=== PATIENT | female | born 1950 | race Caucasian/White ===

== ENCOUNTER → 2018-08-03 07:58 | Outpatient (CLI) | payer MEDICARE, SELFPAY ==
[2018-08-03 08:42] LABS: Hemoglobin A1C 6.7 % (0.0-7.0)
[2018-08-03 10:02] LABS: Alanine Aminotransferase 14 U/L (12-78); Albumin/Globulin Ratio 0.9 (1.1-1.8); Alkaline Phosphatase 151 U/L (46-116); Aspartate Amino Transferase 16 U/L (15-37); Bilirubin,Total 0.3 mg/dL (0.2-1.0); Blood Urea Nitrogen 16 mg/dL (7-18); Calcium 8.9 mg/dL (8.5-10.1); Carbon Dioxide 30 mmol/L (21.0-32.0); Chloride 102 mmol/L (98-107); Chol/HDL Ratio 3.1 (1-3.5); Cholesterol 173 mg/dL (140-200); Creatinine,Serum 0.89 mg/dL (0.55-1.02); Estimated Glomerular Filt Rate 63 ml/min (>60); GFR (African American) 77 ML/MIN (>60); Globulin 3.4 gm/dl (1.3-3.2); Glucose 114 mg/dL (74-106); HDL Cholesterol 56 mg/dL (29-89); LDL Cholesterol 93 mg/dL (0-130); Sodium 140 mmol/L (136-145); Total Protein,Serum 6.4 gm/dL (6.4-8.2); Triglycerides 121 mg/dL (30-200); VLDL Cholesterol 24 mg/dL (0-40)
== END ==
PROVIDERS: PCP Family Medicine; Visit Provider Family Medicine
DX: E11.9 Type 2 diabetes mellitus without complications (principal); I10 Essential (primary) hypertension; E78.5 Hyperlipidemia, unspecified
CPT/HCPCS: 36415; 80053; 80061; 83036

== ENCOUNTER → 2018-08-14 08:49 | Outpatient (CLI) | payer MEDICARE, SELFPAY ==
--- NOTE | 2018-08-14 08:55 | MM_ITS ---
MM Dig screening mamm BI w/CAD ORDERING PHYSICIAN : Abiodun Moon MD PATIENT AGE: 67 years GENDER: Female COMPARISON: Previous film screening mammogram from January INDICATION: ITS.REASON: SCREENING. No hormones. No new complaints. Noncontributory family history. Patient does note history of skin cancer/basal cell. TECHNIQUE: Standard CC and MLO images were obtained. R2 CAD reviewed. Left CC nipple profile view FINDINGS: Lower density breast. Minimal Fibroglandular elements with moderate diffuse fatty replacement. Scattered small stable intramammary lymph nodes lateral left and right breast are again noted. No new findings of significant concern. No suspicious nor dominant mass. No suspicious calcifications. Right breast. No significant new findings Area is noted at the lateral retroareolar on cc view were present in 2006 and appears stable today. Left breast., No significant new findings Ductal and fibroglandular elements most evident at left retroareolar region. . IMPRESSION: ... Stable bilateral mammogram. Follow-up in one year recommended. BI-RADS Category: 2 Benign Finding(s) RECOMMENDED FOLLOW-UP: 1YR 1 YEAR FOLLOW-UP (A letter has been sent to the patient regarding results of the study.)
== END ==
PROVIDERS: PCP Family Medicine; Visit Provider Family Medicine
DX: Z12.31 Encounter for screening mammogram for malignant neoplasm of breast (principal)
CPT/HCPCS: 77067

== ENCOUNTER → 2019-02-18 07:11 | Outpatient (CLI) | payer MEDICARE, SELFPAY ==
--- NOTE | 2019-02-18 08:49 | XR_ITS ---
XR DEXA axial skeleton HISTORY: ITS.REASON: POST MENOPAUSAL SCREENING ORDERING PHYSICIAN: Abiodun Moon MD PATIENT AGE: 68 years COMPARISON: None FINDINGS: The BMD measured at the left femoral neck is BMD 0.767 g/cm squared with a T score of -1.9. This is considered Osteopenic according to the World Health Organization criteria. Fracture risk is Moderate. Treatment is advised. L1 L4 density has a T score of 2.8 IMPRESSION: Osteopenia with moderate fracture risk. Treatment is advised. Suggest follow-up exam February 2021
[2019-02-18 09:23] LABS: Alanine Aminotransferase 21 U/L (12-78); Albumin/Globulin Ratio 0.9 (1.1-1.8); Alkaline Phosphatase 160 U/L (46-116); Anion Gap 12.9 mEq/L (5-15); Aspartate Amino Transferase 20 U/L (15-37); Bilirubin,Total 0.5 mg/dL (0.2-1.0); Blood Urea Nitrogen 8 mg/dL (7-18); Calcium 8.3 mg/dL (8.5-10.1); Carbon Dioxide 29 mmol/L (21.0-32.0); Chloride 100 mmol/L (98-107); Chol/HDL Ratio 3.4 (1-3.5); Cholesterol 134 mg/dL (140-200); Creatinine,Serum 1.03 mg/dL (0.55-1.02); Estimated Glomerular Filt Rate 53 ml/min (>60); GFR (African American) 64 ML/MIN (>60); Globulin 3.5 gm/dl (1.3-3.2); Glucose 101 mg/dL (74-106); HDL Cholesterol 39 mg/dL (29-89); LDL Cholesterol 69 mg/dL (0-130); Potassium 3.9 mmoL/L (3.5-5.1); Sodium 138 mmol/L (136-145); Total Protein,Serum 6.5 gm/dL (6.4-8.2); Triglycerides 129 mg/dL (30-200); VLDL Cholesterol 26 mg/dL (0-40)
== END ==
PROVIDERS: Visit Provider Family Medicine
DX: E11.9 Type 2 diabetes mellitus without complications (principal); I10 Essential (primary) hypertension; Z78.0 Asymptomatic menopausal state
CPT/HCPCS: 36415; 77080; 80053; 80061; 83036

== ENCOUNTER 2019-07-14 17:22 | Observation (INO) ==
[2019-07-14 19:08] LABS: Basophils % 0.5 % (0.1-2.0); Eosinophils # 0.2 K/mm3 (0.0-0.4); Eosinophils % 2.2 % (0.1-12.0); Hematocrit 38.3 % (37.0-47.0); Hemoglobin 11.4 g/dL (12.2-16.2); Lymphocytes # 2.1 K/mm3 (0.7-4.5); Lymphocytes % 29.7 % (10-50); Mean Corpuscular HGB Conc 29.8 g/dL (31.8-35.4); Mean Corpuscular Volume 83.1 fl (81-99); Monocytes # 0.5 K/mm3 (0.1-1.0); Monocytes % 6.6 % (1.7-9.3); Neutrophils # 4.3 K/mm3 (1.8-7.8); Platelet Count 309 K/mm3 (142-424); Red Cell Distribution Width 16.6 % (11.5-17.5)
[2019-07-14 20:32] LABS: Albumin/Globulin Ratio 0.8 (1.1-1.8); Anion Gap 10.1 mEq/L (5-15); Bilirubin,Total 0.5 mg/dL (0.2-1.0); Calcium 8.4 mg/dL (8.5-10.1); Globulin 3.9 gm/dl (1.3-3.2); Total Protein,Serum 6.9 gm/dL (6.4-8.2)
--- NOTE | 2019-07-14 21:18 | Emergency Department Note ---
ED Disposition Clinical Impression: Hypertensive emergency, Hypokalemia Disposition: Admitted as Observation Condition on Discharge: Good Referrals: Mackenzie Hernández APRN [Primary Care Provider] - - Critical Care Critical Care Time: No Attestation: On 07/14/19, the high probability of a clinically significant, sudden or life threatening deterioration of the following system(s) required my full and direct attention, intervention and personal management. The time I documented below is in addition to time spent performing reported procedures but includes the following listed in this critical care notation. Medical Decision Making - Medical Records Medical records reviewed: Yes: I reviewed the patient's medical records. - [place] Inquiry Pt receiving controlled substance: No Vital Signs: 07/14/19 17:56 07/14/19 19:01 07/14/19 19:04 Temperature 98.1 F Temperature Source Oral Pulse Rate [Right Radial] 64 63 Respiratory Rate 20 Blood Pressure [Right Arm] 196/88 H 193/79 H 170/105 H Blood Pressure Mean [Right Arm] 124 117 126 Blood Pressure Source [Right Arm] Manual Cuff/ Auscultation Blood Pressure Position [Right Arm] Sitting Sitting 02 Sat by Pulse Oximetry 96 97 Oxygen Delivery Method Room Air Room Air 07/14/19 20:40 07/14/19 21:39 Temperature Temperature Source Pulse Rate [Right Radial] 66 67 Respiratory Rate 20 18 Blood Pressure [Right Arm] 250/118 H 140/85 Blood Pressure Mean [Right Arm] 162 103 Blood Pressure Source [Right Arm] Manual Cuff/ Auscultation Manual Cuff/ Auscultation Blood Pressure Position [Right Arm] Supine Sitting 02 Sat by Pulse Oximetry 97 Oxygen Delivery Method Room Air - Lab Data Lab results reviewed: Yes: I reviewed the patient's lab results. Lab Results 07/14/19 18:35: WBC 7.0, RBC 4.60, Hgb 11.4 L, Hct 38.3, MCV 83.1, MCH 24.8 L, MCHC 29.8 L, RDW 16.6, Plt Count 309, MPV 9.0, Neut % (Auto) 61.0, Lymph % (Auto) 29.7, [place] % (Auto) 6.6, Eos % (Auto) 2.2, Baso % (Auto) 0.5, Neut # (Auto) 4.3, Lymph # (Auto) 2.1, [place] # (Auto) 0.5, Eos # (Auto) 0.2, Baso # (Auto) 0.0 07/14/19 18:35: Sodium 139, Potassium 3.1 L, Chloride 102, Carbon Dioxide 30, Anion Gap 10.1, BUN 5 L, Creatinine 0.92, Estimated Creat Clear 62, Estimated G FR 61, Est GFR ( Amer) 73, Glucose 112 H, Calcium 8.4 L, Total Bilirubin 0.5, AST 18, ALT 13, Alkaline Phosphatase 141 H, Total Protein 6.9, Albumin 3.0 L, Globulin 3.9 H, Albumin/Globulin Ratio 0.8 L 07/14/19 18:35: Troponin I < 0.02 Result diagrams: 07/14/19 18:35 07/14/19 18:35 Orders (Tests/Meds): ED MEDICATIONS Discontinued Medications Generic Name Dose Route Start Last Admin Trade Name Freq PRN Reason Stop Dose Admin Clonidine HCl 0.1 mg 07/14/19 21:09 07/14/19 21:13 Clonidine 0.1mg Tablet PO 07/14/19 21:10 0.1 mg ONCE ONE Administration Enalaprilat 1.25 mg 07/14/19 21:12 07/14/19 21:22 Vasotec 2.5mg/2ml Vial IV 07/14/19 21:13 1.25 mg ONCE ONE Administration ORDERS Category Date Time Status CT head/brain wo con Stat Cat Scan 07/14/19 18:10 Taken - Radiology Data #1 Image(s): Chest Image Reviewed: Yes I reviewed the patient's radiology image Preliminary Findings: Normal/NAD - CT Data CT Scan: Head Time Received: 22:[address] Reviewed: Yes: I have viewed the radiologist's interpretation Preliminary Findings: Abnormal - ECG Data Tracing #1 Normal Sinus Rhythm: Yes Ischemic changes: non-specific ST-T wave changes Weakness HPI - General Chief complaint: Weakness Stated complaint: High BP Time Seen by Provider: 07/14/19 20:00 Mode of Arrival: Ambulatory Source of Information: Patient, Relative, Medical Record Limitations: No Limitations Description of Symptoms (Recalled from ER Triage Doc. by RN): PT C/O ELEVATED BP AND LIGHT HEADED - History of Present Illness HPI Narrative: rt sided valdez and feeling weak and dizzyness with hx of elevated bp - hx of cva MD Complaint: generalized weakness Onset (ago): hour(s) Migration: none Severity: moderate Associated symptoms: denies other symptoms - Related Data Allergies Allergy/AdvReac Type Severity Reaction Status Date / Time hydrocortisone Allergy Unknown Unverified 09/25/17 14:28 [HYDROCORTISONE] lidocaine [LIDOCAINE] Allergy Unknown Unverified 09/25/17 14:28 PCN Allergy Unknown Uncoded 09/25/17 14:28 [facility] History - Hepatitis A Screen Drug use history?: No High risk sexual behaviors?: No History of sexually transmitted infection?: No Currently employed?: No Childcare worker?: No Do you have indoor plumbing?: Yes Do you have electricity?: Yes Attestation statement:: This patient has been screened for Hepatitis A risk factors. I have reviewed the patient's past medical history: Yes Medical History: Reports:: Diabetes Mellitus Type 2 - Social History Smoking Status: Never smoker Alcohol Intake: never Occupational Status: retired ROS Obtained: Yes All systems reviewed & no additional complaints - Constitutional Constitutional: Denies fever(s) - Eyes Eyes: Denies change in vision - ENT Ears, Nose, Mouth, and Throat: Denies sore throat - Cardiovascular Cardiovascular: Denies chest pain - Respiratory Respiratory: No cough - Gastrointestinal Gastrointestingal: Denies: abdominal pain - Genitourinary Female Genitourinary: Denies hematuria - Musculoskeletal Musculoskeletal: Denies joint pain - Integumentary/Breasts Skin/Breast: Denies rash - Neurologic Neurologic: Denies seizure-like activity Physical Exam - General General appearance: alert - Head Head exam: normocephalic - Eye Eye exam: Present: PERRL, EOMI - ENT ENT exam: Absent: mucous membranes moist - Neck Neck exam: Present: trachea midline - Respiratory Respiratory exam: Present: normal lung sounds bilaterally. Absent: respiratory distress - Cardiovascular Cardiovascular exam: Present: regular rate - Abdominal Exam Abdominal exam: Present: soft - Extremities Exam Extremities exam: Present: full ROM - Neurological Exam Neurological exam: Present: alert, oriented X3, CN II-XII intact. Absent: motor sensory deficit - Psychiatric Psychiatric exam: Present: normal affect - Skin Skin exam: Absent: rash
[2019-07-15 04:59] LABS: Basophils % 0.6 % (0.1-2.0); Eosinophils # 0.2 K/mm3 (0.0-0.4); Eosinophils % 2.2 % (0.1-12.0); Hematocrit 36.6 % (37.0-47.0); Lymphocytes # 1.9 K/mm3 (0.7-4.5); Lymphocytes % 26.9 % (10-50); Mean Corpuscular Volume 82.4 fl (81-99); Mean Platelet Volume 9.1 fl (7.4-10.4); Monocytes # 0.4 K/mm3 (0.1-1.0); Monocytes % 5.1 % (1.7-9.3); Neutrophils # 4.7 K/mm3 (1.8-7.8); Neutrophils % 65.2 % (37.0-80.0); Platelet Count 291 K/mm3 (142-424); Red Blood Count 4.45 M/mm3 (4.20-5.40); Red Cell Distribution Width 16.6 % (11.5-17.5); White Blood Count 7.1 K/mm3 (4.8-10.8)
[2019-07-15 05:06] LABS: Anion Gap 10.1 mEq/L (5-15); Calcium 8.3 mg/dL (8.5-10.1)
--- NOTE | 2019-07-15 07:58 | Pharmacy Consult Notes ---
[facility] Pharmacy VTE Monitoring - Patient Demographics Admission date: 07/14/19 Report Date: 07/15/19 Time: 07:58 Allergies/Adverse Reactions: Patient Allergies hydrocortisone [HYDROCORTISONE] Allergy (Unknown, Unverified 09/25/17 14:28) lidocaine [LIDOCAINE] Allergy (Unknown, Unverified 09/25/17 14:28) PCN Allergy (Unknown, Uncoded 09/25/17 14:28) Height: 1.63 m Weight: 84.397 kg Patient Problems: Current Active Problems Hypertensive emergency (Acute) Hypokalemia (Acute) - VTE Risk Labs: VTE Related Lab Results Hgb 11.0 g/dL (12.2-16.2) L 07/15/19 04:35 Hct 36.6 % (37.0-47.0) L 07/15/19 04:35 Plt Count 291 K/mm3 (142-424) 07/15/19 04:35 BUN 6 mg/dL (7-18) L 07/15/19 04:35 Creatinine 0.83 mg/dL (0.55-1.02) 07/15/19 04:35 Estimated Creat Clear 71 mL/min (50-200) 07/15/19 04:35 Was VTE Risk Assessment Performed: Yes VTE Score: 4 VTE Risk Level: Low Risk - Prophylaxis VTE Prophylaxis Ordered?: Yes Types of VTE Prophylaxis: TEDS Knee High Location of Applied Device: Bilateral Lower Extremeties - VTE Diagnosis Confirmed Treatment or plan recommended: Continue Current Treatment
--- NOTE | 2019-07-15 09:48 | History & Physical Report ---
*Admission Date: 07/14/19 <Naomy Rubalcava 07/15/19 09:50> *Chief complaint: High blood pressure <Naomy Rubalcava 07/15/19 09:50> *History of present illness: Ms. Quinonez is a 68-year-old female patient with a history of hypertension, gout, type 2 diabetes mellitus, tobacco use disorder, peptic ulcer disease, and stroke who presented to [facility] emergency room after being seen in the [facility] clinic with an elevated blood pressure. Patient describes her blood pressure being elevated throughout the day yesterday running with a systolic greater than 200 and diastolic greater than 100. She states she felt fine and went about her chores throughout the day without problems. She denies having chest pain, shortness of breath, nausea, heart palpitations, and generally felt as usual. She states she was being treated for upper respiratory infection with Ceftin and was feeling somewhat better over the past 4 days. She describes going to the [place] [employer] [place] on [place]2019 and noted elevated blood pressure throughout the day on 07/13/2019. With evaluation in the emergency room blood pressure again was noted to be elevated and she was admitted for further evaluation and treatment. CT of the head revealed no acute changes with an old infarct. This a.m. with exam patient is comfortable. She denies headache, chest pain, and shortness of breath. She was able to eat all of her breakfast. She states her blood sugars have been good. Troponin I has been normal x3 <Naomy Rubalcava 07/15/19 16:00> [facility] History Medical History: Reports:: Cerebrovascular Accident, Diabetes Mellitus Type 2, H yperlipidemia, Hypertension, Seizures, Transient Ischemic Attacks (TIA), Ulcer Denies:: Diabetes Mellitus Type 1, MRSA <RubalcavaNaomy 07/15/19 16:00> *Have you ever received a pneumonia vaccine?: Yes <Naomy Rubalcava 07/15/19 09:50> *Have you received a flu vaccine this season?: No <Naomy Rubalcava 07/15/19 09:50> Comment:: gout <Naomy Rubalcava 07/15/19 16:00> Laterality Cases: Right: Carotid Endarterectomy <Naomy Rubalcava 07/15/19 16:00> Other Surgeries: Yes: Hysterectomy-Total, Tubal Ligation <Rubalcava,Naomy 07/15/19 09:50> Amputation: No <RubalcavaNaomy butts 07/15/19 09:50> Fractures: No <Rubalcava,Naomy 07/15/19 09:50> - *Social History Educational Level: Completed High School <Rubalcava,Naomy 07/15/19 09:50> Smoking Status: Former smoker <GiniNaomy 07/15/19 09:50> Tobacco Type: cigarettes <Naomy Rubalcava 07/15/19 09:50> # Packs/Day (cigarettes): 1 <Naomy Rubalcava 07/15/19 09:50> #Yrs smoked (if former smoker): 40 <Naomy Rubalcava 07/15/19 09:50> Smoking End Date: 3 months ago <Naomy Rubalcava 07/15/19 09:50> Alcohol Intake: never <GiniNaomy 07/15/19 09:50> *Occupational Status:: retired <Naomy Rubalcava 07/15/19 09:50> Housing: house <RubalcavaNaomy butts 07/15/19 09:50> Household Members: spouse <Rubalcava,Naomy 07/15/19 09:50> *Travel in the last 8 weeks: None <Naomy Rubalcava 07/15/19 09:50> Family Hx:: Cancer, Diabetes, Heart Attack, Hypertension <GiniNaomy 07/15/19 09:50> Review of Systems - Constitutional Denies fatigue, Denies fever(s), Denies headache(s) <Naomy Rubalcava 07/15/19 16:00> - Eyes Denies blurry vision <Naomy Rubalcava 07/15/19 16:00> - ENT Denies ear pain, Denies headache(s), Denies sore throat <Naomy Rubalcava 07/15/19 16:00> - *Cardiovascular Denies chest pain, Denies shortness of breath, Denies irregular heart rhythm <Naomy Rubalcava 07/15/19 16:00> - *Respiratory Reports cough (Improved), Denies shortness of breath <Naomy Rubalcava 07/15/19 16:00> - *Gastrointestinal Denies abdominal pain, Denies constipation, Denies loose stools, Denies nausea, Denies vomiting <Naomy Rubalcava - 07/15/19 16:00> - *Genitourinary Denies difficulty urinating <Naomy Rubalcava - 07/15/19 16:00> - *Musculoskeletal Denies abnormal walking, Denies joint pain <Naomy Rubalcava - 07/15/19 16:00> Comments: Left-sided weakness residual from previous CVA <Naomy Rubalcava - 07/15/19 16:00> - *Neurologic Denies seizure-like activity <Naomy Rubalcava - 07/15/19 09:50> Comments: Left-sided weakness residual from previous CVA <Naomy Rubalcava - 07/15/19 16:00> Meds Home Medications Medication Instructions Recorded Confirmed Type Atorvastatin Calcium [Atorvastatin 80 mg PO HS 07/14/19 07/15/19 History 80mg Tab] Losartan Potassium 100 mg PO DAILY 07/14/19 07/15/19 History Metformin HCl 500 mg PO HS 07/14/19 07/15/19 History Metoprolol Tartrate [Lopressor 100 100 mg PO DAILY 07/14/19 07/15/19 History mg Tablets] Omeprazole [Omeprazole 40mg 40 mg PO DAILY 07/14/19 07/15/19 History Capsule] Amlodipine Besylate [Amlodipine 5 mg PO DAILY #30 tab 07/15/19 Rx 5mg tab] Aspirin [Aspir-Low] 81 mg PO DAILY 07/15/19 07/15/19 History Potassium Chloride [Micro-K 10mEq 10 meq PO DAILY #10 cap 07/15/19 Rx cap] cefUROXime axetil [Ceftin 500mg 500 mg PO BID 07/15/19 07/15/19 History Tab (GEQ)] <Lewis Genao - 07/15/19 17:07> Allergies Allergy/AdvReac Type Severity Reaction Status Date / Time hydrocortisone Allergy Unknown Unknown Unverified 07/15/19 10:08 [HYDROCORTISONE] allergy reaction lidocaine [LIDOCAINE] Allergy Unknown Unknown Unverified 07/15/19 10:08 allergy reaction Penicillins Allergy Unknown Verified 07/15/19 10:08 allergy reaction <Lewis Genao - 07/15/19 17:07> Exam Vital signs and Labs for Last 24 Hours: Temp Pulse Resp BP Pulse Ox 97.9 F 54 L 18 157/92 H 96 07/15/19 16:00 07/15/19 16:00 07/15/19 16:00 07/15/19 16:00 07/15/19 16:00 Laboratory Results - last 24 hr 07/14/19 18:35: WBC 7.0, RBC 4.60, Hgb 11.4 L, Hct 38.3, MCV 83.1, MCH 24.8 L, MCHC 29.8 L, RDW 16.6, Plt Count 309, MPV 9.0, Neut % (Auto) 61.0, Lymph % (Auto) 29.7, [place] % (Auto) 6.6, Eos % (Auto) 2.2, Baso % (Auto) 0.5, Neut # (Auto) 4.3, Lymph # (Auto) 2.1, [place] # (Auto) 0.5, Eos # (Auto) 0.2, Baso # (Auto) 0.0 07/14/19 18:35: Sodium 139, Potassium 3.1 L, Chloride 102, Carbon Dioxide 30, Anion Gap 10.1, BUN 5 L, Creatinine 0.92, Estimated Creat Clear 62, Estimated GFR 61, Est GFR ( Amer) 73, Glucose 112 H, Calcium 8.4 L, Total Bilirubin 0.5, AST 18, ALT 13, Alkaline Phosphatase 141 H, Total Protein 6.9, Albumin 3.0 L, Globulin 3.9 H, Albumin/Globulin Ratio 0.8 L 07/14/19 18:35: Troponin I < 0.02 07/15/19 01:35: Troponin I < 0.02 07/15/19 04:35: Troponin I < 0.02 07/15/19 04:35: WBC 7.1, RBC 4.45, Hgb 11.0 L, Hct 36.6 L, MCV 82.4, MCH 24.7 L, MCHC 30.0 L, RDW 16.6, Plt Count 291, MPV 9.1, Neut % (Auto) 65.2, Lymph % (Auto) 26.9, [place] % (Auto) 5.1, Eos % (Auto) 2.2, Baso % (Auto) 0.6, Neut # (Auto) 4.7, Lymph # (Auto) 1.9, [place] # (Auto) 0.4, Eos # (Auto) 0.2, Baso # (Auto) 0.0 07/15/19 04:35: Sodium 141, Potassium 3.1 L, Chloride 105, Carbon Dioxide 29, Anion Gap 10.1, BUN 6 L, Creatinine 0.83, Estimated Creat Clear 71, Estimated GFR 68, Est GFR ( Amer) 83, Glucose 115 H, Calcium 8.3 L, Magnesium 1.5 07/15/19 05:11: POC Glucose 106 07/15/19 10:53: POC Glucose 140 H 07/15/19 16:25: POC Glucose 108 <Lewis Genao - 07/15/19 17:07> Temp Pulse Resp BP Pulse Ox 97.9 F 58 L 18 185/72 H 95 07/15/19 08:00 07/15/19 08:00 07/15/19 08:00 07/15/19 08:00 07/15/19 08:00 Laboratory Results - last 24 hr 07/14/19 18:35: WBC 7.0, RBC 4.60, Hgb 11.4 L, Hct 38.3, MCV 83.1, MCH 24.8 L, MCHC 29.8 L, RDW 16.6, Plt Count 309, MPV 9.0, Neut % (Auto) 61.0, Lymph % (Auto) 29.7, [place] % (Auto) 6.6, Eos % (Auto) 2.2, Baso % (Auto) 0.5, Neut # (Auto) 4.3, Lymph # (Auto) 2.1, [place] # (Auto) 0.5, Eos # (Auto) 0.2, Baso # (Auto) 0.0 07/14/19 18:35: Sodium 139, Potassium 3.1 L, Chloride 102, Carbon Dioxide 30, Anion Gap 10.1, BUN 5 L, Creatinine 0.92, Estimated Creat Clear 62, Estimated GFR 61, Est GFR ( Amer) 73, Glucose 112 H, Calcium 8.4 L, Total Bilirubin 0.5, AST 18, ALT 13, Alkaline Phosphatase 141 H, Total Protein 6.9, Albumin 3.0 L, Globulin 3.9 H, Albumin/Globulin Ratio 0.8 L 07/14/19 18:35: Troponin I < 0.02 07/15/19 01:35: Troponin I < 0.02 07/15/19 04:35: Troponin I < 0.02 07/15/19 04:35: WBC 7.1, RBC 4.45, Hgb 11.0 L, Hct 36.6 L, MCV 82.4, MCH 24.7 L, MCHC 30.0 L, RDW 16.6, Plt Count 291, MPV 9.1, Neut % (Auto) 65.2, Lymph % (Auto) 26.9, [place] % (Auto) 5.1, Eos % (Auto) 2.2, Baso % (Auto) 0.6, Neut # (Auto) 4.7, Lymph # (Auto) 1.9, [place] # (Auto) 0.4, Eos # (Auto) 0.2, Baso # (Auto) 0.0 07/15/19 04:35: Sodium 141, Potassium 3.1 L, Chloride 105, Carbon Dioxide 29, Anion Gap 10.1, BUN 6 L, Creatinine 0.83, Estimated Creat Clear 71, Estimated GFR 68, Est GFR ( Amer) 83, Glucose 115 H, Calcium 8.3 L, Magnesium 1.5 07/15/19 05:11: POC Glucose 106 <Naomy Rubalcava - 07/15/19 09:50> I & O for Last 24 hours: Intake & Output 07/12/19 07/13/19 07/14/19 07/15/19 23:59 23:59 23:59 23:59 Intake Total 1343 / 1343 Output Total Balance 1342 / 1342 Weight 184 lb 3 oz 186 lb 1 [address] <[address],Lewis - 07/15/19 17:07> Intake & Output 07/12/19 07/13/19 07/14/19 07/15/19 11:59 11:59 11:59 11:59 Intake Total 983 / 983 Output Total Balance 982 / 982 Weight 186 lb 1 oz <Naomy Rubalcava - 07/15/19 09:50> Radiology Reports for the Last 24 Hours: CT of the head 07/14/2019 IMPRESSION: 1. No acute intracranial findings. 2. 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 Absent: conjunctival icterus, scleral injection <[facility] 07/15/19 16:00> ENT: Present: mucous membranes moist, oropharynx clear <[facility] 07/15/19 16:00> - *Routine Neck Exam Absent: lymphadenopathy, thyromegaly <[facility] 07/15/19 16:00> Comments: Unable to hear carotids <[facility] 07/15/19 16:00> - *Routine Respiratory Exam Present: crackles (Few bibasilar) <[facility] 07/15/19 16:00> - *Routine Cardiovascular Exam Present: RRR <[facility] 07/15/19 16:00> - *Routine Abdominal Exam Present: soft, normoactive bowel sounds, Carias Fuentes's sign. Absent: tenderness, distended <[facility] 07/15/19 16:00> - *Routine Extremities Exam Absent: edema, calf tenderness <[facility] 07/15/19 16:00> - *Routine Neurological Exam Present: alert, oriented X3 <[facility] 07/15/19 16:00> Assessment and Plan (1) Hypertensive emergency Current visit: Yes Status: Acute Category: Medical Code(s): I16.1 - Hypertensive emergency (2) Hypokalemia Current visit: Yes Status: Acute Category: Medical Code(s): E87.6 - Hypokalemia (3) Type 2 diabetes mellitus Current visit: Yes Status: Chronic Category: Medical Code(s): E11.9 - Type 2 diabetes mellitus without complications (4) URI (upper respiratory infection) Current visit: Yes Status: Acute Category: Medical Code(s): J06.9 - Acute upper respiratory infection, unspecified (5) History of CVA (cerebrovascular accident) Current visit: Yes Status: Chronic Category: Medical Code(s): Z86.73 - Personal history of transient ischemic attack (TIA), and cerebral infarction without residual deficits <Lewis Genao - 07/15/19 17:07> (1) Hypertensive emergency Current visit: Yes Status: Acute Category: Medical Code(s): I16.1 - Hypertensive emergency (2) Hypokalemia Current visit: Yes Status: Acute Category: Medical Code(s): E87.6 - Hypokalemia (3) Type 2 diabetes mellitus Current visit: Yes Status: Chronic Category: Medical Code(s): E11.9 - Type 2 diabetes mellitus without complications (4) URI (upper respiratory infection) Current visit: Yes Status: Acute Category: Medical Code(s): J06.9 - Acute upper respiratory infection, unspecified (5) History of CVA (cerebrovascular accident) Current visit: Yes Status: Chronic Category: Medical Code(s): Z86.73 - Personal history of transient ischemic attack (TIA), and cerebral infarction without residual deficits <Naomy Rubalcava - 07/15/19 14:34> - Assessment and plan all Dx Assessment and Plan for all problems:: Saw patient, agree with above note. <Lewis Genao - 07/15/19 17:07> We will continue to monitor blood pressure. Patient has been given p.o. potassium. She continues with Ceftin p.o. for her upper respiratory tract infection. Blood pressure medicines have been continued <Naomy Rubalcava - 07/15/19 16:00>
--- NOTE | 2019-07-15 17:02 | Progress Note ---
Internal Medicine - PN: Subj *Date: 07/15/19 *Time: 17:00 Interval history: Patient with no new complaints. She feels better this afternoon. She is anxious to go home. Exam Vital signs and Labs for Last 24 Hours: Temp Pulse Resp BP Pulse Ox 97.9 F 54 L 18 157/92 H 96 07/15/19 16:00 07/15/19 16:00 07/15/19 16:00 07/15/19 16:00 07/15/19 16:00 Laboratory Results - last 24 hr 07/14/19 18:35: WBC 7.0, RBC 4.60, Hgb 11.4 L, Hct 38.3, MCV 83.1, MCH 24.8 L, MCHC 29.8 L, RDW 16.6, Plt Count 309, MPV 9.0, Neut % (Auto) 61.0, Lymph % (Auto) 29.7, [place] % (Auto) 6.6, Eos % (Auto) 2.2, Baso % (Auto) 0.5, Neut # (Auto) 4.3, Lymph # (Auto) 2.1, [place] # (Auto) 0.5, Eos # (Auto) 0.2, Baso # (Auto) 0.0 07/14/19 18:35: Sodium 139, Potassium 3.1 L, Chloride 102, Carbon Dioxide 30, Anion Gap 10.1, BUN 5 L, Creatinine 0.92, Estimated Creat Clear 62, Estimated GFR 61, Est GFR ( Amer) 73, Glucose 112 H, Calcium 8.4 L, Total Bilirubin 0.5, AST 18, ALT 13, Alkaline Phosphatase 141 H, Total Protein 6.9, Albumin 3.0 L, Globulin 3.9 H, Albumin/Globulin Ratio 0.8 L 07/14/19 18:35: Troponin I < 0.02 07/15/19 01:35: Troponin I < 0.02 07/15/19 04:35: Troponin I < 0.02 07/15/19 04:35: WBC 7.1, RBC 4.45, Hgb 11.0 L, Hct 36.6 L, MCV 82.4, MCH 24.7 L, MCHC 30.0 L, RDW 16.6, Plt Count 291, MPV 9.1, Neut % (Auto) 65.2, Lymph % (Auto) 26.9, [place] % (Auto) 5.1, Eos % (Auto) 2.2, Baso % (Auto) 0.6, Neut # (Auto) 4.7, Lymph # (Auto) 1.9, [place] # (Auto) 0.4, Eos # (Auto) 0.2, Baso # (Auto) 0.0 07/15/19 04:35: Sodium 141, Potassium 3.1 L, Chloride 105, Carbon Dioxide 29, Anion Gap 10.1, BUN 6 L, Creatinine 0.83, Estimated Creat Clear 71, Estimated GFR 68, Est GFR ( Amer) 83, Glucose 115 H, Calcium 8.3 L, Magnesium 1.5 07/15/19 05:11: POC Glucose 106 07/15/19 10:53: POC Glucose 140 H 07/15/19 16:25: POC Glucose 108 I & O for Last 24 hours: Intake & Output 07/12/19 07/13/19 07/14/19 07/15/19 23:59 23:59 23:59 23:59 Intake Total 1343 / 1343 Output Total Balance 1342 / 1342 Weight 184 lb 3 oz 186 lb 1 oz Assessment and Plan (1) Hypertensive emergency Current visit: Yes Status: Acute Category: Medical Code(s): I16.1 - Hypertensive emergency (2) Hypokalemia Current visit: Yes Status: Acute Category: Medical Code(s): E87.6 - Hypokalemia (3) Type 2 diabetes mellitus Current visit: Yes Status: Chronic Category: Medical Code(s): E11.9 - Type 2 diabetes mellitus without complications (4) URI (upper respiratory infection) Current visit: Yes Status: Acute Category: Medical Code(s): J06.9 - Acute upper respiratory infection, unspecified (5) History of CVA (cerebrovascular accident) Current visit: Yes Status: Chronic Category: Medical Code(s): Z86.73 - Personal history of transient ischemic attack (TIA), and cerebral infarction without residual deficits - Assessment and plan all Dx Assessment and Plan for all problems:: OK to discharge now with office f/u in 1 week, cont. Amlodipine and potassium.
--- NOTE | 2019-07-15 18:35 | Electrocardiograph Report ---
APPROVED REPORT Exam: Resting ECG HR:61 bpm ECG Measurements Heart Rate 61 AXES NC 176 P 37 QRSd 96 QRS 67 QT 412 T54 QTc 414 <Conclusion> Normal sinus rhythm Normal ECG Electronically signed by : Dl Mcdermott, 07/15/2019 18:35:13
--- NOTE | 2019-07-16 16:12 | Discharge Summary ---
General - General Admission date:: 07/14/19 Discharge date: 07/15/19 HPI HPI: Ms. Quinonez is a 68-year-old female patient with a history of hypertension, gout, type 2 diabetes mellitus, tobacco use disorder, peptic ulcer disease, and stroke who presented to [facility] emergency room after being seen in the [facility] clinic with an elevated blood pressure. Patient described her blood pressure as being elevated throughout the day yesterday running with a systolic greater than 200 and diastolic greater than 100. She stated she felt fine and went about her chores throughout the day without problems. She denied having chest pain, shortness of breath, nausea, heart palpitations, and generally felt as usual. She stated she was being treated for upper respiratory infection with Ceftin and was feeling somewhat better over the past 4 days. She described going [place] [employer] [place] and noted elevated blood pressure throughout the day on 07/13/2019. With evaluation in the emergency room blood pressure again was noted to be elevated and she was admitted for further evaluation and treatment. CT of the head revealed no acute changes with an old infarct. The following a.m. with exam patient was comfortable. She denied headache, chest pain, and shortness of breath. She was able to eat all of her breakfast. She stated her blood sugars had been good. Troponin I was normal x3 Hospital Course Hospital Course: After admission patient continued with her metoprolol and losartan for her blood pressure. Her blood pressure did remain satisfactory. Potassium was added for her hypokalemia and she was placed on sliding scale insulin. On 07/15/2019 she did well and felt better. She was asymptomatic and blood pressure remained stable. In the p.m. she was discharged home in stable and satisfactory condition was to continue with losartan, metoprolol, and amlodipine was added. She was also to continue with her potassium. Follow-up in 1 week in the office of [facility]. Objective Vital signs: Temp Pulse Resp BP Pulse Ox 97.9 F 54 L 18 157/92 H 96 07/15/19 16:00 07/15/19 16:00 07/15/19 16:00 07/15/19 16:00 07/15/19 16:00 Narrative: Exam Vital signs and Labs for Last 24 Hours: Temp Pulse Resp BP Pulse Ox 97.9 F 54 L 18 157/92 H 96 07/15/19 16:00 07/15/19 16:00 07/15/19 16:00 07/15/19 16:00 07/15/19 16:00 Laboratory Results - last 24 hr 07/14/19 18:35: WBC 7.0, RBC 4.60, Hgb 11.4 L, Hct 38.3, MCV 83.1, MCH 24.8 L, MCHC 29.8 L, RDW 16.6, Plt Count 309, MPV 9.0, Neut % (Auto) 61.0, Lymph % (Au to) 29.7, Martin % (Auto) 6.6, Eos % (Auto) 2.2, Baso % (Auto) 0.5, Neut # (Auto) 4.3, Lymph # (Auto) 2.1, Martin # (Auto) 0.5, Eos # (Auto) 0.2, Baso # (Auto) 0.0 07/14/19 18:35: Sodium 139, Potassium 3.1 L, Chloride 102, Carbon Dioxide 30, Anion Gap 10.1, BUN 5 L, Creatinine 0.92, Estimated Creat Clear 62, Estimated GFR 61, Est GFR ( Amer) 73, Glucose 112 H, Calcium 8.4 L, Total Bilirubin 0.5, AST 18, ALT 13, Alkaline Phosphatase 141 H, Total Protein 6.9, Albumin 3.0 L, Globulin 3.9 H, Albumin/Globulin Ratio 0.8 L 07/14/19 18:35: Troponin I < 0.02 07/15/19 01:35: Troponin I < 0.02 07/15/19 04:35: Troponin I < 0.02 07/15/19 04:35: WBC 7.1, RBC 4.45, Hgb 11.0 L, Hct 36.6 L, MCV 82.4, MCH 24.7 L, MCHC 30.0 L, RDW 16.6, Plt Count 291, MPV 9.1, Neut % (Auto) 65.2, Lymph % (Auto) 26.9, Martin % (Auto) 5.1, Eos % (Auto) 2.2, Baso % (Auto) 0.6, Neut # (Auto) 4.7, Lymph # (Auto) 1.9, Martin # (Auto) 0.4, Eos # (Auto) 0.2, Baso # (Auto) 0.0 07/15/19 04:35: Sodium 141, Potassium 3.1 L, Chloride 105, Carbon Dioxide 29, Anion Gap 10.1, BUN 6 L, Creatinine 0.83, Estimated Creat Clear 71, Estimated GFR 68, Est GFR ( Amer) 83, Glucose 115 H, Calcium 8.3 L, Magnesium 1.5 07/15/19 05:11: POC Glucose 106 07/15/19 10:53: POC Glucose 140 H 07/15/19 16:25: POC Glucose 108 <Lewis Genao - 07/15/19 17:07> Temp Pulse Resp BP Pulse Ox 97.9 F 58 L 18 185/72 H 95 07/15/19 08:00 07/15/19 08:00 07/15/19 08:00 07/15/19 08:00 07/15/19 08:00 Laboratory Results - last 24 hr 07/14/19 18:35: WBC 7.0, RBC 4.60, Hgb 11.4 L, Hct 38.3, MCV 83.1, MCH 24.8 L, MCHC 29.8 L, RDW 16.6, Plt Count 309, MPV 9.0, Neut % (Auto) 61.0, Lymph % (Auto) 29.7, Martin % (Auto) 6.6, Eos % (Auto) 2.2, Baso % (Auto) 0.5, Neut # (Auto) 4.3, Lymph # (Auto) 2.1, Martin # (Auto) 0.5, Eos # (Auto) 0.2, Baso # (Auto) 0.0 07/14/19 18:35: Sodium 139, Potassium 3.1 L, Chloride 102, Carbon Dioxide 30, Anion Gap 10.1, BUN 5 L, Creatinine 0.92, Estimated Creat Clear 62, Estimated GFR 61, Est GFR ( Amer) 73, Glucose 112 H, Calcium 8.4 L, Total Bilirubin 0.5, AST 18, ALT 13, Alkaline Phosphatase 141 H, Total Protein 6.9, Albumin 3.0 L, Globulin 3.9 H, Albumin/Globulin Ratio 0.8 L 07/14/19 18:35: Troponin I < 0.02 07/15/19 01:35: Troponin I < 0.02 07/15/19 04:35: Troponin I < 0.02 07/15/19 04:35: WBC 7.1, RBC 4.45, Hgb 11.0 L, Hct 36.6 L, MCV 82.4, MCH 24.7 L, MCHC 30.0 L, RDW 16.6, Plt Count 291, MPV 9.1, Neut % (Auto) 65.2, Lymph % (Auto) 26.9, Martin % (Auto) 5.1, Eos % (Auto) 2.2, Baso % (Auto) 0.6, Neut # (Auto) 4.7, Lymph # (Auto) 1.9, Martin # (Auto) 0.4, Eos # (Auto) 0.2, Baso # (Auto) 0.0 07/15/19 04:35: Sodium 141, Potassium 3.1 L, Chloride 105, Carbon Dioxide 29, Anion Gap 10.1, BUN 6 L, Creatinine 0.83, Estimated Creat Clear 71, Estimated GFR 68, Est GFR ( Amer) 83, Glucose 115 H, Calcium 8.3 L, Magnesium 1.5 07/15/19 05:11: POC Glucose 106 <Naomy Rubalcava - 07/15/19 09:50> I & O for Last 24 hours: Intake & Output 07/12/19 07/13/19 07/14/19 07/15/19 23:59 23:59 23:59 23:59 Intake Total 1343 / 1343 Output Total Balance 1342 / 1342 Weight 184 lb 3 oz 186 lb 1 oz <[place],Lewis - 07/15/19 17:07> Intake & Output 07/12/19 07/13/19 07/14/19 07/15/19 11:59 11:59 11:59 11:59 Intake Total 983 / 983 Output Total Balance 982 / 982 Weight 186 lb 1 oz <Naomy Rubalcava - 07/15/19 09:50> Radiology Reports for the Last 24 Hours: CT of the head 07/14/2019 IMPRESSION: 1. No acute intracranial findings. 2. 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 Absent: conjunctival icterus, scleral injection [facility] 16:00> ENT: Present: mucous membranes moist, oropharynx clear <[facility] 07/15/19 16:00> - *Routine Neck Exam Absent: lymphadenopathy, thyromegaly <[facility] 07/15/19 16:00> Comments: Unable to hear carotids <[facility] 07/15/19 16:00> - *Routine Respiratory Exam Present: crackles (Few bibasilar) <Rubalcava,[facility] 07/15/19 16:00> - *Routine Cardiovascular Exam Present: RRR <[facility] 07/15/19 16:00> - *Routine Abdominal Exam Present: soft, normoactive bowel sounds, Carias Fuentes's sign. Absent: tenderness, distended <Rubalcava,[facility] 07/15/19 16:00> - *Routine Extremities Exam Absent: edema, calf tenderness <Rubalcava,[facility] 07/15/19 16:00> - *Routine Neurological Exam Present: alert, oriented X3 <[facility]/15/19 16:00> Results Completed studies during hospitalization [Text1]: 07/14/19 CT of the head IMPRESSION: 1. No acute intracranial findings. 2. 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 Labs on day of discharge: Labs from last 24 hours 07/15/19 16:25 POC Glucose 108 DS: Diagnosis - Discharge Diagnosis (1) Hypertensive emergency Status: Acute (2) Hypokalemia Status: Acute (3) Type 2 diabetes mellitus Status: Chronic (4) URI (upper respiratory infection) Status: Acute (5) History of CVA (cerebrovascular accident) Status: Chronic Discharge Plan - Patient Discharge Instructions ACTIVITY: Continue current activity DIET: continue same diet Patient Instructions: Essential Hypertension, DI for Hypokalemia - Follow up Plan Follow up with: Abiodun Moon MD [Staff Physician] - 1 week Disposition: Home, Self-Intermediate Medications: Home Medications Medication Instructions Recorded Confirmed Type Atorvastatin Calcium [Atorvastatin 80 mg PO HS 07/14/19 07/15/19 History 80mg Tab] Losartan Potassium 100 mg PO DAILY 07/14/19 07/15/19 History Metformin HCl 500 mg PO HS 07/14/19 07/15/19 History Metoprolol Tartrate [Lopressor 100 100 mg PO DAILY 07/14/19 07/15/19 History mg Tablets] Omeprazole [Omeprazole 40mg 40 mg PO DAILY 07/14/19 07/15/19 History Capsule] Amlodipine Besylate [Amlodipine 5 mg PO DAILY #30 tab 07/15/19 Rx 5mg tab] Aspirin [Aspir-Low] 81 mg PO DAILY 07/15/19 07/15/19 History Potassium Chloride [Micro-K 10mEq 10 meq PO DAILY #10 cap 07/15/19 Rx cap] cefUROXime axetil [Ceftin 500mg 500 mg PO BID 07/15/19 07/15/19 History Tab (GEQ)] Prescriptions/Medication Reconciliation: New Amlodipine Besylate [Amlodipine 5mg tab] 5 mg PO DAILY #30 tab Potassium Chloride [Micro-K 10mEq cap] 10 meq PO DAILY #10 cap Continued Metformin HCl 500 mg PO HS Losartan Potassium 100 mg PO DAILY Atorvastatin Calcium [Atorvastatin 80mg Tab] 80 mg PO HS Omeprazole [Omeprazole 40mg Capsule] 40 mg PO DAILY Metoprolol Tartrate [Lopressor 100 mg Tablets] 100 mg PO DAILY Aspirin [Aspir-Low] 81 mg PO DAILY cefUROXime axetil [Ceftin 500mg Tab (GEQ)] 500 mg PO BID - Problem Reconciliation Problems Reviewed?: Yes
== END 2019-07-15 17:50 | disposition home or self-care (01) ==
LOC: ER 17:22 → 2ND 17:22
PROVIDERS: ADMIT Emergency Medicine; ATTEND Family Medicine
DX: E11.9 Type 2 diabetes mellitus without complications; Z86.73 Personal history of transient ischemic attack (TIA), and cerebral infarction without residual deficits; Z72.0 Tobacco use; J06.9 Acute upper respiratory infection, unspecified; Z87.19 Personal history of other diseases of the digestive system; E87.6 Hypokalemia; Z88.8 Allergy status to other drugs, medicaments and biological substances; M10.9 Gout, unspecified; I16.1 Hypertensive emergency
CPT/HCPCS: 36415; 70450; 71020; 71046; 80048; 80053; 82962; 83735; 84484; 85025; 93005; 96374; 99284; G0378; J3490

== ENCOUNTER → 2020-02-17 08:44 | Outpatient (CLI) | payer MEDICARE, SELFPAY ==
--- NOTE | 2020-02-17 08:50 | MM_ITS ---
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 R2 CAD reviewed. Bilateral digital breast tomosynthesis included. Additional nipple profile CC view left breast included FINDINGS: . [id number] scattered residual fibroglandular elements most evident retroareolar region and towards upper-outer quadrant.No significant new findings. , no dominant nor suspicious new mass or densities the, no suspicious calcifications. Left breast: No new findings. Small 5 mm stable benign intramammary nodes superior breast again noted and unchanged since previous studies Right breast no new findings of significant concern. Again small benign intramammary nodes and densities seen at right breast stable since prior studies Bilateral Follow-up in 1 year recommended IMPRESSION: Stable bilateral mammogram. No new areas of concern BI-RAD Category: 2 Benign Finding(s) FOLLOW-UP: 1YR 1 Year Follow-up (A letter has been sent to the patient regarding results of the study.) The the Dictated by: Darrin Ybarra MD 02/23/2020 10:08 Electronically signed by Darrin Ybarra MD in [place] 02/23/2020 10:08
== END ==
PROVIDERS: PCP Family Medicine; Visit Provider Family Medicine
DX: Z12.31 Encounter for screening mammogram for malignant neoplasm of breast (principal)
CPT/HCPCS: 77063; 77067

== ENCOUNTER 2020-10-26 09:05 | Emergency (ER) | payer MEDICARE, SELFPAY ==
[2020-10-26 09:20] VITALS: BP 136/78; PULSE 76; RESP 18; TEMP 36.6; O2SAT 98; BMI 31.0
--- NOTE | 2020-10-26 09:50 | [facility].EDUTC ---
[facility] [place] Clinical Impression: Exposure to COVID-19 virus Disposition: Home, Self-Care Condition on Discharge: Good Instructions: DI for COVID-19 (Suspected or Confirmed ), Coronavirus Disease 2019, Preventing the Spread of Coronavirus Discharge Instructions Additional Instructions: *Monitor Temp, Over the counter Motrin or Tylenol as directed/as needed Tylenol every 4 hours and Motrin every 6 hours (as long as your family doctor has told you that you can take it) for fever or pain. and straight to ER if unable to lower temp less than 101.0 after medication given Follow up IMMEDIATELY for new or worsening symptoms or no Noticeable improvement over the next 48-72 hours. 911 for difficulty breathing or swallowing You were tested for today for COVID19 your test result should be back in the next 24-48 hours, you may call to the [facility] to see if your test results are back in the next 48 hours [phone] [facility] hours are 9am-9pm You was given a handout with instructions for Self Quarantine and Self isolation for while you wait on test results and what to do if they are positive If you are positive the Health Dept will be contacting you also Referrals: Abiodun Moon MD [Primary Care Provider] - As needed Time of Disposition: 09:53 Medical Decision Making - [place] Inquiry Pt receiving controlled substance: No [place] was queried for this patient: No Vital Signs: 10/26/20 09:20 Temperature 97.8 F Temperature Source Oral Pulse Rate [Right Brachial] 76 Respiratory Rate 18 Blood Pressure [Right Arm] 136/78 Blood Pressure Mean [Right Arm] 97 Blood Pressure Source [Right Arm] Automatic Cuff Blood Pressure Position [Right Arm] Sitting 02 Sat by Pulse Oximetry 98 Oxygen Delivery Method Room Air Orders (Tests/Meds): ORDERS Category Date Time Status Covid-19 Nasal PCR Sendout P&C Stat Lab 10/26/20 09:09 [place]dered [facility] [place] - General Stated complaint: Covid Test Time Seen by Provider: 10/26/20 09:51 Mode of Arrival: Ambulatory Source of Information: Patient Limitations: No Limitations Description of Symptoms (Recalled from Triage Doc. by RN): COVID D/T EXPOSURE; DENIES SYMPTOMS HEENT Symptoms (Recalled from RN notes): No Resp Symptoms (Recalled from RN notes): No Skin Symptoms (Recalled from RN notes): No MS Symptoms (Recalled from RN notes): No Functional Status (Recalled from RN notes): WNL - History of Present Illness Provider Complaint: Patient state that she was at [employer] last Sunday and has since found out that someone that she was around there has tested positive for COVID States that she is not having any symptoms but wanted to get tested - Related Data Home Medications Medication Instructions Recorded Confirmed Atorvastatin Calcium [Lipitor 80mg 80 mg PO HS 07/14/19 07/15/19 Tab] Losartan Potassium 100 mg PO DAILY 07/14/19 07/15/19 Metformin HCl 500 mg PO HS 07/14/19 07/15/19 Metoprolol Tartrate [Lopressor 100 100 mg PO DAILY 07/14/19 07/15/19 mg Tablets] Omeprazole [Omeprazole 40mg 40 mg PO DAILY 07/14/19 07/15/19 Capsule] Aspirin [Aspir-Low] 81 mg PO DAILY 07/15/19 07/15/19 cefUROXime axetiL [Ceftin 500mg 500 mg PO BID 07/15/19 07/15/19 Tab (GEQ)] Previous Rx's Medication Instructions Recorded Amlodipine Besylate [Amlodipine 5 mg PO DAILY #30 tab 07/15/19 5mg tab] Potassium Chloride [Micro-K 10mEq 10 meq PO DAILY #10 cap 07/15/19 cap] Allergies Allergy/AdvReac Type Severity Reaction Status Date / Time hydrocortisone Allergy Unknown Unknown Verified 10/26/20 09:50 [HYDROCORTISONE] allergy reaction lidocaine [LIDOCAINE] Allergy Unknown Unknown Verified 10/26/20 09:50 allergy reaction Penicillins Allergy Unknown Verified 07/15/19 10:08 allergy reaction - Worker's Comp Is this a Worker's Comp case?: No [facility] History - Hepatitis A Screen Drug use history?: No High risk sexual behaviors?: No
[2020-10-26 09:51] VITALS: BP 136/78; PULSE 76; RESP 18; TEMP 36.6; O2SAT 98
[2020-10-27 08:44] LABS: Covid-19 Nasal PCR Sendout P&C NEGATIVE
== END 2020-10-26 09:55 | disposition home or self-care (01) ==
PROVIDERS: Emergency Provider Nurse Practitioner; PCP Family Medicine
DX: Z20.822 Contact with and (suspected) exposure to COVID-19 (principal); E11.9 Type 2 diabetes mellitus without complications; E78.5 Hyperlipidemia, unspecified; I10 Essential (primary) hypertension; Z86.73 Personal history of transient ischemic attack (TIA), and cerebral infarction without residual deficits; Z88.0 Allergy status to penicillin; Z87.891 Personal history of nicotine dependence
CPT/HCPCS: G0463; 99202; U0004

== ENCOUNTER 2021-06-23 16:17 | Inpatient (IN) | payer MEDICARE, SELFPAY ==
[2021-06-23] VITALS (23 sets, daily range): BP systolic 86–164; BP diastolic 42–77; PULSE 67–97; RESP 15–40; TEMP 36–36.6; O2SAT 56–100; BMI 26.4; BMI 32.8
--- NOTE | 2021-06-23 16:27 | XR_ITS ---
PROCEDURE INFORMATION: Exam: XR Chest Exam date and time: 06/23/2021 4:27 PM Age: 70 years old Clinical indication: Device placement; Patient HX: Patient just had et and og tube placed and started on ventilator. Critical condition. ; Additional info: Cough TECHNIQUE: Imaging protocol: XR of the chest. Views: 1 view. COMPARISON: CR XR CHEST 2V 07/14/2019 7:00 PM FINDINGS: Tubes, catheters and devices: ET tube is positioned with tip approximately 1.8 cm above the gary. Enteric catheter descends beyond the inferior margin of the radiograph. Lungs: Opacities in the left lower lung may reflect atelectasis or pneumonitis. Pleural spaces: No pleural effusion. No pneumothorax detected. Heart/Mediastinum: Unremarkable. No cardiomegaly. Bones/joints: Unremarkable. IMPRESSION: 1. ET tube is positioned with tip approximately 1.8 cm above the gary. 2. Opacities in the left lower lung may reflect atelectasis or pneumonitis. 3. No pleural effusion.
[2021-06-23 17:09] LABS: Influenza A, PCR Not Detected (NotDetected); Influenza B, PCR Not Detected (NotDetected)
[2021-06-23 17:14] LABS: Basophils # 0.1 K/mm3 (0-0.2); Basophils % 0.4 % (0.1-2.0); Eosinophils % 0.2 % (0.1-12.0); Hematocrit 40.7 % (37.0-47.0); Hemoglobin 13.4 g/dL (12.2-16.2); Lymphocytes # 1.2 K/mm3 (0.7-4.5); Lymphocytes % 10.1 % (10-50); Mean Corpuscular HGB Conc 32.9 g/dL (31.8-35.4); Mean Corpuscular Hemoglobin 28.6 pg (27.0-31.2); Mean Corpuscular Volume 86.8 fl (81-99); Mean Platelet Volume 10.5 fl (7.4-10.4); Monocytes # 0.7 K/mm3 (0.1-1.0); Monocytes % 5.9 % (1.7-9.3); Neutrophils # 9.5 K/mm3 (1.8-7.8); Neutrophils % 83.3 % (37.0-80.0); Platelet Count 337 K/mm3 (142-424); Red Blood Count 4.69 M/mm3 (4.20-5.40); Red Cell Distribution Width 15.8 % (11.5-17.5); White Blood Count 11.4 K/mm3 (4.8-10.8)
[2021-06-23 17:18] LABS: Chloride 81 mmol/L (98-107); Sodium 121 mmol/L (136-145)
[2021-06-23 17:20] LABS: Blood Urea Nitrogen 35 mg/dl (7-17); Estimated Glomerular Filt Rate 30 ml/min (>60); GFR (African American) 36 ML/MIN (>60)
[2021-06-23 17:21] LABS: Alanine Aminotransferase 28 U/L (12-78); Albumin Level 3.2 g/dl (3.5-5.0); Albumin/Globulin Ratio 0.8 (1.1-1.8); Alkaline Phosphatase 177 U/L (38-126); Anion Gap 18.4 mEq/L (5-15); Aspartate Amino Transferase 55 U/L (14-36); Bilirubin,Total 1.1 mg/dl (0.2-1.3); Carbon Dioxide 24 mmol/L (22.0-30.0); Globulin 3.8 g/dL (1.3-3.2)
[2021-06-23 17:22] LABS: Activated Partial Thrombo Time 34.7 seconds (22.8-30.6); Calcium 8.3 mg/dl (8.4-10.2); Glucose 206 mg/dl (74-100); Lactic Acid 4.6 mmol/L (0.7-2.1); Prothrombin Time 11.7 seconds (10.1-12.5)
[2021-06-23 17:23] LABS: Potassium 2.4 mmoL/L (3.5-5.1)
--- NOTE | 2021-06-23 17:25 | PC.NURSE ---
PT arrived to room 8 with complaints of SOA. Pt brought back to room 8 in w/c per registration. Went in to assess pt and noticed she was very SOA and with pursed lip breathing.Checked pt's O2 sats and it read 56% on room air. Pt immediately moved to room 1. Clothing removed and placed on monitor which continued to show sats in the 50's-60's. Pt placed on NRB and resp immediately notified we needed bipap stat. STEPHANIE Leal was establishing IV access at this time. MD was at bedside. Pt placed on bipap, pt continued to struggle for air. Sats increased to 80's. MD made decision to intubate patient at this time. Discussed immediately with daughter and advised pt of what was going on. RSI kit was pulled. MD ordered 100mg of ketamine, 100mg of tiffany, and 100mg of fentanyl were drawn up and confirmed with STEPHANIE Leal. MD at head of bed with 7.5 ET tube, resp at bedside bagging patient. PT given 100mg of ketamine, followed by 100mg of tiffany. MD intubated pt with no issues. 100mcg of fentanyl given after intubation. Lung sounds clear and equal bilaterally and there was color changed noted on the CO2 detector. Tube secured. 16 Taiwanese OG inserted along with malik cath. Dipirvan drip started at 15mcg/kg, 2 liters of fluids also running. HOB elevated to 30 degrees and pt covered with blankets. Vent settings are at TV:440, Resp rate 18, PEEP of 6.
[2021-06-23 17:26] LABS: INR 0.99 (0.9-1.1)
--- NOTE | 2021-06-23 17:28 | PC.NURSE ---
notified ER of critical lactic acid and potassium levels
[2021-06-23 17:31] LABS: Microscopic, Urine URINE MICROSCOPIC (MICROSCOPIC)
[2021-06-23 17:32] LABS: NT Pro Brain Natriuretic Pep. 936 pg/mL (0-125)
[2021-06-23 17:33] LABS: Coronavirus 19, PCR Detected (NotDetected)
[2021-06-23 17:35] LABS: Troponin I 0.04 ng/ml (0.00-0.034)
[2021-06-23 17:38] LABS: Appearance,Urine SL CLOUDY (Clear); Bilirubin,Urine Negative (Negative); Blood, Urine 2+ (Negative); Color,Urine YELLOW (Yellow); Glucose,Urine (UA) Negative (Negative); Ketones,Urine Negative (Negative); Leukocyte Esterase,Urine Negative (Negative); Nitrate,Urine Negative (Negative); Protein,Urine 1+ (Negative)
[2021-06-23 17:52] LABS: Thyroid Stimulating Hormone 0.93 uIU/mL (0.465-4.68)
[2021-06-23 18:06] LABS: Bacteria,Urine Trace /lpf; Squamous Epithelial Cell,Urine Occasional #/hpf (0-5); WBC,Urine Occasional #/hpf (0-3)
[2021-06-23 18:16] LABS: ABG Base Excess -2.5 mmol/L (-2.4-2.3); ABG HCO3 21.9 mmhg (22.0-26.0); ABG Oxygen Saturation 100 % (90-100); ABG PCO2 34.4 mmhg (35.0-45.0); ABG PH 7.42 mmol/L (7.35-7.45); ABG PO2 201.8 mmhg (80-100)
--- NOTE | 2021-06-23 18:17 | PC.NURSE ---
spoke with for admission. Dr. Genao agreeable to admission. [place] notified
[2021-06-23 18:19] LABS: Allen's Test Patient Unable; Oxygen 100 %; PEEP 6; Source Right Brachial; Tidal Volume 440; Vent Rate 18
--- NOTE | 2021-06-23 18:36 | PC.NURSE ---
Spoke with Emre from [facility] and confirmed vanc dosing. He advised to give 1250mg loading dose to start and he would work up the rest for admission.
--- NOTE | 2021-06-23 19:05 | HMH.EDSOB ---
ED Disposition Clinical Impression: Acute respiratory failure with hypoxia, Pneumonia due to COVID-19 virus, Hypokalemia, Acute kidney injury Type 2 diabetes mellitus Qualifiers: Diabetes mellitus extermination supervisor insulin use: with extermination supervisor use Diabetes mellitus complication status: without complication Qualified Code(s): E11.9 - Type 2 diabetes mellitus without complications; Z79.4 - correction (current) use of insulin Disposition: Admitted As Inpatient Condition on Discharge: Critical Referrals: Abiodun Moon MD [Primary Care Provider] - - Critical Care Critical Care Time: Yes Attestation: On 06/23/21, the high probability of a clinically significant, sudden or life threatening deterioration of the following system(s) required my full and direct attention, intervention and personal management. The time I documented below is in addition to time spent performing reported procedures but includes the following listed in this critical care notation. Total Critical Care Time: 45 Vital system(s) involved:: Circulatory Failure, Metabolic Failure, Respiratory Failure My critical care processes included: Assessment & monitoring of V/S, Initial and Re-exams, Data Review/Interpretation, Medication Orders and management Medical Decision Making - Medical Records Medical records reviewed: Yes: I reviewed the patient's medical records. - [place] Inquiry Pt receiving controlled substance: No Vital Signs: 06/23/21 17:30 Respiratory Rate 18 02 Sat by Pulse Oximetry 100 - Lab Data Lab Results 06/23/21 16:27: Specimen Source Right brachial, O2 % 100, ABG pH 7.42, ABG pCO2 34.4 L, ABG pO2 201.8 H, ABG HCO3 21.9 L, ABG Total CO2 23.0, ABG O2 Saturation 100, ABG Base Excess -2.5 L, Josemanuel Test Patient unable, Vent Rate 18, Tidal Volume 440, PEEP 6 06/23/21 16:30: WBC 11.4 H, RBC 4.69, Hgb 13.4, Hct 40.7, MCV 86.8, MCH 28.6, MCHC 32.9, RDW 15.8, Plt Count 337, MPV 10.5 H, Neut % (Auto) 83.3 H, Lymph % (Auto) 10.1, [place] % (Auto) 5.9, Eos % (Auto) 0.2, Baso % (Auto) 0.4, Neut # (Auto) 9.5 H, Lymph # (Auto) 1.2, [place] # (Auto) 0.7, Eos # (Auto) 0.0, Baso # (Auto) 0.1 06/23/21 16:30: PT 11.7, INR 0.99, APTT 34.7 H 06/23/21 16:30: Sodium 121 L, Potassium 2.4 L*, Chloride 81 L, Carbon Dioxide 24, Anion Gap 18.4 H, BUN 35 H, Creatinine 1.70 H, Estimated GFR 30 L, Est GFR ( Amer) 36 L, Glucose 206 H, Calcium 8.3 L, Total Bilirubin 1.1, AST 55 H, ALT 28, Alkaline Phosphatase 177 H, Troponin I 0.04 H, NT-Pro-B Natriuret Pep 936 H, Total Protein 7.0, Albumin 3.2 L, Globulin 3.8 H, Albumin/Globulin Ratio 0.8 L, TSH 0.93 06/23/21 16:30: Lactate 4.6 H 06/23/21 16:30: SARS-CoV-2 (PCR) Detected A, Influenza A Untype (PCR) Not detected, Influenza Type B (PCR) Not detected 06/23/21 17:25: Urine Color Yellow, Urine Appearance Sl cloudy, Urine pH 6.0, Ur Specific [place] 1.020, Urine Protein 1+, Urine Glucose (UA) Negative, Urine Ketones Negative, Urine Blood 2+, Urine Nitrate Negative, Urine Bilirubin Negative, Urine Urobilinogen 2.0, Ur Leukocyte Esterase Negative, Urine RBC 5-10, Urine WBC Occasional, Ur Squamous Epith Cells Occasional, Urine Bacteria Trace Result diagrams: 06/23/21 16:30 06/23/21 16:30 Orders (Tests/Meds): ED MEDICATIONS Generic Name Dose Route Start Last Admin Trade Name Freq PRN Reason Stop Dose Admin Potassium Chloride/Water 100 mls @ 50 mls/hr 06/23/21 17:31 Potassium Chloride 20meq/100ml Ivpb IV 06/23/21 21:30 Q2H TOBIAS Sodium Chloride 50 mls @ 100 mls/hr 06/23/21 18:35 Sod Chloride 0.9% 50ml Adv. IV 07/23/21 17:44 Q8H TOBIAS Vancomycin HCl 1,250 mg/ 250 mls @ 125 mls/hr 06/23/21 18:47 Sodium Chloride IV 07/07/21 18:44 Q36H TOBIAS Miscellaneous 1 each 06/23/21 17:45 Vancomycin Consult Request * 07/23/21 17:44 CONSULT PHARMACY TOBIAS Discontinued Medications Generic Name Dose Route Start Last Admin Trade Name Freq PRN Reason Stop Dose Admin Fentanyl Citrate 100 mcg
--- NOTE | 2021-06-23 19:36 | INFXCTL.NOTE ---
Propofol decreased to 10mcg/min at this time d/t low BP
--- NOTE | 2021-06-23 19:36 | PC.NURSE ---
Report/Care turned over to JACQUES BeasleyRN
--- NOTE | 2021-06-23 19:39 | PC.NURSE ---
Propofol decreased to 10mcg/kg/min at this time d/t low BP.
[2021-06-23 20:20] LABS: Chloride 91 mmol/L (98-107); Sodium 123 mmol/L (136-145)
[2021-06-23 20:22] LABS: Alanine Aminotransferase 12 U/L (12-78); Aspartate Amino Transferase 36 U/L (14-36); Blood Urea Nitrogen 33 mg/dl (7-17); Creatinine Clearance Estimated 41 mL/min (50-200); Estimated Glomerular Filt Rate 37 ml/min (>60); GFR (African American) 45 ML/MIN (>60)
[2021-06-23 20:23] LABS: Albumin Level 2.3 g/dl (3.5-5.0); Albumin/Globulin Ratio 0.7 (1.1-1.8); Alkaline Phosphatase 124 U/L (38-126); Anion Gap 13.8 mEq/L (5-15); Calcium 7.1 mg/dl (8.4-10.2); Carbon Dioxide 21 mmol/L (22.0-30.0); Globulin 3.2 g/dL (1.3-3.2); Glucose 159 mg/dl (74-100); Total Protein,Serum 5.5 g/dl (6.3-8.2)
[2021-06-23 20:42] LABS: Potassium 2.8 mmoL/L (3.5-5.1)
[2021-06-23 20:58] LABS: Troponin I 0.04 ng/ml (0.00-0.034)
[2021-06-23 21:05] LABS: Reflex Lactic Add Lactic Reflex
[2021-06-23 22:04] LABS: Lactic Acid Follow Up (RFLX 1) 1.7 mmol/L (0.7-2.1)
[2021-06-23 23:26] LABS: Troponin I 0.03 ng/ml (0.00-0.034)
[2021-06-24] VITALS (30 sets, daily range): BP systolic 77–130; BP diastolic 38–62; PULSE 58–74; RESP 18; TEMP 35.6–36.3; O2SAT 89–96; BMI 32.8; BMI 32.7
[2021-06-24 00:20] LABS: POC Glucose,Bedside 147 (70-110)
--- NOTE | 2021-06-24 04:00 | PC.NURSE ---
notified of pt status at 2335. Pt was fighting the vent and was hypotensive. New orders received. Fentanyl gtt per [facility] protocol. Levophed gtt. Titrate for a map of 65 or greater. Pharmacy, [facility] was consulted for Remdesivir. Pt is currently on Propofol @ 50 mcg/kg/min, Fentanyl @ 50 mcg/hr. Levophed @ 8 mcg/min. NS @ 100 ml/hr. Vent settings: AC, FiO2 50%, TV 440, R 18, Peep 6. ETT 7.5 25 @ lip. 16 fr OG 58 @ lip.
--- NOTE | 2021-06-24 05:13 | XR_ITS ---
PROCEDURE INFORMATION: Exam: XR Chest Exam date and time: 06/24/2021 5:13 AM Age: 70 years old Clinical indication: Device placement; Ett placement (vent status); Patient HX: Covid; Additional info: PT intubated. TECHNIQUE: Imaging protocol: XR of the chest. Views: 1 view. COMPARISON: CR XR CHEST PORTABLE 06/23/2021 4:58 PM FINDINGS: Tubes, catheters and devices: Endotracheal tube tip is 1.4 cm above the gary. Enteric tube extent in the left upper quadrant with the tip off the inferior edge of the image. Lungs: Airspace disease and consolidation similar to the prior exam in the left lung base and left mid lung. Pleural spaces: No pleural effusion. No pneumothorax. Heart/Mediastinum: No acute findings or cardiomegaly. Bones/joints: Marked degenerative changes in the glenohumeral joints. IMPRESSION: 1. Left-sided consolidation and airspace disease similar to the prior exam. 2. Endotracheal tube tip 1.4 cm from the gary.
[2021-06-24 07:04] LABS: Basophils % 0.2 % (0.1-2.0); Eosinophils % 0.1 % (0.1-12.0); Hematocrit 35.5 % (37.0-47.0); Lymphocytes % 7.6 % (10-50); Mean Corpuscular HGB Conc 31.9 g/dL (31.8-35.4); Mean Corpuscular Hemoglobin 27.5 pg (27.0-31.2); Mean Corpuscular Volume 86.3 fl (81-99); Mean Platelet Volume 10.9 fl (7.4-10.4); Monocytes # 0.8 K/mm3 (0.1-1.0); Monocytes % 6.8 % (1.7-9.3); Neutrophils # 10.7 K/mm3 (1.8-7.8); Neutrophils % 85.4 % (37.0-80.0); Platelet Count 352 K/mm3 (142-424); Red Blood Count 4.11 M/mm3 (4.20-5.40); White Blood Count 12.5 K/mm3 (4.8-10.8)
[2021-06-24 07:14] LABS: MANUAL DIFFERENTIAL MANUAL DIFFERENTIAL (MANUAL DIFF)
[2021-06-24 07:15] LABS: Alanine Aminotransferase 10 U/L (12-78); Albumin Level 2.3 g/dl (3.5-5.0); Albumin/Globulin Ratio 0.8 (1.1-1.8); Alkaline Phosphatase 111 U/L (38-126); Anion Gap 13.6 mEq/L (5-15); Aspartate Amino Transferase 31 U/L (14-36); Bilirubin,Total 0.9 mg/dl (0.2-1.3); Blood Urea Nitrogen 34 mg/dl (7-17); Calcium 7.3 mg/dl (8.4-10.2); Carbon Dioxide 19 mmol/L (22.0-30.0); Chloride 93 mmol/L (98-107); Creatinine Clearance Estimated 48 mL/min (50-200); Estimated Glomerular Filt Rate 34 ml/min (>60); GFR (African American) 42 ML/MIN (>60); Glucose 189 mg/dl (74-100); Sodium 123 mmol/L (136-145); Total Protein,Serum 5.3 g/dl (6.3-8.2)
[2021-06-24 07:25] LABS: Potassium 2.6 mmoL/L (3.5-5.1)
--- NOTE | 2021-06-24 07:30 | PC.NURSE ---
received call from lab ([facility]) reporting K 2.6. Name and verified. Quynh GALLAGHER rounding and notified.
[2021-06-24 07:32] LABS: ABG Base Excess -5.3 mmol/L (-2.4-2.3); ABG Oxygen Saturation 93 % (90-100); ABG PCO2 35.4 mmhg (35.0-45.0); ABG PH 7.37 mmol/L (7.35-7.45); ABG PO2 69.8 mmhg (80-100)
[2021-06-24 07:34] LABS: Allen's Test Acceptable; Oxygen 50 %; PEEP 6; Source Right Radial; Tidal Volume 440; Vent Rate 18
[2021-06-24 07:43] LABS: Burr Cells 2+; Lymphocytes % 5 % (10-50); Monocytes % 9 % (2-9); Neutrophils % 86 % (42-76); Platelet Estimate Normal; Poikilocytosis 2+; Total Cells Counted 100
[2021-06-24 07:45] LABS: Hemoglobin 11.3 g/dL (12.2-16.2)
--- NOTE | 2021-06-24 08:11 | HMH.PHACONS ---
- Pharmacy Consult Date: 06/24/21 Time: 08:12 Referring provider: DR GORDILLO Reason for Consult:: VANCOMYCIN DOSING Allergies and ADEs:: Allergies Allergy/AdvReac Type Severity Reaction Status Date / Time hydrocortisone Allergy Unknown Unknown Verified 10/26/20 09:50 [HYDROCORTISONE] allergy reaction lidocaine [LIDOCAINE] Allergy Unknown Unknown Verified 10/26/20 09:50 allergy reaction Penicillins Allergy Unknown Verified 07/15/19 10:08 allergy reaction Home Medications:: Home Medications Medication Instructions Recorded Confirmed Type Atorvastatin Calcium [Lipitor 80mg 80 mg PO HS 07/14/19 06/23/21 History Tab] Losartan Potassium 100 mg PO DAILY 07/14/19 06/23/21 History Metformin HCl 500 mg PO HS 07/14/19 06/23/21 History Metoprolol Tartrate [Lopressor 100 100 mg PO DAILY 07/14/19 06/23/21 History mg Tablets] Omeprazole [Omeprazole 40mg 40 mg PO DAILY 07/14/19 06/24/21 History Capsule] Aspirin [Aspir-Low] 81 mg PO DAILY 07/15/19 06/24/21 History Amlodipine Besylate [Amlodipine 10 mg PO DAILY 06/23/21 06/23/21 History 5mg tab] Height: 1.63 m Weight: 87.407 kg Laboratory Results:: Laboratory Results - last 24 hr 06/23/21 16:27: Specimen Source Right brachial, O2 % 100, ABG pH 7.42, ABG pCO2 34.4 L, ABG pO2 201.8 H, ABG HCO3 21.9 L, ABG Total CO2 23.0, ABG O2 Saturation 100, ABG Base Excess -2.5 L, Josemanuel Test Patient unable, Vent Rate 18, Tidal Volume 440, PEEP 6 06/23/21 16:30: WBC 11.4 H, RBC 4.69, Hgb 13.4, Hct 40.7, MCV 86.8, MCH 28.6, MCHC 32.9, RDW 15.8, Plt Count 337, MPV 10.5 H, Neut % (Auto) 83.3 H, Lymph % (Auto) 10.1, [place] % (Auto) 5.9, Eos % (Auto) 0.2, Baso % (Auto) 0.4, Neut # (Auto) 9.5 H, Lymph # (Auto) 1.2, [place] # (Auto) 0.7, Eos # (Auto) 0.0, Baso # (Auto) 0.1 06/23/21 16:30: PT 11.7, INR 0.99, APTT 34.7 H 06/23/21 16:30: Sodium 121 L, Potassium 2.4 L*, Chloride 81 L, Carbon Dioxide 24, Anion Gap 18.4 H, BUN 35 H, Creatinine 1.70 H, Estimated GFR 30 L, Est GFR ( Amer) 36 L, Glucose 206 H, Calcium 8.3 L, Total Bilirubin 1.1, AST 55 H, ALT 28, Alkaline Phosphatase 177 H, Troponin I 0.04 H, NT-Pro-B Natriuret Pep 936 H, Total Protein 7.0, Albumin 3.2 L, Globulin 3.8 H, Albumin/Globulin Ratio 0.8 L, TSH 0.93 06/23/21 16:30: Lactate 4.6 H 06/23/21 16:30: SARS-CoV-2 (PCR) Detected A, Influenza A Untype (PCR) Not detected, Influenza Type B (PCR) Not detected 06/23/21 17:25: Urine Color Yellow, Urine Appearance Sl cloudy, Urine pH 6.0, Ur Specific [place] 1.020, Urine Protein 1+, Urine Glucose (UA) Negative, Urine Ketones Negative, Urine Blood 2+, Urine Nitrate Negative, Urine Bilirubin Negative, Urine Urobilinogen 2.0, Ur Leukocyte Esterase Negative, Urine RBC 5-10, Urine WBC Occasional, Ur Squamous Epith Cells Occasional, Urine Bacteria Trace 06/23/21 20:03: Troponin I 0.04 H 06/23/21 20:03: Sodium 123 L, Potassium 2.8 L*, Chloride 91 L, Carbon Dioxide 21 L, Anion Gap 13.8, BUN 33 H, Creatinine 1.40 H, Estimated Creat Clear 41, Estimated GFR 37 L, Est GFR ( Amer) 45 L D, Glucose 159 H D, Calcium 7.1 L, Total Bilirubin 1.0, AST 36 D, ALT 12 D, Alkaline Phosphatase 124, Total Protein 5.5 L, Albumin 2.3 L D, Globulin 3.2, Albumin/Globulin Ratio 0.7 L 06/23/21 21:45: Lactate 1.7 06/23/21 22:30: Troponin I 0.03 06/23/21 22:47: POC Glucose 147 H 06/24/21 06:25: WBC 12.5 H, RBC 4.11 L, Hgb 11.3 L D, Hct 35.5 L, MCV 86.3, MCH 27.5, MCHC 31.9, RDW 16.0, Plt Count 352, MPV 10.9 H, Neut % (Auto) 85.4 H, Lymph % (Auto) 7.6 L, [place] % (Auto) 6.8, Eos % (Auto) 0.1, Baso % (Auto) 0.2, Neut # (Auto) 10.7 H, Lymph # (Auto) 1.0, [place] # (Auto) 0.8, Eos # (Auto) 0.0, Baso # (Auto) 0.0, Total Counted 100, Neutrophils % (Manual) 86 H, Lymphocytes % (Manual) 5 L, Monocytes % (Manual) 9, Platelet Estimate Normal, Poikilocytosis 2+, Tati Cells 2+ 06/24/21 06:25: Sodium 123 L, Potassium 2.6 L*, Chloride 93 L, Carbon Dioxide 19 L, Anion Gap 13.6, BUN 34 H, Creatinine 1.50 H, Estimated
--- NOTE | 2021-06-24 09:05 | P.CONPHA_ITS ---
[facility] Pharmacy VTE Monitoring - Patient Demographics Admission date: 06/24/21 Report Date: 06/24/21 Time: 09:05 Allergies/Adverse Reactions: Patient Allergies hydrocortisone [HYDROCORTISONE] Allergy (Unknown, Verified 10/26/20 09:50) Unknown allergy reaction lidocaine [LIDOCAINE] Allergy (Unknown, Verified 10/26/20 09:50) Unknown allergy reaction Penicillins Allergy (Verified 07/15/19 10:08) Unknown allergy reaction Height: 1.63 m Weight: 87.407 kg Patient Problems: Current Active Problems Hypokalemia (Acute) Type 2 diabetes mellitus (Chronic) Acute respiratory failure with hypoxia (Acute) Pneumonia due to COVID-19 virus (Acute) Acute kidney injury (Acute) - VTE Risk Labs: VTE Related Lab Results Hgb 11.3 g/dL (12.2-16.2) L D 06/24/21 06:25 Hct 35.5 % (37.0-47.0) L 06/24/21 06:25 Plt Count 352 K/mm3 (142-424) 06/24/21 06:25 PT 11.7 seconds (10.1-12.5) 06/23/21 16:30 INR 0.99 (0.9-1.1) 06/23/21 16:30 APTT 34.7 seconds (22.8-30.6) H 06/23/21 16:30 BUN 34 mg/dl (7-17) H 06/24/21 06:25 Creatinine 1.50 mg/dl (0.52-1.04) H 06/24/21 06:25 Estimated Creat Clear 48 mL/min (50-200) 06/24/21 06:25 Clinical Trial Participant: No - Prophylaxis VTE Prophylaxis Ordered?: Yes Types of VTE Prophylaxis: TEDS Knee High, Pharmacological Pharmacologic Type: Enoxaparin
--- NOTE | 2021-06-24 09:14 | HMH.HP ---
*Admission Date: 06/24/21 *Chief complaint: covid, shortness of breath *History of present illness: This is a 70-year-old female presented to the emergency department with some difficulty breathing. Patient states that she has been quarantining with her who was diagnosed with coronavirus for the last week. Patient is unvaccinated. She states that she has been doing okay, however this morning she started feeling bad. She was having difficulty breathing. She states it worsened throughout the day. She started turning a little blue which prompted her to need to come to the emergency department. On our initial evaluation, the patient is having severe difficulties breathing. She is talking in 3-4 word sentences. States that she has had a mild cough, nonproductive. No chest pain or palpitations. No headache or change in vision. Mild fevers and chills. No abdominal pain or vomiting. On initial evaluation, the patient is tachypneic and saturating on room air at 56%. We did immediately placed the patient in resuscitation bay. Patient placed on BiPAP therapy. However her oxygen saturations did not improve. The patient became more altered. Decision was made to intubate the patient due to impending respiratory failure. Patient tolerated intubation well. Hemodynamics have improved. She is saturating well. She was started on broad-spectrum antibiotics for possible pneumonia as well as remdesivir for coronavirus pneumonia. Patient be admitted to the ICU in critical condition. (Above as per ER physician) [facility] History I have reviewed the patient's past medical history: Yes Medical History: Reports:: Cancer (basal cell carcinoma), Cerebrovascular Accident, Diabetes Mellitus Type 2, Hyperlipidemia, Hypertension, Seizures, Transient Ischemic Attacks (TIA), Ulcer Denies:: Diabetes Mellitus Type 1, MRSA *Have you ever received a pneumonia vaccine?: Yes *Have you received a flu vaccine this season?: No Laterality Cases: Right: Carotid Endarterectomy Other Surgeries: Yes: Hysterectomy-Total, Tubal Ligation Amputation: No Fractures: No - *Social History Smoking Status: Former smoker Tobacco Type: cigarettes # Packs/Day (cigarettes): 1 #Yrs smoked (if former smoker): 40 Alcohol Intake: never *Occupational Status:: retired Housing: house Household Members: spouse *Travel in the last 8 weeks: None Family Hx:: Cancer, Heart Attack, Hyperlipidemia, Hypertension, Stroke Review of Systems - Review of Systems Review of systems:: unable to obtain - *Neurologic Denies dizziness, Denies headache(s) Meds Home Medications Medication Instructions Recorded Confirmed Type Atorvastatin Calcium [Lipitor 80mg 80 mg PO HS 07/14/19 06/23/21 History Tab] Losartan Potassium 100 mg PO DAILY 07/14/19 06/23/21 History Metformin HCl 500 mg PO HS 07/14/19 06/23/21 History Metoprolol Tartrate [Lopressor 100 100 mg PO DAILY 07/14/19 06/23/21 History mg Tablets] Omeprazole [Omeprazole 40mg 40 mg PO DAILY 07/14/19 06/24/21 History Capsule] Aspirin [Aspir-Low] 81 mg PO DAILY 07/15/19 06/24/21 History Amlodipine Besylate [Amlodipine 10 mg PO DAILY 06/23/21 06/23/21 History 5mg tab] Allergies Allergy/AdvReac Type Severity Reaction Status Date / Time hydrocortisone Allergy Unknown Unknown Verified 10/26/20 09:50 [HYDROCORTISONE] allergy reaction lidocaine [LIDOCAINE] Allergy Unknown Unknown Verified 10/26/20 09:50 allergy reaction Penicillins Allergy Unknown Verified 07/15/19 10:08 allergy reaction Exam Vital signs and Labs for Last 24 Hours: Temp Pulse Resp BP Pulse Ox 96.8 F L 60 18 95/52 L 93 L 06/24/21 06:29 06/24/21 06:29 06/24/21 06:29 06/24/21 06:29 06/24/21 06:29 Laboratory Results - last 24 hr 06/23/21 16:27: Specimen Source Right brachial, O2 % 100, ABG pH 7.42, ABG pCO2 34.4 L, ABG pO2 201.8 H, ABG HCO3 21.9 L, ABG Total CO2 23.0, ABG O2 Saturation 100,
--- NOTE | 2021-06-24 09:15 | HMH.PULMCON ---
*Admission Date: 06/24/21 *Reason for consult:: Acute hypoxic respiratory failure, COVID-19 pneumonia *History of present illness: Medical history is obtained from chart review, patient intubated and sedated. Ms. Greco is 70-year-old female presented to the hospital with worsening respiratory distress which he has also been in quarantine for the last 7 days given positive exposure presented with relative acute onset shortness of breath that significantly worsened since this morning presentation to ER patient needing high high oxygen requirements, initiated on BiPAP eventually needing intubation and mechanical ventilation to support her respiratory status and pulmonary was called for further management. No inhalers presented patient's home medications [facility] History Medical History: Reports:: Cancer (basal cell carcinoma), Cerebrovascular Accident, Diabetes Mellitus Type 2, Hyperlipidemia, Hypertension, Seizures, Transient Ischemic Attacks (TIA), Ulcer Denies:: Diabetes Mellitus Type 1, MRSA *Have you ever received a pneumonia vaccine?: Yes *Have you received a flu vaccine this season?: No Laterality Cases: Right: Carotid Endarterectomy Other Surgeries: Yes: Hysterectomy-Total, Tubal Ligation Amputation: No Fractures: No - *Social History Smoking Status: Former smoker Tobacco Type: cigarettes # Packs/Day (cigarettes): 1 #Yrs smoked (if former smoker): 40 Alcohol Intake: never *Occupational Status:: retired Housing: house Household Members: spouse *Travel in the last 8 weeks: None Family Hx:: Cancer, Heart Attack, Hyperlipidemia, Hypertension, Stroke ROS - Review of Systems Review of systems:: unable to obtain Unable to obtain as patient was intubated and sedated Meds Home Medications Medication Instructions Recorded Confirmed Type Atorvastatin Calcium [Lipitor 80mg 80 mg PO HS 07/14/19 06/23/21 History Tab] Losartan Potassium 100 mg PO DAILY 07/14/19 06/23/21 History Metformin HCl 500 mg PO HS 07/14/19 06/23/21 History Metoprolol Tartrate [Lopressor 100 100 mg PO DAILY 07/14/19 06/23/21 History mg Tablets] Omeprazole [Omeprazole 40mg 40 mg PO DAILY 07/14/19 06/24/21 History Capsule] Aspirin [Aspir-Low] 81 mg PO DAILY 07/15/19 06/24/21 History Amlodipine Besylate [Amlodipine 10 mg PO DAILY 06/24/21 06/24/21 History 10mg Tab] Allergies Allergy/AdvReac Type Severity Reaction Status Date / Time hydrocortisone Allergy Unknown Unknown Verified 10/26/20 09:50 [HYDROCORTISONE] allergy reaction lidocaine [LIDOCAINE] Allergy Unknown Unknown Verified 10/26/20 09:50 allergy reaction Penicillins Allergy Unknown Verified 07/15/19 10:08 allergy reaction Exam - Constitutional Constitutional:: Present: no acute distress, comfortable - HENMT Exam HENMT: Present: normocephalic - Eye Exam Eyes:: Present: normal appearance both eyes and related structures - Neck Exam Neck:: Present: normal visual inspection - Respiratory Exam Respiratory:: Present: decreased breath sounds - Cardiovascular Exam Cardiac:: Present: S1, S2 - GI Exam GI:: Present: soft - Skin Exam Skin: Present: warm, no rash - Neurological Exam Intubated and sedated - Extremities Exam Extremities: Present: no cyanosis, no clubbing Internal Medicine - CN: Reslt - Labs CBC & Chem 7: 06/24/21 06:25 06/24/21 06:25 Labs: Short CBC 06/23/21 06/24/21 Range/Units 16:30 06:25 WBC 11.4 H 12.5 H (4.8-10.8) K/mm3 Hgb 13.4 11.3 L D (12.2-16.2) g/dL Hct 40.7 35.5 L (37.0-47.0) % Plt Count 337 352 (142-424) K/mm3 BMP 06/23/21 06/23/21 06/24/21 16:30 20:03 06:25 Sodium 121 L 123 L 123 L Potassium 2.4 L* 2.8 L* 2.6 L* Chloride 81 L 91 L 93 L Carbon Dioxide 24 21 L 19 L BUN 35 H 33 H 34 H Creatinine 1.70 H 1.40 H 1.50 H Glucose 206 H 159 H D 189 H Calcium 8.3 L 7.1 L 7.3 L Cardiac Enzymes 06/23/21 06/23/21 06/23/21 R
--- NOTE | 2021-06-24 09:21 | CA_ITS ---
APPROVED REPORT Bilateral Lower Extremity Venous Study for DVT. [employer]: HOSSEIN Indications Cocid-19, Hypoxia Vein Imaging CFV (R): compressive, spontaneous, phasic, augmentation SFJ (R): compressive, spontaneous, phasic, augmentation FEM (R): compressive, spontaneous, phasic, augmentation POP (R): compressive, spontaneous, phasic, augmentation DFV (R): compressive, spontaneous, phasic, augmentation PTV (R): compressive, spontaneous, phasic, augmentation GSV (R): compressive, spontaneous, phasic, augmentation SSV (R): compressive, spontaneous, phasic, augmentation Peroneals (R):compressive, spontaneous, phasic, augmentation GAS (R): compressive, spontaneous, phasic, augmentation CFV (L): compressive, spontaneous, phasic, augmentation SFJ (L): compressive, spontaneous, phasic, augmentation FEM (L): compressive, spontaneous, phasic, augmentation POP (L): compressive, spontaneous, phasic, augmentation DFV (L): compressive, spontaneous, phasic, augmentation PTV (L): compressive, spontaneous, phasic, augmentation GSV (L): compressive, spontaneous, phasic, augmentation SSV (L): compressive, spontaneous, phasic, augmentation Peroneals (L):compressive, spontaneous, phasic, augmentation GAS (L): compressive, spontaneous, phasic, augmentation Findings Non-vascularized cystic structure visualized in the right popliteal fossa measuring approximately 5.3x2.8 cm. Color flow duplex demonstrates no evidence of DVT of the following bilateral lower extremity Veins:Common Femoral Vein, Femoral Vein, Popliteal Vein, Posterior Tibial Veins, Peroneal Veins, Deep Femoral Vein. Negative for DVT. Conclusion Negative for DVT. 5cm right Bakers cyst Electronically signed by : Josemanuel Mccauley MD 06/24/2021 14:46:42
--- NOTE | 2021-06-24 09:26 | HMH.PHAINT ---
home medication list verified using list from [facility]
[2021-06-24 10:46] LABS: Coronavirus 19 IgG Antibody Positive (Negative); Coronavirus 19 IgM Antibody Negative (Negative)
[2021-06-24 10:57] LABS: D-Dimer 1.19 ug/mL (0.0-0.5)
[2021-06-24 11:15] LABS: C-Reactive Protein 175.8 mg/L (0-4)
[2021-06-24 11:47] LABS: Ferritin 362 ng/ml (11.1-264)
[2021-06-24 12:12] LABS: POC Glucose,Bedside 174 (70-110)
--- NOTE | 2021-06-24 12:50 | PC.NURSE ---
Pulled ET tube back from 24cm at the lip to 22cm at the lip. Per Dr. Joseph. Pt tolerated well, will continue to monitor.
[2021-06-24 17:01] LABS: POC Glucose,Bedside 152 (70-110)
[2021-06-24 20:24] LABS: Chloride 95 mmol/L (98-107); Sodium 122 mmol/L (136-145)
[2021-06-24 20:27] LABS: Anion Gap 12.9 mEq/L (5-15); Blood Urea Nitrogen 30 mg/dl (7-17); Calcium 7.1 mg/dl (8.4-10.2); Carbon Dioxide 17 mmol/L (22.0-30.0); Creatinine Clearance Estimated 48 mL/min (50-200); Estimated Glomerular Filt Rate 34 ml/min (>60); GFR (African American) 42 ML/MIN (>60); Glucose 150 mg/dl (74-100)
[2021-06-24 20:31] LABS: Potassium 2.9 mmoL/L (3.5-5.1)
--- NOTE | 2021-06-24 22:16 | PC.NURSE ---
RESPIRATORY CARE NOTE: PT WAS PLACED ON CONTINOUS CO2 MONITORING AT THIS TIME. RT WILL MONITOR/DOCUMENT PT CO2 LEVELS EVERY VENTILATOR CHECK.
[2021-06-25] VITALS (33 sets, daily range): BP systolic 79–145; BP diastolic 38–87; PULSE 52–110; RESP 18–30; TEMP 35.2–36.6; O2SAT 88–97; BMI 34.4
[2021-06-25 00:05] LABS: POC Glucose,Bedside 163 (70-110)
--- NOTE | 2021-06-25 04:19 | PC.NURSE ---
MD Arnold notified of no urine output on pt since 0000. New orders received. Give 200 ml bolus and increase fluids to 150 ml/hr.
[2021-06-25 05:37] LABS: POC Glucose,Bedside 127 (70-110)
--- NOTE | 2021-06-25 07:00 | XR_ITS ---
PROCEDURE INFORMATION: Exam: XR Chest Exam date and time: 06/25/2021 7:00 AM Age: 70 years old Clinical indication: Device placement; Ett placement (vent status); Additional info: PT intubated TECHNIQUE: Imaging protocol: XR of the chest. Views: 1 view. COMPARISON: CR XR CHEST PORTABLE 06/24/2021 5:19 AM FINDINGS: Tubes, catheters and devices: Endotracheal tube with tip 3.1 cm above the gary. NG tube with tip not included but presumably within the stomach. Lungs: Stable patchy left mid lower and possible trace right basal infiltrates. Pleural spaces: Small left pleural effusion cannot be excluded. Heart/Mediastinum: Unremarkable. No cardiomegaly. Bones/joints: Unremarkable. IMPRESSION: 1. Endotracheal, nasogastric tubes. 2. Stable patchy left greater than right lung infiltrates. 3. Small left pleural effusion not excluded.
[2021-06-25 08:38] LABS: Chloride 95 mmol/L (98-107); Potassium 3.9 mmoL/L (3.5-5.1); Sodium 120 mmol/L (136-145)
[2021-06-25 08:40] LABS: Alanine Aminotransferase 14 U/L (12-78); Aspartate Amino Transferase 43 U/L (14-36); Blood Urea Nitrogen 35 mg/dl (7-17); Creatinine Clearance Estimated 42 mL/min (50-200); Estimated Glomerular Filt Rate 28 ml/min (>60); GFR (African American) 34 ML/MIN (>60)
[2021-06-25 08:41] LABS: Albumin Level 2.1 g/dl (3.5-5.0); Albumin/Globulin Ratio 0.7 (1.1-1.8); Alkaline Phosphatase 118 U/L (38-126); Anion Gap 15.9 mEq/L (5-15); Bilirubin,Total 0.4 mg/dl (0.2-1.3); Calcium 7.2 mg/dl (8.4-10.2); Carbon Dioxide 13 mmol/L (22.0-30.0); Globulin 2.9 g/dL (1.3-3.2); Glucose 151 mg/dl (74-100)
--- NOTE | 2021-06-25 09:13 | HMH.ACPN2 ---
Internal Medicine - PN: Subj *Date: 06/25/21 *Time: 09:13 Interval history: Chart reviewed. Vital signs reviewed. Chest x-ray report and chest x-ray reviewed. Lab reviewed. Potassium is 3.9. Magnesium is low. This COVID patient is not examined at this time but will be seen after morning office hours. Exam Vital signs and Labs for Last 24 Hours: Temp Pulse Resp BP Pulse Ox 96.6 F L 80 18 114/55 L 90 L 06/25/21 06:56 06/25/21 06:56 06/25/21 06:56 06/25/21 06:56 06/25/21 06:56 Laboratory Results - last 24 hr 06/24/21 10:30: D-Dimer 1.19 H 06/24/21 10:30: Ferritin 362 H, C-Reactive Protein 175.8 H 06/24/21 10:30: SARS-CoV-2 IgG Ab (Rapid) Positive A, SARS-CoV-2 IgM Ab (Rapid) Negative 06/24/21 12:04: POC Glucose 174 H 06/24/21 16:54: POC Glucose 152 H 06/24/21 20:13: Sodium 122 L, Potassium 2.9 L*, Chloride 95 L, Carbon Dioxide 17 L, Anion Gap 12.9, BUN 30 H, Creatinine 1.50 H, Estimated Creat Clear 48, Estimated GFR 34 L, Est GFR ( Amer) 42 L, Glucose 150 H D, Calcium 7.1 L 06/24/21 23:58: POC Glucose 163 H 06/25/21 05:29: POC Glucose 127 H 06/25/21 07:55: Sodium 120 L, Potassium 3.9 D, Chloride 95 L, Carbon Dioxide 13 L, Anion Gap 15.9 H, BUN 35 H, Creatinine 1.80 H, Estimated Creat Clear 42, Estimated GFR 28 L, Est GFR ( Amer) 34 L, Glucose 151 H, Calcium 7.2 L, Magnesium 1.0 L, Total Bilirubin 0.4, AST 43 H D, ALT 14 D, Alkaline Phosphatase 118, Total Protein 5.0 L, Albumin 2.1 L, Globulin 2.9, Albumin/Globulin Ratio 0.7 L I & O for Last 24 hours: Intake & Output 06/22/21 06/23/21 06/24/21 06/25/21 11:59 11:59 11:59 11:59 Intake Total 3920 / 3920 5571.961 / 5571.961 Output Total 246 / 261 113 / 113 Balance 3674 / 3659 5458.961 / 5458.961 Weight 192 lb 11.191 oz 201 lb 8 oz Microbiology Reports for the Last 24 Hours: Microbiology 06/23/21 18:00 Sputum - Endotracheal Tube Aspirate Gram Stain - Final 06/23/21 18:00 Sputum - Endotracheal Tube Aspirate Sputum Culture - Preliminary Assessment and Plan - Assessment and plan all Dx Assessment and Plan for all problems:: Continue present care.
--- NOTE | 2021-06-25 09:31 | PC.NURSE ---
0830-weaning sedation for SBT. decreased propofol to 25 and fentanyl 30. mittens applied
--- NOTE | 2021-06-25 09:33 | PC.NURSE ---
0850-critical magnesium 1.0 called from lab. name and verified
--- NOTE | 2021-06-25 09:34 | PC.NURSE ---
0910 - continuing to wean sedation. decreased propofol to 20mcg and fentanyl to 25mcg
--- NOTE | 2021-06-25 10:50 | PC.NURSE ---
RESPIRATORY CARE: PT PLACED ON SBT 10,8, 50% AT THIS TIME. PT TOLERATING CHANGES WILL. WILL DRAW BLOOD GAS IN 1 HOUR.
[2021-06-25 12:34] LABS: ABG Base Excess -13.4 mmol/L (-2.4-2.3); ABG HCO3 14.4 mmhg (22.0-26.0); ABG Oxygen Saturation 95 % (90-100); ABG PCO2 35.9 mmhg (35.0-45.0); ABG PH 7.22 mmol/L (7.35-7.45); ABG PO2 80.8 mmhg (80-100); ABG TCO2 15.5 mmhg (23-27); Oxygen 50 %; PEEP 8; Pressure Support 10; Tidal Volume spont
[2021-06-25 12:35] LABS: Allen's Test Acceptable; Source Right Radial
--- NOTE | 2021-06-25 12:45 | HMH.ACPN2 ---
Internal Medicine - PN: Subj *Date: 06/25/21 *Time: 12:45 Interval history: Dr. Joseph has been in contact with the ICU. Sedation has been gradually decreased to allow a breathing trial. The patient is awake at this time. No increase in jugular venous distention noted but there is leg edema. Good air movement bilaterally. Heart rate is regular. Exam Vital signs and Labs for Last 24 Hours: Temp Pulse Resp BP Pulse Ox 97.5 F L 103 H 30 H 145/87 H 91 L 06/25/21 12:00 06/25/21 12:00 06/25/21 12:00 06/25/21 12:00 06/25/21 12:00 Laboratory Results - last 24 hr 06/24/21 16:54: POC Glucose 152 H 06/24/21 20:13: Sodium 122 L, Potassium 2.9 L*, Chloride 95 L, Carbon Dioxide 17 L, Anion Gap 12.9, BUN 30 H, Creatinine 1.50 H, Estimated Creat Clear 48, Estimated GFR 34 L, Est GFR ( Amer) 42 L, Glucose 150 H D, Calcium 7.1 L 06/24/21 23:58: POC Glucose 163 H 06/25/21 05:29: POC Glucose 127 H 06/25/21 07:00: Specimen Source Right radial, O2 % 50, ABG pH 7.22 L*, ABG pCO2 35.9, ABG pO2 80.8, ABG HCO3 14.4 L, ABG Total CO2 15.5 L, ABG O2 Saturation 95, ABG Base Excess -13.4 L, Josemanuel Test Acceptable, Tidal Volume spont, PEEP 8 06/25/21 07:55: Sodium 120 L, Potassium 3.9 D, Chloride 95 L, Carbon Dioxide 13 L, Anion Gap 15.9 H, BUN 35 H, Creatinine 1.80 H, Estimated Creat Clear 42, Estimated GFR 28 L, Est GFR ( Amer) 34 L, Glucose 151 H, Calcium 7.2 L, Magnesium 1.0 L, Total Bilirubin 0.4, AST 43 H D, ALT 14 D, Alkaline Phosphatase 118, Total Protein 5.0 L, Albumin 2.1 L, Globulin 2.9, Albumin/Globulin Ratio 0.7 L I & O for Last 24 hours: Intake & Output 06/23/21 06/24/21 06/25/2119/21 11:59 11:59 11:59 11:59 Intake Total 3920 / 3920 6914.961 / 6914.961 Output Total 246 / 261 118 / 118 Balance 3674 / 3659 6796.961 / 6796.961 Weight 192 lb 11.191 oz 201 lb 8 oz Microbiology Reports for the Last 24 Hours: Microbiology 06/23/21 18:00 Sputum - Endotracheal Tube Aspirate Gram Stain - Final 06/23/21 18:00 Sputum - Endotracheal Tube Aspirate Sputum Culture - Preliminary - Constitutional no acute distress - *Routine HEENT Exam Head: Present: normocephalic Eye: Present: PERRL ENT: Present: mucous membranes moist (ET tube in place) - *Routine Neck Exam Absent: JVD - Routine Chest/Breast/Axilla Exam Chest wall: Absent: tenderness - *Routine Respiratory Exam Present: CTA bilaterally (With decrease at bases.) - *Routine Abdominal Exam Present: distended, obese - *Routine Extremities Exam Present: edema (2+) - *Routine Skin Exam Present: intact, cyanosis - *Routine Neurological Exam Absent: alert (But awake at this time for breathing trial) Assessment and Plan (1) Pneumonia due to COVID-19 virus Status: Acute Category: Medical Code(s): U07.1 - COVID-19; J12.82 - Pneumonia due to coronavirus disease 2019 (2) Acute kidney injury Status: Acute Category: Medical Code(s): N17.9 - Acute kidney failure, unspecified (3) Acute respiratory failure with hypoxia Status: Acute Category: Medical Code(s): J96.01 - Acute respiratory failure with hypoxia (4) Type 2 diabetes mellitus Status: Chronic Qualifiers: Diabetes mellitus chcf insulin use: with termite control service representative use Diabetes mellitus complication status: without complication Qualified Code(s): E11.9 - Type 2 diabetes mellitus without complications; Z79.4 - long-term (current) use of insulin Category: Medical Code(s): E11.9 - Type 2 diabetes mellitus without complications - Assessment and plan all Dx Assessment and Plan for all problems:: Continue present care.
--- NOTE | 2021-06-25 13:30 | PC.NURSE ---
RESPIRATORY CARE: PT PLACED BACK ON AC 440,18,8, AND 50%.
--- NOTE | 2021-06-25 19:18 | PC.NURSE ---
taylor calabrese applied at this time
[2021-06-25 20:23] LABS: POC Glucose,Bedside 148 (70-110)
[2021-06-26] VITALS (30 sets, daily range): BP systolic 83–137; BP diastolic 36–67; PULSE 69–93; RESP 9–23; TEMP 36–36.6; O2SAT 91–97; BMI 38.1
--- NOTE | 2021-06-26 06:00 | XR_ITS ---
PROCEDURE INFORMATION: Exam: XR Chest Exam date and time: 06/26/2021 6:00 AM Age: 70 years old Clinical indication: Device placement; Ett placement (vent status); Additional info: Intubated covid pneumonia TECHNIQUE: Imaging protocol: XR of the chest. Views: 1 view. COMPARISON: CR XR CHEST PORTABLE 06/25/2021 5:55 AM FINDINGS: Tubes, catheters and devices: ET tube is 4 cm from the gary. Nasogastric tube overlies the stomach. . Lungs: The area of dense retrocardiac infiltrate is unchanged from the prior study Pleural spaces: Probable left-sided effusion is also likely present. . Heart/Mediastinum: Unremarkable. No cardiomegaly. Bones/joints: Unremarkable. IMPRESSION: Stable infiltrate left lung base.
[2021-06-26 06:35] LABS: Alanine Aminotransferase 11 U/L (12-78); Albumin Level 1.9 g/dl (3.5-5.0); Albumin/Globulin Ratio 0.7 (1.1-1.8); Alkaline Phosphatase 95 U/L (38-126); Anion Gap 13.5 mEq/L (5-15); Aspartate Amino Transferase 52 U/L (14-36); Bilirubin,Total 0.4 mg/dl (0.2-1.3); Blood Urea Nitrogen 37 mg/dl (7-17); Calcium 7.1 mg/dl (8.4-10.2); Carbon Dioxide 16 mmol/L (22.0-30.0); Chloride 93 mmol/L (98-107); Creatinine Clearance Estimated 42 mL/min (50-200); Estimated Glomerular Filt Rate 25 ml/min (>60); GFR (African American) 30 ML/MIN (>60); Globulin 2.8 g/dL (1.3-3.2); Glucose 85 mg/dl (74-100); Potassium 4.5 mmoL/L (3.5-5.1); Sodium 118 mmol/L (136-145); Total Protein,Serum 4.7 g/dl (6.3-8.2)
[2021-06-26 07:31] LABS: ABG Base Excess -10.7 mmol/L (-2.4-2.3); ABG HCO3 15.8 mmhg (22.0-26.0); ABG Oxygen Saturation 94 % (90-100); ABG PCO2 33.5 mmhg (35.0-45.0); ABG PH 7.29 mmol/L (7.35-7.45); ABG PO2 71.9 mmhg (80-100); ABG TCO2 16.8 mmhg (23-27)
[2021-06-26 07:43] LABS: Allen's Test Patient Unable; Oxygen 50 %; PEEP 8; Pressure Support 10; Source Right Radial; Tidal Volume 440; Vent Rate 18
--- NOTE | 2021-06-26 09:35 | HMH.ACPN2 ---
Internal Medicine - PN: Subj *Date: 06/26/21 *Time: 09:35 Interval history: She remains on the ventilator. She is still fairly sedated this morning on low-dose of fentanyl. She did well with SBT yesterday and Dr. Joseph has ordered another trial this morning and is managing her ventilator settings. She continues on Levophed drip. Exam Vital signs and Labs for Last 24 Hours: Temp Pulse Resp BP Pulse Ox 97.5 F L 74 13 107/50 L 94 L 06/26/21 09:00 06/26/21 09:00 06/26/21 09:00 06/26/21 09:00 06/26/21 09:00 Laboratory Results - last 24 hr 06/25/21 07:00: Specimen Source Right radial, O2 % 50, ABG pH 7.22 L*, ABG pCO2 35.9, ABG pO2 80.8, ABG HCO3 14.4 L, ABG Total CO2 15.5 L, ABG O2 Saturation 95, ABG Base Excess -13.4 L, Josemanuel Test Acceptable, Tidal Volume spont, PEEP 8 06/25/21 12:40: POC Glucose 148 H 06/26/21 05:25: Sodium 118 L, Potassium 4.5, Chloride 93 L, Carbon Dioxide 16 L, Anion Gap 13.5, BUN 37 H, Creatinine 2.00 H, Estimated Creat Clear 42, Estimated GFR 25 L, Est GFR ( Amer) 30 L, Glucose 85 D, Calcium 7.1 L, Total Bilirubin 0.4, AST 52 H, ALT 11 L, Alkaline Phosphatase 95, Total Protein 4.7 L, Albumin 1.9 L, Globulin 2.8, Albumin/Globulin Ratio 0.7 L 06/26/21 06:00: Specimen Source Right radial, O2 % 50, ABG pH 7.29 L, ABG pCO2 33.5 L, ABG pO2 71.9 L, ABG HCO3 15.8 L, ABG Total CO2 16.8 L, ABG O2 Saturation 94, ABG Base Excess -10.7 L, Josemanuel Test Patient unable, Vent Rate 18, Tidal Volume 440, PEEP 8 I & O for Last 24 hours: Intake & Output 06/23/21 06/24/21 06/25/21 06/26/21 11:59 11:59 11:59 11:59 Intake Total 3920 / 3920 7198.961 / 7364.961 3153.879 / 3153.879 Output Total 246 / 261 118 / 123 544 / 544 Balance 3674 / 3659 7080.961 / 7241.961 2609.879 / 2609.879 Weight 192 lb 11.191 oz 201 lb 8 oz 223 lb 8 oz Microbiology Reports for the Last 24 Hours: Microbiology 06/23/21 18:00 Sputum - Endotracheal Tube Aspirate Gram Stain - Final 06/23/21 18:00 Sputum - Endotracheal Tube Aspirate Sputum Culture - Preliminary Gram Positive Cocci 06/25/21 14:00 Urine,[place] Urine Culture - Preliminary 06/24/21 09:30 Nose - Nasal MRSA Culture - Final Negative 06/23/21 16:30 Blood Blood Culture - Preliminary NO GROWTH AFTER 48 HOURS 06/23/21 16:30 Blood Blood Culture - Preliminary NO GROWTH AFTER 48 HOURS Narrative: She is sedated. Color is good. Chest with bibasilar rales. No wheezes. Heart is regular. Extremities no edema. Assessment and Plan (1) Pneumonia due to COVID-19 virus Status: Acute Category: Medical Code(s): U07.1 - COVID-19; J12.82 - Pneumonia due to coronavirus disease 2019 (2) Acute kidney injury Status: Acute Category: Medical Code(s): N17.9 - Acute kidney failure, unspecified (3) Acute respiratory failure with hypoxia Status: Acute Category: Medical Code(s): J96.01 - Acute respiratory failure with hypoxia (4) Type 2 diabetes mellitus Status: Chronic Qualifiers: Diabetes mellitus group home insulin use: with long chain dyeing machine operator use Diabetes mellitus complication status: without complication Qualified Code(s): E11.9 - Type 2 diabetes mellitus without complications; Z79.4 - long term care pharmacist (current) use of insulin Category: Medical Code(s): E11.9 - Type 2 diabetes mellitus without complications (5) History of CVA (cerebrovascular accident) Status: Chronic Category: Medical Code(s): Z86.73 - Personal history of transient ischemic attack (TIA), and cerebral infarction without residual deficits - Assessment and plan all Dx Assessment and Plan for all problems:: Ventilator management per Dr. Joseph. He has initiated another SBT this AM. Will replace her Mg++.
--- NOTE | 2021-06-26 17:37 | PC.NURSE ---
pt remains on mechanical ventilation with settings of: FiO2 50%, PEEP 8, TV 440, Rate 18. Pt tolerated SBT very well today for approximately 3 hours. LS reveal scattered rhonchi throughout. Pt remains lightly sedated with propofol @ 40mcg and fentanyl @ 35mcg. Pts VS remain stable with levophed @ 10mcg. No skin breakdown noted, heels remain floated t/o shift and pt has been turned q2h. Edema noted to BUE. IV's patent and infusing w/o difficulty. F/C patent and draining clear yellow urine, approximately 100ml's urine noted this shift. Pt remains NSR on telemetry. Will continue to monitor.
[2021-06-26 20:57] LABS: POC Glucose,Bedside 168 (70-110)
[2021-06-26 20:57] LABS: POC Glucose,Bedside 93 (70-110)
[2021-06-26 20:57] LABS: POC Glucose,Bedside 89 (70-110)
[2021-06-26 20:57] LABS: POC Glucose,Bedside 100 (70-110)
[2021-06-26 21:24] LABS: Vancomycin,Trough 7.8 ug/mL (5.0-10.0)
[2021-06-26 22:00] LABS: POC Glucose,Bedside 93 (70-110)
[2021-06-27] VITALS (32 sets, daily range): BP systolic 75–119; BP diastolic 40–55; PULSE 70–96; RESP 20–26; TEMP 36–36.6; O2SAT 50–97; BMI 38.7
--- NOTE | 2021-06-27 00:06 | PC.NURSE ---
Spoke with [facility]. Pt not on Vancomycin. No need for peak.
--- NOTE | 2021-06-27 06:00 | XR_ITS ---
PROCEDURE INFORMATION: Exam: XR Chest Exam date and time: 06/27/2021 6:00 AM Age: 70 years old Clinical indication: Device placement; Ett placement (vent status); Additional info: PT intubated TECHNIQUE: Imaging protocol: XR of the chest. Views: 1 view. COMPARISON: CR XR CHEST PORTABLE 06/26/2021 4:33 AM FINDINGS: Tubes, catheters and devices: Nasogastric tube extending at least to the level of diaphragm, the distal portion is not well seen. Endotracheal tube 3.1 cm above the gary. Lungs: Stable left basilar opacity. Pleural spaces: Probable small pleural effusions. Heart/Mediastinum: Stable cardiomediastinal silhouette. Bones/joints: No acute osseous findings. IMPRESSION: Stable left basilar opacity.
[2021-06-27 06:32] LABS: Alanine Aminotransferase 10 U/L (12-78); Albumin Level 1.7 g/dl (3.5-5.0); Albumin/Globulin Ratio 0.6 (1.1-1.8); Alkaline Phosphatase 84 U/L (38-126); Anion Gap 13.3 mEq/L (5-15); Aspartate Amino Transferase 70 U/L (14-36); Bilirubin,Total 0.8 mg/dl (0.2-1.3); Blood Urea Nitrogen 41 mg/dl (7-17); Carbon Dioxide 13 mmol/L (22.0-30.0); Chloride 94 mmol/L (98-107); Creatinine Clearance Estimated 41 mL/min (50-200); Estimated Glomerular Filt Rate 23 ml/min (>60); GFR (African American) 28 ML/MIN (>60); Globulin 2.8 g/dL (1.3-3.2); Glucose 88 mg/dl (74-100); Total Protein,Serum 4.5 g/dl (6.3-8.2)
[2021-06-27 06:32] LABS: POC Glucose,Bedside 90 (70-110)
[2021-06-27 06:35] LABS: Magnesium 1.8 mg/dl (1.6-2.3); Sodium 115 mmol/L (136-145)
[2021-06-27 06:36] LABS: Potassium 5.3 mmoL/L (3.5-5.1)
[2021-06-27 06:47] LABS: Basophils % 0.4 % (0.1-2.0); Eosinophils # 0.1 K/mm3 (0.0-0.4); Eosinophils % 1.1 % (0.1-12.0); Hematocrit 34.4 % (37.0-47.0); Hemoglobin 10.7 g/dL (12.2-16.2); Lymphocytes # 1.7 K/mm3 (0.7-4.5); Lymphocytes % 16.1 % (10-50); Mean Corpuscular Volume 90.1 fl (81-99); Mean Platelet Volume 9.8 fl (7.4-10.4); Monocytes # 0.8 K/mm3 (0.1-1.0); Monocytes % 7.4 % (1.7-9.3); Neutrophils # 7.9 K/mm3 (1.8-7.8); Neutrophils % 75.1 % (37.0-80.0); Platelet Count 254 K/mm3 (142-424); Red Blood Count 3.82 M/mm3 (4.20-5.40); Red Cell Distribution Width 16.9 % (11.5-17.5); White Blood Count 10.6 K/mm3 (4.8-10.8)
[2021-06-27 07:45] LABS: ABG Base Excess -12.6 mmol/L (-2.4-2.3); ABG HCO3 14.5 mmhg (22.0-26.0); ABG PCO2 33.7 mmhg (35.0-45.0); ABG PH 7.25 mmol/L (7.35-7.45); ABG PO2 83.1 mmhg (80-100); ABG TCO2 15.6 mmhg (23-27)
[2021-06-27 07:48] LABS: Allen's Test Patient Unable; Oxygen 50 %; PEEP 8; Source Right Radial; Tidal Volume 440; Vent Rate 20
--- NOTE | 2021-06-27 08:26 | HMH.ACPN2 ---
Internal Medicine - PN: Subj *Date: 06/27/21 *Time: 08:26 Interval history: Did well with SBT yesterday x 3 hours. No respiratory problems over night. Nursing staff note she seems less responsive this AM. Staff also having issues with IV access. Exam Vital signs and Labs for Last 24 Hours: Temp Pulse Resp BP Pulse Ox 97.0 F L 80 20 90/50 L 95 06/27/21 06:58 06/27/21 06:58 06/27/21 06:58 06/27/21 06:58 06/27/21 06:58 Laboratory Results - last 24 hr 06/25/21 21:40: POC Glucose 168 H 06/26/21 05:27: POC Glucose 89 06/26/21 11:25: POC Glucose 93 06/26/21 17:25: POC Glucose 100 06/26/21 20:35: Vancomycin Trough 7.8 06/26/21 21:52: POC Glucose 93 06/27/21 03:55: POC Glucose 90 06/27/21 05:45: Sodium 115 L, Potassium 5.3 H, Chloride 94 L, Carbon Dioxide 13 L, Anion Gap 13.3, BUN 41 H, Creatinine 2.10 H, Estimated Creat Clear 41, Estimated GFR 23 L, Est GFR ( Amer) 28 L, Glucose 88, Calcium 7.0 L, Magnesium 1.8 D, Total Bilirubin 0.8, AST 70 H D, ALT 10 L, Alkaline Phosphatase 84, Total Protein 4.5 L, Albumin 1.7 L D, Globulin 2.8, Albumin/Globulin Ratio 0.6 L 06/27/21 06:39: WBC 10.6, RBC 3.82 L, Hgb 10.7 L, Hct 34.4 L, MCV 90.1, MCH 28.0, MCHC 31.0 L, RDW 16.9, Plt Count 254 D, MPV 9.8, Neut % (Auto) 75.1, Lymph % (Auto) 16.1, Grant % (Auto) 7.4, Eos % (Auto) 1.1, Baso % (Auto) 0.4, Neut # (Auto) 7.9 H, Lymph # (Auto) 1.7, Grant # (Auto) 0.8, Eos # (Auto) 0.1, Baso # (Auto) 0.0 06/27/21 07:01: Specimen Source Right radial, O2 % 50, ABG pH 7.25 L, ABG pCO2 33.7 L, ABG pO2 83.1, ABG HCO3 14.5 L, ABG Total CO2 15.6 L, ABG Base Excess -12.6 L, Josemanuel Test Patient unable, Vent Rate 20, Tidal Volume 440, PEEP 8 I & O for Last 24 hours: Intake & Output 06/24/21 06/25/21 06/26/21 06/27/21 11:59 11:59 11:59 11:59 Intake Total 3920 / 3920 7198.961 / 7364.961 3217.879 / 3348.879 1200.608 / 1200.608 Output Total 246 / 261 118 / 123 544 / 544 248 / 248 Balance 3674 / 3659 7080.961 / 7241.961 2673.879 / 2804.879 952.608 / 952.608 Weight 192 lb 11.191 oz 201 lb 8 oz 223 lb 8 oz 227 lb 3 oz Microbiology Reports for the Last 24 Hours: Microbiology 06/23/21 18:00 Sputum - Endotracheal Tube Aspirate Gram Stain - Final 06/23/21 18:00 Sputum - Endotracheal Tube Aspirate Sputum Culture - Preliminary Staphylococcus aureus 06/26/21 08:25 Sputum - Endotracheal Tube Aspirate Gram Stain - Final 06/25/21 14:00 Urine,[place] Urine Culture - Preliminary 06/24/21 09:30 Nose - Nasal MRSA Culture - Final Negative Narrative: Attempts to open eyes. Squeezes hand on command. Chest with bilateral coarse rales. No wheezes. Abdomen soft and nondistended. Ext with 1+ PTE Tracheal aspirate with MSSA. Assessment and Plan (1) Pneumonia due to COVID-19 virus Status: Acute Category: Medical Code(s): U07.1 - COVID-19; J12.82 - Pneumonia due to coronavirus disease 2019 (2) Acute kidney injury Status: Acute Category: Medical Code(s): N17.9 - Acute kidney failure, unspecified (3) Acute respiratory failure with hypoxia Status: Acute Category: Medical Code(s): J96.01 - Acute respiratory failure with hypoxia (4) Type 2 diabetes mellitus Status: Chronic Qualifiers: Diabetes mellitus terminal operations supervisor insulin use: with prison use Diabetes mellitus complication status: without complication Qualified Code(s): E11.9 - Type 2 diabetes mellitus without complications; Z79.4 - intermodal dispatcher (current) use of insulin Category: Medical Code(s): E11.9 - Type 2 diabetes mellitus without complications (5) History of CVA (cerebrovascular accident) Status: Chronic Category: Medical Code(s): Z86.73 - Personal history of transient ischemic attack (TIA), and cerebral infarction without residual deficits (6) Hyponatremia Status: Acute Category: Medical Code(s): E87.1 - Hypo-osmolality and hyponatremia - Assessment and plan all Dx Ass
--- NOTE | 2021-06-27 10:10 | HMH.ACPN2 ---
Internal Medicine - PN: Subj *Date: 06/27/21 *Time: 10:10 Exam Vital signs and Labs for Last 24 Hours: Temp Pulse Resp BP Pulse Ox 97.5 F L 79 20 75/40 L 94 L 06/27/21 10:00 06/27/21 10:00 06/27/21 10:00 06/27/21 10:00 06/27/21 10:00 Laboratory Results - last 24 hr 06/25/21 21:40: POC Glucose 168 H 06/26/21 05:27: POC Glucose 89 06/26/21 11:25: POC Glucose 93 06/26/21 17:25: POC Glucose 100 06/26/21 20:35: Vancomycin Trough 7.8 06/26/21 21:52: POC Glucose 93 06/27/21 03:55: POC Glucose 90 06/27/21 05:45: Sodium 115 L, Potassium 5.3 H, Chloride 94 L, Carbon Dioxide 13 L, Anion Gap 13.3, BUN 41 H, Creatinine 2.10 H, Estimated Creat Clear 41, Estimated GFR 23 L, Est GFR ( Amer) 28 L, Glucose 88, Calcium 7.0 L, Magnesium 1.8 D, Total Bilirubin 0.8, AST 70 H D, ALT 10 L, Alkaline Phosphatase 84, Total Protein 4.5 L, Albumin 1.7 L D, Globulin 2.8, Albumin/Globulin Ratio 0.6 L 06/27/21 06:39: WBC 10.6, RBC 3.82 L, Hgb 10.7 L, Hct 34.4 L, MCV 90.1, MCH 28.0, MCHC 31.0 L, RDW 16.9, Plt Count 254 D, MPV 9.8, Neut % (Auto) 75.1, Lymph % (Auto) 16.1, Hendricks % (Auto) 7.4, Eos % (Auto) 1.1, Baso % (Auto) 0.4, Neut # (Auto) 7.9 H, Lymph # (Auto) 1.7, Hendricks # (Auto) 0.8, Eos # (Auto) 0.1, Baso # (Auto) 0.0 06/27/21 07:01: Specimen Source Right radial, O2 % 50, ABG pH 7.25 L, ABG pCO2 33.7 L, ABG pO2 83.1, ABG HCO3 14.5 L, ABG Total CO2 15.6 L, ABG Base Excess -12.6 L, Josemanuel Test Patient unable, Vent Rate 20, Tidal Volume 440, PEEP 8 I & O for Last 24 hours: Intake & Output 06/24/21 06/25/21 06/26/21 06/27/21 23:59 23:59 23:59 23:59 Intake Total 4011.679 / 4440.679 6911.161 / 7553.161 2564.608 / 2564.608 167 / 167 Output Total 324 / 354 222 / 262 517 / 542 123 / 123 Balance 3687.679 / 4086.679 6689.161 / 7291.161 2047.608 / 2022.608 44 / 44 Weight 87 kg 91.399 kg 101.378 kg 103.051 kg Microbiology Reports for the Last 24 Hours: Microbiology 06/23/21 18:00 Sputum - Endotracheal Tube Aspirate Gram Stain - Final 06/23/21 18:00 Sputum - Endotracheal Tube Aspirate Sputum Culture - Final Staphylococcus aureus 06/26/21 08:25 Sputum - Endotracheal Tube Aspirate Gram Stain - Final 06/25/21 14:00 Urine,[place] Urine Culture - Preliminary 06/24/21 09:30 Nose - Nasal MRSA Culture - Final Negative Assessment and Plan (1) Pneumonia due to COVID-19 virus Status: Acute Category: Medical Code(s): U07.1 - COVID-19; J12.82 - Pneumonia due to coronavirus disease 2019 (2) Acute kidney injury Status: Acute Category: Medical Code(s): N17.9 - Acute kidney failure, unspecified (3) Acute respiratory failure with hypoxia Status: Acute Category: Medical Code(s): J96.01 - Acute respiratory failure with hypoxia (4) Type 2 diabetes mellitus Status: Chronic Qualifiers: Diabetes mellitus intermodal dispatcher insulin use: with intermodal dispatcher use Diabetes mellitus complication status: without complication Qualified Code(s): E11.9 - Type 2 diabetes mellitus without complications; Z79.4 - senior care (current) use of insulin Category: Medical Code(s): E11.9 - Type 2 diabetes mellitus without complications (5) History of CVA (cerebrovascular accident) Status: Chronic Category: Medical Code(s): Z86.73 - Personal history of transient ischemic attack (TIA), and cerebral infarction without residual deficits The patient's infection will respond to the chosen ABx?: Yes Is the patient receiving the right drug, dose, and route?: Yes Could a more targeted ABx be ordered?: No
--- NOTE | 2021-06-27 11:26 | HMH.PULMPN ---
Internal Medicine - PN: Subj *Date: 06/27/21 *Time: 15:16 Interval history: No acute respiratory events over the night. Patient remains on minimal vent settings. Exam - Constitutional Constitutional:: Absent: no acute distress, comfortable - HENMT Exam HENMT: Present: normocephalic, atraumatic - Eye Exam Eyes:: Present: normal appearance both eyes and related structures - Neck Exam Neck:: Present: normal visual inspection - Respiratory Exam Respiratory:: Present: respiratory distress, crackles. Absent: decreased breath sounds, wheezing - Cardiovascular Exam Cardiac:: Present: S1, S2 - GI Exam GI:: Present: soft - Skin Exam Skin: Present: warm, no rash - Neurological Exam Neurological: Absent: alert, awake, normal cognition - Extremities Exam Extremities: Present: no cyanosis, no clubbing Assessment and Plan (1) Pneumonia due to COVID-19 virus Status: Acute Category: Medical Code(s): U07.1 - COVID-19; J12.82 - Pneumonia due to coronavirus disease 2019 (2) Acute kidney injury Status: Acute Category: Medical Code(s): N17.9 - Acute kidney failure, unspecified (3) Acute respiratory failure with hypoxia Status: Acute Category: Medical Code(s): J96.01 - Acute respiratory failure with hypoxia (4) Type 2 diabetes mellitus Status: Chronic Qualifiers: Diabetes mellitus technician terminal and repeater insulin use: with technician terminal and repeater use Diabetes mellitus complication status: without complication Qualified Code(s): E11.9 - Type 2 diabetes mellitus without complications; Z79.4 - detention (current) use of insulin Category: Medical Code(s): E11.9 - Type 2 diabetes mellitus without complications (5) History of CVA (cerebrovascular accident) Status: Chronic Category: Medical Code(s): Z86.73 - Personal history of transient ischemic attack (TIA), and cerebral infarction without residual deficits - Assessment and plan all Dx Assessment and Plan for all problems:: #Acute hypoxic respiratory failure: #COVID-19 pneumonia: Chest x-ray showed significant left-sided airspace disease. ABG from this morning showed pH of 7.37 with a PCO2 35 and a PO2 of 69.8 Blood cultures and sputum cultures pending. Sputum pulmonary staining gram-positive diplococci. COVID19 PCR positive D-dimer elevated at 1.19. CRP elevated at 176. Ferritin at 362. Plan: - -DuoNebs every 6 scheduled -LE doppler no DVT. - Continue AnalgoSedation with Propofol and Fentanyl with CPOT gal less than or euqal to 2 and RASS goal of 2 -patient does not need to be deeply sedated. Wean as tolerated. - VAP bundle Elevate head of the bed at 30 to 45 degrees Oral care with chlorhexidne GI ulcer prophylaxis - Famotidine 20mg IV BID Chemical DVT prophylaxis -Continue mechanical ventilatory support. Patient continued to remain on minimal ventilatory settings. ABG from this morning showed worsening metabolic acidosis. Renal function also noted to worsen. We will continue to wean as tolerated. Continue ceftriaxone and azithromycin COntinue dexamethasone for COVID-19 pneumonia. D/C remdesevir 2/2 worsening renal function -Hemodynamically stable needing increasing vasopressor support. Blood cultures no growth 48 hours. Sputum MSSA. Nasal MRSA PCR negative. Urine cultures no growth. Will recommend performing echocardiogram. Significant electrolyte derangements including ESAU, hyerkalemia and hyponatremia managed by primary team. Will initiate hypertonic saline at 50 mL/h for the next 6 hours and will repeat BMP patient sodium critically low today at 115. Thank you involving pulmonary in this patient care. We will continue to follow.
--- NOTE | 2021-06-27 12:21 | XR_ITS ---
PROCEDURE: XR CHEST PORTABLE CLINICAL HISTORY: central line placement COMPARISON: CR XR CHEST PORTABLE from 06/25/2021 CR XR CHEST PORTABLE from 06/26/2021 CR XR CHEST PORTABLE from 06/27/2021 FINDINGS: 1:16 p.m.. There has been interval insertion of a left subclavian central venous line. The tip is in good position in the region of the superior vena cava. No evidence of pneumothorax. Mild cardiomegaly without failure. Endotracheal tube is in good position with the tip 3 cm above the gary. Nasogastric tube is present with the tip not visible on the film but below the diaphragm. There is consolidation in the left lower lobe not significantly changed. There are degenerative changes in the shoulders. IMPRESSION: Left subclavian central venous line tip in good position with no evidence of pneumothorax. No change left lower lobe pneumonia with cardiomegaly with good position of the endotracheal tube and nasogastric tube Dictated by: Josemanuel Mccauley MD 06/27/2021 13:59 Josemanuel Mccauley MD in [place] 06/27/2021 13:59
--- NOTE | 2021-06-27 13:13 | HMH.GSCON ---
*Admission Date: 06/24/21 *History of present illness: Patient is a 70-year-old female who had presented to the hospital several days ago with worsening respiratory distress after she had been in quarantine for 7 days prior to admission for positive Covid exposure. After admission she required high oxygen supplementation and initiation of BiPAP. Eventually she needed intubation and mechanical ventilation. She has been maintained on the ventilator for several days with tenuous intravenous access requiring several pressors. Surgery was consulted for central line placement. Review of Systems - Review of Systems Review of systems:: unable to obtain - *Neurologic Denies dizziness, Denies headache(s) [facility] History I have reviewed the patient's past medical history: Yes Medical History: Reports:: Cancer (basal cell carcinoma), Cerebrovascular Accident, Diabetes Mellitus Type 2, Hyperlipidemia, Hypertension, Seizures, Transient Ischemic Attacks (TIA), Ulcer Denies:: Diabetes Mellitus Type 1, MRSA *Have you ever received a pneumonia vaccine?: Yes *Have you received a flu vaccine this season?: No Laterality Cases: Right: Carotid Endarterectomy Other Surgeries: Yes: Hysterectomy-Total, Tubal Ligation Amputation: No Fractures: No - *Social History Smoking Status: Former smoker Tobacco Type: cigarettes # Packs/Day (cigarettes): 1 #Yrs smoked (if former smoker): 40 Alcohol Intake: never *Occupational Status:: retired Housing: house Household Members: spouse *Travel in the last 8 weeks: None Family Hx:: Cancer, Heart Attack, Hyperlipidemia, Hypertension, Stroke Meds Home Medications Medication Instructions Recorded Confirmed Type Atorvastatin Calcium [Lipitor 80mg 80 mg PO HS 07/14/19 06/23/21 History Tab] Losartan Potassium 100 mg PO DAILY 07/14/19 06/23/21 History Metformin HCl 500 mg PO HS 07/14/19 06/23/21 History Metoprolol Tartrate [Lopressor 100 100 mg PO DAILY 07/14/19 06/23/21 History mg Tablets] Omeprazole [Omeprazole 40mg 40 mg PO DAILY 07/14/19 06/24/21 History Capsule] Aspirin [Aspir-Low] 81 mg PO DAILY 07/15/19 06/24/21 History Amlodipine Besylate [Amlodipine 10 mg PO DAILY 06/24/21 06/24/21 History 10mg Tab] Allergies Allergy/AdvReac Type Severity Reaction Status Date / Time hydrocortisone Allergy Unknown Unknown Verified 10/26/20 09:50 [HYDROCORTISONE] allergy reaction lidocaine [LIDOCAINE] Allergy Unknown Unknown Verified 10/26/20 09:50 allergy reaction Penicillins Allergy Unknown Verified 07/15/19 10:08 allergy reaction Exam Vital signs and Labs for Last 24 Hours: Temp Pulse Resp BP Pulse Ox 97.5 F L 80 20 75/40 L 95 06/27/21 10:00 06/27/21 13:00 06/27/21 10:35 06/27/21 10:00 06/27/21 10:35 Laboratory Results - last 24 hr 06/25/21 21:40: POC Glucose 168 H 06/26/21 05:27: POC Glucose 89 06/26/21 11:25: POC Glucose 93 06/26/21 17:25: POC Glucose 100 06/26/21 20:35: Vancomycin Trough 7.8 06/26/21 21:52: POC Glucose 93 06/27/21 03:55: POC Glucose 90 06/27/21 05:45: Sodium 115 L, Potassium 5.3 H, Chloride 94 L, Carbon Dioxide 13 L, Anion Gap 13.3, BUN 41 H, Creatinine 2.10 H, Estimated Creat Clear 41, Estimated GFR 23 L, Est GFR ( Amer) 28 L, Glucose 88, Calcium 7.0 L, Magnesium 1.8 D, Total Bilirubin 0.8, AST 70 H D, ALT 10 L, Alkaline Phosphatase 84, Total Protein 4.5 L, Albumin 1.7 L D, Globulin 2.8, Albumin/Globulin Ratio 0.6 L 06/27/21 06:39: WBC 10.6, RBC 3.82 L, Hgb 10.7 L, Hct 34.4 L, MCV 90.1, MCH 28.0, MCHC 31.0 L, RDW 16.9, Plt Count 254 D, MPV 9.8, Neut % (Auto) 75.1, Lymph % (Auto) 16.1, [place] % (Auto) 7.4, Eos % (Auto) 1.1, Baso % (Auto) 0.4, Neut # (Auto) 7.9 H, Lymph # (Auto) 1.7, [place] # (Auto) 0.8, Eos # (Auto) 0.1, Baso # (Auto) 0.0 06/27/21 07:01: Specimen Source Right radial, O2 % 50, ABG pH 7.25 L, ABG pCO2 33.7 L, ABG pO2 83.1, ABG HCO3 14.5 L, ABG Total CO2 15.6 L, ABG Base Excess -12.6 L, Josemanuel Test Bianka
--- NOTE | 2021-06-27 13:16 | HMH.OPNOTE ---
Date of procedure: 06/27/21 Pre-op Diagnosis:: Need for central venous access Post-op Diagnosis:: Same Procedure performed:: Placement of nontunneled 7 Estonian triple-lumen catheter into the left subclavian vein Surgeon:: Shashi Salas MD Anesthesia: local Estimated blood loss (mL): 20 Clinical Note:: Patient is a 70-year-old female who had presented to the hospital several days ago with worsening respiratory distress after she had been in quarantine for 7 days prior to admission for positive Covid exposure. After admission she required high oxygen supplementation and initiation of BiPAP. Eventually she needed intubation and mechanical ventilation. She has been maintained on the ventilator for several days with tenuous intravenous access requiring several pressors. Surgery was consulted for central line placement. Operative findings:: Seemingly unremarkable venous anatomy Operative note:: Consent was obtained. Patient was positioned in Trendelenburg position. Left neck and chest were prepped and draped in the standard surgical fashion. Local anesthetic was infiltrated inferior to the left clavicle. Couple passes were made of the 18-gauge needle just medial to the deltopectoral groove. Subclavian vein was cannulated with good return of venous blood. Guidewire was threaded. Small incision was made at the insertion site. Subcutaneous tissues were dilated. 7 Estonian triple-lumen catheter was threaded over the guidewire using Seldinger technique. It was secured to the skin at approximately the 15 cm joanna. Clean dry sterile dressing was applied. Chest x-ray pending at the time of this dictation. Condition: critical Disposition: no change Complications:: None immediately apparent
--- NOTE | 2021-06-27 14:19 | DIET.NUTRFU ---
Pt is still intubated and currently on NPO day four. Pt with worsening renal function and POC running at 93, 100, 93. Pt had central line placed today. Recommend initiating TF and will monitor for a nutrition consult.
--- NOTE | 2021-06-27 15:21 | CA_ITS ---
APPROVED REPORT EXAM: Comprehensive 2D, Doppler, and color-flow Echocardiogram Requirements Analyst: BEN Cervantes, RVS Ht: 5 ft 4 in Wt: 227lbs BSA: 2.06 BP: 75/40 mmHg Indications: Covid-19 pneumonia, Hx-CVA, SOA, DM 2D Dimensions IVSd 0.76 cm LVEF (Visual) 60.70 % PWd 0.90 cm LA Volume 40.30 mL LVDd 5.18 cm LA Volume Index 19.60 mL/m2 (M/F) 16-34 LVDs 3.49 cm Left Atrium 2.66 cm LVOT 1.93 cm (M/F) 1.5-2.5 M-Mode Dimensions LA Diam 3.54 cm (1.9-4.0) Ao Diam 3.11 cm (2.0-3.7) EPSs 1.41 cm TAPSE 2.20 (<1.7) LV Diastology E Decel Time 207.00 (160-240 msec) E/A Ratio 0.93 MED E' 6.00 (< 7 cm/sec) MED A' 8.90 cm/s E'/MED E' Ratio 14.97 (>14) LAT E' 8.60 (<10 cm/sec) LAT A' 12.30 cm/s E/LAT E' Ratio 10.44 (>14) Aortic Valve LVOT Max 179.00 (70-110 cm/s) LVOT VTI 32.54 cm AoV Peak Sandor. 226.00 (50-130 cm/s) AO Peak GR. 20.40 mmHg AO Mean GR. 10.00 (<5 mmHg) AO VTI 35.78 (18-25 cm) CHUCHO (VTI) 2.66 (2.5-4.5 cm2) Mitral Valve MV A Velocity 97.00 (40-130 cm/s) E/A Ratio 0.93 MV Decel. Time 207.00 (160-240 ms) Tricuspid Valve TR P. Velocity 202.00 cm/s RAP Estimate 10.00 mmHg RVSP 26.40 mmHg Left Ventricle Technically difficult study because of the patient factors and poor acoustic windows. Left atrium is mildly enlarged, left ventricle is normal size, mild concentric left ventricular hypertrophy, hyperdynamic left ventricular systolic function, visually estimated ejection fraction over 65% with no regional wall motion abnormality, Doppler evidence of high cardiac output state seen. Right Ventricle Right atrium and right ventricle mildly enlarged with normal contractility. Aortic Valve Aortic valve is thickened and calcified, without morphological aortic stenosis, there is increased velocity across the aortic valve which is likely secondary to high output state. Mitral Valve Mitral valve is grossly normal, there is mild mitral regurgitation. Tricuspid Valve Tricuspid valve grossly normal, there is mild tricuspid regurgitation, tricuspid regurgitation jet velocity is inadequate for accurate assessment of the right ventricular systolic pressure. Pulmonic Valve Pulmonic valve is poorly visualized. Great Vessels Aortic root is normal size. Inferior vena cava is poorly visualized. Pericardium No significant pericardial effusion noted. Conclusion 1. Normal left ventricular size, hyperdynamic left ventricular systolic function, visually estimated ejection fraction was 65% with no regional wall motion abnormality, grade 1 diastolic dysfunction seen without tissue Doppler evidence of raise left atrial pressure, Doppler evidence of raise cardiac output. 2. Mildly enlarged right ventricle with normal contractility. 3. Mild mitral and tricuspid regurgitation. Increased velocity across the aortic valve is likely secondary to high cardiac output state. 4. No significant pericardial effusion noted Electronically signed by : Hosea Ling MD 06/27/2021 20:08:35
[2021-06-27 15:52] LABS: Anion Gap 15.2 mEq/L (5-15); Blood Urea Nitrogen 41 mg/dl (7-17); Carbon Dioxide 14 mmol/L (22.0-30.0); Chloride 94 mmol/L (98-107); Creatinine Clearance Estimated 34 mL/min (50-200); Estimated Glomerular Filt Rate 19 ml/min (>60); GFR (African American) 23 ML/MIN (>60); Glucose 96 mg/dl (74-100); Potassium 5.2 mmoL/L (3.5-5.1); Sodium 118 mmol/L (136-145)
[2021-06-27 18:15] LABS: POC Glucose,Bedside 84 (70-110)
[2021-06-27 20:22] LABS: POC Glucose,Bedside 97 (70-110)
[2021-06-27 21:14] LABS: Anion Gap 13.9 mEq/L (5-15); Blood Urea Nitrogen 39 mg/dl (7-17); Carbon Dioxide 14 mmol/L (22.0-30.0); Chloride 97 mmol/L (98-107); Creatinine Clearance Estimated 34 mL/min (50-200); Estimated Glomerular Filt Rate 19 ml/min (>60); GFR (African American) 23 ML/MIN (>60); Glucose 92 mg/dl (74-100); Potassium 4.9 mmoL/L (3.5-5.1); Sodium 120 mmol/L (136-145)
[2021-06-28] VITALS (30 sets, daily range): BP systolic 93–125; BP diastolic 42–70; PULSE 76–109; RESP 16–28; TEMP 36.6–37.1; O2SAT 92–98; BMI 39.6
[2021-06-28 05:33] LABS: POC Glucose,Bedside 82 (70-110)
--- NOTE | 2021-06-28 06:00 | XR_ITS ---
PROCEDURE INFORMATION: Exam: XR Chest Exam date and time: 06/28/2021 6:00 AM Age: 70 years old Clinical indication: Device placement; Ett placement (vent status); Patient HX: Covid; Additional info: Mechanically ventilated TECHNIQUE: Imaging protocol: XR of the chest. Views: 1 view. COMPARISON: CR XR CHEST PORTABLE 06/27/2021 1:14 PM FINDINGS: Tubes, catheters and devices: Tip of ET tube lies 4.0. cm from the gary. Left central line unchanged. Tip of NG tube lies below the GE junction, however tip is not included on the study. Lungs: Increasing mild patchy pulmonary opacities on the right. Similar consolidation left lung base. Pleural spaces: No pneumothorax. Likely left pleural effusion, unchanged. Heart/Mediastinum: Stable cardiomegaly. Bones/joints: Degenerative changes of the spine and shoulders again noted. Other findings: Study limited by patient rotation to the right IMPRESSION: 1. Increasing mild patchy pulmonary opacities on the right. Similar consolidation left lung base. Likely multifocal pneumonia. 2. Support lines and tubes as above.
[2021-06-28 06:18] LABS: Basophils % 0.1 % (0.1-2.0); Eosinophils # 0.1 K/mm3 (0.0-0.4); Eosinophils % 0.4 % (0.1-12.0); Hematocrit 33.5 % (37.0-47.0); Hemoglobin 10.4 g/dL (12.2-16.2); Lymphocytes # 0.8 K/mm3 (0.7-4.5); Lymphocytes % 6.4 % (10-50); Mean Corpuscular Hemoglobin 27.5 pg (27.0-31.2); Mean Corpuscular Volume 88.7 fl (81-99); Mean Platelet Volume 10.6 fl (7.4-10.4); Monocytes # 0.8 K/mm3 (0.1-1.0); Monocytes % 6.4 % (1.7-9.3); Neutrophils # 10.6 K/mm3 (1.8-7.8); Neutrophils % 86.6 % (37.0-80.0); Platelet Count 321 K/mm3 (142-424); Red Blood Count 3.78 M/mm3 (4.20-5.40); Red Cell Distribution Width 17.6 % (11.5-17.5); White Blood Count 12.3 K/mm3 (4.8-10.8)
[2021-06-28 06:20] LABS: Alanine Aminotransferase 12 U/L (12-78); Albumin Level 1.9 g/dl (3.5-5.0); Albumin/Globulin Ratio 0.7 (1.1-1.8); Alkaline Phosphatase 109 U/L (38-126); Anion Gap 14.9 mEq/L (5-15); Aspartate Amino Transferase 61 U/L (14-36); Bilirubin,Total 0.6 mg/dl (0.2-1.3); Blood Urea Nitrogen 42 mg/dl (7-17); Calcium 7.3 mg/dl (8.4-10.2); Carbon Dioxide 15 mmol/L (22.0-30.0); Chloride 98 mmol/L (98-107); Globulin 2.9 g/dL (1.3-3.2); Glucose 78 mg/dl (74-100); Potassium 4.9 mmoL/L (3.5-5.1); Sodium 123 mmol/L (136-145); Total Protein,Serum 4.8 g/dl (6.3-8.2)
[2021-06-28 06:25] LABS: MANUAL DIFFERENTIAL MANUAL DIFFERENTIAL (MANUAL DIFF)
[2021-06-28 06:26] LABS: Creatinine Clearance Estimated 44 mL/min (50-200); Estimated Glomerular Filt Rate 25 ml/min (>60); GFR (African American) 30 ML/MIN (>60)
[2021-06-28 07:23] LABS: ABG Base Excess -12.7 mmol/L (-2.4-2.3); ABG HCO3 14.3 mmhg (22.0-26.0); ABG Oxygen Saturation 95 % (90-100); ABG PCO2 32.3 mmhg (35.0-45.0); ABG PH 7.26 mmol/L (7.35-7.45); ABG PO2 76.5 mmhg (80-100); ABG TCO2 15.3 mmhg (23-27)
[2021-06-28 07:35] LABS: Allen's Test ACCEPTABLE; Oxygen 50 %; PEEP 8; Source Right Radial; Tidal Volume 440; Vent Rate 20
[2021-06-28 08:14] LABS: Hypochromasia 2+; Lymphocytes % 2 % (10-50); Microcytosis 1+; Neutrophils % 98 % (42-76); Platelet Estimate Normal; Total Cells Counted 100
--- NOTE | 2021-06-28 08:34 | PC.NURSE ---
2145- LEVOPHED GTT TITRATED TO 22 MCG/MIN 2300- LEVOPHED TITRATED TO 24 MCG/MIN; AVG MAP 62-64 0000- LEVOPHED TITRATED 26 MCG/MIN; MAP 61
--- NOTE | 2021-06-28 09:18 | P.PN_ITS ---
Internal Medicine - PN: Subj *Date: 06/28/21 *Time: 12:11 Interval history: No acute respiratory events overnight. Patient continued to remain on minimal ventilatory settings. Exam - HENMT Exam HENMT: Present: normocephalic, atraumatic - Eye Exam Eyes:: Present: normal appearance both eyes and related structures - Neck Exam Neck:: Present: normal visual inspection - Respiratory Exam Respiratory:: Present: respiratory distress, crackles - GI Exam GI:: Present: soft. Absent: distended - Skin Exam Skin: Present: warm - Neurological Exam Neurological: Present: awake. Absent: alert, normal cognition Intubated and sedated. Arousable. - Extremities Exam Extremities: Present: no cyanosis, no clubbing, edema Assessment and Plan (1) Pneumonia due to COVID-19 virus Status: Acute Category: Medical Code(s): U07.1 - COVID-19; J12.82 - Pneumonia due to coronavirus disease 2019 (2) Acute kidney injury Status: Acute Category: Medical Code(s): N17.9 - Acute kidney failure, unspecified (3) Acute respiratory failure with hypoxia Status: Acute Category: Medical Code(s): J96.01 - Acute respiratory failure with hypoxia (4) Type 2 diabetes mellitus Status: Chronic Qualifiers: Diabetes mellitus intermediate insulin use: with bed bug exterminator use Diabetes mellitus complication status: without complication Qualified Code(s): E11.9 - Type 2 diabetes mellitus without complications; Z79.4 - penitentiary (current) use of insulin Category: Medical Code(s): E11.9 - Type 2 diabetes mellitus without complications (5) History of CVA (cerebrovascular accident) Status: Chronic Category: Medical Code(s): Z86.73 - Personal history of transient ischemic attack (TIA), and cerebral infarction without residual deficits - Assessment and plan all Dx Assessment and Plan for all problems:: Assessment and Plan for all problems:: #Acute hypoxic respiratory failure: #COVID-19 pneumonia: Chest x-ray showed significant left-sided airspace disease. ABG from this morning showed pH of 7.37 with a PCO2 35 and a PO2 of 69.8 Blood cultures and sputum cultures pending. Sputum pulmonary staining gram- positive diplococci. COVID19 PCR positive D-dimer elevated at 1.19. CRP elevated at 176. Ferritin at 362. LE doppler no DVT Plan: - Continue AnalgoSedation with Propofol and Fentanyl with CPOT gal less than or euqal to 2 and RASS goal of 2 -patient does not need to be deeply sedated. Wean as tolerated and will perform SBT. - VAP bundle Elevate head of the bed at 30 to 45 degrees Oral care with chlorhexidne GI ulcer prophylaxis - Famotidine 20mg IV BID Chemical DVT prophylaxis -Continue mechanical ventilatory support. Patient continued to remain on minimal ventilatory settings. ABG from this morning continued showed worsening metabolic acidosis. We will continue to wean as tolerated perform SBT today. Continue ceftriaxone and azithromycin COntinue dexamethasone for COVID-19 pneumonia. Remdesevir stopped 2/2 worsening renal function -Hemodynamically stable. Blood cultures no growth 48 hours. Sputum MSSA. Nasal MRSA PCR negative. Urine cultures no growth. Echocardiogram normal LV function with a EF of 65%. Significant electrolyte derangements including ESAU, hyerkalemia and hyponatremia managed by primary team. Hyponatremia improved from yesterday now at 123. Thank you involving pulmonary in this patient care. We will continue to follow.
--- NOTE | 2021-06-28 09:20 | HMH.ACPN2 ---
<Naomy Rubalcava - Last Filed: 06/28/21 13:08> Internal Medicine - PN: Subj *Date: 06/28/21 *Time: 13:08 Interval history: Patient remains intubated and on the ventilator With tidal volume of 440, assist-control of 20, 8 of PEEP, and 50% FiO2. ABGs this morning show pH 7.26 PCO2 of 32.3 PO2 of 76.5 and bicarb of 14.3. Nurses state that she is maxed out on her Levophed drip. She remains on sedation with fentanyl and propofol. Chest x-ray this morning showed increasing mild patchy pulmonary opacities on the right. Similar consolidation in the left lung base. Likely multifocal pneumonia. She did have a deep line placed per Dr. Salas yesterday. Other laboratory data this morning reveal a CBC with a white blood cell count of 12,300 hemoglobin is 10.4 hematocrit 33.5. Blood chemistries show sodium of 123 and potassium of 4.9 renal function show a BUN of 42 and creatinine of 2. Latest sputum culture reveales staph aureus. Exam Vital signs and Labs for Last 24 Hours: Temp Pulse Resp BP Pulse Ox 98.2 F 94 H 22 121/58 L 95 06/28/21 06:52 06/28/21 06:52 06/28/21 06:52 06/28/21 06:52 06/28/21 06:52 Laboratory Results - last 24 hr 06/27/21 15:30: Sodium 118 L, Potassium 5.2 H, Chloride 94 L, Carbon Dioxide 14 L, Anion Gap 15.2 H, BUN 41 H, Creatinine 2.50 H, Estimated Creat Clear 34, Estimated GFR 19 L*, Est GFR ( Amer) 23 L, Glucose 96, Calcium 7.0 L 06/27/21 18:08: POC Glucose 84 06/27/21 20:10: POC Glucose 97 06/27/21 20:45: Sodium 120 L, Potassium 4.9, Chloride 97 L, Carbon Dioxide 14 L, Anion Gap 13.9, BUN 39 H, Creatinine 2.50 H, Estimated Creat Clear 34, Estimated GFR 19 L*, Est GFR ( Amer) 23 L, Glucose 92, Calcium 7.0 L 06/28/21 05:27: POC Glucose 82 06/28/21 05:28: Sodium 123 L, Potassium 4.9, Chloride 98, Carbon Dioxide 15 L, Anion Gap 14.9, BUN 42 H, Creatinine 2.00 H, Estimated Creat Clear 44, Estimated GFR 25 L, Est GFR ( Amer) 30 L D, Glucose 78, Calcium 7.3 L, Total Bilirubin 0.6, AST 61 H, ALT 12, Alkaline Phosphatase 109, Total Protein 4.8 L, Albumin 1.9 L D, Globulin 2.9, Albumin/Globulin Ratio 0.7 L 06/28/21 05:28: WBC 12.3 H, RBC 3.78 L, Hgb 10.4 L, Hct 33.5 L, MCV 88.7, MCH 27.5, MCHC 31.0 L, RDW 17.6 H, Plt Count 321 D, MPV 10.6 H, Neut % (Auto) 86.6 H, Lymph % (Auto) 6.4 L, [place] % (Auto) 6.4, Eos % (Auto) 0.4, Baso % (Auto) 0.1, Neut # (Auto) 10.6 H, Lymph # (Auto) 0.8, [place] # (Auto) 0.8, Eos # (Auto) 0.1, Baso # (Auto) 0.0, Total Counted 100, Neutrophils % (Manual) 98 H, Lymphocytes % (Manual) 2 L, Platelet Estimate Normal, Hypochromasia 2+, Microcytosis 1+ 06/28/21 07:00: Specimen Source Right radial, O2 % 50, ABG pH 7.26 L, ABG pCO2 32.3 L, ABG pO2 76.5 L, ABG HCO3 14.3 L, ABG Total CO2 15.3 L, ABG O2 Saturation 95, ABG Base Excess -12.7 L, Josemanuel Test Acceptable, Vent Rate 20, Tidal Volume 440, PEEP 8 I & O for Last 24 hours: Intake & Output 06/25/21 06/26/21 06/27/21 06/28/21 11:59 11:59 11:59 11:59 Intake Total 7198.961 / 7364.961 3217.879 / 3348.879 1710.608 / 1747.608 575.75 / 575.75 Output Total 118 / 123 544 / 544 288 / 303 925 / 925 Balance 7080.961 / 7241.961 2673.879 / 2804.879 1422.608 / 1444.608 -349.25 / -349.25 Weight 201 lb 8 oz 223 lb 8 oz 227 lb 3 oz 232 lb 9.6 oz Microbiology Reports for the Last 24 Hours: Microbiology 06/23/21 18:00 Sputum - Endotracheal Tube Aspirate Gram Stain - Final 06/23/21 18:00 Sputum - Endotracheal Tube Aspirate Sputum Culture - Final Staphylococcus aureus - Constitutional no acute distress Comments: Appears comfortable and sedated - *Routine Respiratory Exam Present: CTA bilaterally (Anteriorly) - *Routine Cardiovascular Exam Present: RRR Comments: Monitor showing sinus rhythm - *Routine Abdominal Exam Present: soft, normoactive bowel sounds, obese - *Routine Extremities Exam Present: edema (Leg edema) - *Routine Neurological Exam Absent: alert (Sedated) Assessment a
[2021-06-28 12:38] LABS: ABG Base Excess -13.6 mmol/L (-2.4-2.3); ABG HCO3 13.9 mmhg (22.0-26.0); ABG Oxygen Saturation 93 % (90-100); ABG PCO2 34.1 mmhg (35.0-45.0); ABG PH 7.23 mmol/L (7.35-7.45); ABG PO2 75.8 mmhg (80-100)
[2021-06-28 12:40] LABS: POC Glucose,Bedside 89 (70-110)
[2021-06-28 12:40] LABS: Allen's Test Acceptable; Oxygen 50 %; PEEP 8; Pressure Support 10; Source Right Radial
[2021-06-29] VITALS (36 sets, daily range): BP systolic 92–136; BP diastolic 41–67; PULSE 66–111; RESP 18–28; TEMP 36.6–37.2; O2SAT 94–99; BMI 39.6
--- NOTE | 2021-06-29 06:00 | XR_ITS ---
PROCEDURE INFORMATION: Exam: XR Chest Exam date and time: 06/29/2021 6:00 AM Age: 70 years old Clinical indication: Device placement; Ett placement (vent status); Patient HX: Covid; Additional info: Intubation TECHNIQUE: Imaging protocol: XR of the chest. Views: 1 view. COMPARISON: CR XR CHEST PORTABLE 06/28/2021 5:37 AM FINDINGS: Tubes, catheters and devices: Endotracheal tube, feeding tube, central venous catheter. The endotracheal tube terminates 4.0 cm above the gary. Lungs: COPD, interstitial disease, and bibasilar airspace disease in the setting of reported COVID-19 pneumonitis. Pleural spaces: Incomplete visualization of the right costophrenic angle. Small left pleural effusion. Heart/Mediastinum: Borderline cardiomegaly. Bones/joints: Degenerative change. IMPRESSION: 1. COPD, interstitial disease, and bibasilar airspace disease in the setting of reported COVID-19 pneumonitis. 2. Additional findings as described above.
[2021-06-29 06:34] LABS: Basophils % 0.1 % (0.1-2.0); Eosinophils % 0.3 % (0.1-12.0); Hemoglobin 10.4 g/dL (12.2-16.2); Lymphocytes # 0.8 K/mm3 (0.7-4.5); Lymphocytes % 6.9 % (10-50); Mean Corpuscular HGB Conc 31.5 g/dL (31.8-35.4); Mean Corpuscular Hemoglobin 27.7 pg (27.0-31.2); Mean Platelet Volume 9.8 fl (7.4-10.4); Monocytes # 0.5 K/mm3 (0.1-1.0); Monocytes % 4.3 % (1.7-9.3); Neutrophils # 10.5 K/mm3 (1.8-7.8); Neutrophils % 88.4 % (37.0-80.0); Platelet Count 334 K/mm3 (142-424); Red Blood Count 3.75 M/mm3 (4.20-5.40); Red Cell Distribution Width 17.7 % (11.5-17.5); White Blood Count 11.9 K/mm3 (4.8-10.8)
[2021-06-29 06:37] LABS: MANUAL DIFFERENTIAL MANUAL DIFFERENTIAL (MANUAL DIFF)
[2021-06-29 06:47] LABS: Alanine Aminotransferase 12 U/L (12-78); Albumin/Globulin Ratio 0.6 (1.1-1.8); Alkaline Phosphatase 123 U/L (38-126); Anion Gap 15.7 mEq/L (5-15); Aspartate Amino Transferase 46 U/L (14-36); Bilirubin,Total 0.7 mg/dl (0.2-1.3); Blood Urea Nitrogen 37 mg/dl (7-17); Calcium 7.8 mg/dl (8.4-10.2); Carbon Dioxide 15 mmol/L (22.0-30.0); Chloride 103 mmol/L (98-107); Creatinine Clearance Estimated 46 mL/min (50-200); Estimated Glomerular Filt Rate 26 ml/min (>60); GFR (African American) 32 ML/MIN (>60); Globulin 3.1 g/dL (1.3-3.2); Glucose 92 mg/dl (74-100); Potassium 4.7 mmoL/L (3.5-5.1); Sodium 129 mmol/L (136-145); Total Protein,Serum 5.1 g/dl (6.3-8.2)
[2021-06-29 07:34] LABS: ABG Base Excess -10.4 mmol/L (-2.4-2.3); ABG HCO3 16.3 mmhg (22.0-26.0); ABG Oxygen Saturation 96 % (90-100); ABG PCO2 35.4 mmhg (35.0-45.0); ABG PH 7.28 mmol/L (7.35-7.45); ABG PO2 88.8 mmhg (80-100); ABG TCO2 17.4 mmhg (23-27)
[2021-06-29 07:35] LABS: Allen's Test Patient Unable; Oxygen 50 %; PEEP 8; Source Right Radial; Tidal Volume 440; Vent Rate 20
[2021-06-29 07:37] LABS: Lactate Arterial 1.5 mmol/L (0.4-2.0)
--- NOTE | 2021-06-29 08:06 | HMH.ACPN2 ---
<Naomy Rubalcava - Last Filed: 06/29/21 08:15> Internal Medicine - PN: Subj *Date: 06/29/21 *Time: 08:15 Interval history: Patient remains on vent With tidal volume of 440, respiratory rate of 20 and PEEP of 8, and FiO2 of 50%.. ABGs this morning showed a pH of 7.28, PCO2 of 35.4., O2 of 88.8 and bicarb of 16.3. She remains on Levophed. She is lightly sedated with fentanyl and propofol. She has generalized body edema. Other laboratory data this morning show white blood cell count of 11,900 hemoglobin of 10.4 and hematocrit of 33. Blood chemistries show an improved sodium at 129 and potassium of 4.7. Renal function is stable with a BUN of 37 creatinine 1.9. Exam Vital signs and Labs for Last 24 Hours: Temp Pulse Resp BP Pulse Ox 98.1 F 93 H 18 112/54 L 96 06/29/21 08:04 06/29/21 08:04 06/29/21 08:04 06/29/21 08:04 06/29/21 08:04 Laboratory Results - last 24 hr 06/28/21 05:28: Total Counted 100, Neutrophils % (Manual) 98 H, Lymphocytes % (Manual) 2 L, Platelet Estimate Normal, Hypochromasia 2+, Microcytosis 1+ 06/28/21 12:33: POC Glucose 89 06/28/21 12:35: Specimen Source Right radial, O2 % 50, ABG pH 7.23 L*, ABG pCO2 34.1 L, ABG pO2 75.8 L, ABG HCO3 13.9 L, ABG Total CO2 15.0 L, ABG O2 Saturation 93, ABG Base Excess -13.6 L, Josemanuel Test Acceptable, PEEP 8 06/29/21 06:00: ABG Lactate 1.5 06/29/21 06:00: Specimen Source Right radial, O2 % 50, ABG pH 7.28 L, ABG pCO2 35.4, ABG pO2 88.8, ABG HCO3 16.3 L, ABG Total CO2 17.4 L, ABG O2 Saturation 96, ABG Base Excess -10.4 L, Josemanuel Test Patient unable, Vent Rate 20, Tidal Volume 440, PEEP 8 06/29/21 06:10: WBC 11.9 H, RBC 3.75 L, Hgb 10.4 L, Hct 33.0 L, MCV 88.0, MCH 27.7, MCHC 31.5 L, RDW 17.7 H, Plt Count 334, MPV 9.8, Neut % (Auto) 88.4 H, Lymph % (Auto) 6.9 L, [place] % (Auto) 4.3, Eos % (Auto) 0.3, Baso % (Auto) 0.1, Neut # (Auto) 10.5 H, Lymph # (Auto) 0.8, [place] # (Auto) 0.5, Eos # (Auto) 0.0, Baso # (Auto) 0.0 06/29/21 06:10: Sodium 129 L, Potassium 4.7, Chloride 103, Carbon Dioxide 15 L, Anion Gap 15.7 H, BUN 37 H, Creatinine 1.90 H, Estimated Creat Clear 46, Estimated GFR 26 L, Est GFR ( Amer) 32 L, Glucose 92, Calcium 7.8 L, Total Bilirubin 0.7, AST 46 H, ALT 12, Alkaline Phosphatase 123, Total Protein 5.1 L, Albumin 2.0 L, Globulin 3.1, Albumin/Globulin Ratio 0.6 L I & O for Last 24 hours: Intake & Output 06/26/21 06/27/21 06/28/21 06/29/21 11:59 11:59 11:59 11:59 Intake Total 3217.879 / 3348.879 1710.608 / 9179.434 6705.755 / 1265.755 640.531 / 640.531 Output Total 544 / 544 288 / 303 1249 / 1249 3195 / 3195 Balance 2673.879 / 2804.879 1422.608 / 1444.608 16.755 / 16.755 -2554.469 / -2554.469 Weight 223 lb 8 oz 227 lb 3 oz 232 lb 9.6 oz 232 lb Microbiology Reports for the Last 24 Hours: Microbiology 06/23/21 16:30 Blood Blood Culture - Final NO GROWTH AFTER 5 DAYS 06/23/21 16:30 Blood Blood Culture - Final NO GROWTH AFTER 5 DAYS 06/26/21 08:25 Sputum - Endotracheal Tube Aspirate Gram Stain - Final 06/26/21 08:25 Sputum - Endotracheal Tube Aspirate Sputum Culture - Preliminary 06/25/21 14:00 Urine,[place] Urine Culture - Final Yeast - Constitutional no acute distress Comments: Sedated - *Routine Respiratory Exam Present: CTA bilaterally (Anteriorly) - *Routine Cardiovascular Exam Present: RRR (Sinus rhythm on monitor) - *Routine Abdominal Exam Present: soft, normoactive bowel sounds - *Routine Extremities Exam Present: edema (Generalized body edema) - *Routine Neurological Exam Absent: alert (Lightly sedated. Has blink reflex.) Assessment and Plan (1) Pneumonia due to COVID-19 virus Status: Acute Category: Medical Code(s): U07.1 - COVID-19; J12.82 - Pneumonia due to coronavirus disease 2019 (2) Acute kidney injury Status: Acute Category: Medical Code(s): N17.9 - Acute kidney failure, unspecified (3) Acu
[2021-06-29 08:10] LABS: Lymphocytes % 7 % (10-50); Monocytes % 5 % (2-9); Neutrophils % 88 % (42-76); Total Cells Counted 100
[2021-06-29 08:11] LABS: Platelet Estimate Normal; RBC Morphology Normal
--- NOTE | 2021-06-29 09:16 | HMH.PULMPN ---
Internal Medicine - PN: Subj *Date: 06/29/21 *Time: 14:53 Interval history: No acute respiratory events overnight. Exam - Constitutional Constitutional:: Present: no acute distress, comfortable - HENMT Exam HENMT: Present: normocephalic, atraumatic - Eye Exam Eyes:: Present: normal appearance both eyes and related structures - Neck Exam Neck:: Present: normal visual inspection - Respiratory Exam Respiratory:: Present: respiratory distress - Cardiovascular Exam Cardiac:: Present: S1, S2 - GI Exam GI:: Present: soft - Neurological Exam Neurological: Absent: alert, awake, normal cognition - Extremities Exam Extremities: Present: no cyanosis, no clubbing, edema Assessment and Plan (1) Pneumonia due to COVID-19 virus Status: Acute Category: Medical Code(s): U07.1 - COVID-19; J12.82 - Pneumonia due to coronavirus disease 2019 (2) Acute kidney injury Status: Acute Category: Medical Code(s): N17.9 - Acute kidney failure, unspecified (3) Acute respiratory failure with hypoxia Status: Acute Category: Medical Code(s): J96.01 - Acute respiratory failure with hypoxia (4) Type 2 diabetes mellitus Status: Chronic Qualifiers: Diabetes mellitus fdc insulin use: with fdc use Diabetes mellitus complication status: without complication Qualified Code(s): E11.9 - Type 2 diabetes mellitus without complications; 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 Category: Medical Code(s): E11.9 - Type 2 diabetes mellitus without complications (5) History of CVA (cerebrovascular accident) Status: Chronic Category: Medical Code(s): Z86.73 - Personal history of transient ischemic attack (TIA), and cerebral infarction without residual deficits (6) Hyponatremia Status: Acute Category: Medical Code(s): E87.1 - Hypo-osmolality and hyponatremia (7) Hypomagnesemia Status: Acute Category: Medical Code(s): E83.42 - Hypomagnesemia - Assessment and plan all Dx Assessment and Plan for all problems:: #Acute hypoxic respiratory failure: #COVID-19 pneumonia: Chest x-ray showed significant left-sided airspace disease. ABG from this morning showed pH of 7.37 with a PCO2 35 and a PO2 of 69.8 Blood cultures and sputum cultures pending. Sputum pulmonary staining gram-positive diplococci. COVID19 PCR positive D-dimer elevated at 1.19. CRP elevated at 176. Ferritin at 362. LE doppler no DVT Plan: - Continue AnalgoSedation with Propofol and Fentanyl with CPOT gal less than or euqal to 2 and RASS goal of 2 . Wean sedation aggressively as tolerated. Patient still appears lethargic. - VAP bundle Elevate head of the bed at 30 to 45 degrees Oral care with chlorhexidne GI ulcer prophylaxis - Famotidine 20mg IV BID Chemical DVT prophylaxis -Continue mechanical ventilatory support. Patient continued to remain on minimal ventilatory settings. ABG from this morning continued to show metabolic acidosis. We will continue to wean as tolerated perform SBT today. Continue ceftriaxone and azithromycin. X-ray showed worsening volume status and left-sided effusion. COntinue dexamethasone for COVID-19 pneumonia. Remdesevir stopped 2/2 worsening renal function -Hemodynamically stable. Blood cultures no growth 48 hours. Sputum MSSA. Nasal MRSA PCR negative. Urine cultures no growth. Echocardiogram normal LV function with a EF of 65%. -Renal function relatively stable/improving. Hyperkalemia and hyponatremia improving. continue sodium bicarb to 650 mg 3 times daily. Fluconazole for UTI Thank you involving pulmonary in this patient care. We will continue to follow.
--- NOTE | 2021-06-29 10:11 | PC.NURSE ---
SBT started @ 0950. Fentanyl turned off as well per Dr. Joseph.
[2021-06-29 11:36] LABS: ABG Base Excess -11.3 mmol/L (-2.4-2.3); ABG HCO3 15.7 mmhg (22.0-26.0); ABG Oxygen Saturation 95 % (90-100); ABG PCO2 35.4 mmhg (35.0-45.0); ABG PH 7.27 mmol/L (7.35-7.45); ABG PO2 83.8 mmhg (80-100); ABG TCO2 16.8 mmhg (23-27)
[2021-06-29 12:03] LABS: Allen's Test ACCEPTABLE; Oxygen 50 %; PEEP 8; Pressure Support 10; Source Right Radial
--- NOTE | 2021-06-29 12:16 | DIET.NUTRFU ---
Pt currently intubated and on day six of NPO. Plan is to further diurese patient today and start weaning process per MD progress note. Will continue to monitor and adjust nutritional plan as fit.
--- NOTE | 2021-06-29 17:18 | PC.NURSE ---
Addendum entered by Zohra Simon RN 06/29/21 18:21: Levophed has been weaned to 5 mcg/min Original Note: Pt to remain on SBT through the night. Propofol and Fentanyl remain off. Lungs noted to have Ronchi scattered on R side. Abdomen soft, non-tender w/ active BS in all quads. No BM this shift. Santo to drain @ bedside w/ clear yellow urine noted. Edema in bilat upper ext, weeping noted on L Hand. Pt turned Q2H. Oral care performed, has had copious amounts of yellow thick sputum noted. Currently resting w/ eyes closed. Bed alarm in place. Daughter called this afternoon and was updated on plan of care.
--- NOTE | 2021-06-29 20:57 | XR_ITS ---
PROCEDURE INFORMATION: Exam: XR Chest Exam date and time: 06/29/2021 8:57 PM Age: 70 years old Clinical indication: Device placement; Other: Og placement; Patient HX: New og tube placement verification TECHNIQUE: Imaging protocol: XR of the chest. Views: 1 view. COMPARISON: CR XR CHEST PORTABLE 06/29/2021 5:26 AM FINDINGS: Tubes, catheters and devices: There is an endotracheal tube with its tip 4.3 cm above the gary. A nasogastric tube is noted with its tip in the stomach. There is a left subclavian catheter with its tip in the superior vena cava. Lungs: There are patchy areas of peripheral consolidation identified within both lung vora. The degree and distribution of consolidation is not appreciably changed since a prior examination at 5:26 a.m. there is no evidence of pulmonary vascular congestion. Pleural spaces: There is blunting of the left lateral costophrenic angle suggesting the presence of a left basilar pleural effusion. This is similar when compared with prior examination. Heart/Mediastinum: Unremarkable. No cardiomegaly. Atheromatous calcification of the thoracic aorta. Bones/joints: Prominent degenerative changes noted within the shoulders and thoracic spine as on prior examination. IMPRESSION: The degree and distribution of interstitial infiltrates within both lung vora is not appreciably changed. The stable appearance of endotracheal tube, nasogastric tube, and left subclavian catheter.
[2021-06-30] VITALS (33 sets, daily range): BP systolic 94–175; BP diastolic 46–99; PULSE 92–118; RESP 12–28; TEMP 36–36.9; O2SAT 90–100
--- NOTE | 2021-06-30 06:00 | XR_ITS ---
PROCEDURE INFORMATION: Exam: XR Chest Exam date and time: 06/30/2021 6:00 AM Age: 70 years old Clinical indication: Device placement; Ett placement (vent status); Patient HX: Covid; Additional info: Intubation TECHNIQUE: Imaging protocol: XR of the chest. Views: 1 view. COMPARISON: CR XR CHEST PORTABLE 06/29/2021 9:15 PM FINDINGS: Tubes, catheters and devices: Endotracheal tube 4.9 cm above the gary and appears well positioned. Nasogastric tube tip extends below the inferior margin of the radiograph. Left subclavian catheter with tip overlying cavo innominate junction. Lungs: Few scattered bilateral ground-glass opacities are predominantly peripheral and persistent. Retrocardiac consolidation is persistent. Pleural spaces: Left basilar pleural thickening. Heart/Mediastinum: Unremarkable. No cardiomegaly. Bones/joints: Advanced bilateral shoulder and also spine degenerative changes. Other findings: Overlying monitoring equipment. IMPRESSION: 1. Retrocardiac opacity and multifocal airspace opacities consistent with history of pneumonia. 2. Increased left basilar pleural thickening concerning for pleural effusion.
[2021-06-30 07:04] LABS: Basophils % 0.3 % (0.1-2.0); Eosinophils % 0.3 % (0.1-12.0); Hematocrit 31.7 % (37.0-47.0); Hemoglobin 9.8 g/dL (12.2-16.2); Lymphocytes # 0.6 K/mm3 (0.7-4.5); Lymphocytes % 6.1 % (10-50); Mean Corpuscular HGB Conc 30.9 g/dL (31.8-35.4); Mean Corpuscular Hemoglobin 27.9 pg (27.0-31.2); Mean Corpuscular Volume 90.6 fl (81-99); Mean Platelet Volume 9.3 fl (7.4-10.4); Monocytes # 0.4 K/mm3 (0.1-1.0); Neutrophils # 9.1 K/mm3 (1.8-7.8); Neutrophils % 89.3 % (37.0-80.0); Platelet Count 302 K/mm3 (142-424); Red Cell Distribution Width 17.8 % (11.5-17.5); White Blood Count 10.2 K/mm3 (4.8-10.8)
[2021-06-30 07:13] LABS: ABG HCO3 16.2 mmhg (22.0-26.0); ABG Oxygen Saturation 99 % (90-100); ABG PCO2 28.5 mmhg (35.0-45.0); ABG PH 7.37 mmol/L (7.35-7.45); ABG PO2 136.7 mmhg (80-100); ABG TCO2 17.1 mmhg (23-27); Oxygen 50 %
[2021-06-30 07:13] LABS: Alanine Aminotransferase 11 U/L (12-78); Albumin/Globulin Ratio 0.6 (1.1-1.8); Alkaline Phosphatase 107 U/L (38-126); Anion Gap 12.7 mEq/L (5-15); Aspartate Amino Transferase 41 U/L (14-36); Bilirubin,Total 0.7 mg/dl (0.2-1.3); Blood Urea Nitrogen 33 mg/dl (7-17); Calcium 8.1 mg/dl (8.4-10.2); Carbon Dioxide 19 mmol/L (22.0-30.0); Chloride 106 mmol/L (98-107); Creatinine Clearance Estimated 67 mL/min (50-200); Estimated Glomerular Filt Rate 40 ml/min (>60); GFR (African American) 49 ML/MIN (>60); Globulin 3.1 g/dL (1.3-3.2); Glucose 81 mg/dl (74-100); Potassium 4.7 mmoL/L (3.5-5.1); Sodium 133 mmol/L (136-145); Total Protein,Serum 5.1 g/dl (6.3-8.2)
[2021-06-30 07:14] LABS: Allen's Test Acceptable; PEEP 8; Source Right Radial; Vent Rate 0
[2021-06-30 07:26] LABS: MANUAL DIFFERENTIAL MANUAL DIFFERENTIAL (MANUAL DIFF)
--- NOTE | 2021-06-30 07:44 | PC.NURSE ---
Pt. tolerated SBT well. 2100- placed new OG tube 18 F @ 65 cm 2120- titrated levophed to 6 mcg/min 0- titrated levophed to 4 mcg/min 0600- titrated levophed to 2 mcg/min
[2021-06-30 08:15] LABS: Lymphocytes % 8 % (10-50); Monocytes % 5 % (2-9); Neutrophils % 87 % (42-76); Total Cells Counted 100
[2021-06-30 08:16] LABS: Hypochromasia 2+; Macrocytosis 1+; Platelet Estimate Normal
--- NOTE | 2021-06-30 09:25 | HMH.PULMPN ---
Internal Medicine - PN: Subj *Date: 06/30/21 *Time: 13:43 Interval history: No acute respiratory events overnight. Continue to remain minimal vent settings. Off sedation. Exam - Constitutional Constitutional:: Present: no acute distress, comfortable - HENMT Exam HENMT: Present: normocephalic, atraumatic - Eye Exam Eyes:: Present: normal appearance both eyes and related structures - Neck Exam Neck:: Present: normal visual inspection - Respiratory Exam Respiratory:: Present: no respiratory distress, crackles - Cardiovascular Exam Cardiac:: Present: S1, S2 - GI Exam GI:: Present: soft - Skin Exam Skin: Present: warm, no rash - Neurological Exam Neurological: Present: awake. Absent: alert, normal cognition - Extremities Exam Extremities: Present: no cyanosis, no clubbing, edema Assessment and Plan (1) Pneumonia due to COVID-19 virus Status: Acute Category: Medical Code(s): U07.1 - COVID-19; J12.82 - Pneumonia due to coronavirus disease 2018 (2) Acute kidney injury Status: Acute Category: Medical Code(s): N17.9 - Acute kidney failure, unspecified (3) Acute respiratory failure with hypoxia Status: Acute Category: Medical Code(s): J96.01 - Acute respiratory failure with hypoxia (4) Type 2 diabetes mellitus Status: Chronic Qualifiers: Diabetes mellitus half-way insulin use: with half-way use Diabetes mellitus complication status: without complication Qualified Code(s): E11.9 - Type 2 diabetes mellitus without complications; 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 Category: Medical Code(s): E11.9 - Type 2 diabetes mellitus without complications (5) History of CVA (cerebrovascular accident) Status: Chronic Category: Medical Code(s): Z86.73 - Personal history of transient ischemic attack (TIA), and cerebral infarction without residual deficits (6) Hyponatremia Status: Acute Category: Medical Code(s): E87.1 - Hypo-osmolality and hyponatremia (7) Hypomagnesemia Status: Acute Category: Medical Code(s): E83.42 - Hypomagnesemia - Assessment and plan all Dx Assessment and Plan for all problems:: #Acute hypoxic respiratory failure: #COVID-19 pneumonia: Chest x-ray showed significant left-sided airspace disease. ABG from this morning showed pH of 7.37 with a PCO2 35 and a PO2 of 69.8 Blood cultures and sputum cultures pending. Sputum pulmonary staining gram-positive diplococci. COVID19 PCR positive D-dimer elevated at 1.19. CRP elevated at 176. Ferritin at 362. LE doppler no DVT Plan: -Continue to hold sedation with as needed as needed - VAP bundle Elevate head of the bed at 30 to 45 degrees Oral care with chlorhexidne GI ulcer prophylaxis - Famotidine 20mg IV BID Chemical DVT prophylaxis -Continue mechanical ventilatory support. Patient continued to remain on minimal ventilatory settings. ABG from this morning continued to show metabolic acidosis. Patient off sedation mentation improved from yesterday however still lethargic. We will continue to hold off sedation awaiting patient mentation to improve for extubation. Patient successfully performing spontaneous breathing trials and continued to remain on minimal vent settings. COntinue dexamethasone for COVID-19 pneumonia. Remdesevir stopped 2/2 worsening renal function -Hemodynamically stable. Blood cultures no growth 48 hours. Sputum MSSA. Nasal MRSA PCR negative. Urine cultures no growth. Echocardiogram normal LV function with a EF of 65%. -Renal function and Creatinine improving. Volume status worsening. We will challenge 40 mg IV Lasix once today Continue sodium bicarb to 650 mg 3 times daily. Fluconazole for UTI. Thank you involving pulmonary in this patient care. We will continue to follow.
--- NOTE | 2021-06-30 10:05 | PC.NURSE ---
Addendum entered by Zohra Simon RN 06/30/21 14:32: Remains on SBT. Pt awake, drowsy, occasionally follows commands. Original Note: Received bed bath and linen change. Santo care provided. Randa area excoriated, powder applied. Coccyx w/ stage I, blanchable. Preventative dressing removed and replaced w/ w/ new dressing. One blister on L AC popped, area cleaned and dressing put in place. Oral care provided. Thick yellow secretions noted. Pt positioned on L side. Heels floating, pillow between legs.
--- NOTE | 2021-06-30 13:48 | HMH.ACPN2 ---
Internal Medicine - PN: Jen *Date: 06/30/21 *Time: 13:48 Interval history: Stable course since yesterday. She has done well with spontaneous breathing trial overnight. She is off all sedation. Levophed has been titrated down to 1 mcg per minute. Exam Vital signs and Labs for Last 24 Hours: Temp Pulse Resp BP Pulse Ox 97.9 F 100 H 19 141/64 H 97 06/30/21 13:37 06/30/21 13:37 06/30/21 13:37 06/30/21 13:37 06/30/21 13:37 Laboratory Results - last 24 hr 06/30/21 06:00: Specimen Source Right radial, O2 % 50, ABG pH 7.37, ABG pCO2 28.5 L, ABG pO2 136.7 H, ABG HCO3 16.2 L, ABG Total CO2 17.1 L, ABG O2 Saturation 99, ABG Base Excess -9.0 L, Josemanuel Test Acceptable, Vent Rate 0, PEEP 8 06/30/21 06:09: WBC 10.2, RBC 3.50 L, Hgb 9.8 L, Hct 31.7 L, MCV 90.6, MCH 27.9, MCHC 30.9 L, RDW 17.8 H, Plt Count 302, MPV 9.3, Neut % (Auto) 89.3 H, Lymph % (Auto) 6.1 L, [place] % (Auto) 4.0, Eos % (Auto) 0.3, Baso % (Auto) 0.3, Neut # (Auto) 9.1 H, Lymph # (Auto) 0.6 L, [place] # (Auto) 0.4, Eos # (Auto) 0.0, Baso # (Auto) 0.0, Total Counted 100, Neutrophils % (Manual) 87 H, Lymphocytes % (Manual) 8 L, Monocytes % (Manual) 5, Platelet Estimate Normal, Hypochromasia 2+, Macrocytosis 1+ 06/30/21 06:09: Sodium 133 L, Potassium 4.7, Chloride 106, Carbon Dioxide 19 L, Anion Gap 12.7, BUN 33 H, Creatinine 1.30 H D, Estimated Creat Clear 67, Estimated GFR 40 L, Est GFR ( Amer) 49 L D, Glucose 81, Calcium 8.1 L, Total Bilirubin 0.7, AST 41 H, ALT 11 L, Alkaline Phosphatase 107, Total Protein 5.1 L, Albumin 2.0 L, Globulin 3.1, Albumin/Globulin Ratio 0.6 L I & O for Last 24 hours: Intake & Output 06/28/21 06/29/21 06/30/21 07/01/21 11:59 11:59 11:59 11:59 Intake Total 1265.755 / 1265.755 789.849 / 789.849 984 / 984 Output Total 1249 / 1249 3570 / 3570 1875 / 1875 575 / 575 Balance 16.755 / 16.755 -2780.151 / -2780.151 -891 / -891 -575 / -575 Weight 232 lb 9.6 oz 232 lb Microbiology Reports for the Last 24 Hours: Microbiology 06/26/21 08:25 Sputum - Endotracheal Tube Aspirate Gram Stain - Final 06/26/21 08:25 Sputum - Endotracheal Tube Aspirate Sputum Culture - Preliminary Narrative: She remains drowsy. She attempts to open her eyes. She will squeeze her fingers. Color is good. Breath sounds are diminished with rales in the bases. Heart is regular. Extremities with 1+ pretibial edema. Good urine output. Assessment and Plan (1) Pneumonia due to COVID-19 virus Status: Acute Category: Medical Code(s): U07.1 - COVID-19; J12.82 - Pneumonia due to coronavirus disease 2019 (2) Acute kidney injury Status: Acute Category: Medical Code(s): N17.9 - Acute kidney failure, unspecified (3) Acute respiratory failure with hypoxia Status: Acute Category: Medical Code(s): J96.01 - Acute respiratory failure with hypoxia (4) Type 2 diabetes mellitus Status: Chronic Qualifiers: Diabetes mellitus assisted insulin use: with assisted use Diabetes mellitus complication status: without complication Qualified Code(s): E11.9 - Type 2 diabetes mellitus without complications; 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 Plan for extubation per pulmonology recommendations.
--- NOTE | 2021-06-30 15:33 | ECG_ITS ---
APPROVED REPORT Exam: Resting ECG HR:143 bpm ECG Measurements Heart Rate 143 AXES QRSd 76 QRS 77 QT 276 T 243 QTc 425 Conclusion Poor data quality, interpretation may be adversely affected Atrial fibrillation with rapid ventricular response Nonspecific ST and T wave abnormality, probably digitalis effect Abnormal ECG Electronically signed by : Pankaj Kemp MD 07/01/2021 17:37:59
--- NOTE | 2021-06-30 16:21 | ECG_ITS ---
APPROVED REPORT Exam: Resting ECG HR:103 bpm ECG Measurements Heart Rate 103 AXES NM 158 P 83 QRSd 78 QRS 81 QT 346 T 0 QTc 453 Conclusion Sinus tachycardia Nonspecific T wave abnormality Abnormal ECG Electronically signed by : Pankaj Kemp MD 07/01/2021 17:37:32
[2021-06-30 16:24] LABS: Troponin I < 0.01 ng/ml (0.00-0.034)
--- NOTE | 2021-06-30 16:46 | PC.NURSE ---
1528 - noted on tely HR 130's increasing to 160's. Rhythm irregular. BP 149/71 Stat EKG order and obtained, EKG interpreted as A-Fib w/ RVR. 1532 - Spoke to Dr. Moon @ this time. Received new orders for 25 mg IV Cardizem bolus x1, start Cardizem gtt @ 10 mg/hr (titrate to HR < 100) and stat troponin. 1544 - Cardizem bolus given. 1621 - Noted on tely that HR is regular and 90's. Stat EKG ordered for rhythm change. Pt noted to be in NSR. Cardizem gtt not started, BP 127/59
--- NOTE | 2021-06-30 18:45 | PC.NURSE ---
Pt placed back on AC mode, rate 20, TV 440, peep 8, FIO2 50% by Symone,RT
[2021-07-01] VITALS (30 sets, daily range): BP systolic 101–207; BP diastolic 56–88; PULSE 80–120; RESP 20–32; TEMP 36.3–37.3; O2SAT 85–100; BMI 36.3
--- NOTE | 2021-07-01 06:00 | XR_ITS ---
PROCEDURE INFORMATION: Exam: XR Chest Exam date and time: 07/01/2021 6:00 AM Age: 70 years old Clinical indication: Device placement; Ett placement (vent status); Patient HX: Covid; Additional info: Intubation TECHNIQUE: Imaging protocol: XR of the chest. Views: 1 view. COMPARISON: CR XR CHEST PORTABLE 06/30/2021 5:25 AM FINDINGS: Tubes, catheters and devices: The NG tube is positioned into the abdomen off the inferior margin of the film. The endotracheal tube tip is roughly 4.5 cm above the gary. There is a left subclavian central line with the tip roughly near the junction of the brachiocephalic vein and superior vena cava. Lungs: There is blunting of the left costophrenic angle consistent with scarring or a small pleural effusion. Pleural spaces: No pneumothorax is seen. Heart/Mediastinum: The cardiomegaly and perihilar/basilar infiltrates have improved. 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 IMPRESSION: As detailed above.
[2021-07-01 06:57] LABS: Basophils % 0.2 % (0.1-2.0); Eosinophils % 0.4 % (0.1-12.0); Hematocrit 28.6 % (37.0-47.0); Hemoglobin 8.9 g/dL (12.2-16.2); Lymphocytes # 0.7 K/mm3 (0.7-4.5); Lymphocytes % 8.1 % (10-50); Mean Corpuscular HGB Conc 31.1 g/dL (31.8-35.4); Mean Corpuscular Hemoglobin 27.9 pg (27.0-31.2); Mean Corpuscular Volume 89.5 fl (81-99); Mean Platelet Volume 9.7 fl (7.4-10.4); Monocytes # 0.4 K/mm3 (0.1-1.0); Monocytes % 3.9 % (1.7-9.3); Neutrophils # 7.8 K/mm3 (1.8-7.8); Neutrophils % 87.5 % (37.0-80.0); Platelet Count 260 K/mm3 (142-424); Red Blood Count 3.19 M/mm3 (4.20-5.40); Red Cell Distribution Width 17.6 % (11.5-17.5); White Blood Count 8.9 K/mm3 (4.8-10.8)
[2021-07-01 06:59] LABS: MANUAL DIFFERENTIAL MANUAL DIFFERENTIAL (MANUAL DIFF)
[2021-07-01 07:10] LABS: Alanine Aminotransferase 13 U/L (12-78); Albumin/Globulin Ratio 0.6 (1.1-1.8); Alkaline Phosphatase 96 U/L (38-126); Anion Gap 12.3 mEq/L (5-15); Aspartate Amino Transferase 38 U/L (14-36); Bilirubin,Total 0.7 mg/dl (0.2-1.3); Blood Urea Nitrogen 28 mg/dl (7-17); Calcium 8.3 mg/dl (8.4-10.2); Carbon Dioxide 19 mmol/L (22.0-30.0); Chloride 107 mmol/L (98-107); Creatinine Clearance Estimated 80 mL/min (50-200); Estimated Glomerular Filt Rate 55 ml/min (>60); GFR (African American) 66 ML/MIN (>60); Globulin 3.1 g/dL (1.3-3.2); Glucose 79 mg/dl (74-100); Potassium 4.3 mmoL/L (3.5-5.1); Sodium 134 mmol/L (136-145); Total Protein,Serum 5.1 g/dl (6.3-8.2)
[2021-07-01 07:24] LABS: Magnesium 1.4 mg/dl (1.6-2.3)
[2021-07-01 07:24] LABS: ABG HCO3 19.1 mmhg (22.0-26.0); ABG Oxygen Saturation 99 % (90-100); ABG PCO2 28.9 mmhg (35.0-45.0); ABG PH 7.44 mmol/L (7.35-7.45); ABG PO2 126.7 mmhg (80-100)
[2021-07-01 07:25] LABS: Allen's Test Patient Unable; Oxygen 50 %; PEEP 8; Source Right Radial; Tidal Volume 440; Vent Rate 20
[2021-07-01 07:28] LABS: Anisocytosis 1+; Hypochromasia 2+; Lymphocytes % 8 % (10-50); Monocytes % 5 % (2-9); Neutrophils % 87 % (42-76); Platelet Estimate Normal; Total Cells Counted 100
--- NOTE | 2021-07-01 08:30 | HMH.ACPN2 ---
Internal Medicine - PN: Subj *Date: 07/01/21 *Time: 08:30 Interval history: He went in A. fib with rapid ventricular response yesterday afternoon. After loading dose of Cardizem, she converted to normal sinus rhythm before the Cardizem drip was started. She has remained in sinus rhythm since then. She is off all drips at this time. She is on minimal ventilator settings. Exam Vital signs and Labs for Last 24 Hours: Temp Pulse Resp BP Pulse Ox 98.8 F 100 H 23 125/72 100 07/01/21 07:00 07/01/21 08:00 07/01/21 06:30 07/01/21 07:00 07/01/21 07:00 Laboratory Results - last 24 hr 06/30/21 15:49: Troponin I < 0.01 07/01/21 05:20: WBC 8.9, RBC 3.19 L, Hgb 8.9 L, Hct 28.6 L, MCV 89.5, MCH 27.9, MCHC 31.1 L, RDW 17.6 H, Plt Count 260, MPV 9.7, Neut % (Auto) 87.5 H, Lymph % (Auto) 8.1 L, [place] % (Auto) 3.9, Eos % (Auto) 0.4, Baso % (Auto) 0.2, Neut # (Auto) 7.8, Lymph # (Auto) 0.7, [place] # (Auto) 0.4, Eos # (Auto) 0.0, Baso # (Auto) 0.0, Total Counted 100, Neutrophils % (Manual) 87 H, Lymphocytes % (Manual) 8 L, Monocytes % (Manual) 5, Platelet Estimate Normal, Hypochromasia 2+, Anisocytosis 1+ 07/01/21 05:20: Sodium 134 L, Potassium 4.3, Chloride 107, Carbon Dioxide 19 L, Anion Gap 12.3, BUN 28 H, Creatinine 1.00 D, Estimated Creat Clear 80, Estimated GFR 55 L, Est GFR ( Amer) 66 D, Glucose 79, Calcium 8.3 L, Total Bilirubin 0.7, AST 38 H, ALT 13, Alkaline Phosphatase 96, Total Protein 5.1 L, Albumin 2.0 L, Globulin 3.1, Albumin/Globulin Ratio 0.6 L 07/01/21 05:20: Magnesium 1.4 L 09/24/21 06:00: ABG Lactate 2.0 07/01/21 06:00: Specimen Source Right radial, O2 % 50, ABG pH 7.44, ABG pCO2 28.9 L, ABG pO2 126.7 H, ABG HCO3 19.1 L, ABG Total CO2 20.0 L, ABG O2 Saturation 99, ABG Base Excess -5.0 L, Josemanuel Test Patient unable, Vent Rate 20, Tidal Volume 440, PEEP 8 I & O for Last 24 hours: Intake & Output 06/28/21 06/29/21 06/30/21 07/01/21 11:59 11:59 11:59 11:59 Intake Total 1265.755 / 1265.755 789.849 / 789.849 984 / 984 375 / 375 Output Total 1249 / 1249 3570 / 3570 1875 / 1875 1560 / 1560 Balance 16.755 / 16.755 -2780.151 / -2780.151 -891 / -891 -1185 / -1185 Weight 232 lb 9.6 oz 232 lb 213 lb 4 oz Microbiology Reports for the Last 24 Hours: Microbiology 06/26/21 08:25 Sputum - Endotracheal Tube Aspirate Gram Stain - Final 06/26/21 08:25 Sputum - Endotracheal Tube Aspirate Sputum Culture - Preliminary Narrative: She opens her eyes and is somewhat fidgety in the bed but does not follow commands. Color is good. Breath sounds are diminished in the bases. Heart is regular. Abdomen is soft and nondistended. Extremities show trace to 1+ pretibial edema. 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
--- NOTE | 2021-07-01 09:25 | HMH.PULMPN ---
Internal Medicine - PN: Subj *Date: 07/01/21 *Time: 13:04 Interval history: No acute respiratory vents overnight. Patient continued to remain on minimal vent settings. Exam - Constitutional Constitutional:: Present: no acute distress - HENMT Exam HENMT: Present: normocephalic, atraumatic - Eye Exam Eyes:: Present: normal appearance both eyes and related structures - Neck Exam Neck:: Present: normal visual inspection - Respiratory Exam Respiratory:: Present: no respiratory distress - Cardiovascular Exam Cardiac:: Present: S1, S2 - GI Exam GI:: Present: soft - Skin Exam Skin: Present: warm, no rash - Neurological Exam Neurological: Present: awake. Absent: alert, normal cognition - Extremities Exam Extremities: Present: no cyanosis, no clubbing, edema Assessment and Plan (1) Pneumonia due to COVID-19 virus Status: Acute Category: Medical Code(s): U07.1 - COVID-19; J12.82 - Pneumonia due to coronavirus disease 2019 (2) Acute kidney injury Status: Acute Category: Medical Code(s): N17.9 - Acute kidney failure, unspecified (3) Acute respiratory failure with hypoxia Status: Acute Category: Medical Code(s): J96.01 - Acute respiratory failure with hypoxia (4) Type 2 diabetes mellitus Status: Chronic Qualifiers: Diabetes mellitus shelter insulin use: with shelter use Diabetes mellitus complication status: without complication Qualified Code(s): E11.9 - Type 2 diabetes mellitus without complications; Z79.4 - alf (current) use of insulin Category: Medical Code(s): E11.9 - Type 2 diabetes mellitus without complications (5) History of CVA (cerebrovascular accident) Status: Chronic Category: Medical Code(s): Z86.73 - Personal history of transient ischemic attack (TIA), and cerebral infarction without residual deficits (6) Hyponatremia Status: Acute Category: Medical Code(s): E87.1 - Hypo-osmolality and hyponatremia (7) Hypomagnesemia Status: Acute Category: Medical Code(s): E83.42 - Hypomagnesemia - Assessment and plan all Dx Assessment and Plan for all problems:: #Acute hypoxic respiratory failure: #COVID-19 pneumonia: Chest x-ray showed significant left-sided airspace disease. ABG from this morning showed pH of 7.37 with a PCO2 35 and a PO2 of 69.8 Blood cultures and sputum cultures pending. Sputum pulmonary staining gram-positive diplococci. COVID19 PCR positive D-dimer elevated at 1.19. CRP elevated at 176. Ferritin at 362. LE doppler no DVT Plan: -Continue to hold sedation . - VAP bundle Elevate head of the bed at 30 to 45 degrees Oral care with chlorhexidne GI ulcer prophylaxis - Famotidine 20mg IV BID Chemical DVT prophylaxis -Continue mechanical ventilatory support. Patient continued to pain on minimal vent settings, mentation improving, however still appears lethargic and not appropriately following commands. We will continue to hold sedation and perform SBT's awaiting her mentation to improve. Blood gas showing improving oxygenation. Renal function improving. COntinue dexamethasone for COVID-19 pneumonia. Remdesevir stopped 2/2 worsening renal function -Hemodynamically stable. Blood cultures no growth 48 hours. Sputum MSSA. Nasal MRSA PCR negative. Urine cultures no growth. Echocardiogram normal LV function with a EF of 65%. -Renal function and Creatinine improving. Volume status worsening. 40 mg IV Lasix once today. Discontinue bicarb Thank you involving pulmonary in this patient care. We will continue to follow.
--- NOTE | 2021-07-01 11:01 | HMH.CNCARD ---
History of Present Illness Consult date: 07/01/21 Requesting physician: Abiodun Moon Consult reason: atrial fibrillation Chief complaint: afib History of present illness: This is a 70-year-old white female who presented to the emergency department initially with worsening respiratory distress after being in quarantine for exposure to COVID-19. The patient was admitted to the hospital for Covid. She is currently intubated and on mechanical ventilation. All of her medical history is coming from a chart review. The patient remains intubated at this time. They do have her on a breathing trial at this time. The patient does open her eyes to verbal stimuli. She is not following any of my commands. She appears to be in no distress. The patient went into atrial fibrillation with RVR yesterday. She was treated with a diltiazem bolus and converted back to normal sinus rhythm. The diltiazem drip was never started. The patient is in sinus rhythm this morning with a heart rate around 90. She appears to be in no distress. Her vital signs are stable. [facility] History I have reviewed the patient's past medical history: Yes Medical History: Reports:: Cancer (basal cell carcinoma), Cerebrovascular Accident, Diabetes Mellitus Type 2, Hyperlipidemia, Hypertension, Seizures, Transient Ischemic Attacks (TIA), Ulcer Denies:: Diabetes Mellitus Type 1, MRSA *Have you ever received a pneumonia vaccine?: Yes *Have you received a flu vaccine this season?: No Laterality Cases: Right: Carotid Endarterectomy Other Surgeries: Yes: Hysterectomy-Total, Tubal Ligation Amputation: No Fractures: No - *Social History Smoking Status: Former smoker Tobacco Type: cigarettes # Packs/Day (cigarettes): 1 #Yrs smoked (if former smoker): 40 Alcohol Intake: never *Occupational Status:: retired Housing: house Household Members: spouse *Travel in the last 8 weeks: None Family Hx:: Cancer, Heart Attack, Hyperlipidemia, Hypertension, Stroke Meds Home Medications Medication Instructions Recorded Confirmed Type Atorvastatin Calcium [Lipitor 80mg 80 mg PO HS 07/14/19 06/23/21 History Tab] Losartan Potassium 100 mg PO DAILY 07/14/19 06/23/21 History Metformin HCl 500 mg PO HS 07/14/19 06/23/21 History Metoprolol Tartrate [Lopressor 100 100 mg PO DAILY 07/14/19 06/23/21 History mg Tablets] Omeprazole [Omeprazole 40mg 40 mg PO DAILY 07/14/19 06/24/21 History Capsule] Aspirin [Aspir-Low] 81 mg PO DAILY 07/15/19 06/24/21 History Amlodipine Besylate [Amlodipine 10 mg PO DAILY 06/24/21 06/24/21 History 10mg Tab] Allergies Allergy/AdvReac Type Severity Reaction Status Date / Time hydrocortisone Allergy Unknown Unknown Verified 10/26/20 09:50 [HYDROCORTISONE] allergy reaction lidocaine [LIDOCAINE] Allergy Unknown Unknown Verified 10/26/20 09:50 allergy reaction Penicillins Allergy Unknown Verified 07/15/19 10:08 allergy reaction Exam Vital signs and Labs for Last 24 Hours: Temp Pulse Resp BP Pulse Ox 98.8 F 100 H 23 125/72 100 07/01/21 07:00 07/01/21 08:00 07/01/21 06:30 07/01/21 07:00 07/01/21 07:00 Laboratory Results - last 24 hr 06/30/21 15:49: Troponin I < 0.01 07/01/21 05:20: WBC 8.9, RBC 3.19 L, Hgb 8.9 L, Hct 28.6 L, MCV 89.5, MCH 27.9, MCHC 31.1 L, RDW 17.6 H, Plt Count 260, MPV 9.7, Neut % (Auto) 87.5 H, Lymph % (Auto) 8.1 L, [place] % (Auto) 3.9, Eos % (Auto) 0.4, Baso % (Auto) 0.2, Neut # (Auto) 7.8, Lymph # (Auto) 0.7, [place] # (Auto) 0.4, Eos # (Auto) 0.0, Baso # (Auto) 0.0, Total Counted 100, Neutrophils % (Manual) 87 H, Lymphocytes % (Manual) 8 L, Monocytes % (Manual) 5, Platelet Estimate Normal, Hypochromasia 2+, Anisocytosis 1+ 07/01/21 05:20: Sodium 134 L, Potassium 4.3, Chloride 107, Carbon Dioxide 19 L, Anion Gap 12.3, BUN 28 H, Creatinine 1.00 D, Estimated Creat Clear 80, Estimated GFR 55 L, Est GFR ( Amer) 66 D, Glucose 79, Calcium 8.3 L, Total Bilirubin 0.7,
--- NOTE | 2021-07-01 15:04 | DIET.NUTRFU ---
Pt remains intubated and is on day 8 of NPO. Recommend beginning TF if pt is unable to be extubated within 24 hours. Will add oral supplements to diet if pt is extubated and diet is advanced. POC glucose- 92, 81, 79. Will continue to monitor.
--- NOTE | 2021-07-01 22:30 | PC.NURSE ---
RESPIRATORY CARE: PT PLACED BACK ON AC AT THIS TIME. VT 440, RR 20, PEEP 8, AND 50%. PT TOLERATING WELL AT THIS TIME.
[2021-07-01 23:03] LABS: POC Glucose,Bedside 84 (70-110)
[2021-07-01 23:03] LABS: POC Glucose,Bedside 75 (70-110)
[2021-07-02] VITALS (30 sets, daily range): BP systolic 118–179; BP diastolic 57–85; PULSE 80–116; RESP 17–28; TEMP 36–37.4; O2SAT 91–100; BMI 35.5
--- NOTE | 2021-07-02 03:23 | PC.NURSE ---
She continues to be intubated. She is awake at times. She does not follow commands. Her eyes open wider when she hears someone speak but she does not look in the appropriate direction. 2+ non-pitting edema to bilateral hands.
[2021-07-02 05:30] LABS: POC Glucose,Bedside 95 (70-110)
[2021-07-02 05:55] LABS: Basophils % 0.1 % (0.1-2.0); Eosinophils # 0.1 K/mm3 (0.0-0.4); Eosinophils % 0.5 % (0.1-12.0); Hemoglobin 8.7 g/dL (12.2-16.2); Lymphocytes # 0.8 K/mm3 (0.7-4.5); Lymphocytes % 8.3 % (10-50); Mean Corpuscular HGB Conc 31.6 g/dL (31.8-35.4); Mean Corpuscular Hemoglobin 27.9 pg (27.0-31.2); Mean Corpuscular Volume 88.3 fl (81-99); Mean Platelet Volume 9.3 fl (7.4-10.4); Monocytes # 0.4 K/mm3 (0.1-1.0); Monocytes % 4.3 % (1.7-9.3); Neutrophils # 8.1 K/mm3 (1.8-7.8); Neutrophils % 86.8 % (37.0-80.0); Platelet Count 231 K/mm3 (142-424); Red Blood Count 3.12 M/mm3 (4.20-5.40); Red Cell Distribution Width 17.3 % (11.5-17.5); White Blood Count 9.3 K/mm3 (4.8-10.8)
[2021-07-02 05:59] LABS: Hematocrit 27.6 % (37.0-47.0)
[2021-07-02 06:00] LABS: MANUAL DIFFERENTIAL MANUAL DIFFERENTIAL (MANUAL DIFF)
--- NOTE | 2021-07-02 06:00 | XR_ITS ---
PROCEDURE INFORMATION: Exam: XR Chest Exam date and time: 07/02/2021 6:00 AM Age: 70 years old Clinical indication: Device placement; Ett placement (vent status); Additional info: Intubation covid TECHNIQUE: Imaging protocol: XR of the chest. Views: 1 view. COMPARISON: CR XR CHEST PORTABLE 07/01/2021 5:49 AM FINDINGS: Tubes, catheters and devices: The endotracheal tube is approximately 2.7 cm above the gary. The NG tube is positioned into the abdomen off the inferior margin of the film. The left subclavian central line tip projects over the aortic arch. An arterial line cannot be excluded. Lungs: The cardiomegaly is stable but the perihilar and basilar infiltrates are slightly worse. Pleural spaces: There is a small layering left pleural effusion but no pneumothorax. Heart/Mediastinum: See Lungs finding. Bones/joints: The bones are demineralized. IMPRESSION: As detailed above.
[2021-07-02 06:06] LABS: Alanine Aminotransferase 17 U/L (12-78); Albumin Level 2.1 g/dl (3.5-5.0); Albumin/Globulin Ratio 0.7 (1.1-1.8); Alkaline Phosphatase 94 U/L (38-126); Anion Gap 10.7 mEq/L (5-15); Aspartate Amino Transferase 39 U/L (14-36); Bilirubin,Total 0.6 mg/dl (0.2-1.3); Blood Urea Nitrogen 27 mg/dl (7-17); Calcium 8.4 mg/dl (8.4-10.2); Carbon Dioxide 21 mmol/L (22.0-30.0); Chloride 109 mmol/L (98-107); Creatinine Clearance Estimated 78 mL/min (50-200); Estimated Glomerular Filt Rate 83 ml/min (>60); GFR (African American) 100 ML/MIN (>60); Globulin 3.1 g/dL (1.3-3.2); Potassium 3.7 mmoL/L (3.5-5.1); Sodium 137 mmol/L (136-145); Total Protein,Serum 5.2 g/dl (6.3-8.2)
[2021-07-02 06:11] LABS: Glucose 96 mg/dl (74-100); Magnesium 1.9 mg/dl (1.6-2.3)
[2021-07-02 06:29] LABS: Lymphocytes % 7 % (10-50); Neutrophils % 89 % (42-76); Platelet Estimate Normal; Total Cells Counted 100
[2021-07-02 06:30] LABS: Anisocytosis 1+; Hypochromasia 1+; Rouleaux 1+
--- NOTE | 2021-07-02 07:18 | HMH.ACPN2 ---
Internal Medicine - PN: Subj *Date: 07/02/21 *Time: 06:50 Interval history: No new concerns overnight Exam Vital signs and Labs for Last 24 Hours: Temp Pulse Resp BP Pulse Ox 97.5 F L 95 H 28 H 142/65 H 100 07/02/21 06:21 07/02/21 06:21 07/02/21 06:21 07/02/21 06:21 07/02/21 06:21 Laboratory Results - last 24 hr 07/01/21 05:20: Total Counted 100, Neutrophils % (Manual) 87 H, Lymphocytes % (Manual) 8 L, Monocytes % (Manual) 5, Platelet Estimate Normal, Hypochromasia 2+, Anisocytosis 1+ 07/01/21 05:20: Magnesium 1.4 L 07/01/21 06:00: ABG Lactate 2.0 07/01/21 06:00: Specimen Source Right radial, O2 % 50, ABG pH 7.44, ABG pCO2 28.9 L, ABG pO2 126.7 H, ABG HCO3 19.1 L, ABG Total CO2 20.0 L, ABG O2 Saturation 99, ABG Base Excess -5.0 L, Josemanuel Test Patient unable, Vent Rate 20, Tidal Volume 440, PEEP 8 07/01/21 12:52: POC Glucose 75 07/01/21 22:13: POC Glucose 84 07/02/21 05:10: WBC 9.3, RBC 3.12 L, Hgb 8.7 L, Hct 27.6 L, MCV 88.3, MCH 27.9, MCHC 31.6 L, RDW 17.3, Plt Count 231, MPV 9.3, Neut % (Auto) 86.8 H, Lymph % (Auto) 8.3 L, [place] % (Auto) 4.3, Eos % (Auto) 0.5, Baso % (Auto) 0.1, Neut # (Auto) 8.1 H, Lymph # (Auto) 0.8, [place] # (Auto) 0.4, Eos # (Auto) 0.1, Baso # (Auto) 0.0, Total Counted 100, Neutrophils % (Manual) 89 H, Band Neutrophils % 4.0, Lymphocytes % (Manual) 7 L, Platelet Estimate Normal, Hypochromasia 1+, Anisocytosis 1+, [place] 1+ 07/02/21 05:10: Sodium 137, Potassium 3.7, Chloride 109 H, Carbon Dioxide 21 L, Anion Gap 10.7, BUN 27 H, Creatinine 0.70 D, Estimated Creat Clear 78, Estimated GFR 83, Est GFR ( Amer) 100 D, Glucose 96 D, Calcium 8.4, Magnesium 1.9 D, Total Bilirubin 0.6, AST 39 H, ALT 17 D, Alkaline Phosphatase 94, Total Protein 5.2 L, Albumin 2.1 L, Globulin 3.1, Albumin/Globulin Ratio 0.7 L 07/02/21 05:19: POC Glucose 95 I & O for Last 24 hours: Intake & Output 06/29/21 06/30/21 07/01/21 07/02/21 11:59 11:59 11:59 11:59 Intake Total 789.849 / 789.849 984 / 984 675 / 675 300 / 300 Output Total 3570 / 3570 1875 / 1875 2360 / 2360 2400 / 2400 Balance -2780.151 / -2780.151 -891 / -891 -1685 / -1685 -2100 / -2100 Weight 232 lb 213 lb 4 oz 208 lb 1.6 oz Microbiology Reports for the Last 24 Hours: Microbiology 06/26/21 08:25 Sputum - Endotracheal Tube Aspirate Gram Stain - Final 06/26/21 08:25 Sputum - Endotracheal Tube Aspirate Sputum Culture - Preliminary Narrative: She appears to be more alert. She opens eyes to her name being called. She is able to squeeze her fingers with the left hand. Lungs are clear anteriorly. Heart is regular. Extremities with trace edema. Assessment and Plan (1) Pneumonia due to COVID-19 virus Status: Acute Category: Medical Code(s): U07.1 - COVID-19; J12.82 - Pneumonia due to coronavirus disease 2019 (2) Acute kidney injury Status: Acute Category: Medical Code(s): N17.9 - Acute kidney failure, unspecified (3) Acute respiratory failure with hypoxia Status: Acute Category: Medical Code(s): J96.01 - Acute respiratory failure with hypoxia (4) Type 2 diabetes mellitus Status: Chronic Qualifiers: Diabetes mellitus termite inspector insulin use: with termite inspector use Diabetes mellitus complication status: without complication Qualified Code(s): E11.9 - Type 2 diabetes mellitus without complications; 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 Category: Medical Code(s): E11.9 - Type 2 diabetes mellitus without complications (5) History of CVA (cerebrovascular accident) Status: Chronic Category: Medical Code(s): Z86.73 - Personal history of transient ischemic attack (TIA), and cerebral infarction without residual deficits (6) Hyponatremia Status: Acute Category: Medical Code(s): E87.1 - Hypo-osmolality and hyponatremia (7) Hypomagnesemia Status: Acute Category: Medical Code(s): E83.42 - Hypomagnesemia - Assessment and plan all Dx Assessment and Plan for all problems:: Respirator
[2021-07-02 08:21] LABS: ABG Base Excess -3.7 mmol/L (-2.4-2.3); ABG HCO3 20.3 mmhg (22.0-26.0); ABG Oxygen Saturation 98 % (90-100); ABG PH 7.45 mmol/L (7.35-7.45); ABG PO2 108.8 mmhg (80-100); ABG TCO2 21.3 mmhg (23-27)
[2021-07-02 08:25] LABS: Allen's Test ACCEPTABLE; Oxygen 50 %; PEEP 8; Source Left Radial; Tidal Volume 440; Vent Rate 20
--- NOTE | 2021-07-02 11:45 | PC.NURSE ---
pt extubated @ aprox 1145 by RT (Po Elias). Pt is following commands and lifting her head off the bed.
--- NOTE | 2021-07-02 12:25 | PC.NURSE ---
RESP CARE NOTE: Pt extubated to 100% non rebreather mask. 1145 07/02/2021
--- NOTE | 2021-07-02 12:54 | PC.NURSE ---
RESP CARE NOTE: Pt weaned to a 50% Venturi mask at 50% FIO2.
[2021-07-03] VITALS (23 sets, daily range): BP systolic 139–182; BP diastolic 68–86; PULSE 88–111; RESP 17–23; TEMP 36.2–37.1; O2SAT 90–98; BMI 35.5
[2021-07-03 05:23] LABS: POC Glucose,Bedside 88 (70-110)
[2021-07-03 05:23] LABS: POC Glucose,Bedside 87 (70-110)
[2021-07-03 05:38] LABS: POC Glucose,Bedside 77 (70-110)
--- NOTE | 2021-07-03 06:00 | XR_ITS ---
PROCEDURE INFORMATION: Exam: XR Chest Exam date and time: 07/03/2021 6:00 AM Age: 70 years old Clinical indication: Shortness of breath and other: Covid; Additional info: SOA covid TECHNIQUE: Imaging protocol: XR of the chest. Views: 1 view. COMPARISON: CR XR CHEST PORTABLE 07/02/2021 5:38 AM FINDINGS: Tubes, catheters and devices: A left peripherally inserted central venous catheter lies with its tip in the superior vena cava. Lungs: Patchy opacities in the left mid lung and left base may represent multifocal pneumonia including COVID-19. Pleural spaces: Unremarkable. No pleural effusion. No pneumothorax. Heart/Mediastinum: Unremarkable. No cardiomegaly. Bones/joints: Degenerative changes in both glenohumeral joints IMPRESSION: Patchy opacities in the left mid lung and left base may represent multifocal pneumonia including COVID-19.
[2021-07-03 06:07] LABS: Basophils % 0.3 % (0.1-2.0); Eosinophils # 0.1 K/mm3 (0.0-0.4); Eosinophils % 0.6 % (0.1-12.0); Hemoglobin 8.8 g/dL (12.2-16.2); Lymphocytes % 11.9 % (10-50); Mean Corpuscular HGB Conc 31.3 g/dL (31.8-35.4); Mean Corpuscular Volume 89.4 fl (81-99); Mean Platelet Volume 9.1 fl (7.4-10.4); Monocytes # 0.3 K/mm3 (0.1-1.0); Monocytes % 3.3 % (1.7-9.3); Neutrophils # 6.7 K/mm3 (1.8-7.8); Platelet Count 247 K/mm3 (142-424); Red Blood Count 3.13 M/mm3 (4.20-5.40); Red Cell Distribution Width 17.5 % (11.5-17.5); White Blood Count 7.9 K/mm3 (4.8-10.8)
--- NOTE | 2021-07-03 08:25 | HMH.ACPN2 ---
Internal Medicine - PN: Subj *Date: 07/03/21 *Time: 08:25 Interval history: She was extubated yesterday and has done well. O2 sats are stable on Ventimask. She has been nonverbal since extubation. Seems to follow some commands. Blood pressure has been elevated. Exam Vital signs and Labs for Last 24 Hours: Temp Pulse Resp BP Pulse Ox 98.1 F 96 H 20 170/75 H 94 L 07/03/21 07:00 07/03/21 07:00 07/03/21 07:00 07/03/21 07:00 07/03/21 07:00 Laboratory Results - last 24 hr 07/02/21 06:00: ABG Lactate 2.0 07/02/21 06:00: Specimen Source Left radial, O2 % 50, ABG pH 7.45, ABG pCO2 30.0 L, ABG pO2 108.8 H, ABG HCO3 20.3 L, ABG Total CO2 21.3 L, ABG O2 Saturation 98, ABG Base Excess -3.7 L, Josemanuel Test Acceptable, Vent Rate 20, Tidal Volume 440, PEEP 8 07/02/21 11:52: POC Glucose 87 07/02/21 20:15: POC Glucose 88 07/03/21 05:32: POC Glucose 77 07/03/21 05:35: WBC 7.9, RBC 3.13 L, Hgb 8.8 L, Hct 28.0 L, MCV 89.4, MCH 28.0, MCHC 31.3 L, RDW 17.5, Plt Count 247, MPV 9.1, Neut % (Auto) 84.0 H, Lymph % (Auto) 11.9, [place] % (Auto) 3.3, Eos % (Auto) 0.6, Baso % (Auto) 0.3, Neut # (Auto) 6.7, Lymph # (Auto) 1.0, [place] # (Auto) 0.3, Eos # (Auto) 0.1, Baso # (Auto) 0.0 I & O for Last 24 hours: Intake & Output 06/30/21 07/01/21 07/02/21 07/03/21 11:59 11:59 11:59 11:59 Intake Total 984 / 984 675 / 675 300 / 300 Output Total 1875 / 1875 2360 / 2360 2670 / 2745 1530 / 1530 Balance -891 / -891 -1685 / -1685 -2370 / -2445 -1530 / -1530 Weight 213 lb 4 oz 208 lb 1.6 oz 208 lb Narrative: No respiratory distress. Color is good. She follows with her eyes and will squeeze her hands but does not answer questions. Breath sounds are relatively clear. Heart is regular. Abdomen is soft and nondistended. Extremities with 1+ pretibial edema. Assessment and Plan (1) Pneumonia due to COVID-19 virus Status: Acute Category: Medical Code(s): U07.1 - COVID-19; J12.82 - Pneumonia due to coronavirus disease 2019 (2) Acute kidney injury Status: Acute Category: Medical Code(s): N17.9 - Acute kidney failure, unspecified (3) Acute respiratory failure with hypoxia Status: Acute Category: Medical Code(s): J96.01 - Acute respiratory failure with hypoxia (4) Type 2 diabetes mellitus Status: Chronic Qualifiers: Diabetes mellitus intermediate frame tender insulin use: with group home use Diabetes mellitus complication status: without complication Qualified Code(s): E11.9 - Type 2 diabetes mellitus without complications; Z79.4 - intermediate accountant (current) use of insulin Category: Medical Code(s): E11.9 - Type 2 diabetes mellitus without complications (5) History of CVA (cerebrovascular accident) Status: Chronic Category: Medical Code(s): Z86.73 - Personal history of transient ischemic attack (TIA), and cerebral infarction without residual deficits (6) Hyponatremia Status: Acute Category: Medical Code(s): E87.1 - Hypo-osmolality and hyponatremia (7) Hypomagnesemia Status: Acute Category: Medical Code(s): E83.42 - Hypomagnesemia - Assessment and plan all Dx Assessment and Plan for all problems:: She is stable off the ventilator. Mental status is questionable. Blood pressure elevated and mildly tachycardic. We will add IV Lopressor as swallowing status has not been established. We will try offering some sips and chips today.
[2021-07-03 11:55] LABS: POC Glucose,Bedside 69 (70-110)
--- NOTE | 2021-07-03 12:24 | PC.NURSE ---
pt coughed on thin liquids. Will give thickened liquids.
--- NOTE | 2021-07-03 12:47 | P.PN_ITS ---
Internal Medicine - PN: Subj *Date: 07/03/21 *Time: 12:47 Exam Vital signs and Labs for Last 24 Hours: Temp Pulse Resp BP Pulse Ox 97.3 F L 92 H 17 170/76 H 95 07/03/21 12:00 07/03/21 12:00 07/03/21 12:00 07/03/21 12:00 07/03/21 12:00 Laboratory Results - last 24 hr 07/02/21 11:52: POC Glucose 87 07/02/21 20:15: POC Glucose 88 07/03/21 05:32: POC Glucose 77 07/03/21 05:35: WBC 7.9, RBC 3.13 L, Hgb 8.8 L, Hct 28.0 L, MCV 89.4, MCH 28.0, MCHC 31.3 L, RDW 17.5, Plt Count 247, MPV 9.1, Neut % (Auto) 84.0 H, Lymph % (Auto) 11.9, [place] % (Auto) 3.3, Eos % (Auto) 0.6, Baso % (Auto) 0.3, Neut # (Auto) 6.7, Lymph # (Auto) 1.0, [place] # (Auto) 0.3, Eos # (Auto) 0.1, Baso # (Auto) 0.0 07/03/21 11:14: POC Glucose 69 L I & O for Last 24 hours: Intake & Output 06/30/21 07/01/21 07/02/21 07/03/21 23:59 23:59 23:59 23:59 Intake Total 730 / 730 500 / 500 100 / 100 Output Total 2425 / 2500 3050 / 3050 1500 / 1500 1065 / 1065 Balance -1695 / -1770 -2550 / -2550 -1400 / -1400 -1065 / -1065 Weight 96.729 kg 94.393 kg 94.347 kg Microbiology Reports for the Last 24 Hours: Microbiology 06/26/21 08:25 Sputum - Endotracheal Tube Aspirate Gram Stain - Final 06/26/21 08:25 Sputum - Endotracheal Tube Aspirate Sputum Culture - Preliminary Gram Negative Rods Gram Negative Rods#2 Assessment and Plan (1) Pneumonia due to COVID-19 virus Status: Acute Category: Medical Code(s): U07.1 - COVID-19; J12.82 - Pneumonia due to coronavirus disease 2019 (2) Acute kidney injury Status: Acute Category: Medical Code(s): N17.9 - Acute kidney failure, unspecified (3) Acute respiratory failure with hypoxia Status: Acute Category: Medical Code(s): J96.01 - Acute respiratory failure with hypoxia (4) Type 2 diabetes mellitus Status: Chronic Qualifiers: Diabetes mellitus retirement insulin use: with dedicated intermodal truck driver use Diabetes mellitus complication status: without complication Qualified Code(s): E11.9 - Type 2 diabetes mellitus without complications; Z79.4 - ferry terminal agent (current) use of insulin Category: Medical Code(s): E11.9 - Type 2 diabetes mellitus without complications (5) History of CVA (cerebrovascular accident) Status: Chronic Category: Medical Code(s): Z86.73 - Personal history of transient ischemic attack (TIA), and cerebral infarction without residual deficits (6) Hyponatremia Status: Acute Category: Medical Code(s): E87.1 - Hypo-osmolality and hyp onatremia (7) Hypomagnesemia Status: Acute Category: Medical Code(s): E83.42 - Hypomagnesemia The patient's infection will respond to the chosen ABx?: Yes Is the patient receiving the right drug, dose, and route?: Yes Could a more targeted ABx be ordered?: No (YEAST CX FROM URINE.)
--- NOTE | 2021-07-03 17:40 | PC.NURSE ---
pt aspirated on thickened water. Ate a container of applesauce without aspiration episodes. Will change diet to pureed with honey thick liquids.
--- NOTE | 2021-07-03 21:00 | PC.NURSE ---
1957 - report received from STEPHANIE Pillai
[2021-07-04] VITALS (9 sets, daily range): BP systolic 112–191; BP diastolic 61–104; PULSE 90–115; RESP 18–24; TEMP 36.4–36.9; O2SAT 87–100; BMI 35.5
--- NOTE | 2021-07-04 03:15 | PC.NURSE ---
Pt received bath and bed change this shift, tolerated well. LS still remain cta t/o with diminished bases. Pt has had an intermittent hacky cough this shift, no sputum production noted. Remains with flat affect, will nod her head yes or no to simple questions. Pt does attempt to make needs known. No bm this shift. Voiding per urinal. No acute changes since initial assessment, will continue to monitor.
--- NOTE | 2021-07-04 06:00 | XR_ITS ---
PROCEDURE INFORMATION: Infiltrates. Exam: XR Chest Exam date and time: 07/04/2021 6:00 AM Age: 70 years old Clinical indication: Shortness of breath and other: Covid; Additional info: SOB, covid TECHNIQUE: Imaging protocol: XR of the chest. Views: 1 view. COMPARISON: CR XR CHEST PORTABLE 07/03/2021 5:42 AM FINDINGS: Lungs: Some patchy airspace disease is seen in the left lung base. Probable left-sided and small right-sided effusions are noted. Pleural spaces: Unremarkable. No pleural effusion. No pneumothorax. Heart/Mediastinum: Unremarkable. No cardiomegaly. Bones/joints: Unremarkable. IMPRESSION: Stable patchy lung infiltrates.
[2021-07-04 06:04] LABS: POC Glucose,Bedside 109 (70-110)
[2021-07-04 06:04] LABS: POC Glucose,Bedside 105 (70-110)
[2021-07-04 06:06] LABS: Basophils % 0.2 % (0.1-2.0); Eosinophils % 0.3 % (0.1-12.0); Hematocrit 30.4 % (37.0-47.0); Hemoglobin 9.2 g/dL (12.2-16.2); Lymphocytes # 0.8 K/mm3 (0.7-4.5); Lymphocytes % 10.9 % (10-50); Mean Corpuscular HGB Conc 30.2 g/dL (31.8-35.4); Mean Corpuscular Hemoglobin 27.3 pg (27.0-31.2); Mean Corpuscular Volume 90.4 fl (81-99); Mean Platelet Volume 8.7 fl (7.4-10.4); Monocytes # 0.3 K/mm3 (0.1-1.0); Monocytes % 3.6 % (1.7-9.3); Neutrophils # 6.6 K/mm3 (1.8-7.8); Platelet Count 250 K/mm3 (142-424); Red Blood Count 3.36 M/mm3 (4.20-5.40); Red Cell Distribution Width 17.6 % (11.5-17.5); White Blood Count 7.7 K/mm3 (4.8-10.8)
[2021-07-04 06:18] LABS: MANUAL DIFFERENTIAL MANUAL DIFFERENTIAL (MANUAL DIFF)
[2021-07-04 06:41] LABS: Lymphocytes % 13 % (10-50); Neutrophils % 86 % (42-76); Nucleated Red Blood Cells 1; Total Cells Counted 100
[2021-07-04 06:42] LABS: Hypochromasia 1+; Platelet Estimate Normal
--- NOTE | 2021-07-04 09:02 | HMH.ACPN2 ---
<Naomy Rubalcava - Last Filed: 07/04/21 09:08> Internal Medicine - PN: Subj *Date: 07/04/21 *Time: 09:08 Interval history: Patient unable to tell me how she feels. Tries to speak but is in a whisper and cannot understand her. She does indicate that she is hungry. She also indicates that she is breathing better. Remains on Ventimask at 50% Laboratory data this a.m. reveal white blood cell count 7700 with a hemoglobin of 9.2 hematocrit of 30.4.Chest x-ray today shows stable patchy lung infiltrates Exam Vital signs and Labs for Last 24 Hours: Temp Pulse Resp BP Pulse Ox 98.1 F 96 H 20 187/76 H 100 07/04/21 08:00 07/04/21 08:00 07/04/21 08:00 07/04/21 08:00 07/04/21 08:00 Laboratory Results - last 24 hr 07/03/21 11:14: POC Glucose 69 L 07/03/21 16:18: POC Glucose 109 07/04/21 05:10: WBC 7.7, RBC 3.36 L, Hgb 9.2 L, Hct 30.4 L, MCV 90.4, MCH 27.3, MCHC 30.2 L, RDW 17.6 H, Plt Count 250, MPV 8.7, Neut % (Auto) 85.0 H, Lymph % (Auto) 10.9, [place] % (Auto) 3.6, Eos % (Auto) 0.3, Baso % (Auto) 0.2, Neut # (Auto) 6.6, Lymph # (Auto) 0.8, [place] # (Auto) 0.3, Eos # (Auto) 0.0, Baso # (Auto) 0.0, Total Counted 100, Neutrophils % (Manual) 86 H, Band Neutrophils % 1.0, Lymphocytes % (Manual) 13, Nucleated RBCs 1, Platelet Estimate Normal, Hypochromasia 1+ 07/04/21 05:53: POC Glucose 105 I & O for Last 24 hours: Intake & Output 07/01/21 07/02/21 07/03/21 07/04/21 11:59 11:59 11:59 11:59 Intake Total 675 / 675 300 / 300 590 / 590 Output Total 2360 / 2360 2670 / 2745 1805 / 1895 960 / 960 Balance -1685 / -1685 -2370 / -2445 -1805 / -1895 -370 / -370 Weight 213 lb 4 oz 208 lb 1.6 oz 208 lb 208 lb Microbiology Reports for the Last 24 Hours: Microbiology 06/26/21 08:25 Sputum - Endotracheal Tube Aspirate Gram Stain - Final 06/26/21 08:25 Sputum - Endotracheal Tube Aspirate Sputum Culture - Preliminary Gram Negative Rods Gram Negative Rods#2 - Constitutional no acute distress Comments: Awakened for assessment. She appears comfortable. - *Routine Respiratory Exam Present: CTA bilaterally - *Routine Cardiovascular Exam Present: RRR (Monitor showing sinus rhythm at 109) - *Routine Abdominal Exam Present: soft, normoactive bowel sounds. Absent: tenderness - *Routine Extremities Exam Absent: edema, calf tenderness - *Routine Neurological Exam Present: alert Assessment and Plan (1) Pneumonia due to COVID-19 virus Status: Acute Category: Medical Code(s): U07.1 - COVID-19; J12.82 - Pneumonia due to coronavirus disease 2019 (2) Acute kidney injury Status: Acute Category: Medical Code(s): N17.9 - Acute kidney failure, unspecified (3) Acute respiratory failure with hypoxia Status: Acute Category: Medical Code(s): J96.01 - Acute respiratory failure with hypoxia (4) Type 2 diabetes mellitus Status: Chronic Qualifiers: Diabetes mellitus long term care social worker insulin use: with alf use Diabetes mellitus complication status: without complication Qualified Code(s): E11.9 - Type 2 diabetes mellitus without complications; Z79.4 - snf (current) use of insulin Category: Medical Code(s): E11.9 - Type 2 diabetes mellitus without complications (5) History of CVA (cerebrovascular accident) Status: Chronic Category: Medical Code(s): Z86.73 - Personal history of transient ischemic attack (TIA), and cerebral infarction without residual deficits (6) Hyponatremia Status: Acute Category: Medical Code(s): E87.1 - Hypo-osmolality and hyponatremia (7) Hypomagnesemia Status: Acute Category: Medical Code(s): E83.42 - Hypomagnesemia - Assessment and plan all Dx Assessment and Plan for all problems:: We will order p.o. home meds. She will have a swallowing evaluation today. Continue with respiratory support and evaluation. <Abiodun Moon - Last Filed: 07/04/21 10:50> Internal Medicine
[2021-07-04 09:55] LABS: Chloride 114 mmol/L (98-107); Sodium 145 mmol/L (136-145)
[2021-07-04 09:56] LABS: Potassium 3.9 mmoL/L (3.5-5.1)
[2021-07-04 09:58] LABS: Alanine Aminotransferase 19 U/L (12-78); Alkaline Phosphatase 104 U/L (38-126); Aspartate Amino Transferase 35 U/L (14-36); Bilirubin,Total 0.3 mg/dl (0.2-1.3); Blood Urea Nitrogen 23 mg/dl (7-17); Creatinine Clearance Estimated 78 mL/min (50-200); Estimated Glomerular Filt Rate 99 ml/min (>60); GFR (African American) 120 ML/MIN (>60)
[2021-07-04 09:59] LABS: Albumin Level 2.3 g/dl (3.5-5.0); Albumin/Globulin Ratio 0.7 (1.1-1.8); Anion Gap 8.9 mEq/L (5-15); Carbon Dioxide 26 mmol/L (22.0-30.0); Globulin 3.3 g/dL (1.3-3.2); Glucose 116 mg/dl (74-100); Total Protein,Serum 5.6 g/dl (6.3-8.2)
--- NOTE | 2021-07-04 11:59 | PC.NURSE ---
Pt arrived to [facility] unit at this time.
--- NOTE | 2021-07-04 13:05 | DIET.NUTRFU ---
Addendum entered by Mackenzie Zavala 07/06/21 11:07: Seen by AMMONIUM NITRATE CRYSTALLIZER and continues pureed diet with honey thickened liquids. PO intakes poor 0-25%, refusing at times. Continues with daily glucerna, protein fortified foods BID also added to order. Continues to require total assistance, please encourage/cue at meal times and offer supplements t/o the day. BG moderate, avg. 140. Weight stable. No BM since extubation. Original Note: Pt has been extubated and awaiting AMMONIUM NITRATE CRYSTALLIZER consult, given pureed diet with honey thickened liquids at this time and tolerating well with 25% PO intakes. She continues to require total assistance feeding. Daily glucerna on diet order. BG wnl. Continuing to monitor to alter nutritional care plan as indicated.
--- NOTE | 2021-07-04 13:35 | HMH.SLDYSPHA ---
Speech & Language Evaluation Speech/Language Dysphagia Evaluation Start: 07/04/21 13:27 Freq: ONCE Status: Active Protocol: Document 07/04/21 13:27 CARROLLELLY (Rec: 07/04/21 13:34 [email or web address] [id number]) Dysphagia Assess/Goals/Plan Assessment Date of Evaluation: 07/04/21 Evaluation Type Initial Certification Assessment/Problems Post intubation Does Patient Qualify for Service No Qualify/Failure Comment Based on results of CSE Recommendations PHYSICIAN CERTIFICATION: The specified therapy services are required, authorized, and reviewed every 30 days. Diet Recommendations Pureed Liquid Type Recommendations Normal/Thin SL Swallow Guidelines Assist w/all meals,High aspiration risk,Crush meds as allowed*,Eat at slow rate Crush Meds Crush all meds Dysphagia Swallow Precautions/Strategies Sitting Upright (90 deg),Small Bites and Sips Place Food on Either side of Mouth Plan Pt/Guardian verbally ack understanding Yes of dx/prognosis/goals Pt/Guardian verbally ack understanding Yes of/consent to tx prog G -code Required No Education Instructions provided Assessment results discussed with patient. Pt/Caregiver able to recall information Reinforcement needed Reinforcement needed Yes Speech & Language HPI Language Primary Language Telugu General Information General Current Food Consistancy Pureed,Honey Liquids Oxygen Status Nasal Cannula Facial Symmetry Symmetrical Ability to Follow Directions Fair Communication Ability Moderate Impairment Dysphagia:Food Presentation Evaluation Food Type Pureed,Mechanical Soft,Liquid, Pudding Dysphagia Evaluation Mechanical Soft Difficulty chewing,Residual on Food Behavior Response tongue Dysphagia Evaluation Summary CSE completed to analyze and assess oropharyngeal swallow. No overt s/sxs of aspiration noted. Trailed puree and applesauce x 3 with no overt s /xs of aspiration and no residue noted. Trialed mechanical soft x1, pt demonstrated significantly prolonged mastication and moderate lingual residue which required a liquid wash to clear. Recommending thin liquids and puree. SUPPLY CHAIN GENERALIST to be re-consulted i
--- NOTE | 2021-07-04 14:11 | HMH.PULMPN ---
Internal Medicine - PN: Subj *Date: 07/04/21 *Time: 14:11 Interval history: No acute respiratory events overnight. Patient remained stable post extubation nasal cannula. Exam - Constitutional Constitutional:: Present: no acute distress, comfortable - HENMT Exam HENMT: Present: normocephalic, atraumatic - Eye Exam Eyes:: Present: normal appearance both eyes and related structures - Neck Exam Neck:: Present: normal visual inspection - Respiratory Exam Respiratory:: Present: able to speak in complete sentences, respiratory distress - Cardiovascular Exam Cardiac:: Present: S1, S2 - GI Exam GI:: Present: soft - Skin Exam Skin: Present: warm, no rash - Neurological Exam Neurological: Present: awake. Absent: alert, normal cognition - Extremities Exam Extremities: Present: no cyanosis, no clubbing - Psychiatric Exam Psychiatric: Present: normal affect Assessment and Plan (1) Pneumonia due to COVID-19 virus Status: Acute Category: Medical Code(s): U07.1 - COVID-19; J12.82 - Pneumonia due to coronavirus disease 2019 (2) Acute kidney injury Status: Acute Category: Medical Code(s): N17.9 - Acute kidney failure, unspecified (3) Acute respiratory failure with hypoxia Status: Acute Category: Medical Code(s): J96.01 - Acute respiratory failure with hypoxia (4) Type 2 diabetes mellitus Status: Chronic Qualifiers: Diabetes mellitus care home insulin use: with care home use Diabetes mellitus complication status: without complication Qualified Code(s): E11.9 - Type 2 diabetes mellitus without complications; Z79.4 - joint terminal attack controller (current) use of insulin Category: Medical Code(s): E11.9 - Type 2 diabetes mellitus without complications (5) History of CVA (cerebrovascular accident) Status: Chronic Category: Medical Code(s): Z86.73 - Personal history of transient ischemic attack (TIA), and cerebral infarction without residual deficits (6) Hyponatremia Status: Acute Category: Medical Code(s): E87.1 - Hypo-osmolality and hyponatremia (7) Hypomagnesemia Status: Acute Category: Medical Code(s): E83.42 - Hypomagnesemia - Assessment and plan all Dx Assessment and Plan for all problems:: #Acute hypoxic respiratory failure: #COVID-19 pneumonia: Presented with acute hypoxic respiratory failure and been intubated, chest x-ray on admission showed left airspace disease. COVID19 PCR positive D-dimer elevated at 1.19. CRP elevated at 176. Ferritin at 362. LE doppler no DVT Patient respiratory status significantly improved since admission was eventually extubated to Ventimask and then weaned to nasal cannula this morning. She does not appear to be any respiratory distress. Renal function improving. Still appears to be volume overloaded. Sputum from admission grew MSSA and sputum after intubation from 06/26 resulted on 07/04 grew moderate growth with E. coli resistant to levofloxacin. Patient has been receiving ceftriaxone azithromycin this admission, Chest x-ray from this morning showed stable pulmonary infiltrates, bilateral pleural effusions. Afebrile. No evidence of leukocytosis. Plan: -Given significant improvement in her symptoms, will hold off on escalating antibiotics at this point of time. Will discontinue ceftriaxone and Azithromycin. We will closely monitor. -Continue nasal cannula and supplementation to maintain O2 saturation goal of 90% and above. -DuoNebs every 6 hours as needed. -Renal function significantly improved, volume optimization as per primary team. #Involving pulmonary in this patient care. We will continue to follow.
[2021-07-05] VITALS (8 sets, daily range): BP systolic 149–206; BP diastolic 78–119; PULSE 74–122; RESP 20–40; TEMP 36.3–37; O2SAT 88–98; BMI 35.5
[2021-07-05 00:51] LABS: POC Glucose,Bedside 138 (70-110)
--- NOTE | 2021-07-05 03:34 | PC.NURSE ---
Pt is A/O to self, and place. Pt has been talking more t/o the shift voicing things that she wants. Speech remains soft spoken and hard to understand. Pt can reply to yes or no questions. Pt remains on 3L NC with O2 stats >90%. Santo remains in place draining clear, yellow urine. Heels have been elevated, and oral care given q2h. Crushed PO meds and mixed with applesauce and pt tolerated well. Call light within reach, will continue to monitor.
[2021-07-05 05:48] LABS: POC Glucose,Bedside 140 (70-110)
[2021-07-05 07:56] LABS: Basophils % 0.2 % (0.1-2.0); Eosinophils % 0.1 % (0.1-12.0); Hematocrit 32.6 % (37.0-47.0); Hemoglobin 10.1 g/dL (12.2-16.2); Lymphocytes % 12.7 % (10-50); Mean Corpuscular HGB Conc 30.9 g/dL (31.8-35.4); Mean Corpuscular Hemoglobin 27.4 pg (27.0-31.2); Mean Corpuscular Volume 88.7 fl (81-99); Monocytes # 0.3 K/mm3 (0.1-1.0); Monocytes % 3.4 % (1.7-9.3); Neutrophils # 6.5 K/mm3 (1.8-7.8); Neutrophils % 83.7 % (37.0-80.0); Platelet Count 246 K/mm3 (142-424); Red Blood Count 3.68 M/mm3 (4.20-5.40); Red Cell Distribution Width 17.8 % (11.5-17.5); White Blood Count 7.8 K/mm3 (4.8-10.8)
--- NOTE | 2021-07-05 08:46 | HMH.ACPN2 ---
<Naomy Rubalcava - Last Filed: 07/05/21 08:46> Internal Medicine - PN: Subj *Date: 07/05/21 *Time: 08:46 Interval history: Patient awake. Able to understand some of her words. She indicates she is not short of breath and has no pain.According to nursing notes she is alert to self and place. She was talking more With soft speech.She remains on oxygen at 3 L per nasal cannula. O2 sats are greater than 90%. Santo catheter is in place to bedside drainage.She has been able to swallow her pills crushed in applesauce and tolerated well. Speech therapy did see the patient yesterday and recommended a pur?ed diet with honey liquids.No overt signs or symptoms of aspiration noted. Exam Vital signs and Labs for Last 24 Hours: Temp Pulse Resp BP Pulse Ox 97.8 F 110 H 40 H 179/93 H 91 L 07/05/21 08:00 07/05/21 08:00 07/05/21 08:00 07/05/21 08:00 07/05/21 08:00 Laboratory Results - last 24 hr 07/04/21 05:10: Sodium 145, Potassium 3.9, Chloride 114 H, Carbon Dioxide 26, Anion Gap 8.9, BUN 23 H, Creatinine 0.60, Estimated Creat Clear 78, Estimated GFR 99, Est GFR ( Amer) 120, Glucose 116 H, Calcium 9.0, Total Bilirubin 0.3, AST 35, ALT 19, Alkaline Phosphatase 104, Total Protein 5.6 L, Albumin 2.3 L, Globulin 3.3 H, Albumin/Globulin Ratio 0.7 L 07/04/21 21:32: POC Glucose 138 H 07/05/21 05:09: POC Glucose 140 H 07/05/21 05:48: WBC 7.8, RBC 3.68 L, Hgb 10.1 L, Hct 32.6 L, MCV 88.7, MCH 27.4, MCHC 30.9 L, RDW 17.8 H, Plt Count 246, MPV 9.0, Neut % (Auto) 83.7 H, Lymph % (Auto) 12.7, [place] % (Auto) 3.4, Eos % (Auto) 0.1, Baso % (Auto) 0.2, Neut # (Auto) 6.5, Lymph # (Auto) 1.0, [place] # (Auto) 0.3, Eos # (Auto) 0.0, Baso # (Auto) 0.0 I & O for Last 24 hours: Intake & Output 07/02/21 07/03/21 07/04/21 07/05/21 11:59 11:59 11:59 11:59 Intake Total 300 / 300 940 / 940 220 / 220 Output Total 2670 / 2745 1805 / 1895 1210 / 1210 750 / 750 Balance -2370 / -2445 -1805 / -1895 -270 / -270 -530 / -530 Weight 208 lb 1.6 oz 208 lb 208 lb 207 lb 15.992 oz Microbiology Reports for the Last 24 Hours: Microbiology 06/26/21 08:25 Sputum - Endotracheal Tube Aspirate Gram Stain - Final 06/26/21 08:25 Sputum - Endotracheal Tube Aspirate Sputum Culture - Final Escherichia coli - Constitutional no acute distress Comments: Appears comfortable lying in the bed. - *Routine Respiratory Exam Present: wheezes (Upper airway inspiratory wheeze), diminished air movement (Posteriorly) - *Routine Cardiovascular Exam Present: RRR - *Routine Abdominal Exam Present: soft, normoactive bowel sounds, obese. Absent: tenderness - *Routine Extremities Exam Present: edema (Bilateral leg) - *Routine Neurological Exam Present: alert. Absent: moving all extremities (Patient does not move arms or legs on command) Eyes focused to the right. Unable to get her to look to the left. Assessment and Plan (1) Pneumonia due to COVID-19 virus Status: Acute Category: Medical Code(s): U07.1 - COVID-19; J12.82 - Pneumonia due to coronavirus disease 2019 (2) Acute kidney injury Status: Acute Category: Medical Code(s): N17.9 - Acute kidney failure, unspecified (3) Acute respiratory failure with hypoxia Status: Acute Category: Medical Code(s): J96.01 - Acute respiratory failure with hypoxia (4) Type 2 diabetes mellitus Status: Chronic Qualifiers: Diabetes mellitus shelter insulin use: with joint terminal attack controller use Diabetes mellitus complication status: without complication Qualified Code(s): E11.9 - Type 2 diabetes mellitus without complications; Z79.4 - FDC (current) use of insulin Category: Medical Code(s): E11.9 - Type 2 diabetes mellitus without complications (5) History of CVA (cerebrovascular accident) Status: Chronic Category: Medical Code(s): Z86.73 - Personal history of transient ischemic attack (TIA), and cerebral infarction without residual deficits (6) Hypo
--- NOTE | 2021-07-05 09:43 | CT_ITS ---
PROCEDURE: CT HEAD/BRAIN WO CON CLINICAL INDICATION: stroke alert Left-sided weakness COMPARISON: CT CT HEAD/BRAIN WO CON from 07/14/2019 TECHNIQUE: Axial images obtained. All CT scans at the facility use one or more dose reduction, viz: automated exposure control, ma/kV adjustment per patient size (including targeted exams where dose is matched to indication, i.e. head), or iterative reconstruction technique. FINDINGS: Helical imaging performed secondary to patient motion. Exam was repeated. There is a large area of encephalomalacia in the right temporal parietal region with extension into the occipital lobe. There is diffuse generalized atrophy. There is vague decreased attenuation in the left frontal and temporal parietal region suspicious for acute infarction. The sulci are somewhat attenuated and less distinct in these regions as well. This also extends into the left occipital area. There is some hyperdensity of the left middle cerebral artery which could represent thrombosis. No acute intracranial hemorrhage. No midline shift mass effect or hydrocephalus. IMPRESSION: Vague decreased attenuation in the left frontal, parietal, posterior temporal, and anterior occipital region consistent with an acute left MCA infarction. Possible left MCA thrombosis. No acute intracranial bleed Critical value called to Dr. Selby in the ER 07/05/2021 at 10 a.m. Dictated by: Josemanuel Mccauley MD 07/05/2021 10:11 Josemanuel Mccauley MD in [facility] 07/05/2021 10:11
--- NOTE | 2021-07-05 09:45 | PC.NURSE ---
Stroke alert called at [id number]
--- NOTE | 2021-07-05 09:45 | PC.NURSE ---
Pt to CT at 0947
--- NOTE | 2021-07-05 10:07 | CT_ITS ---
Procedure: CT ANGIO NECK CT ANGIO HEAD CLINICAL HISTORY: stroke like Stroke-like symptoms, abnormal CT head without contrast COMPARISON: CT CT ANGIO HEAD from 07/05/[address] HEAD/BRAIN WO CON from 07/05/2021 TECHNIQUE: IV Contrast: 100ml Isovue 370 Axial images obtained with sagittal and coronal reformats. All CT scans at the facility use one or more dose reduction, viz: automated exposure control, ma/kV adjustment per patient size (including targeted exams where dose is matched to indication, i.e. head), or iterative reconstruction technique. FINDINGS: CT angio neck: Mild atheromatous changes are present involving the aortic arch. Motion artifact somewhat obscures fine detail. Calcific plaque is present at the ostium of the left subclavian artery but difficult to determine any degree of stenosis secondary to motion. Left carotid: The left common carotid has an unremarkable appearance aside from tortuosity with a retropharyngeal course. There is 50 percent stenosis of the proximal aspect of the left internal carotid artery secondary to calcific plaque. Right carotid: No significant stenosis of the common carotid. The internal carotid artery on the right is tortuous. No significant stenosis evident. Vertebrals: Unremarkable. Right vertebral: Unremarkable. CT angio head: There is a diminutive appearing basilar artery. No occlusion or aneurysm. There is persistent origin of the posterior cerebral arteries on both sides as a normal variant. There is mild ectasia of the cavernous portion of the carotid arteries bilaterally. No saccular aneurysm evident. The middle cerebral arteries are patent. No significant stenosis apparent. No major intracranial occlusive process evident. No aneurysm or AVM. No abnormal enhancement apparent. Diffuse encephalomalacia changes are present in the right parietal temporal and occipital region. Vague decreased attenuation once again noted in the left frontal parietal and temporal area suspicious for acute infarction. MRI may consult confirm. This is more evident on the unenhanced exam. There are bilateral pleural effusions and atelectatic change. Air-fluid levels present in the left maxillary sinus and there is mucosal thickening of the right maxillary sinus with a small air-fluid level. Opacified left frontal ethmoid air cell with opacification in the left frontal sinus. IMPRESSION: 1. No evidence of middle cerebral artery occlusion/thrombosis. 2. 50 percent stenosis of the proximal aspect of the left internal carotid artery. 3. No aneurysm or AVM apparent. 4. Suspect left frontal parietal and temporal infarction. MRI may confirm if clinically warranted. 5. Paranasal sinus disease 6. Bilateral pleural effusions Dictated by: Josemanuel Mccauley MD 07/05/2021 11:23 Josemanuel Mccauley MD in [facility] 07/05/2021 11:23
--- NOTE | 2021-07-05 10:16 | HMH.RR ---
Acute Rapid Response Note - Subjective Date Responded: 07/05/21 Time Responded: 10:00 Provider Note: I responded to a floor stroke alert. On my initial evaluation patient had shaking of her head and face. Was not speaking. Appeared to understand. Making eye contact. Followed commands on the right side. No pronator drift. Extraocular motion intact. No obvious facial droop. Flaccid on the left. Fingerstick blood glucose 200 mg/dL Nursing staff advised no medications have been given recently. Earlier in the day patient had been saying occasional words and short sentences. She had been intubated for 10 days secondary to Covid pneumonia. Extubated over the weekend. Initially had difficulty speaking. Patient's daughter states that she has a history of ischemic stroke and right carotid disease, requiring stents. Patient taken urgently for Noncon head CT. Dr. Moon updated about patient condition. Contrasted head CT shows possible left MCA infarct. Care team updated. She is within the TPA window, medication administration deferred to the primary team. Patient taken for CT angiography. - Objective Findings: Vital Signs - Last 4 Hours Temperature 97.8 F 07/05/21 08:00 Temperature Source Axillary 07/05/21 08:00 Pulse Rate 122 H 07/05/21 09:46 Respiratory Rate 40 H 07/05/21 08:00 Blood Pressure 157/119 H 07/05/21 09:46 Blood Pressure Mean 131 07/05/21 09:46 Blood Pressure Source Automatic Cuff 07/05/21 09:46 Blood Pressure Position Supine 07/05/21 09:46 02 Sat by Pulse Oximetry 88 L 07/05/21 09:46 Oxygen Delivery Method 07/05/21 09:46 Oxygen Flow Rate (LPM) 4 07/05/21 09:46 Lab Results for Past 12 Hours 07/05/21 05:48: WBC 7.8, RBC 3.68 L, Hgb 10.1 L, Hct 32.6 L, MCV 88.7, MCH 27.4, MCHC 30.9 L, RDW 17.8 H, Plt Count 246, MPV 9.0, Neut % (Auto) 83.7 H, Lymph % (Auto) 12.7, [place] % (Auto) 3.4, Eos % (Auto) 0.1, Baso % (Auto) 0.2, Neut # (Auto) 6.5, Lymph # (Auto) 1.0, [place] # (Auto) 0.3, Eos # (Auto) 0.0, Baso # (Auto) 0.0 07/05/21 05:09: POC Glucose 140 H 07/04/21 21:32: POC Glucose 138 H My Orders Category Date Time Status CT angio head Stat Cat Scan 07/05/21 10:[address] angio neck Stat Cat Scan 07/05/21 10:07 Ordered Rapid Response Exam - General General appearance: alert, in distress - Head Head exam: atraumatic, other (No facial droop) - Respiratory Respiratory exam: Absent: wheezes, stridor - Cardiovascular Cardiovascular exam: Present: regular rate, normal rhythm - Abdominal Exam Abdominal exam: Present: soft. Absent: tenderness - Extremities Exam Extremities exam: Present: normal inspection, pedal edema, other (Edema of the arms and hands) - Neurological Exam Neurological exam: Present: alert, other (No obvious facial asymmetry. Significant weakness on the left, flaccid. No pronator drift on the right.) - Psychiatric Psychiatric exam: Present: other (Unable to assess) - Skin Skin exam: Present: warm, dry RR Procedures/Assess/Plan - Assessment and plan all Dx Assessment and Plan for all problems:: Acute change in mental status, concerning for ischemic or hemorrhagic stroke. non contrast head CT shows possible left MCA infarct, as communicated by Dr. Mccauley. Dr. Moon aware. He has concern for seizure-like activity. Gave Ativan. Taken for CT angiography of the head and neck.
--- NOTE | 2021-07-05 10:16 | HMH.ITSTN ---
SPOKE WITH CRISTOBAL BROWN PATIENT HAS RECIEVED [facility] WILL TRANSPORT TO RADIOLOGY SOON
--- NOTE | 2021-07-05 12:46 | HMH.ACPN2 ---
Internal Medicine - PN: Subj *Date: 07/05/21 *Time: 12:46 Interval history: Stroke alert was called around 1000 when nursing staff noticed a change in her condition. She was no longer able to talk and seemed to be flaccid on the left side and appeared to be having some seizure activity. Dr. Selby responded from the ER and obtained a stat CT scan which showed no hemorrhagic stroke suggested a left middle cerebral artery stroke. This did not correlate with her symptoms of left-sided weakness. This was followed with CTA of the head and neck which again raises suspicion for a left CVA but no thrombus is seen. The radiologist is now recommending an MRI Exam Vital signs and Labs for Last 24 Hours: Temp Pulse Resp BP Pulse Ox 97.8 F 97 H 26 H 149/87 H 98 07/05/21 11:30 07/05/21 11:30 07/05/21 11:30 07/05/21 11:30 07/05/21 11:30 Laboratory Results - last 24 hr 07/04/21 21:32: POC Glucose 138 H 07/05/21 05:09: POC Glucose 140 H 07/05/21 05:48: WBC 7.8, RBC 3.68 L, Hgb 10.1 L, Hct 32.6 L, MCV 88.7, MCH 27.4, MCHC 30.9 L, RDW 17.8 H, Plt Count 246, MPV 9.0, Neut % (Auto) 83.7 H, Lymph % (Auto) 12.7, Cass % (Auto) 3.4, Eos % (Auto) 0.1, Baso % (Auto) 0.2, Neut # (Auto) 6.5, Lymph # (Auto) 1.0, Cass # (Auto) 0.3, Eos # (Auto) 0.0, Baso # (Auto) 0.0 I & O for Last 24 hours: Intake & Output 07/03/21 07/04/21 07/05/21 07/06/21 11:59 11:59 11:59 11:59 Intake Total 940 / 940 220 / 220 Output Total 1805 / 1895 1210 / 1210 750 / 750 Balance -1805 / -1895 -270 / -270 -530 / -530 Weight 208 lb 208 lb 207 lb 15.992 oz Narrative: She received 2 doses of IV Ativan for a total of 2 mg for the seizure activity and is now resting quietly. No respiratory distress. Lungs are relatively clear. Blood pressure has improved. Assessment and Plan (1) Pneumonia due to COVID-19 virus Status: Acute Category: Medical Code(s): U07.1 - COVID-19; J12.82 - Pneumonia due to coronavirus disease 2019 (2) Acute kidney injury Status: Acute Category: Medical Code(s): N17.9 - Acute kidney failure, unspecified (3) Acute respiratory failure with hypoxia Status: Acute Category: Medical Code(s): J96.01 - Acute respiratory failure with hypoxia (4) Type 2 diabetes mellitus Status: Chronic Qualifiers: Diabetes mellitus jail insulin use: with asphalt worker use Diabetes mellitus complication status: without complication Qualified Code(s): E11.9 - Type 2 diabetes mellitus without complications; Z79.4 - special education inclusion teacher (current) use of insulin Category: Medical Code(s): E11.9 - Type 2 diabetes mellitus without complications (5) History of CVA (cerebrovascular accident) Status: Chronic Category: Medical Code(s): Z86.73 - Personal history of transient ischemic attack (TIA), and cerebral infarction without residual deficits (6) Hyponatremia Status: Acute Category: Medical Code(s): E87.1 - Hypo-osmolality and hyponatremia (7) Hypomagnesemia Status: Acute Category: Medical Code(s): E83.42 - Hypomagnesemia (8) Hypertension Status: Acute Category: Medical Code(s): I10 - Essential (primary) hypertension (9) Altered mental status Status: Acute Category: Medical Code(s): R41.82 - Altered mental status, unspecified (10) Seizure Status: Acute Category: Medical Code(s): R56.9 - Unspecified convulsions - Assessment and plan all Dx Assessment and Plan for all problems:: Concern is for an acute left CVA by CT findings however this does not correlate with her left-sided physical findings. tPA is contraindicated due to being on a therapeutic dose of Lovenox within the past 24 hours. At any rate her CTA does not show a thrombus. Currently awaiting MRI. She has been loaded with DigitalScirocco.
--- NOTE | 2021-07-05 13:03 | MR_ITS ---
PROCEDURE: MR HEAD/BRAIN WO CON CLINICAL INDICATION: RULE OUT STROKE Left-sided weakness, abnormal head CT COMPARISON: No exams were available for comparison TECHNIQUE: Routine multiplanar multi echo sequences are performed without gadolinium enhancement. FINDINGS: No midline shift or mass effect. No evidence of restricted diffusion that would indicate an area of acute infarction. Encephalomalacia changes are present in the right temporal, occipital, and parietal lobe. There are scattered periventricular and subcortical T2 white matter hyperintensities. T2 hyperintensity also surrounds the area of encephalomalacia. The cerebellopontine angles are grossly unremarkable. Motion artifact does somewhat obscure fine detail. There is partial empty sella. There is some increased T2 signal in the cervical cord at the C3-C4 level but may be due to motion artifact. Small air-fluid level is present in the left maxillary sinus and there is mucosal thickening with a small air-fluid level in the right maxillary sinus. The left frontal ethmoid air cells are opacified with partial opacification of the left frontal sinus. Fluid signal intensity noted in the mastoid sinuses. IMPRESSION: No acute intracranial findings. No evidence of acute infarction. 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 Atrophy with chronic periventricular ischemic gliotic changes. Paranasal sinus and bilateral mastoid sinus disease Dictated by: Josemanuel Mccauley MD 07/05/2021 14:44 Josemanuel Mccauley MD in [facility] 07/05/2021 14:44
--- NOTE | 2021-07-05 13:59 | PC.NURSE ---
pt arrived back to the floor at this time from MRI
--- NOTE | 2021-07-05 14:15 | HMH.PULMPN ---
Internal Medicine - PN: Subj *Date: 07/05/21 *Time: 14:15 Interval history: No acute respiratory vents overnight. Exam - HENMT Exam HENMT: Present: normocephalic - Eye Exam Eyes:: Present: normal appearance both eyes and related structures - Neck Exam Neck:: Present: normal visual inspection - Respiratory Exam Respiratory:: Present: decreased breath sounds, crackles - Cardiovascular Exam Cardiac:: Present: S1, S2 - GI Exam GI:: Present: soft - Neurological Exam Neurological: Absent: alert, awake, normal cognition Stroke alert was called on this patient at the time examination patient received Ativan and appeared lethargic. Able to protect her airway. We will closely monitor. 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: with care home use Diabetes mellitus complication status: without complication Qualified Code(s): E11.9 - Type 2 diabetes mellitus without complications; Z79.4 - skilled nursing (current) use of insulin Category: Medical Code(s): E11.9 - Type 2 diabetes mellitus without complications (5) History of CVA (cerebrovascular accident) Status: Chronic Category: Medical Code(s): Z86.73 - Personal history of transient ischemic attack (TIA), and cerebral infarction without residual deficits (6) Hyponatremia Status: Acute Category: Medical Code(s): E87.1 - Hypo-osmolality and hyponatremia (7) Hypomagnesemia Status: Acute Category: Medical Code(s): E83.42 - Hypomagnesemia (8) Hypertension Status: Acute Category: Medical Code(s): I10 - Essential (primary) hypertension - Assessment and plan all Dx Assessment and Plan for all problems:: #Acute hypoxic respiratory failure: #COVID-19 pneumonia: Presented with acute hypoxic respiratory failure and been intubated, chest x-ray on admission showed left airspace disease. COVID19 PCR positive D-dimer elevated at 1.19. CRP elevated at 176. Ferritin at 362. LE doppler no DVT . Sputum from admission grew MSSA and sputum after intubation from 06/26 resulted on 07/04 grew moderate growth with E. coli resistant to levofloxacin. Patient has been receiving ceftriaxone azithromycin this admission, Chest x-ray from this morning showed stable pulmonary infiltrates, bilateral pleural effusions. Afebrile. No evidence of leukocytosis. Patient respiratory status significantly improved since admission was eventually extubated to Ventimask and then weaned to nasal cannula. Respiratory status remained stable since yesterday. Patient had a stroke alert called. She is protecting her airway. We will closely monitor. Plan: -Given significant improvement in her symptoms, will hold off on escalating antibiotics at this point of time. She completed a course of ceftriaxone and azithromycin. -Continue nasal cannula and supplementation to maintain O2 saturation goal of 90% and above. -DuoNebs every 6 hours as needed. -Renal function significantly improved, volume optimization as per primary team. #Involving pulmonary in this patient care. We will continue to follow.
[2021-07-05 15:52] LABS: POC Glucose,Bedside 200 (70-110)
[2021-07-05 18:38] LABS: POC Glucose,Bedside 127 (70-110)
[2021-07-05 21:05] LABS: POC Glucose,Bedside 133 (70-110)
--- NOTE | 2021-07-05 23:02 | PC.NURSE ---
LATE ENTRY 0935- this RN entered pt's room. pt was having\twitching of the head and neck, left-sided facial droop. Pt noted to have sever weakness of the left side. Pt would follow commands but no curb setter noted to left hand. 0938-stoke alert called at this time. FSBS 200 0940-MD Selby at bedside to assess pt. Doyle Becerra RN notified MD Moon at this time. 0941- pt taken to CT by Lisa Montanez RN and Elyssa Olivas RN 0952- pt back from CT. 1001-Twitching of head and neck continued. MD Moon notified, 1mg of ativan IV ONCE ordered and carried out. Seizure pads placed on pt's bed at this time. 1036- CTA ordered, notified of continuous involuntary movements of head and neck. additional order of 1mg IV Ativan ordered and carried out 1215-Pt given loading dose of Keppra IV per MD Moon 1345- Pt taken to MRI Shift summary: PO meds held this shift. AM dose of lovenox held d/t potential risk of stroke this AM. Family has been updated of pt status t.o this shift ([id number]). Pt has been a q2h turn and oral care this shift. Santo cath remains intact. No other acute changes or complaints, will continue to monitor.
[2021-07-06] VITALS (8 sets, daily range): BP systolic 79–196; BP diastolic 51–99; PULSE 75–124; RESP 22–32; TEMP 36.3–37.4; O2SAT 89–97; BMI 35.4
[2021-07-06 01:59] LABS: POC Glucose,Bedside 145 (70-110)
[2021-07-06 07:25] LABS: Basophils % 0.3 % (0.1-2.0); Eosinophils % 0.5 % (0.1-12.0); Hematocrit 32.9 % (37.0-47.0); Hemoglobin 10.6 g/dL (12.2-16.2); Lymphocytes # 1.2 K/mm3 (0.7-4.5); Lymphocytes % 14.3 % (10-50); Mean Corpuscular HGB Conc 32.2 g/dL (31.8-35.4); Mean Corpuscular Hemoglobin 28.1 pg (27.0-31.2); Mean Corpuscular Volume 87.3 fl (81-99); Mean Platelet Volume 9.4 fl (7.4-10.4); Monocytes # 0.5 K/mm3 (0.1-1.0); Monocytes % 5.7 % (1.7-9.3); Neutrophils # 6.5 K/mm3 (1.8-7.8); Neutrophils % 79.2 % (37.0-80.0); Platelet Count 237 K/mm3 (142-424); Red Blood Count 3.76 M/mm3 (4.20-5.40); Red Cell Distribution Width 17.6 % (11.5-17.5); White Blood Count 8.2 K/mm3 (4.8-10.8)
[2021-07-06 07:50] LABS: Alanine Aminotransferase 22 U/L (12-78); Albumin Level 2.5 g/dl (3.5-5.0); Albumin/Globulin Ratio 0.7 (1.1-1.8); Alkaline Phosphatase 78 U/L (38-126); Anion Gap 9.1 mEq/L (5-15); Aspartate Amino Transferase 43 U/L (14-36); Bilirubin,Total 0.5 mg/dl (0.2-1.3); Blood Urea Nitrogen 21 mg/dl (7-17); Carbon Dioxide 26 mmol/L (22.0-30.0); Chloride 117 mmol/L (98-107); Creatinine Clearance Estimated 78 mL/min (50-200); Estimated Glomerular Filt Rate 122 ml/min (>60); GFR (African American) 148 ML/MIN (>60); Globulin 3.4 g/dL (1.3-3.2); Glucose 139 mg/dl (74-100); Magnesium 1.5 mg/dl (1.6-2.3); Potassium 4.1 mmoL/L (3.5-5.1); Sodium 148 mmol/L (136-145); Total Protein,Serum 5.9 g/dl (6.3-8.2)
--- NOTE | 2021-07-06 08:43 | HMH.ACPN2 ---
<Naomy Rubalcava - Last Filed: 07/06/21 08:54> Internal Medicine - PN: Subj *Date: 07/06/21 *Time: 08:54 Interval history: Patient had seizure yesterday was given Ativan and started on Keppra. She has had no further seizures documented during the night. This a.m. she is more alert. She speaks but is difficult to understand. She seems to be anxious. She had a low-grade fever this morning of 99.4. She is on a nasal cannula with oxygen at 4 L/min with O2 sats at 97-98. MRI of the brain showed no acute intracranial findings and no evidence of an acute infarction. It revealed an old right middle cerebral artery infarction, Atrophy with chronic periventricular ischemia glottal changes. This a.m. laboratory data revealed a white blood cell count of 8200 with a hemoglobin of 10.6 and hematocrit of 32.9. Blood chemistries show sodium of 148 potassium of 4.1, BUN is 21 and creatinine 0.5. Magnesium is low at 1.5 Exam Vital signs and Labs for Last 24 Hours: Temp Pulse Resp BP Pulse Ox 99.4 F 124 H 24 178/88 H 97 07/06/21 04:00 07/06/21 04:00 07/06/21 04:00 07/06/21 04:00 07/06/21 04:00 Laboratory Results - last 24 hr 07/04/21 17:06: POC Glucose 133 H 07/05/21 09:39: POC Glucose 200 H 07/05/21 12:12: POC Glucose 127 H 07/05/21 20:49: POC Glucose 145 H 07/06/21 06:05: WBC 8.2, RBC 3.76 L, Hgb 10.6 L, Hct 32.9 L, MCV 87.3, MCH 28.1, MCHC 32.2, RDW 17.6 H, Plt Count 237, MPV 9.4, Neut % (Auto) 79.2, Lymph % (Auto) 14.3, Brooks % (Auto) 5.7, Eos % (Auto) 0.5, Baso % (Auto) 0.3, Neut # (Auto) 6.5, Lymph # (Auto) 1.2, Brooks # (Auto) 0.5, Eos # (Auto) 0.0, Baso # (Auto) 0.0 07/06/21 06:05: Sodium 148 H, Potassium 4.1, Chloride 117 H, Carbon Dioxide 26, Anion Gap 9.1, BUN 21 H, Creatinine 0.50 L, Estimated Creat Clear 78, Estimated GFR 122, Est GFR ( Amer) 148 D, Glucose 139 H, Calcium 9.0, Magnesium 1.5 L, Total Bilirubin 0.5, AST 43 H, ALT 22, Alkaline Phosphatase 78, Total Protein 5.9 L, Albumin 2.5 L, Globulin 3.4 H, Albumin/Globulin Ratio 0.7 L I & O for Last 24 hours: Intake & Output 07/03/21 07/04/21 07/05/21 07/06/21 11:59 11:59 11:59 11:59 Intake Total 940 / 940 220 / 220 220 / 220 Output Total 1805 / 1895 1210 / 1210 750 / 750 1650 / 1650 Balance -1805 / -1895 -270 / -270 -530 / -530 -1430 / -1430 Weight 208 lb 208 lb 207 lb 15.992 oz 207 lb 8 oz - Constitutional no acute distress Comments: Trying to talk. - *Routine Respiratory Exam Present: CTA bilaterally (Anteriorly) - *Routine Cardiovascular Exam Present: RRR Comments: When talking with patient heart rate is sinus tach at 124. When left alone it slows to 110 - *Routine Abdominal Exam Present: soft, normoactive bowel sounds. Absent: tenderness - *Routine Extremities Exam Present: edema - *Routine Neurological Exam Present: alert Unable to determine orientation. Speech is soft and unclear. She is able to focus to the left with her eyes this a.m. Assessment and Plan (1) Pneumonia due to COVID-19 virus Status: Acute Category: Medical Code(s): U07.1 - COVID-19; J12.82 - Pneumonia due to coronavirus disease 2019 (2) Acute kidney injury Status: Acute Category: Medical Code(s): N17.9 - Acute kidney failure, unspecified (3) Acute respiratory failure with hypoxia Status: Acute Category: Medical Code(s): J96.01 - Acute respiratory failure with hypoxia (4) Type 2 diabetes mellitus Status: Chronic Qualifiers: Diabetes mellitus fpc insulin use: with fpc use Diabetes mellitus complication status: without complication Qualified Code(s): E11.9 - Type 2 diabetes mellitus without complications; Z79.4 - keno terminal operator (current) use of insulin Category: Medical Code(s): E11.9 - Type 2 diabetes mellitus without complications (5) History of CVA (cerebrovascular accident) Status: Chronic Category: Medical Code(s): Z86.73 - Personal history of transient ischemic attack (TIA), and cerebral inf
--- NOTE | 2021-07-06 09:28 | HMH.PULMPN ---
Internal Medicine - PN: Subj *Date: 07/06/21 *Time: 13:29 Interval history: No acute respiratory events overnight. Mentation improved. Exam - Constitutional Constitutional:: Present: comfortable - HENMT Exam HENMT: Present: normocephalic - Eye Exam Eyes:: Present: normal appearance both eyes and related structures - Neck Exam Neck:: Present: normal visual inspection - Respiratory Exam Respiratory:: Present: respiratory distress, crackles - Cardiovascular Exam Cardiac:: Present: S1, S2 - GI Exam GI:: Present: soft - Skin Exam Skin: Present: warm, no rash - Neurological Exam Neurological: Present: awake. Absent: alert, normal cognition - Extremities Exam Extremities: Present: no cyanosis, no clubbing, edema Assessment and Plan (1) Pneumonia due to COVID-19 virus Status: Acute Category: Medical Code(s): U07.1 - COVID-19; J12.82 - Pneumonia due to coronavirus disease 2019 (2) Acute kidney injury Status: Acute Category: Medical Code(s): N17.9 - Acute kidney failure, unspecified (3) Acute respiratory failure with hypoxia Status: Acute Category: Medical Code(s): J96.01 - Acute respiratory failure with hypoxia (4) Type 2 diabetes mellitus Status: Chronic Qualifiers: Diabetes mellitus assisted insulin use: with assisted use Diabetes mellitus complication status: without complication Qualified Code(s): E11.9 - Type 2 diabetes mellitus without complications; Z79.4 - shelter (current) use of insulin Category: Medical Code(s): E11.9 - Type 2 diabetes mellitus without complications (5) History of CVA (cerebrovascular accident) Status: Chronic Category: Medical Code(s): Z86.73 - Personal history of transient ischemic attack (TIA), and cerebral infarction without residual deficits (6) Hyponatremia Status: Acute Category: Medical Code(s): E87.1 - Hypo-osmolality and hyponatremia (7) Hypomagnesemia Status: Acute Category: Medical Code(s): E83.42 - Hypomagnesemia (8) Hypertension Status: Acute Category: Medical Code(s): I10 - Essential (primary) hypertension (9) Altered mental status Status: Acute Category: Medical Code(s): R41.82 - Altered mental status, unspecified (10) Seizure Status: Acute Category: Medical Code(s): R56.9 - Unspecified convulsions - Assessment and plan all Dx Assessment and Plan for all problems:: #Acute hypoxic respiratory failure: #COVID-19 pneumonia: Presented with acute hypoxic respiratory failure. COVID19 PCR positive D-dimer elevated at 1.19. CRP elevated at 176. Ferritin at 362. LE doppler no DVT Sputum from admission grew MSSA and sputum after intubation from 06/26 resulted on 07/04 grew moderate growth with E. coli resistant to levofloxacin. Patient has been receiving ceftriaxone azithromycin this admission, Chest x-ray from this morning showed stable pulmonary infiltrates, bilateral pleural effusions. Afebrile. No evidence of leukocytosis. Patient respiratory status significantly improved since admission was eventually extubated to Ventimask and then weaned to nasal cannula. Interval update: Patient mentation improved from yesterday.Respiratory status remains stable, patient is morning on 5 L nasal cannula saturating 92%. She does not appear to be in respiratory distress. We will closely monitor. Plan: -Given significant improvement in her symptoms, will hold off on escalating antibiotics at this point of time. She completed a course of ceftriaxone and azithromycin. -Continue nasal cannula and supplementation to maintain O2 saturation goal of 90% and above. -DuoNebs every 6 hours as needed. -Renal function significantly improved, volume optimization as per primary team. #Thank you for involving pulmonary in this patient care. We will continue to follow.
[2021-07-06 21:44] LABS: POC Glucose,Bedside 162 (70-110)
[2021-07-06 21:44] LABS: POC Glucose,Bedside 137 (70-110)
[2021-07-06 21:44] LABS: POC Glucose,Bedside 150 (70-110)
[2021-07-07] VITALS (11 sets, daily range): BP systolic 155–176; BP diastolic 63–79; PULSE 60–101; RESP 22–28; TEMP 36.6–37.1; O2SAT 90–97; BMI 35.4
[2021-07-07 01:10] LABS: POC Glucose,Bedside 140 (70-110)
[2021-07-07 07:12] LABS: POC Glucose,Bedside 135 (70-110)
--- NOTE | 2021-07-07 08:08 | P.PN_ITS ---
Internal Medicine - PN: Subj *Date: 07/07/21 *Time: 08:08 Interval history: She is much more alert and talking this morning. Voice is stronger. She is making her needs known. She calls me by name. Denies shortness of breath. Exam Vital signs and Labs for Last 24 Hours: Temp Pulse Resp BP Pulse Ox 97.8 F 86 28 H 155/74 H 90 L 07/07/21 03:49 07/07/21 07:26 07/07/21 03:49 07/07/21 03:49 07/07/21 03:49 Laboratory Results - last 24 hr 07/06/21 08:59: POC Glucose 137 H 07/06/21 11:26: POC Glucose 150 H 07/06/21 16:43: POC Glucose 162 H 07/07/21 00:07: POC Glucose 140 H 07/07/21 06:48: POC Glucose 135 H I & O for Last 24 hours: Intake & Output 07/04/21 07/05/21 07/06/21 07/07/21 11:59 11:59 11:59 11:59 Intake Total 940 / 940 220 / 220 280 / 280 240 / 240 Output Total 1210 / 1210 750 / 750 1650 / 1650 1525 / 1525 Balance -270 / -270 -530 / -530 -1370 / -1370 -1285 / -1285 Weight 208 lb 207 lb 15.992 oz 207 lb 8 oz 207 lb 3.752 oz Narrative: Alert. Voice is hoarse. Color is good. Chest with a few upper airway rhonchi. No wheezes. Heart is regular. Abdomen is soft and nondistended with no tenderness. Extremities with 1+ edema. 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 use Diabetes mellitus complication status: without complication Qualified Code(s): E11.9 - Type 2 diabetes mellitus without complications; Z79.4 - senior living (current) use of insulin Category: Medical Code(s): E11.9 - Type 2 diabetes mellitus without complications (5) History of CVA (cerebrovascular accident) Status: Chronic Category: Medical Code(s): Z86.73 - Personal history of transient ischemic attack (TIA), and cerebral infarction without residual defici ts (6) Hyponatremia Status: Acute Category: Medical Code(s): E87.1 - Hypo-osmolality and hyponatremia (7) Hypomagnesemia Status: Acute Category: Medical Code(s): E83.42 - Hypomagnesemia (8) Hypertension Status: Acute Category: Medical Code(s): I10 - Essential (primary) hypertension (9) Altered mental status Status: Acute Category: Medical Code(s): R41.82 - Altered mental status, unspecified (10) Seizure Status: Acute Category: Medical Code(s): R56.9 - Unspecified convulsions (11) Pneumonia due to E. coli Status: Acute Category: Medical Code(s): J15.5 - Pneumonia due to Escherichia coli - Assessment and plan all Dx Assessment and Plan for all problems:: Continues with slow steady improvement. She is still quite weak and debilitated. Will obtain PT and OT evaluation today now that she is more alert and able to cooperate and participate. Continue diuresis with Lasix.
--- NOTE | 2021-07-07 09:38 | XR_ITS ---
PROCEDURE: XR CHEST PORTABLE CLINICAL HISTORY: pnm COMPARISON: CR XR CHEST PORTABLE from 07/02/2021 CR XR CHEST PORTABLE from 07/03/2021 CR XR CHEST PORTABLE from 07/04/2021 FINDINGS: There is cardiomegaly without failure. Left subclavian central venous line once again noted with the tip at the brachiocephalic vein region. There are small bilateral pleural effusions. Bilateral pneumonia once again noted in the right lower lobe and left mid and lower lung zone which may be slightly improved on the left. Severe arthritic changes are once again noted in the shoulders. IMPRESSION: Bilateral pleural effusions with bilateral pneumonia slightly improved on the left Dictated by: Josemanuel Mccauley MD 07/07/2021 11:50 Josemanuel Mccauley MD in [place] 07/07/2021 11:50
--- NOTE | 2021-07-07 09:44 | HMH.OTEV ---
OT Inpatient Evaluation Rehab OT IP Evaluation Start: 07/07/21 08:22 Freq: ONCE Status: Complete Protocol: Document 07/07/21 09:33 [facility] (Rec: 07/07/21 09:43 [facility] [id number]) Rehab OT IP Assessment Subjective History Pt oriented x 3 on arrival. Pt agreeable to engage in therapy evaluation. Pt was admitted via ED on 06/23/21 due to SOB and acute repsiratory failure. Pt arrived COVID+ and o2 was at 56% on room air. Pt was intubated at this time. She was extubated on . Pt has a past medical history of Cancer (basal cell carcinoma), Cerebrovascular Accident, Diabetes Mellitus Type 2, Hyperlipidemia, Hypertension, Seizures, Transient Ischemic Attacks ( TIA), Ulcer. Prior to hospitalization she lived at home with her . Pt reports she required assistance with ADLs and her usually assisted with both dressing and bathing. Pt was dependent upon her for completion of all IADLs. Pt did use a walker during ambulation. Pt demonstrated decreased AROM and strength of BUE's. Pt reports some of the weakness and decreased motion was caused from a previous stroke. Subjective I want a drink of water. Pt resting in bed on arrival. Pt required Max x 2 to complete bed mobility and go from supine to sitting at eob. Pt did have a posterior lean while completing static sitting at eob; pt required min assist at times to maintain upright posture. Pt was able to sit at eob for ~7 minutes. While sitting her o2 was in the high 90's. However, when she would talk
--- NOTE | 2021-07-07 09:53 | HMH.PTEV ---
Physical Therapy Evaluation Rehab PT IP Evaluation Start: 07/07/21 08:22 Freq: ONCE Status: Active Protocol: Document 07/07/21 08:45 PWMIKY (Rec: 07/07/21 09:53 [email or web address] [id number]) Subjective/History History History This is the initial IP evalution for Alondra Zuniga. Pt is a 70 y/o female admitted to the hospital with COVID-19. Pt is recieving O2 supplementation. Pt demonstarted max assist x2 at EOB - O2 stats dropped when talking or drinking fluids. Pt was admitted to hospital when she noticed she was turning blue. PT's had COVID- 19 first with Pt following with infection. - note done by Phyllis Durant, SPT Subjective Subjective Pt states she is tired today. She states that she has a hard time breathing when moving. Pt reports she lives at with alone and uses a wheeled walker to get around. Pt reports her had COVID-19 first and then she got it. 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 Rehab PT IP Eval Objective Appearance Patient Behavior Appropriate,Cooperative, Dependent,Fatigued,Confused Patient Orientation Place,Name,Birthday Difficulty following instructions moderate Speech Pattern Coherent,Garbled,Soft-Spoken, Monotone,Mumbled,Poor Articulation Ambulation Patient Able to Ambulate No Balance Ability to Arise Unable Sitting Balance Leans or slides in chair Dynamic Sitting Balance Ability Zero Transfers Bed Transfer Ability Maximum x 2 (75% assist) Rehab PT IP prob,goals,plan Problems Date of Evaluation: 07/07/21 PT IP Problems Bed Mobility,Transfers,Gait, Balance,Self care,Safety Rehab Potential Rehab Potential Poor Equipment Needs Assistive Devices Rolling / Wheeled Walker Plan PT Intervention Plan Bed Mobility,Transfers,Gait, Balance,S
--- NOTE | 2021-07-07 11:20 | SW/DCPLANNER ---
Addendum entered by Khushi Walker 07/07/21 15:00: Daisha with [facility] has stated that she can accept this patient. I have informed patients daughter and she is agreeable with this plan. I have informed Dr Moon. Addendum entered by Khushi Walker 07/07/21 13:36: Yamila with [facility] has stated that patient must be 20 days past their original COVID swab prior to accepting to their facility. I spoke with Amanda and she has requested that information be faxed to [facility] and [facility]. I will continue to follow up with facilities, patients family and Dr Moon. Original Note: I spoke with patients daughter (Amanda) regarding discharge plans for this patient. Amanda stated that her parents live together and her father has also been in the hospital battling COVID. I explained to Amanda that patient will require short term placement for SNF level of care once she is medically stable for discharge from [facility]. Amanda expressed that she understood and would explain to her father. Amanda also stated that their first interest in placement is [facility]. I spoke with Yamila from [facility]: female beds are available. Amanda is going to speak with her father then give me other options in case [facility] can not accept this patient. Patient information has been faxed to Yamila with [facility]. I will follow up with Yamila once patient information is reviewed.
--- NOTE | 2021-07-07 16:41 | HMH.PULMPN ---
Internal Medicine - PN: Subj *Date: 07/07/21 *Time: 16:41 Interval history: No acute respiratory events overnight. Patient appears more alert than prior Exam - Constitutional Constitutional:: Present: no acute distress, comfortable - HENMT Exam HENMT: Present: normocephalic - Eye Exam Eyes:: Present: normal appearance both eyes and related structures - Respiratory Exam Respiratory:: Present: able to speak in complete sentences, no respiratory distress, decreased breath sounds, crackles - Cardiovascular Exam Cardiac:: Present: S1, S2 - GI Exam GI:: Present: soft - Skin Exam Skin: Present: warm - Neurological Exam Neurological: Present: awake - Extremities Exam Extremities: Present: no cyanosis, no clubbing, edema Assessment and Plan (1) Pneumonia due to COVID-19 virus Status: Acute Category: Medical Code(s): U07.1 - COVID-19; J12.82 - Pneumonia due to coronavirus disease 2019 (2) Acute kidney injury Status: Acute Category: Medical Code(s): N17.9 - Acute kidney failure, unspecified (3) Acute respiratory failure with hypoxia Status: Acute Category: Medical Code(s): J96.01 - Acute respiratory failure with hypoxia (4) Type 2 diabetes mellitus Status: Chronic Qualifiers: Diabetes mellitus termite treater helper insulin use: with care home use Diabetes mellitus complication status: without complication Qualified Code(s): E11.9 - Type 2 diabetes mellitus without complications; Z79.4 - manager intermediate (current) use of insulin Category: Medical Code(s): E11.9 - Type 2 diabetes mellitus without complications (5) History of CVA (cerebrovascular accident) Status: Chronic Category: Medical Code(s): Z86.73 - Personal history of transient ischemic attack (TIA), and cerebral infarction without residual deficits (6) Hyponatremia Status: Acute Category: Medical Code(s): E87.1 - Hypo-osmolality and hyponatremia (7) Hypomagnesemia Status: Acute Category: Medical Code(s): E83.42 - Hypomagnesemia (8) Hypertension Status: Acute Category: Medical Code(s): I10 - Essential (primary) hypertension (9) Altered mental status Status: Acute Category: Medical Code(s): R41.82 - Altered mental status, unspecified (10) Seizure Status: Acute Category: Medical Code(s): R56.9 - Unspecified convulsions (11) Pneumonia due to E. coli Status: Acute Category: Medical Code(s): J15.5 - Pneumonia due to Escherichia coli - Assessment and plan all Dx Assessment and Plan for all problems:: #Acute hypoxic respiratory failure: #COVID-19 pneumonia: Presented with acute hypoxic respiratory failure and been intubated, chest x-ray on admission showed left airspace disease. COVID19 PCR positive D-dimer elevated at 1.19. CRP elevated at 176. Ferritin at 362. LE doppler no DVT Sputum from admission grew MSSA and sputum after intubation from 06/26 resulted on 07/04 grew moderate growth with E. coli resistant to levofloxacin. Patient has been receiving ceftriaxone azithromycin this admission, Chest x-ray from this morning showed stable pulmonary infiltrates, bilateral pleural effusions. Afebrile. No evidence of leukocytosis. Will update: Patient appears more awake than yesterday. Respiratory status remained stable oxygen recommends wean to 4 L nasal cannula, will continue to wean as tolerated. Will initiate incentive spirometry. X-ray from today stable/slightly improved. Continue to show bilateral pleural effusions. Plan: -Incentive spirometry -Given significant improvement in her symptoms, will hold off on escalating antibiotics at this point of time. She completed a course of ceftriaxone and azithromycin. -Continue nasal cannula and supplementation to maintain O2 saturation goal of 90% and above. -DuoNebs every 6 hours as needed. -Renal function significantly improved, volume optimization as per primary team. #Involving pulmonary in this patient care. We will continue to follow.
[2021-07-07 17:16] LABS: POC Glucose,Bedside 154 (70-110)
--- NOTE | 2021-07-07 20:07 | PC.NURSE ---
No acute changes this shift. Remains on 02 @ 4 L. Alert to self. CB in reach. VSS. Daughter updated this evening.
[2021-07-08] VITALS (7 sets, daily range): BP systolic 128–165; BP diastolic 63–85; PULSE 66–110; RESP 20–24; TEMP 36.4–36.8; O2SAT 91–99; BMI 35.4
[2021-07-08 01:07] LABS: POC Glucose,Bedside 186 (70-110)
--- NOTE | 2021-07-08 03:18 | PC.NURSE ---
No acute changes this shift. Pt is oriented to name, and place. Pt remains on 4L NC with O2 stats in >90%. Pt denies any pain. Santo in place draining clear, yellow urine. Pt can verbalize needs to staff. Gave PO meds crushed with applesauce and pt tolerated well. Call light within reach, will continue to monitor.
[2021-07-08 06:27] LABS: POC Glucose,Bedside 140 (70-110)
--- NOTE | 2021-07-08 08:37 | HMH.ACPN2 ---
<Quynh Bui - Last Filed: 07/08/21 08:37> Internal Medicine - PN: Subj *Date: 07/08/21 *Time: 08:37 Interval history: Patient is alert and talking this morning. She denies any chest pain or shortness of breath. She states she does have some pain in her legs. She is still very weak and debilitated. Her respiratory status has been stable and she has completed a course of Rocephin and Zithromax. Exam Vital signs and Labs for Last 24 Hours: Temp Pulse Resp BP Pulse Ox 97.8 F 92 H 24 159/85 H 91 L 07/08/21 03:44 07/08/21 06:55 07/08/21 03:44 07/08/21 03:44 07/08/21 06:55 Laboratory Results - last 24 hr 06/27/21 07:01: ABG O2 Saturation Not Reportable 07/07/21 16:44: POC Glucose 154 H 07/07/21 20:54: POC Glucose 186 H 07/08/21 06:15: POC Glucose 140 H I & O for Last 24 hours: Intake & Output 07/05/21 07/06/21 07/07/21 07/08/21 11:59 11:59 11:59 11:59 Intake Total 220 / 220 280 / 280 480 / 480 360 / 360 Output Total 750 / 750 1650 / 1650 1525 / 1525 1625 / 1625 Balance -530 / -530 -1370 / -1370 -1045 / -1045 -1265 / -1265 Weight 207 lb 15.992 oz 207 lb 8 oz 207 lb 3.752 oz 207 lb 3.752 oz - Constitutional no acute distress - *Routine Respiratory Exam Present: decreased breath sounds, rhonchi (Upper airway) - *Routine Cardiovascular Exam Present: RRR - *Routine Abdominal Exam Present: soft, normoactive bowel sounds. Absent: tenderness - *Routine Extremities Exam Present: edema (1+ bilaterally). Absent: cyanosis, clubbing - *Routine Skin Exam Present: warm. Absent: rash - *Routine Neurological Exam Present: alert, oriented X3 Assessment and Plan (1) Pneumonia due to COVID-19 virus Status: Acute Category: Medical Code(s): U07.1 - COVID-19; J12.82 - Pneumonia due to coronavirus disease 2019 (2) Acute kidney injury Status: Acute Category: Medical Code(s): N17.9 - Acute kidney failure, unspecified (3) Acute respiratory failure with hypoxia Status: Acute Category: Medical Code(s): J96.01 - Acute respiratory failure with hypoxia (4) Type 2 diabetes mellitus Status: Chronic Qualifiers: Diabetes mellitus group home insulin use: with group home use Diabetes mellitus complication status: without complication Qualified Code(s): E11.9 - Type 2 diabetes mellitus without complications; Z79.4 - radiology assistant (current) use of insulin Category: Medical Code(s): E11.9 - Type 2 diabetes mellitus without complications (5) History of CVA (cerebrovascular accident) Status: Chronic Category: Medical Code(s): Z86.73 - Personal history of transient ischemic attack (TIA), and cerebral infarction without residual deficits (6) Hyponatremia Status: Acute Category: Medical Code(s): E87.1 - Hypo-osmolality and hyponatremia (7) Hypomagnesemia Status: Acute Category: Medical Code(s): E83.42 - Hypomagnesemia (8) Hypertension Status: Acute Category: Medical Code(s): I10 - Essential (primary) hypertension (9) Altered mental status Status: Acute Category: Medical Code(s): R41.82 - Altered mental status, unspecified (10) Seizure Status: Acute Category: Medical Code(s): R56.9 - Unspecified convulsions (11) Pneumonia due to E. coli Status: Acute Category: Medical Code(s): J15.5 - Pneumonia due to Escherichia coli - Assessment and plan all Dx Assessment and Plan for all problems:: Patient is stable to be discharged to [facility] today for continued rehab. <Abiodun Moon - Last Filed: 07/08/21 12:46> Internal Medicine - PN: Subj *Date: 07/08/21 *Time: 12:45 Exam Vital signs and Labs for Last 24 Hours: Temp Pulse Resp BP Pulse Ox 98.1 F 80 20 128/65 94 L 07/08/21 12:00 07/08/21 12:00 07/08/21 12:00 07/08/21 12:00 07/08/21 12:00 Laboratory Results - last 24 hr 07/07/21 16:44: POC Glucose 154 H 07/07/21 20:54: POC Glucose 186 H 07/08/21 06:15: POC Glucose 140 H I & O for [place]
--- NOTE | 2021-07-08 09:16 | HMH.DCSUM ---
General - General Admission date:: 06/23/21 <Abiodun Moon - 08/14/21 13:41> 06/23/21 <RamyaQuynh - 07/08/21 09:39> Discharge date: 07/08/21 <AlistairRickey ruiza - 07/08/21 09:39> HPI HPI: This is a 70-year-old female presented to the emergency department with some difficulty breathing. Patient states that she has been quarantining with her who was diagnosed with coronavirus for the last week. Patient is unvaccinated. She states that she has been doing okay, however this morning she started feeling bad. She was having difficulty breathing. She states it worsened throughout the day. She started turning a little blue which prompted her to need to come to the emergency department. On our initial evaluation, the patient is having severe difficulties breathing. She is talking in 3-4 word sentences. States that she has had a mild cough, nonproductive. No chest pain or palpitations. No headache or change in vision. Mild fevers and chills. No abdominal pain or vomiting. On initial evaluation, the patient is tachypneic and saturating on room air at 56%. We did immediately placed the patient in resuscitation bay. Patient placed on BiPAP therapy. However her oxygen saturations did not improve. The patient became more altered. Decision was made to intubate the patient due to impending respiratory failure. Patient tolerated intubation well. Hemodynamics have improved. She is saturating well. She was started on broad-spectrum antibiotics for possible pneumonia as well as remdesivir for coronavirus pneumonia. Patient be admitted to the ICU in critical condition. (Above as per ER physician) <RamyaQuynh - 07/08/21 09:39> Hospital Course Hospital Course: The patient was intubated and started on Covid protocol. Pulmonology was consulted. Her antibiotics were changed to Rocephin and Zithromax for possible community-acquired pneumonia. She did had a venous Doppler which was negative for DVT. Her potassium was replaced as it was low. Her magnesium was low and was replaced. Her respiratory status improved and she did well with a spontaneous breathing trial. She had another spontaneous breathing trial and did well for 3 hours. By 06/27/2021 she did seem less responsive. Her tracheal aspirate showed MSSA. A central line was placed and an echo was ordered. The echo showed an EF of 65% with grade 1 diastolic dysfunction. Her chest x-ray continued to show multifocal pneumonia. A repeat ABG showed worsening metabolic acidosis. Her remdesivir had to be discontinued due to worsening renal function. Her blood culture showed no growth. Her urine culture showed growth of yeast and she was started on fluconazole. Her nasal MRSA PCR was negative. Her renal function did begin improving and her electrolytes slightly improved as well. She was only lightly sedated but remained nonresponsive. She did have generalized body edema and was therefore diuresed. All sedation was discontinued and her Levophed was titrated down. She did attempt to open her eyes and squeeze fingers. On 07/01/2021, the patient went into A. fib with rapid ventricular response. After a loading dose of Cardizem, she converted to normal sinus rhythm before the Cardizem drip was started and remained in normal sinus rhythm. She was taken off all drips and was on minimal ventilator settings. Cardiology felt when she was extubated, she would benefit from an oral beta-[place] for suppression of her atrial fib. They also felt she would need to be on oral anticoagulation. The patient was extubated on 07/02/2021 and did well. Her oxygen was stable on a Ventimask. She was, however nonverbal since extubation. Her blood pressure elevated and she was mildly tachycardic, therefore IV Lopressor was added her chest x-ray showed stable patchy lung infiltrates. She indicated that she was hungry, therefore a swallowing evaluation was ordered. She did begin talkin
[2021-07-08 16:57] LABS: POC Glucose,Bedside 143 (70-110)
== END 2021-07-08 16:23 | DRG 207 ==
LOC: ER 19:11 → ICU 22:28 → 2ND 07-04 11:53
PROVIDERS: Family Medicine; Internal Medicine Pulmonary Disease; Nurse Practitioner Family; Admitting Provider Family Medicine; Emergency Provider Emergency Medicine; PCP Family Medicine; Visit Provider Family Medicine
DX: U07.1 COVID-19 (principal); J12.82 Pneumonia due to coronavirus disease 2019; J96.01 Acute respiratory failure with hypoxia; J15.5 Pneumonia due to Escherichia coli; N17.9 Acute kidney failure, unspecified; E87.1 Hypo-osmolality and hyponatremia; N39.0 Urinary tract infection, site not specified; E11.9 Type 2 diabetes mellitus without complications; E87.6 Hypokalemia; I10 Essential (primary) hypertension; E78.5 Hyperlipidemia, unspecified; Z86.73 Personal history of transient ischemic attack (TIA), and cerebral infarction without residual deficits; Z87.891 Personal history of nicotine dependence; Z85.828 Personal history of other malignant neoplasm of skin; Z79.84 Long term (current) use of oral hypoglycemic drugs; E83.42 Hypomagnesemia; I48.91 Unspecified atrial fibrillation; R56.9 Unspecified convulsions
CPT/HCPCS: 31500; 94002; 36556; 36415; 70450; 70496; 70498; 70551; 71045; 80048; 80053; 80202; 81001; 82728; 82803; 82962; 83605; 83735; 83880; 84443; 84484; 85007; 85025; 85378; 85610; 85730; 86140; 86328; 87040; 87070; 87077; 87081; 87086; 87186; 87205; 92610; 93005; 93306; 93970; 94003; 94640; 94761; 96365; 96366; 96367; 96375; 97163; 97166; 97530; 99231; 99285; C1751; C9803; J0456; J1450; J1953; J2543; J2704; J3370; Q9967; U0003; U0005

== ENCOUNTER 2021-09-06 11:04 | Emergency (ER) | payer MEDICARE, MEDICAID, SELFPAY ==
[2021-09-06] VITALS (9 sets, daily range): BP systolic 91–146; BP diastolic 38–68; PULSE 56–68; RESP 14–20; TEMP 36.6–36.8; O2SAT 96–98; BMI 28.8
--- NOTE | 2021-09-06 11:08 | ECG_ITS ---
APPROVED REPORT Exam: Resting ECG HR:59 bpm ECG Measurements Heart Rate 59 AXES PA 178 P -19 QRSd 88 QRS 58 QT 398 T 58 QTc 394 Conclusion Sinus bradycardia Otherwise normal ECG Electronically signed by : Pankaj Kemp MD 09/06/2021 21:01:00
--- NOTE | 2021-09-06 11:17 | XR_ITS ---
PROCEDURE INFORMATION: Exam: XR Chest Exam date and time: 09/06/2021 11:17 AM Age: 70 years old Clinical indication: Other: Weakness TECHNIQUE: Imaging protocol: XR of the chest. Views: 1 view. COMPARISON: CR XR CHEST PORTABLE 07/07/2021 11:05 AM FINDINGS: Lungs: No focal airspace disease. Pleural spaces: Unremarkable. No pleural effusion. No pneumothorax. Heart/Mediastinum: Cardiomediastinal silhouette is within normal limits. Bones/joints: Advanced degenerative changes of the shoulders bilaterally. IMPRESSION: No acute cardiopulmonary abnormality.
[2021-09-06 11:45] LABS: Basophils % 0.5 % (0.1-2.0); Eosinophils # 0.1 K/mm3 (0.0-0.4); Eosinophils % 1.1 % (0.1-12.0); Hematocrit 34.6 % (37.0-47.0); Hemoglobin 11.6 g/dL (12.2-16.2); Lymphocytes # 2.9 K/mm3 (0.7-4.5); Mean Corpuscular HGB Conc 33.6 g/dL (31.8-35.4); Mean Corpuscular Hemoglobin 31.6 pg (27.0-31.2); Mean Platelet Volume 9.6 fl (7.4-10.4); Monocytes # 0.4 K/mm3 (0.1-1.0); Monocytes % 5.2 % (1.7-9.3); Neutrophils # 4.7 K/mm3 (1.8-7.8); Neutrophils % 57.2 % (37.0-80.0); Platelet Count 342 K/mm3 (142-424); Red Blood Count 3.68 M/mm3 (4.20-5.40); Red Cell Distribution Width 16.7 % (11.5-17.5); White Blood Count 8.2 K/mm3 (4.8-10.8)
[2021-09-06 11:59] LABS: Chloride 103 mmol/L (98-107); Potassium 3.6 mmoL/L (3.5-5.1); Sodium 135 mmol/L (136-145)
[2021-09-06 12:02] LABS: Alanine Aminotransferase 15 U/L (12-78); Albumin Level 3.1 g/dl (3.5-5.0); Alkaline Phosphatase 110 U/L (38-126); Anion Gap 12.6 mEq/L (5-15); Aspartate Amino Transferase 42 U/L (14-36); Bilirubin,Total 0.2 mg/dl (0.2-1.3); Blood Urea Nitrogen 14 mg/dl (7-17); Carbon Dioxide 23 mmol/L (22.0-30.0); Creatinine Clearance Estimated 45 mL/min (50-200); Estimated Glomerular Filt Rate 37 ml/min (>60); GFR (African American) 45 ML/MIN (>60); Globulin 3.1 g/dL (1.3-3.2); Total Protein,Serum 6.2 g/dl (6.3-8.2)
[2021-09-06 12:03] LABS: Calcium 8.5 mg/dl (8.4-10.2); Glucose 160 mg/dl (74-100)
[2021-09-06 12:25] LABS: Troponin I < 0.01 ng/ml (0.00-0.034)
[2021-09-06 12:28] LABS: Microscopic, Urine URINE MICROSCOPIC (MICROSCOPIC)
[2021-09-06 12:52] LABS: Appearance,Urine CLEAR (Clear); Bilirubin,Urine Negative (Negative); Blood, Urine 2+ (Negative); Color,Urine YELLOW (Yellow); Glucose,Urine (UA) Negative (Negative); Ketones,Urine Negative (Negative); Leukocyte Esterase,Urine 1+ (Negative); Nitrate,Urine Negative (Negative); Protein,Urine Negative (Negative); Specific Gravity, Urine 1.015 (1.005-1.030); Urobilinogen,Urine 0.2 EU/dl (0.2)
[2021-09-06 13:08] LABS: NT Pro Brain Natriuretic Pep. 591 pg/mL (0-125)
[2021-09-06 13:14] LABS: Bacteria,Urine 1+ /lpf; RBC,Urine 20-50 #/hpf (0-3)
--- NOTE | 2021-09-06 14:00 | PC.NURSE ---
DR ARCINIEGA SPEAKING WITH DAUGHTER
--- NOTE | 2021-09-06 16:06 | PC.NURSE ---
pt ambulated in room with no complicationss
--- NOTE | 2021-09-06 16:13 | HMH.EDGENADL ---
ED Disposition Clinical Impression: Bradycardia Hypotension Qualifiers: Hypotension type: hypotension due to drug Qualified Code(s): I95.2 - Hypotension due to drugs Disposition: Home, Self-Care Condition on Discharge: Good Instructions: DI for Orthostatic Hypotension Additional Instructions: Begin taking half of your daily metoprolol. Take 1/2 tablet in the morning and 1/2 tablet in the evening. Follow-up with Dr. Moon on Sunday to consider additional blood pressure med adjustments. Referrals: Abiodun Moon MD [Primary Care Provider] - Time of Disposition: 16:20 - Critical Care Critical Care Time: No Attestation: On 09/06/21, the high probability of a clinically significant, sudden or life threatening deterioration of the following system(s) required my full and direct attention, intervention and personal management. The time I documented below is in addition to time spent performing reported procedures but includes the following listed in this critical care notation. Medical Decision Making - Medical Records Medical records reviewed: Yes: I reviewed the patient's medical records. - [place] Inquiry Pt receiving controlled substance: No Vital Signs: 09/06/21 11:04 09/06/21 12:00 09/06/21 12:51 Temperature 97.8 F Temperature Source Oral Pulse Rate 68 56 L Pulse Rate [Radial] 61 Respiratory Rate 16 14 14 Blood Pressure 100/54 L 93/52 L Blood Pressure [Orthostatic Lying] Blood Pressure [Orthostatic Sitting] Blood Pressure [Orthostatic Standing] Blood Pressure [Right Arm] 93/60 L Blood Pressure Mean 73 Blood Pressure Mean [Right Arm] 71 Blood Pressure Source [Right Arm] Manual Cuff/ Palpation Blood Pressure Position [Right Arm] Sitting 02 Sat by Pulse Oximetry 98 98 98 Oxygen Delivery Method Room Air Room Air 09/06/21 14:00 09/06/21 15:00 09/06/21 15:40 Temperature Temperature Source Pulse Rate 66 Pulse Rate [Radial] Respiratory Rate 14 15 15 Blood Pressure 91/38 L 102/47 L 122/55 L Blood Pressure [Orthostatic Lying] Blood Pressure [Orthostatic Sitting] Blood Pressure [Orthostatic Standing] Blood Pressure [Right Arm] Blood Pressure Mean Blood Pressure Mean [Right Arm] Blood Pressure Source [Right Arm] Blood Pressure Position [Right Arm] 02 Sat by Pulse Oximetry Oxygen Delivery Method 09/06/21 16:00 09/06/21 16:05 Temperature Temperature Source Pulse Rate 68 Pulse Rate [Radial] Respiratory Rate 14 Blood Pressure 131/68 Blood Pressure [Orthostatic Lying] 134/59 L Blood Pressure [Orthostatic Sitting] 131/68 Blood Pressure [Orthostatic Standing] 146/61 H Blood Pressure [Right Arm] Blood Pressure Mean Blood Pressure Mean [Right Arm] Blood Pressure Source [Right Arm] Blood Pressure Position [Right Arm] 02 Sat by Pulse Oximetry Oxygen Delivery Method - Lab Data Lab Results 09/06/21 11:31: WBC 8.2, RBC 3.68 L, Hgb 11.6 L, Hct 34.6 L, MCV 94.0, MCH 31.6 H, MCHC 33.6, RDW 16.7, Plt Count 342, MPV 9.6, Neut % (Auto) 57.2, Lymph % (Auto) 36.0, [place] % (Auto) 5.2, Eos % (Auto) 1.1, Baso % (Auto) 0.5, Neut # (Auto) 4.7, Lymph # (Auto) 2.9, [place] # (Auto) 0.4, Eos # (Auto) 0.1, Baso # (Auto) 0.0 09/06/21 11:31: Sodium 135 L, Potassium 3.6, Chloride 103, Carbon Dioxide 23, Anion Gap 12.6, BUN 14, Creatinine 1.40 H, Estimated Creat Clear 45, Estimated GFR 37 L, Est GFR ( Amer) 45 L, Glucose 160 H, Calcium 8.5, Total Bilirubin 0.2, AST 42 H, ALT 15, Alkaline Phosphatase 110, Troponin I < 0.01, Total Protein 6.2 L, Albumin 3.1 L, Globulin 3.1, Albumin/Globulin Ratio 1.0 L 09/06/21 11:31: NT-Pro-B Natriuret Pep 591 H 09/06/21 12:19: Urine Color Yellow, Urine Appearance Clear, Urine pH 6.0, Ur Specific [place] 1.015, Urine Protein Negative, Urine Glucose (UA) Negative, Urine Ketones Negative, Urine Blood 2+, Urine Nitrate Negative, Urine Bilirubin Negative, Urine Urobilinogen 0.2, Ur Leuko
== END 2021-09-06 16:45 | disposition home or self-care (01) ==
PROVIDERS: Emergency Provider Emergency Medicine; PCP Family Medicine
DX: R00.1 Bradycardia, unspecified (principal); I95.2 Hypotension due to drugs; R06.09 Other forms of dyspnea; Z86.73 Personal history of transient ischemic attack (TIA), and cerebral infarction without residual deficits; I48.0 Paroxysmal atrial fibrillation; R56.9 Unspecified convulsions; E11.9 Type 2 diabetes mellitus without complications; Z86.16 Personal history of COVID-19
CPT/HCPCS: 71045; 80053; 81001; 83880; 84484; 85025; 87086; 87088; 87186; 93005; 96365; 99283

== ENCOUNTER 2021-09-14 11:41 | Emergency (ER) | payer MEDICARE, MEDICAID, SELFPAY ==
[2021-09-14] VITALS (9 sets, daily range): BP systolic 109–178; BP diastolic 61–92; PULSE 62–70; RESP 13–20; TEMP 36.5; O2SAT 73–100; BMI 27.4
--- NOTE | 2021-09-14 11:53 | XR_ITS ---
PROCEDURE: XR CHEST PORTABLE CLINICAL HISTORY: Hypotension, cough COMPARISON: CR XR CHEST PORTABLE from 07/04/2021 CR XR CHEST PORTABLE from 07/07/2021 CR XR CHEST PORTABLE from 09/06/2021 FINDINGS: The cardiomediastinal silhouette and pulmonary vascularity are within normal limits. The lungs are clear without infiltrates, suspicious nodules, or pleural effusions. Severe osteoarthritic changes are present involving the shoulders IMPRESSION: No acute findings. Dictated by: Josemanuel Mccauley MD 09/14/2021 12:40 Josemanuel Mccauley MD in [facility] 09/14/2021 12:40
--- NOTE | 2021-09-14 12:11 | PC.NURSE ---
rad notified of cxr
[2021-09-14 12:20] LABS: Basophils % 0.3 % (0.1-2.0); Eosinophils # 0.1 K/mm3 (0.0-0.4); Eosinophils % 0.6 % (0.1-12.0); Hematocrit 32.8 % (37.0-47.0); Hemoglobin 11.3 g/dL (12.2-16.2); Lymphocytes # 2.7 K/mm3 (0.7-4.5); Lymphocytes % 30.2 % (10-50); Mean Corpuscular HGB Conc 34.5 g/dL (31.8-35.4); Mean Corpuscular Hemoglobin 31.7 pg (27.0-31.2); Mean Platelet Volume 8.8 fl (7.4-10.4); Monocytes # 0.3 K/mm3 (0.1-1.0); Monocytes % 3.5 % (1.7-9.3); Neutrophils # 5.8 K/mm3 (1.8-7.8); Neutrophils % 65.4 % (37.0-80.0); Platelet Count 349 K/mm3 (142-424); Red Blood Count 3.57 M/mm3 (4.20-5.40); Red Cell Distribution Width 16.3 % (11.5-17.5); White Blood Count 8.9 K/mm3 (4.8-10.8)
--- NOTE | 2021-09-14 12:24 | PC.NURSE ---
rad at bedside
[2021-09-14 12:28] LABS: Alanine Aminotransferase 20 U/L (12-78); Alkaline Phosphatase 106 U/L (38-126); Anion Gap 6.9 mEq/L (5-15); Aspartate Amino Transferase 48 U/L (14-36); Bilirubin,Total 0.3 mg/dl (0.2-1.3); Blood Urea Nitrogen 8 mg/dl (7-17); Calcium 7.4 mg/dl (8.4-10.2); Carbon Dioxide 28 mmol/L (22.0-30.0); Chloride 101 mmol/L (98-107); Creatinine Clearance Estimated 60 mL/min (50-200); Estimated Glomerular Filt Rate 62 ml/min (>60); GFR (African American) 75 ML/MIN (>60); Globulin 3.1 g/dL (1.3-3.2); Glucose 134 mg/dl (74-100); Sodium 133 mmol/L (136-145); Total Protein,Serum 6.1 g/dl (6.3-8.2)
[2021-09-14 12:35] LABS: Prothrombin Time 14.4 seconds (10.1-12.5)
[2021-09-14 12:43] LABS: Troponin I < 0.01 ng/ml (0.00-0.034)
[2021-09-14 12:45] LABS: Lactic Acid 2.1 mmol/L (0.7-2.1); Potassium 2.9 mmoL/L (3.5-5.1)
--- NOTE | 2021-09-14 12:45 | PC.NURSE ---
lab called with critical potassium at this time, notified SUE MORGAN
--- NOTE | 2021-09-14 13:06 | HMH.EDGENADL ---
ED Disposition Clinical Impression: Hypokalemia Disposition: Home, Self-Care Condition on Discharge: Fair Prescriptions: Potassium Chloride [Klor-con 20 mEq tablet] 20 meq PO BID #30 tab Transmission Status: Pending to [id number] Referrals: Abiodun Moon MD [Primary Care Provider] - - Critical Care Critical Care Time: No Attestation: On 09/14/21, the high probability of a clinically significant, sudden or life threatening deterioration of the following system(s) required my full and direct attention, intervention and personal management. The time I documented below is in addition to time spent performing reported procedures but includes the following listed in this critical care notation. Medical Decision Making - [place] Inquiry Pt receiving controlled substance: No [place] was queried for this patient: No Vital Signs: 09/14/21 11:44 09/14/21 12:01 09/14/21 12:30 Temperature 97.7 F Temperature Source Oral Pulse Rate 64 66 Pulse Rate [Right Radial] 70 Respiratory Rate 16 18 Blood Pressure 109/65 L 111/61 Blood Pressure [Right Arm] 123/68 Blood Pressure Mean 74 Blood Pressure Mean [Right Arm] 86 Blood Pressure Source [Right Arm] Automatic Cuff Blood Pressure Position [Right Arm] Sitting 02 Sat by Pulse Oximetry 94 L 99 99 Oxygen Delivery Method Room Air Room Air 09/14/21 13:09 09/14/21 13:29 09/14/21 14:00 Temperature Temperature Source Pulse Rate 64 65 62 Pulse Rate [Right Radial] Respiratory Rate 14 Blood Pressure 176/90 H 159/87 H 123/79 Blood Pressure [Right Arm] Blood Pressure Mean 143 Blood Pressure Mean [Right Arm] Blood Pressure Source [Right Arm] Blood Pressure Position [Right Arm] 02 Sat by Pulse Oximetry 95 100 73 L Oxygen Delivery Method 09/14/21 14:30 09/14/21 15:00 Temperature Temperature Source Pulse Rate 62 64 Pulse Rate [Right Radial] Respiratory Rate 13 20 Blood Pressure 178/88 H 165/92 H Blood Pressure [Right Arm] Blood Pressure Mean Blood Pressure Mean [Right Arm] Blood Pressure Source [Right Arm] Blood Pressure Position [Right Arm] 02 Sat by Pulse Oximetry 95 95 Oxygen Delivery Method - Lab Data Lab Results 09/14/21 11:58: WBC 8.9, RBC 3.57 L, Hgb 11.3 L, Hct 32.8 L, MCV 92.0, MCH 31.7 H, MCHC 34.5, RDW 16.3, Plt Count 349, MPV 8.8, Neut % (Auto) 65.4, Lymph % (Auto) 30.2, Sunflower % (Auto) 3.5, Eos % (Auto) 0.6, Baso % (Auto) 0.3, Neut # (Auto) 5.8, Lymph # (Auto) 2.7, Sunflower # (Auto) 0.3, Eos # (Auto) 0.1, Baso # (Auto) 0.0 09/14/21 11:58: Sodium 133 L, Potassium 2.9 L*, Chloride 101, Carbon Dioxide 28, Anion Gap 6.9, BUN 8, Creatinine 0.90, Estimated Creat Clear 60, Estimated GFR 62, Est GFR ( Amer) 75, Glucose 134 H, Calcium 7.4 L, Total Bilirubin 0.3, AST 48 H, ALT 20, Alkaline Phosphatase 106, Troponin I < 0.01, Total Protein 6.1 L, Albumin 3.0 L, Globulin 3.1, Albumin/Globulin Ratio 1.0 L 09/14/21 11:58: Lactate 2.1 09/14/21 11:58: PT 14.4 H, INR 1.30 H, APTT 37.0 H 09/14/21 13:10: Urine Color Yellow, Urine Appearance Clear, Urine pH 6.0, Ur Specific [place] 1.010, Urine Protein Negative, Urine Glucose (UA) Negative, Urine Ketones Negative, Urine Blood Negative, Urine Nitrate Negative, Urine Bilirubin Negative, Urine Urobilinogen 0.2, Ur Leukocyte Esterase Negative, Urine RBC None, Urine WBC None, Ur Squamous Epith Cells 3-5, Urine Bacteria 1+, Urine Mucus Trace Result diagrams: 09/14/21 11:58 09/14/21 11:58 Orders (Tests/Meds): ED MEDICATIONS Discontinued Medications Generic Name Dose Route Start Last Admin Trade Name Freq PRN Reason Stop Dose Admin Potassium Chloride/Water 100 mls @ 100 mls/hr 09/14/21 13:20 09/14/21 14:05 Potassium Chloride 10meq/100ml Ivpb IV 09/14/21 14:19 100 mls/hr ONCE ONE Administration ORDERS Category Date Time Status Troponin I Q3H Lab 09/14/21 15:00 Ordered Troponin I Q3H Lab 09/14/21 18:00 Ordered
--- NOTE | 2021-09-14 13:10 | PC.NURSE ---
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
[2021-09-14 13:14] LABS: Microscopic, Urine URINE MICROSCOPIC (MICROSCOPIC)
[2021-09-14 13:17] LABS: Appearance,Urine CLEAR (Clear); Bilirubin,Urine Negative (Negative); Blood, Urine Negative (Negative); Color,Urine YELLOW (Yellow); Glucose,Urine (UA) Negative (Negative); Ketones,Urine Negative (Negative); Leukocyte Esterase,Urine Negative (Negative); Nitrate,Urine Negative (Negative); Protein,Urine Negative (Negative); Urobilinogen,Urine 0.2 EU/dl (0.2)
--- NOTE | 2021-09-14 13:17 | PC.NURSE ---
SUE MORGAN speaking with dr. wagner who is online merchandising manager for dr. babcock
[2021-09-14 13:31] LABS: Bacteria,Urine 1+ /lpf; Mucus,Urine Trace /lpf
--- NOTE | 2021-09-14 14:12 | PC.NURSE ---
pt c/o burning with IV Potassium slowed rate down to 75ml/hr will continue to monitor
[2021-09-14 16:16] LABS: Reflex Lactic Add Lactic Reflex
== END 2021-09-14 15:41 | disposition home or self-care (01) ==
PROVIDERS: Emergency Provider Emergency Medicine; PCP Family Medicine
DX: E87.6 Hypokalemia (principal); I10 Essential (primary) hypertension; E78.5 Hyperlipidemia, unspecified; E11.9 Type 2 diabetes mellitus without complications; Z87.891 Personal history of nicotine dependence; Z79.899 Other long term (current) drug therapy; Z86.73 Personal history of transient ischemic attack (TIA), and cerebral infarction without residual deficits; G45.9 Transient cerebral ischemic attack, unspecified
CPT/HCPCS: 71045; 80053; 81001; 83605; 84484; 85025; 85610; 85730; 96365; 99283

== ENCOUNTER → 2021-09-20 15:21 | Outpatient (POV) | payer MEDICARE, SELFPAY | PROVIDERS: Visit Provider Dermatology | DX: Z00.00 Encounter for general adult medical examination without abnormal findings (principal) ==

== ENCOUNTER → 2021-11-24 15:49 | Outpatient (CLI) | payer MEDICARE, MEDICAID, SELFPAY ==
--- NOTE | 2021-11-24 15:57 | MM_ITS ---
PROCEDURE INFORMATION: Exam: MG Bilateral Screening 3D Mammography Exam date and time: 11/24/2021 3:57 PM Age: 71 years old Clinical indication: Screening mammogram TECHNIQUE: Imaging protocol: Bilateral Screening tomosynthesis and 2D mammography including computer-aided detection (CAD) when performed. COMPARISON: 1. MG MM DIG SCREENING MAMM BI W/CAD 02/17/2020 9:06 AM 2. MG SCBI MM Dig screening mamm BI w/CAD 08/14/2018 9:22 AM FINDINGS: MAMMOGRAPHY: Breast composition: There are scattered areas of fibroglandular density. Mass: Stable benign-appearing subcentimeter nodules are present in the bilateral breasts. No new or morphologically suspicious nodule has developed to suggest malignancy. Architectural distortion: No new or suspicious architectural distortion. Calcifications: Stable benign-appearing calcifications are present. No new or suspicious cluster of microcalcifications have developed. Asymmetric density: No new or suspicious asymmetric density is present Skin thickening: None. Axillary adenopathy: None. IMPRESSION: No mammographic evidence of malignancy. Recommend annual screening mammography unless otherwise clinically indicated. ASSESSMENT: BI-RADS category 2: Benign
--- NOTE | 2021-11-24 15:59 | XR_ITS ---
FINAL REPORT TECHNIQUE: Bone mineral density was calculated of the lumbar spine and hip. CLINICAL HISTORY: . osteopenia FINDINGS: Using L1-4, the bone mineral density of the spine is 1.283 g/cm2, corresponding to T-score of 2.1. Using the left hip, the bone mineral density of the femoral neck is 0.709 g/cm2, corresponding to a T-score of -1.3. IMPRESSION: Normal bone mineral density of the lumbar spine with osteopenia of the proximal left femur. Based on FRAX data there is a 9.1% of major osteoporotic fracture and 1.1% chance of hip fracture. Reviewed, Interpreted and Dictated by Shashi Watkins III, MD Transcribed by Jack Lieberman Authenticated by Shashi Watkins III, MD on 11/25/2021 07:40:38 AM [facility]
[2021-11-24 18:38] LABS: Hemoglobin A1C 6.6 % (4.0-6.0)
[2021-11-24 19:49] LABS: Alanine Aminotransferase 27 U/L (12-78); Albumin Level 3.4 g/dl (3.5-5.0); Albumin/Globulin Ratio 1.1 (1.1-1.8); Alkaline Phosphatase 164 U/L (38-126); Anion Gap 10.2 mEq/L (5-15); Aspartate Amino Transferase 88 U/L (14-36); Bilirubin,Total 0.3 mg/dl (0.2-1.3); Blood Urea Nitrogen 10 mg/dl (7-17); Calcium 8.8 mg/dl (8.4-10.2); Carbon Dioxide 28 mmol/L (22.0-30.0); Chloride 100 mmol/L (98-107); Chol/HDL Ratio 3.2 (1-3.5); Cholesterol 136 mg/dl (140-200); Estimated Glomerular Filt Rate 55 ml/min (>60); GFR (African American) 66 ML/MIN (>60); Globulin 3.1 g/dL (1.3-3.2); Glucose 123 mg/dl (74-100); HDL Cholesterol 42 mg/dl (40-60); Magnesium 1.5 mg/dl (1.6-2.3); Potassium 3.2 mmoL/L (3.5-5.1); Sodium 135 mmol/L (136-145); Total Protein,Serum 6.5 g/dl (6.3-8.2); Triglycerides 158 mg/dl (30-150); VLDL Cholesterol 32 mg/dL (0-40)
[2021-11-24 20:00] LABS: Direct LDL Cholesterol 69.75 mg/dL (100-129)
== END ==
PROVIDERS: PCP Family Medicine; Visit Provider Family Medicine
DX: G40.909 Epilepsy, unspecified, not intractable, without status epilepticus (principal); I10 Essential (primary) hypertension; E11.9 Type 2 diabetes mellitus without complications; E78.5 Hyperlipidemia, unspecified; M85.80 Other specified disorders of bone density and structure, unspecified site; Z78.0 Asymptomatic menopausal state; Z12.31 Encounter for screening mammogram for malignant neoplasm of breast; Z79.84 Long term (current) use of oral hypoglycemic drugs
CPT/HCPCS: 36415; 77063; 77067; 77080; 80053; 80061; 83036; 83735

== ENCOUNTER → 2021-11-25 08:28 | Outpatient (CLI) | payer MEDICARE, MEDICAID, SELFPAY ==
[2021-11-25 10:03] LABS: Microalbumin < 6.000 mg/L (0-16.7)
== END ==
PROVIDERS: Visit Provider Family Medicine
DX: G40.909 Epilepsy, unspecified, not intractable, without status epilepticus (principal); I10 Essential (primary) hypertension; E11.9 Type 2 diabetes mellitus without complications; E78.5 Hyperlipidemia, unspecified; Z79.84 Long term (current) use of oral hypoglycemic drugs
CPT/HCPCS: 82043

== ENCOUNTER → 2022-02-14 07:39 | Outpatient (CLI) | payer MEDICARE, MEDICAID, SELFPAY ==
[2022-02-14 08:13] LABS: Hemoglobin A1C 7.3 % (4.0-6.0)
[2022-02-14 08:50] LABS: Alanine Aminotransferase 34 U/L (12-78); Albumin Level 3.4 g/dl (3.5-5.0); Albumin/Globulin Ratio 1.1 (1.1-1.8); Alkaline Phosphatase 172 U/L (38-126); Anion Gap 12.7 mEq/L (5-15); Aspartate Amino Transferase 76 U/L (14-36); Bilirubin,Total 0.4 mg/dl (0.2-1.3); Blood Urea Nitrogen 24 mg/dl (7-17); Calcium 9.2 mg/dl (8.4-10.2); Carbon Dioxide 27 mmol/L (22.0-30.0); Chloride 100 mmol/L (98-107); Chol/HDL Ratio 3.5 (1-3.5); Cholesterol 145 mg/dl (140-200); Estimated Glomerular Filt Rate 44 ml/min (>60); GFR (African American) 54 ML/MIN (>60); Globulin 3.1 g/dL (1.3-3.2); Glucose 140 mg/dl (74-100); HDL Cholesterol 41 mg/dl (40-60); Magnesium 1.7 mg/dl (1.6-2.3); Potassium 4.7 mmoL/L (3.5-5.1); Sodium 135 mmol/L (136-145); Total Protein,Serum 6.5 g/dl (6.3-8.2); Triglycerides 168 mg/dl (30-150); VLDL Cholesterol 34 mg/dL (0-40)
[2022-02-14 09:01] LABS: Direct LDL Cholesterol 66.85 mg/dL (100-129)
== END ==
PROVIDERS: PCP Family Medicine; Visit Provider Family Medicine
DX: E11.9 Type 2 diabetes mellitus without complications (principal); I10 Essential (primary) hypertension; E78.5 Hyperlipidemia, unspecified; E83.42 Hypomagnesemia; Z79.84 Long term (current) use of oral hypoglycemic drugs
CPT/HCPCS: 36415; 80053; 80061; 83036; 83735

== ENCOUNTER → 2022-03-21 15:15 | Outpatient (POV) | payer MEDICARE, MEDICAID, SELFPAY | PROVIDERS: Visit Provider Dermatology | DX: Z00.00 Encounter for general adult medical examination without abnormal findings (principal) ==

== ENCOUNTER → 2022-09-20 08:19 | Outpatient (CLI) | payer MEDICARE, MEDICAID, SELFPAY ==
[2022-09-20 09:22] LABS: Hemoglobin A1C 11.2 % (4.0-6.0)
[2022-09-20 10:21] LABS: Alanine Aminotransferase 47 U/L (12-78); Albumin Level 3.1 g/dl (3.5-5.0); Albumin/Globulin Ratio 0.8 (1.1-1.8); Alkaline Phosphatase 326 U/L (38-126); Anion Gap 11.5 mEq/L (5-15); Aspartate Amino Transferase 129 U/L (14-36); Bilirubin,Total 0.3 mg/dl (0.2-1.3); Blood Urea Nitrogen 19 mg/dl (7-17); Calcium 9.2 mg/dl (8.4-10.2); Carbon Dioxide 26 mmol/L (22.0-30.0); Chloride 99 mmol/L (98-107); Cholesterol 104 mg/dl (140-200); Estimated Glomerular Filt Rate 34 ml/min (>60); GFR (African American) 41 ML/MIN (>60); Globulin 3.9 g/dL (1.3-3.2); Glucose 221 mg/dl (74-100); Potassium 4.5 mmoL/L (3.5-5.1); Sodium 132 mmol/L (136-145); Triglycerides 147 mg/dl (30-150); VLDL Cholesterol 29 mg/dL (0-40)
[2022-09-20 10:24] LABS: Chol/HDL Ratio 4.3 (1-3.5); HDL Cholesterol 24 mg/dl (40-60); Magnesium 1.7 mg/dl (1.6-2.3)
[2022-09-20 10:39] LABS: Direct LDL Cholesterol 56.45 mg/dL (100-129)
== END ==
PROVIDERS: PCP Family Medicine; Visit Provider Family Medicine
DX: I10 Essential (primary) hypertension (principal); E11.9 Type 2 diabetes mellitus without complications; E78.5 Hyperlipidemia, unspecified; E83.42 Hypomagnesemia; Z79.84 Long term (current) use of oral hypoglycemic drugs
CPT/HCPCS: 36415; 80053; 80061; 83036; 83735

== ENCOUNTER → 2022-10-03 07:54 | Outpatient (CLI) | payer MEDICARE, MEDICAID, SELFPAY ==
--- NOTE | 2022-10-03 08:00 | US_ITS ---
FINAL REPORT CLINICAL HISTORY: ELEATED LIVER ENZYMES FINDINGS: Sonographic images of the right upper quadrant were obtained. The pancreas is partially obscured. The liver has increased echogenicity consistent with mild fatty infiltration. There is echogenic nonshadowing material in the gallbladder, favor sludge. The gallbladder is partially collapsed with wall thickening measuring up to 5 mm as a nonspecific finding. There is no evidence of biliary ductal dilatation.The common duct measures 3 mm. Limited images of the right kidney are unremarkable. IMPRESSION: Mild fatty liver. Echogenic nonshadowing material in the gallbladder, favor sludge. Partially collapsed gallbladder with wall thickening up to 5 mm as a nonspecific finding. Nuclear medicine hepatobiliary scan may be helpful. Reviewed, Interpreted and Dictated by Shashi Watkins III, MD Transcribed by Annabella Vogel Authenticated and . [facility]
== END ==
PROVIDERS: PCP Family Medicine; Visit Provider Family Medicine
DX: R74.8 Abnormal levels of other serum enzymes (principal)
CPT/HCPCS: 76705

== ENCOUNTER → 2022-10-27 10:13 | Outpatient (CLI) | payer MEDICARE, MEDICAID, SELFPAY ==
--- NOTE | 2022-10-27 10:23 | NM_ITS ---
FINAL REPORT CLINICAL HISTORY: ABN ULTRASOUND , RIGHT UPPER QUADRANT PAIN FINDINGS: HEPATOBILIARY SCAN PROCEDURE: The patient was injected with all call over the 7.7 mCi of technetium Choletec and 1.6 mcg of CCK. Images of the abdomen were obtained for 60 minutes. FINDINGS: Hepatic uptake is normal. The common bile duct is visualized at 10 minutes. There is small bowel visualization 10 minutes. The gallbladder is visualized at 25 minutes. There is no evidence of cholecystitis. Calculated ejection fraction is 67 % which is within normal limits . IMPRESSION: Unremarkable hepatic biliary scan. 67% ejection fraction which is normal. Reviewed, Interpreted and Dictated by Jahaira Schwartz MD Transcribed by Violet Hayes Authenticated and [facility]
== END ==
PROVIDERS: PCP Family Medicine; Visit Provider Family Medicine
DX: R93.2 Abnormal findings on diagnostic imaging of liver and biliary tract (principal)
CPT/HCPCS: 78227; A9537; J2805

== ENCOUNTER → 2022-11-14 14:43 | Outpatient (CLI) | payer MEDICARE, MEDICAID, SELFPAY ==
[2022-11-14 15:25] LABS: Influenza A, PCR Not Detected (NotDetected); Influenza B, PCR Not Detected (NotDetected)
[2022-11-14 15:52] LABS: Coronavirus 19, PCR Detected (NotDetected)
== END ==
PROVIDERS: PCP Family Medicine; Visit Provider Family Medicine
DX: U07.1 COVID-19 (principal)
CPT/HCPCS: C9803; U0003; U0005

== ENCOUNTER → 2022-12-07 10:17 | Outpatient (CLI) | payer MEDICARE, MEDICAID, SELFPAY ==
--- NOTE | 2022-12-07 10:19 | MM_ITS ---
PROCEDURE INFORMATION: Exam: MG Bilateral Screening 3D Mammography Exam date and time: 12/07/2022 10:12 AM Age: 72 years old Clinical indication: Screening mammogram TECHNIQUE: Imaging protocol: Bilateral Screening tomosynthesis and 2D mammography including computer-aided detection (CAD) when performed. COMPARISON: 1. MG MM DIG SCREENING MAMM BI W/CAD 11/24/2021 4:11 PM 2. MG MM DIG SCREENING MAMM BI W/CAD 02/17/2020 9:06 AM 3. MG SCBI MM Dig screening mamm BI w/CAD 08/14/2018 9:22 AM 4. MG MM Digitiz Mammo Ruling Machine Feeder 01/11/2009 10:07 AM FINDINGS: MAMMOGRAPHY: Breast composition: There are scattered areas of fibroglandular density. Mass: Stable benign-appearing subcentimeter nodules are present in the bilateral breasts. No new or morphologically suspicious nodule has developed to suggest malignancy. Architectural distortion: No new or suspicious architectural distortion. Calcifications: No new or suspicious calcifications are present Asymmetric density: No new or suspicious asymmetric density is present Skin thickening: None. Axillary adenopathy: None. IMPRESSION: No mammographic evidence of malignancy. Recommend annual screening mammography unless otherwise clinically indicated. ASSESSMENT: BI-RADS category 2: Benign
== END ==
PROVIDERS: PCP Family Medicine; Visit Provider Family Medicine
DX: Z12.31 Encounter for screening mammogram for malignant neoplasm of breast (principal)
CPT/HCPCS: 77063; 77067

== ENCOUNTER → 2023-05-23 07:27 | Outpatient (CLI) | payer MEDICARE, MEDICAID, SELFPAY ==
[2023-05-23 08:06] LABS: Basophils % 0.4 % (0.1-2.0); Eosinophils # 0.2 K/mm3 (0.0-0.4); Eosinophils % 3.8 % (0.1-12.0); Hematocrit 36.9 % (37.0-47.0); Hemoglobin 12.2 g/dL (12.2-16.2); Lymphocytes # 2.4 K/mm3 (0.7-4.5); Lymphocytes % 39.2 % (10-50); Mean Corpuscular HGB Conc 33.1 g/dL (31.8-35.4); Mean Corpuscular Hemoglobin 32.4 pg (27.0-31.2); Mean Platelet Volume 9.9 fl (7.4-10.4); Monocytes # 0.4 K/mm3 (0.1-1.0); Monocytes % 6.4 % (1.7-9.3); Neutrophils # 3.1 K/mm3 (1.8-7.8); Neutrophils % 50.3 % (37.0-80.0); Platelet Count 195 K/mm3 (142-424); Red Blood Count 3.76 M/mm3 (4.20-5.40); Red Cell Distribution Width 14.4 % (11.5-17.5); White Blood Count 6.2 K/mm3 (4.8-10.8)
[2023-05-23 08:24] LABS: Creatinine,Urine Random 38 mg/dL (Not Estab.)
[2023-05-23 08:25] LABS: Microalbumin/Creatinine Ratio 51.3
[2023-05-23 08:43] LABS: Chloride 93 mmol/L (98-107); Potassium 3.6 mmoL/L (3.5-5.1); Sodium 130 mmol/L (136-145)
[2023-05-23 08:45] LABS: Blood Urea Nitrogen 15 mg/dl (7-17); Estimated Glomerular Filt Rate 34 ml/min (>60); GFR (African American) 41 ML/MIN (>60)
[2023-05-23 08:46] LABS: Alanine Aminotransferase 26 U/L (12-78); Albumin Level 2.6 g/dl (3.5-5.0); Albumin/Globulin Ratio 0.8 (1.1-1.8); Alkaline Phosphatase 220 U/L (38-126); Anion Gap 13.6 mEq/L (5-15); Aspartate Amino Transferase 70 U/L (14-36); Bilirubin,Total 0.6 mg/dl (0.2-1.3); Calcium 8.8 mg/dl (8.4-10.2); Carbon Dioxide 27 mmol/L (22.0-30.0); Cholesterol 74 mg/dl (140-200); Globulin 3.4 g/dL (1.3-3.2); Glucose 96 mg/dl (74-100); HDL Cholesterol 27 mg/dl (40-60); Triglycerides 111 mg/dl (30-150); VLDL Cholesterol 22 mg/dL (0-40)
[2023-05-23 08:47] LABS: Chol/HDL Ratio 2.7 (1-3.5)
== END ==
PROVIDERS: PCP Family Medicine; Visit Provider Family Medicine
DX: I10 Essential (primary) hypertension (principal); E11.9 Type 2 diabetes mellitus without complications; E78.5 Hyperlipidemia, unspecified; G40.909 Epilepsy, unspecified, not intractable, without status epilepticus; Z79.84 Long term (current) use of oral hypoglycemic drugs
CPT/HCPCS: 36415; 80053; 80061; 82043; 82570; 83036; 85025

== ENCOUNTER 2023-06-03 17:56 | Emergency (ER) | payer MEDICARE, MEDICAID, SELFPAY ==
[2023-06-03 17:58] VITALS: BP 148/70; PULSE 70; RESP 18; TEMP 36.9; O2SAT 98; BMI 34.4
--- NOTE | 2023-06-03 18:12 | CT_ITS ---
PROCEDURE INFORMATION: Exam: CT Head Without Contrast Exam date and time: 06/03/23 06:37 PM Age: 72 years old Clinical indication: Injury or trauma; Fall; Additional info: Fall, head injury TECHNIQUE: Imaging protocol: Computed tomography of the head without contrast. Radiation optimization: All CT scans at this facility use at least one of these dose optimization techniques: automated exposure control; mA and/or kV adjustment per patient size (includes targeted exams where dose is matched to clinical indication); or iterative reconstruction. REPORTING DATA: Count of CT and Cardiac NM exams in prior 12 months: This patient has received 0 known CTs and 0 known cardiac nuclear medicine studies in the 12 months prior to the current study. COMPARISON: MR HEAD/BRAIN WO CON 07/05/21 01:42 PM FINDINGS: Brain: Large area of encephalomalacia in the right M1 distribution. No acute findings. No hemorrhage. Unremarkable white matter. No mass effect. Cerebral ventricles: No ventriculomegaly. Paranasal sinuses: Visualized sinuses are unremarkable. No fluid levels. Mastoid air cells: Visualized mastoid air cells are well aerated. Bones/joints: Unremarkable. No acute fracture. Soft tissues: Unremarkable. IMPRESSION: 1. No acute traumatic injury identified. 2. Large area of encephalomalacia in the right M1 distribution.
--- NOTE | 2023-06-03 18:12 | CT_ITS ---
PROCEDURE INFORMATION: Exam: CT Cervical Spine Without Contrast Exam date and time: 06/03/23 06:39 PM Age: 72 years old Clinical indication: Injury or trauma; Fall; Additional info: Fall, head injury TECHNIQUE: Imaging protocol: Computed tomography of the cervical spine without contrast. Radiation optimization: All CT scans at this facility use at least one of these dose optimization techniques: automated exposure control; mA and/or kV adjustment per patient size (includes targeted exams where dose is matched to clinical indication); or iterative reconstruction. REPORTING DATA: Count of CT and Cardiac NM exams in prior 12 months: This patient has received 0 known CTs and 0 known cardiac nuclear medicine studies in the 12 months prior to the current study. COMPARISON: CT HEAD/BRAIN WO CON 06/03/23 06:37 PM FINDINGS: Bones/joints: No acute fracture. Normal alignment. C2-C3: No significant disc bulge or herniation. No severe spinal canal stenosis. No significant neural foraminal narrowing. C3-C4: No significant disc bulge or herniation. No severe spinal canal stenosis. No significant neural foraminal narrowing. C4-C5: No significant disc bulge or herniation. No severe spinal canal stenosis. No significant neural foraminal narrowing. C5-C6: No significant disc bulge or herniation. No severe spinal canal stenosis. No significant neural foraminal narrowing. C6-C7: No significant disc bulge or herniation. No severe spinal canal stenosis. No significant neural foraminal narrowing. C7-T1: No significant disc bulge or herniation. No severe spinal canal stenosis. No significant neural foraminal narrowing. Lungs: Lung apices are normal. Soft tissues: Unremarkable. IMPRESSION: No acute findings.
--- NOTE | 2023-06-03 18:13 | XR_ITS ---
PROCEDURE INFORMATION: Exam: XR Pelvis Exam date and time: 06/03/23 06:24 PM Age: 72 years old Clinical indication: Injury or trauma; Fall; Blunt trauma (contusions or hematomas); Bilateral; Pelvic region; Additional info: Fall, pain TECHNIQUE: Imaging protocol: Radiologic exam of the pelvis. Views: 1 or 2 view. COMPARISON: NM HEPATOBILIARY W PHARM 10/27/22 12:07 PM FINDINGS: Bones/joints: Unremarkable. No acute fracture. Soft tissues: Unremarkable. IMPRESSION: No acute findings.
--- NOTE | 2023-06-03 18:13 | XR_ITS ---
PROCEDURE INFORMATION: Exam: XR Chest Exam date and time: 06/03/23 06:24 PM Age: 72 years old Clinical indication: Injury or trauma; Fall; Blunt trauma (contusions or hematomas); Additional info: Fall, pain TECHNIQUE: Imaging protocol: Radiologic exam of the chest. Views: 1 view. COMPARISON: CR XR CHEST PORTABLE 09/14/21 12:26 PM FINDINGS: Lungs: Unremarkable. No consolidation. Pleural spaces: Unremarkable. No pleural effusion. No pneumothorax. Heart/Mediastinum: Unremarkable. No cardiomegaly. Bones/joints: Severe osteoarthritic change both shoulders. IMPRESSION: Severe osteoarthritic change both shoulders.
--- NOTE | 2023-06-03 18:20 | HMH.EDGENADL ---
Discharge Plan Disposition Patient Disposition: Home, Self-Care Condition: Good Prescriptions Prescriptions: No Action losartan 50 MG tablet 100 mg PO DAILY metformin 500 MG tablet 500 mg PO HS atorvastatin 80 MG tablet 80 mg PO HS metoprolol tartrate 100 MG tablet 100 mg PO DAILY omeprazole 40 MG capsule,delayed release(DR/EC) 40 mg PO DAILY aspirin 81 MG tablet,delayed release (DR/EC) 81 mg PO DAILY amlodipine 10 MG tablet 10 mg PO DAILY magnesium oxide 400 MG tablet 400 mg PO DAILY 0RF ascorbic acid (vitamin C) 500 MG tablet 500 mg PO QID 0RF levetiracetam 500 MG tablet 500 mg PO BID Qty: 60 0RF ipratropium-albuterol 120 PUFF mist 1 puff IH QID Qty: 1 0RF apixaban 5 MG tablets,dose pack 5 mg PO BID Qty: 60 0RF potassium chloride 20 MEQ tablet 20 meq PO BID Qty: 30 0RF Referrals Follow up/Referrals: Abiodun Moon MD [Primary Care Provider] - See instructions Activity Restrictions/Add. Instructions Additional Instructions/Restrictions: You were evaluated in the emergency department today. Please keep your wound clean and dry. Do not submerge under any water. Apply topical antibiotic ointment. Orally hydrate at home. Follow-up with your primary care provider over the next 48 hours for reassessment of your kidney function. Return to the emergency department for any new or worsening symptoms. Clinical Impressions Clinical Impression: Fall, ESAU (acute kidney injury), Abrasion of scalp, Hematoma of scalp Instructions Patient Instructions: Acute Kidney Injury, How to Prevent Falls Discharge ED Provider: Zoya Downs General Adult HPI General Chief complaint: Fall Stated complaint: AO, fall, gash on back of head Time Seen by Provider: 06/03/23 18:12 Mode of Arrival: Wheelchair Source of Information: Patient Limitations: No Limitations Description of Symptoms (Recalled from ER Triage Doc. by RN): pt presents to ED after a fall. per report pt went to step up on a chair to go into zoroastrianism when she lost her balance falling. per report pt is on Xarelto. family denies any LOC. pt has laceration to right posterior head. History of Present Illness HPI narrative: This patient is a 72-year-old female with a history of atrial fibrillation on Xarelto, prior CVA, hypertension, hyperlipidemia, and diabetes presented to the emergency department for evaluation with concern for head injury. Patient reports that she was stepping up onto a step to go into the zoroastrianism when she lost her balance and fell backwards. She was feeling fine prior to this. She hit the back of her head but did not lose consciousness. No other injuries noted at this time. She has been ambulatory since then without issue. She thinks that she is up-to-date on tetanus but she is not positive. Related Data Home Medications Medication Instructions Recorded Confirmed atorvastatin 80 mg tablet 80 mg PO HS High cholesterol 07/14/19 09/08/21 losartan 50 mg tablet 100 mg PO DAILY Hypertension 07/14/19 09/08/21 metformin 500 mg tablet 500 mg PO HS Diabetes 07/14/19 09/08/21 metoprolol tartrate 100 mg tablet 100 mg PO DAILY High blood pressure 07/14/19 09/08/21 omeprazole 40 mg capsule,delayed 40 mg PO DAILY ACID REFLUX 07/14/19 09/08/21 release aspirin 81 mg tablet,delayed 81 mg PO DAILY HEART/CIRCULATION 07/15/19 09/08/21 release amlodipine 10 mg tablet 10 mg PO DAILY Hypertension 06/24/21 09/08/21 Previous Rx's Medication Instructions Recorded apixaban 5 mg (74 tabs) tablets in 5 mg PO BID ##60 07/08/21 a dose pack ascorbic acid (vitamin C) 500 mg 500 mg PO QID 07/08/21 tablet ipratropium 20 mcg-albuterol 100 1 puff IH QID #1 ea 07/08/21 mcg/actuation mist for inhalation levetiracetam 500 mg tablet 500 mg PO BID #60 tabs 07/08/21 magnesium oxide 400 mg (241.3 mg 400 mg PO DAILY 07/08/21 magnesium) tablet potassium chloride 20 mEq 20 meq PO BID #
[2023-06-03 18:23] LABS: Basophils % 0.4 % (0.1-2.0); Chloride 91 mmol/L (98-107); Eosinophils # 0.2 K/mm3 (0.0-0.4); Eosinophils % 2.3 % (0.1-12.0); Hemoglobin 11.6 g/dL (12.2-16.2); Lymphocytes # 2.5 K/mm3 (0.7-4.5); Lymphocytes % 37.7 % (10-50); Mean Corpuscular HGB Conc 31.3 g/dL (31.8-35.4); Mean Corpuscular Hemoglobin 31.1 pg (27.0-31.2); Mean Corpuscular Volume 99.4 fl (81-99); Mean Platelet Volume 9.6 fl (7.4-10.4); Monocytes # 0.5 K/mm3 (0.1-1.0); Monocytes % 7.6 % (1.7-9.3); Neutrophils # 3.5 K/mm3 (1.8-7.8); Neutrophils % 51.9 % (37.0-80.0); Platelet Count 214 K/mm3 (142-424); Potassium 3.6 mmoL/L (3.5-5.1); Red Blood Count 3.72 M/mm3 (4.20-5.40); Red Cell Distribution Width 14.3 % (11.5-17.5); Sodium 126 mmol/L (136-145); White Blood Count 6.7 K/mm3 (4.8-10.8)
[2023-06-03 18:25] LABS: Blood Urea Nitrogen 13 mg/dl (7-17); Creatinine Clearance Estimated 36 mL/min (50-200); Estimated Glomerular Filt Rate 26 ml/min (>60); GFR (African American) 31 ML/MIN (>60)
[2023-06-03 18:26] LABS: Alanine Aminotransferase 25 U/L (12-78); Albumin Level 2.5 g/dl (3.5-5.0); Albumin/Globulin Ratio 0.7 (1.1-1.8); Alkaline Phosphatase 192 U/L (38-126); Anion Gap 13.6 mEq/L (5-15); Aspartate Amino Transferase 63 U/L (14-36); Bilirubin,Total 0.4 mg/dl (0.2-1.3); Calcium 8.6 mg/dl (8.4-10.2); Carbon Dioxide 25 mmol/L (22.0-30.0); Globulin 3.6 g/dL (1.3-3.2); Glucose 154 mg/dl (74-100); Total Protein,Serum 6.1 g/dl (6.3-8.2)
[2023-06-03 18:30] VITALS: BP 150/55; PULSE 66; RESP 18; O2SAT 100
[2023-06-03 18:30] LABS: Activated Partial Thrombo Time 33.6 seconds (22.8-30.6); INR 1.25 (0.9-1.1); Prothrombin Time 13.3 seconds (10.1-12.5)
--- NOTE | 2023-06-03 18:43 | PC.NURSE ---
Pt returned from RAD
[2023-06-03 19:00] VITALS: BP 113/57; PULSE 70; RESP 17; O2SAT 97
[2023-06-03 19:30] VITALS: BP 111/55; PULSE 56; RESP 14; O2SAT 95
--- NOTE | 2023-06-03 19:41 | PC.NURSE ---
Pt ambulatory to bathroom and back to bed.
[2023-06-03 20:00] VITALS: BP 113/63; PULSE 62; RESP 18; O2SAT 97
[2023-06-03 20:23] VITALS: BP 113/63; PULSE 67; RESP 20; TEMP 36.9; O2SAT 97
== END 2023-06-03 20:27 | disposition home or self-care (01) ==
PROVIDERS: Emergency Provider Emergency Medicine; PCP Family Medicine
DX: S00.03XA Contusion of scalp, initial encounter (principal); N17.9 Acute kidney failure, unspecified; I48.91 Unspecified atrial fibrillation; I10 Essential (primary) hypertension; E78.5 Hyperlipidemia, unspecified; E11.9 Type 2 diabetes mellitus without complications; Z86.73 Personal history of transient ischemic attack (TIA), and cerebral infarction without residual deficits; Z79.01 Long term (current) use of anticoagulants; Z87.891 Personal history of nicotine dependence; W10.8XXA Fall (on) (from) other stairs and steps, initial encounter; Z23 Encounter for immunization
CPT/HCPCS: 70450; 71045; 72125; 72170; 80053; 85025; 85610; 85730; 90715; 96360; 96372; 99285

== ENCOUNTER → 2023-06-07 08:25 | Outpatient (CLI) | payer MEDICARE, MEDICAID, SELFPAY ==
[2023-06-07 10:55] LABS: Alanine Aminotransferase 23 U/L (12-78); Albumin Level 2.5 g/dl (3.5-5.0); Albumin/Globulin Ratio 0.8 (1.1-1.8); Alkaline Phosphatase 202 U/L (38-126); Aspartate Amino Transferase 58 U/L (14-36); Bilirubin,Total 0.7 mg/dl (0.2-1.3); Blood Urea Nitrogen 13 mg/dl (7-17); Calcium 8.4 mg/dl (8.4-10.2); Carbon Dioxide 27 mmol/L (22.0-30.0); Chloride 98 mmol/L (98-107); Estimated Glomerular Filt Rate 37 ml/min (>60); GFR (African American) 45 ML/MIN (>60); Globulin 3.3 g/dL (1.3-3.2); Glucose 87 mg/dl (74-100); Sodium 133 mmol/L (136-145); Total Protein,Serum 5.8 g/dl (6.3-8.2)
== END ==
PROVIDERS: PCP Family Medicine; Visit Provider Physician Assistant
DX: W19.XXXA Unspecified fall, initial encounter (principal)
CPT/HCPCS: 36415; 80053

== ENCOUNTER 2023-06-07 11:10 | Emergency (ER) | payer MEDICARE, MEDICAID, SELFPAY ==
[2023-06-07 11:11] VITALS: BP 136/58; PULSE 63; RESP 18; TEMP 36.8; O2SAT 96; BMI 33.6
--- NOTE | 2023-06-07 11:20 | CT_ITS ---
FINAL REPORT TECHNIQUE: Axial images were obtained of the cervical spine by computed tomography. Coronal and sagittal reconstruction process performed. This study was performed with techniques to keep radiation doses as low as reasonably achievable (ALARA). Individualized dose reduction techniques using automated exposure control or adjustment of mA and/or kV according to the patient''s size were employed. CLINICAL HISTORY: Neck pain after fall, on xarelto COMPARISON: 06/03/2023 FINDINGS: There is mild disc space narrowing at C6-7. Vertebra are normal in height. There is moderate bilateral facet hypertrophy. There is no acute bony abnormality. There is extensive vascular calcification of the left carotid bifurcation. IMPRESSION: No acute findings. Reviewed, Interpreted and Dictated by Suman Muse MD Transcribed by Preethi Brewster Authenticated and [facility]
--- NOTE | 2023-06-07 11:20 | CT_ITS ---
FINAL REPORT TECHNIQUE: Axial CT images were performed through the head. Coronal reformatted images were submitted. This study was performed with techniques to keep radiation doses as low as reasonably achievable (ALARA). Individualized dose reduction techniques using automated exposure control or adjustment of mA and/or kV according to the patient's size were employed. CLINICAL HISTORY: fall on xarelto COMPARISON: 06/03/2023 FINDINGS: There is extensive encephalomalacia throughout the right MCA distribution consistent with sequela from old infarct. There is no evidence of hemorrhage. There is no mass defect or edema identified. There is no abnormal extra-axial fluid seen. There is mild mucoperiosteal thickening in the maxillary sinuses. IMPRESSION: No acute intracranial process. Reviewed, Interpreted and Dictated by Suman Muse MD Transcribed by Preethi Brewster Authenticated and [facility]
--- NOTE | 2023-06-07 11:21 | PC.NURSE ---
DR GRAHAM AT BEDSIDE
--- NOTE | 2023-06-07 11:29 | HMH.EDGENADL ---
Discharge Plan Disposition Patient Disposition: Home, Self-Care Prescriptions Prescriptions: No Action losartan 50 MG tablet 100 mg PO DAILY metformin 500 MG tablet 500 mg PO HS atorvastatin 80 MG tablet 80 mg PO HS metoprolol tartrate 100 MG tablet 100 mg PO DAILY omeprazole 40 MG capsule,delayed release(DR/EC) 40 mg PO DAILY aspirin 81 MG tablet,delayed release (DR/EC) 81 mg PO DAILY amlodipine 10 MG tablet 10 mg PO DAILY magnesium oxide 400 MG tablet 400 mg PO DAILY 0RF ascorbic acid (vitamin C) 500 MG tablet 500 mg PO QID 0RF levetiracetam 500 MG tablet 500 mg PO BID Qty: 60 0RF ipratropium-albuterol 120 PUFF mist 1 puff IH QID Qty: 1 0RF apixaban 5 MG tablets,dose pack 5 mg PO BID Qty: 60 0RF potassium chloride 20 MEQ tablet 20 meq PO BID Qty: 30 0RF Referrals Follow up/Referrals: Abiodun Moon MD [Primary Care Provider] - See instructions Activity Restrictions/Add. Instructions Additional Instructions/Restrictions: Call your family doctor to establish care for this visit to the emergency department and schedule follow-up within 48 hours to ensure improvement. If you have any worsening of your condition or any other concerning signs or symptoms, return to the emergency department or your primary care doctor for further evaluation. Do not submerge wound for at least 48 hours. Dab with warm soapy water rag and dry by dabbing as well. Clinical Impressions Clinical Impression: Facial laceration Qualifiers: Encounter type: initial encounter Qualified Code(s): S01.81XA - Laceration without foreign body of other part of head, initial encounter Instructions Patient Instructions: DI for Laceration Repair Discharge ED Provider: Nasir Biggs General Adult HPI General Chief complaint: Wound/Laceration Stated complaint: AO [phone] fell @ [facility], lac to forehead Time Seen by Provider: 06/07/23 11:12 Mode of Arrival: Wheelchair Source of Information: Patient Limitations: No Limitations Description of Symptoms (Recalled from ER Triage Doc. by RN): PT WITH LACERATION TO RIGHT SIDE OF FOREHEAD. PT TRIPPED AND FELL THIS AM STRIKING HER HEAD ON A TABLE CORNER. PT DENIES LOC, CURRENTLY TAKING XARELTO History of Present Illness HPI narrative: Is a 72-year-old female with history of hypertension, hyperlipidemia, diabetes, previous CVA currently on Xarelto, atrial fibrillation presenting with head trauma. Patient states that she tripped over her cat just prior to arrival. Struck her head on the side of a table. Did not lose consciousness. Because she is on Xarelto, came to the ER for further evaluation. No other concerns at this time. Related Data Home Medications Medication Instructions Recorded Confirmed atorvastatin 80 mg tablet 80 mg PO HS High cholesterol 07/14/19 09/08/21 losartan 50 mg tablet 100 mg PO DAILY Hypertension 07/14/19 09/08/21 metformin 500 mg tablet 500 mg PO HS Diabetes 07/14/19 09/08/21 metoprolol tartrate 100 mg tablet 100 mg PO DAILY High blood pressure 07/14/19 09/08/21 omeprazole 40 mg capsule,delayed 40 mg PO DAILY ACID REFLUX 07/14/19 09/08/21 release aspirin 81 mg tablet,delayed 81 mg PO DAILY HEART/CIRCULATION 07/15/19 09/08/21 release amlodipine 10 mg tablet 10 mg PO DAILY Hypertension 06/24/21 09/08/21 Previous Rx's Medication Instructions Recorded apixaban 5 mg (74 tabs) tablets in 5 mg PO BID ##60 07/08/21 a dose pack ascorbic acid (vitamin C) 500 mg 500 mg PO QID 07/08/21 tablet ipratropium 20 mcg-albuterol 100 1 puff IH QID #1 ea 07/08/21 mcg/actuation mist for inhalation levetiracetam 500 mg tablet 500 mg PO BID #60 tabs 07/08/21 magnesium oxide 400 mg (241.3 mg 400 mg PO DAILY 07/08/21 magnesium) tablet potassium chloride 20 mEq 20 meq PO BID #30 tabs 09/14/21 tablet,extended release(part/cryst) Allergies Allergy/AdvReac Type Severity Reaction Status Date / Allan
--- NOTE | 2023-06-07 11:31 | PC.NURSE ---
PT TO CT
[2023-06-07 12:01] VITALS: BP 94/51; PULSE 63; O2SAT 99
[2023-06-07 12:30] VITALS: BP 97/55; PULSE 59; O2SAT 100
[2023-06-07 13:00] VITALS: BP 102/57; PULSE 58; O2SAT 100
[2023-06-07 15:01] VITALS: BP 100/68; PULSE 62; RESP 18; TEMP 36.7; O2SAT 95
== END 2023-06-07 15:06 | disposition home or self-care (01) ==
PROVIDERS: Emergency Provider Emergency Medicine; PCP Family Medicine
DX: S01.81XA Laceration without foreign body of other part of head, initial encounter (principal); I48.91 Unspecified atrial fibrillation; I10 Essential (primary) hypertension; E78.5 Hyperlipidemia, unspecified; E11.9 Type 2 diabetes mellitus without complications; Z86.73 Personal history of transient ischemic attack (TIA), and cerebral infarction without residual deficits; Z79.01 Long term (current) use of anticoagulants; Z87.891 Personal history of nicotine dependence; W01.190A Fall on same level from slipping, tripping and stumbling with subsequent striking against furniture, initial encounter
CPT/HCPCS: 36415; 70450; 72125; 80053; 99285

== ENCOUNTER → 2023-06-12 08:43 | Outpatient (CLI) | payer MEDICARE, MEDICAID, SELFPAY ==
[2023-06-12 10:29] LABS: Basophils % 0.5 % (0.1-2.0); Eosinophils # 0.2 K/mm3 (0.0-0.4); Eosinophils % 2.9 % (0.1-12.0); Hematocrit 36.7 % (37.0-47.0); Hemoglobin 11.9 g/dL (12.2-16.2); Lymphocytes # 2.4 K/mm3 (0.7-4.5); Lymphocytes % 39.5 % (10-50); Mean Corpuscular HGB Conc 32.4 g/dL (31.8-35.4); Mean Corpuscular Hemoglobin 32.2 pg (27.0-31.2); Mean Corpuscular Volume 99.5 fl (81-99); Monocytes # 0.4 K/mm3 (0.1-1.0); Monocytes % 6.3 % (1.7-9.3); Neutrophils # 3.1 K/mm3 (1.8-7.8); Neutrophils % 50.8 % (37.0-80.0); Platelet Count 242 K/mm3 (142-424); Red Blood Count 3.69 M/mm3 (4.20-5.40); Red Cell Distribution Width 14.5 % (11.5-17.5); White Blood Count 6.1 K/mm3 (4.8-10.8)
[2023-06-12 11:15] LABS: Alanine Aminotransferase 26 U/L (12-78); Albumin Level 2.6 g/dl (3.5-5.0); Albumin/Globulin Ratio 0.7 (1.1-1.8); Alkaline Phosphatase 215 U/L (38-126); Anion Gap 11.2 mEq/L (5-15); Aspartate Amino Transferase 58 U/L (14-36); Bilirubin,Total 0.7 mg/dl (0.2-1.3); Blood Urea Nitrogen 14 mg/dl (7-17); Calcium 8.7 mg/dl (8.4-10.2); Carbon Dioxide 28 mmol/L (22.0-30.0); Chloride 95 mmol/L (98-107); Estimated Glomerular Filt Rate 37 ml/min (>60); GFR (African American) 45 ML/MIN (>60); Globulin 3.5 g/dL (1.3-3.2); Glucose 93 mg/dl (74-100); Potassium 4.2 mmoL/L (3.5-5.1); Sodium 130 mmol/L (136-145); Total Protein,Serum 6.1 g/dl (6.3-8.2)
== END ==
PROVIDERS: Physician Assistant; PCP Family Medicine; Visit Provider Family Medicine
DX: N28.9 Disorder of kidney and ureter, unspecified (principal)
CPT/HCPCS: 36415; 80053; 85025

== ENCOUNTER 2023-09-02 16:45 | Inpatient (IN) | payer MEDICARE, MEDICAID, SELFPAY ==
[2023-09-02] VITALS (9 sets, daily range): BP systolic 88–132; BP diastolic 53–75; PULSE 67–85; RESP 18; TEMP 36.4–36.8; O2SAT 97–100; BMI 34.5; BMI 34.2
--- NOTE | 2023-09-02 16:59 | XR_ITS ---
PROCEDURE INFORMATION: Exam: XR Right Foot Exam date and time: 09/02/2023 5:00 PM Age: 72 years old Clinical indication: Injury or trauma; Fall; Blunt trauma; Foot; Right; Additional info: Fall, pain TECHNIQUE: Imaging protocol: Radiologic exam of the right foot. Views: 3 or more views. COMPARISON: CR XR ANKLE RT MIN 3V 09/02/2023 5:00 PM FINDINGS: Bones/joints: See Soft tissues finding. Soft tissues: Soft tissue swelling over the dorsal metatarsal region. No acute underlying fracture identified. Distal fibula fracture redemonstrated. Large heel spurs. IMPRESSION: Distal fibula fracture. No other acute fracture.
--- NOTE | 2023-09-02 16:59 | CT_ITS ---
PROCEDURE INFORMATION: Exam: CTA Abdomen and Pelvis With Contrast Exam date and time: 09/02/2023 6:05 PM Age: 72 years old Clinical indication: Abdominal pain; Localized; Other: Left sided; Additional info: Left sided abd pain, bloody diarrhea, on xarelto TECHNIQUE: Imaging protocol: Computed tomographic angiography of the abdomen and pelvis with contrast. Exam focused on the arteries. 3D rendering (Not supervised by radiologist): MIP and/or 3D reconstructed images were created by the technologist. Radiation optimization: All CT scans at this facility use at least one of these dose optimization techniques: automated exposure control; mA and/or kV adjustment per patient size (includes targeted exams where dose is matched to clinical indication); or iterative reconstruction. Contrast material: ISOVUE; Contrast volume: 100 ml; Contrast route: INTRAVENOUS (IV); REPORTING DATA: Count of CT and Cardiac NM exams in prior 12 months: This patient has received 4 known CTs and 0 known cardiac nuclear medicine studies in the 12 months prior to the current study. COMPARISON: CR XR PELVIS 1-2V 06/03/2023 6:24 PM FINDINGS: Aorta: Extensive atherosclerotic changes of the abdominal aorta. A 2.6 cm aneurysm of the mid aorta noted. Celiac trunk and mesenteric arteries: Severe atherosclerotic narrowing of the origin of the celiac artery. Moderate narrowing of the proximal SMA originating 2.2 cm beyond the origin. Hepatic artery arises from the SMA. Renal arteries: No occlusion or significant stenosis. Right iliac arteries: Moderate to severe narrowing of the proximal right common iliac artery. Multifocal areas of moderate narrowing of the more distal common iliac artery and the external iliac artery and origin of the internal iliac artery. Moderate narrowing of the right common femoral artery. Left iliac arteries: Nicrzrxd-ot-[id number] narrowing of the origin of the left common iliac artery. Multifocal moderate narrowing of the more distal common iliac artery and ntzv-nu-hqhwbnrs narrowing of the external iliac artery. Lfxknodj-hl-djpfau narrowing of the common femoral artery Liver: Fatty liver changes. Liver otherwise unremarkable. Gallbladder and bile ducts: Unremarkable. No calcified stones. No ductal dilation. Pancreas: Unremarkable. No mass. No ductal dilation. Spleen: Unremarkable. No splenomegaly. Adrenal glands: A incidental 20 mm left adrenal nodule noted. Kidneys and ureters: A 10 mm fluid density lesion in the inferior lateral right kidney compatible with cyst. No follow-up of this lesion advised. Kidneys and ureters otherwise unremarkable with no obstructing stones or uropathy. Stomach and bowel: Mild wall thickening with increased submucosal fat deposition involving the cecum and ascending colon. Colon otherwise unremarkable. Abnormal thickening of the wall of the antrum. GI tract structures otherwise unremarkable with no evident wall thickening allowing for incomplete distention. Appendix: Appendix is normal. No evidence of appendicitis. Intraperitoneal space: Small to moderate amounts of free fluid scattered throughout the abdomen and pelvis. Lymph nodes: Unremarkable. No enlarged lymph nodes. Urinary bladder: Unremarkable. No mass. Reproductive: Hysterectomy. Bones/joints: No acute fracture. Soft tissues: Unremarkable. IMPRESSION: 1. Thickened appearance of the proximal colon with fatty deposition suggesting residual of prior episodes of colitis. The possibility of superimposed acute colitis not entirely excluded in the proper clinical setting. 2. Thickened appearance of the distal stomach. This may be due to gastritis but other pathology not excluded. Endoscopic correlation of this finding should be considered. 3. Small to
--- NOTE | 2023-09-02 16:59 | XR_ITS ---
PROCEDURE INFORMATION: Exam: XR Right Ankle Exam date and time: 09/02/2023 5:00 PM Age: 72 years old Clinical indication: Injury or trauma; Fall; Blunt trauma; Ankle; Right; Additional info: Fall injury TECHNIQUE: Imaging protocol: Radiologic exam of the right ankle. Views: 3 or more views. COMPARISON: CR XR FOOT RT MIN 3V 09/02/2023 5:00 PM FINDINGS: Bones/joints: Nondisplaced fracture of the distal fibula. No other fracture evident. Soft tissues: Normal. IMPRESSION: Distal fibula fracture.
--- NOTE | 2023-09-02 16:59 | XR_ITS ---
PROCEDURE INFORMATION: Exam: XR Right Tibia and Fibula Exam date and time: 09/02/2023 5:00 PM Age: 72 years old Clinical indication: Injury or trauma; Fall; Blunt trauma; Lower leg; Right; Additional info: Fall, injury TECHNIQUE: Imaging protocol: Radiologic exam of the right tibia and fibula. Views: 2 views. COMPARISON: CR XR ANKLE RT MIN 3V 09/02/2023 5:00 PM FINDINGS: Bones/joints: Nondisplaced comminuted segmental fracture of the distal fibula diaphysis. No other fracture seen. Soft tissues: Normal. IMPRESSION: Distal fibula fracture.
--- NOTE | 2023-09-02 17:02 | HMH.EDGENADL ---
Discharge Plan Disposition Patient Disposition: Admitted Chief Complaint: Abdominal Pain Prescriptions Prescriptions: No Action losartan 50 MG tablet 100 mg PO DAILY metformin 500 MG tablet 500 mg PO HS atorvastatin 80 MG tablet 80 mg PO HS metoprolol tartrate 100 MG tablet 100 mg PO DAILY omeprazole 40 MG capsule,delayed release(DR/EC) 40 mg PO DAILY aspirin 81 MG tablet,delayed release (DR/EC) 81 mg PO DAILY amlodipine 10 MG tablet 10 mg PO DAILY magnesium oxide 400 MG tablet 400 mg PO DAILY 0RF ascorbic acid (vitamin C) 500 MG tablet 500 mg PO QID 0RF levetiracetam 500 MG tablet 500 mg PO BID Qty: 60 0RF ipratropium-albuterol 120 PUFF mist 1 puff IH QID Qty: 1 0RF apixaban 5 MG tablets,dose pack 5 mg PO BID Qty: 60 0RF potassium chloride 20 MEQ tablet 20 meq PO BID Qty: 30 0RF Referrals Follow up/Referrals: Abiodun Moon MD [Primary Care Provider] - See instructions Clinical Impressions Clinical Impression: Generalized weakness, Left sided abdominal pain, Nausea vomiting and diarrhea, Bloody diarrhea, Fracture of right fibula, Candidal intertrigo, Gastric wall thickening, Colitis, Adrenal nodule, Celiac artery stenosis, Superior mesenteric artery stenosis, Iliac artery stenosis, bilateral, AAA (abdominal aortic aneurysm), Acute hyponatremia, CKD (chronic kidney disease) Instructions Patient Instructions: DI for Acute Abdominal Pain Discharge ED Provider: Katelynn Gusman General Adult HPI General Chief complaint: Abdominal Pain Stated complaint: vomiting, diarrhea,stomach pain Time Seen by Provider: 09/02/23 16:48 History of Present Illness HPI narrative: Patient is a 72-year-old female brought in with multiple complaints today. She states I just feel sick. She has had significant fatigue over the last several days she states she has also had some chills some significant abdominal pain over the last 3 to 4 days in the left upper and left lower quadrant with bloody diarrhea. Also has had nausea and vomiting. She is fallen 4 times in the last month and last Sunday she had a significant injury to her right lower extremity with ecchymosis pain and swelling to the right ankle and right foot. She has had difficulty with bearing weight on that right lower extremity. She denies any chest pain or shortness of breath. Denies any objective fever. Denies any urinary symptoms. Related Data Home Medications Medication Instructions Recorded Confirmed atorvastatin 80 mg tablet 80 mg PO HS High cholesterol 07/14/19 09/08/21 losartan 50 mg tablet 100 mg PO DAILY Hypertension 07/14/19 09/08/21 metformin 500 mg tablet 500 mg PO HS Diabetes 07/14/19 09/08/21 metoprolol tartrate 100 mg tablet 100 mg PO DAILY High blood pressure 07/14/19 09/08/21 omeprazole 40 mg capsule,delayed 40 mg PO DAILY ACID REFLUX 07/14/19 09/08/21 release aspirin 81 mg tablet,delayed 81 mg PO DAILY HEART/CIRCULATION 07/15/19 09/08/21 release amlodipine 10 mg tablet 10 mg PO DAILY Hypertension 06/24/21 09/08/21 Previous Rx's Medication Instructions Recorded apixaban 5 mg (74 tabs) tablets in 5 mg PO BID ##60 07/08/21 a dose pack ascorbic acid (vitamin C) 500 mg 500 mg PO QID 07/08/21 tablet ipratropium 20 mcg-albuterol 100 1 puff IH QID #1 ea 07/08/21 mcg/actuation mist for inhalation levetiracetam 500 mg tablet 500 mg PO BID #60 tabs 07/08/21 magnesium oxide 400 mg (241.3 mg 400 mg PO DAILY 07/08/21 magnesium) tablet potassium chloride 20 mEq 20 meq PO BID #30 tabs 09/14/21 tablet,extended release(part/cryst) Allergies Allergy/AdvReac Type Severity Reaction Status Date / Time hydrocortisone Allergy Unknown Unknown Verified 10/26/20 09:50 [HYDROCORTISONE] allergy reaction lidocaine [LIDOCAINE] Allergy Unknown Unknown Verified 10/26/20 09:50 allergy reaction Penicillins Allergy Unknown Verified 07/15/19 10:0
--- NOTE | 2023-09-02 17:04 | PC.NURSE ---
Lisa steele on pt assisted with rectal temp and gave warm blankets
[2023-09-02 17:43] LABS: Basophils % 0.1 % (0.1-2.0); Eosinophils % 0.5 % (0.1-12.0); Hematocrit 33.1 % (37.0-47.0); Hemoglobin 11.1 g/dL (12.2-16.2); Lymphocytes # 2.4 K/mm3 (0.7-4.5); Mean Corpuscular HGB Conc 33.6 g/dL (31.8-35.4); Mean Corpuscular Hemoglobin 34.4 pg (27.0-31.2); Mean Corpuscular Volume 102.3 fl (81-99); Mean Platelet Volume 9.5 fl (7.4-10.4); Monocytes # 0.6 K/mm3 (0.1-1.0); Monocytes % 7.1 % (1.7-9.3); Neutrophils % 62.3 % (37.0-80.0); Platelet Count 245 K/mm3 (142-424); Red Blood Count 3.24 M/mm3 (4.20-5.40); Red Cell Distribution Width 16.7 % (11.5-17.5)
[2023-09-02 17:44] LABS: Chloride 94 mmol/L (98-107); Potassium 4.2 mmoL/L (3.5-5.1); Sodium 126 mmol/L (136-145)
[2023-09-02 17:44] LABS: Coronavirus 19, PCR Not Detected (NotDetected); Influenza A, PCR Not Detected (NotDetected); Influenza B, PCR Not Detected (NotDetected)
[2023-09-02 17:46] LABS: Alanine Aminotransferase 48 U/L (12-78); Blood Urea Nitrogen 16 mg/dl (7-17); Creatinine Clearance Estimated 40 mL/min (50-200); Estimated Glomerular Filt Rate 30 ml/min (>60); GFR (African American) 36 ML/MIN (>60)
[2023-09-02 17:47] LABS: Albumin Level 2.7 g/dl (3.5-5.0); Albumin/Globulin Ratio 0.8 (1.1-1.8); Alkaline Phosphatase 175 U/L (38-126); Anion Gap 16.2 mEq/L (5-15); Aspartate Amino Transferase 77 U/L (14-36); Bilirubin,Total 0.7 mg/dl (0.2-1.3); Calcium 8.3 mg/dl (8.4-10.2); Carbon Dioxide 20 mmol/L (22.0-30.0); Globulin 3.3 g/dL (1.3-3.2); Glucose 116 mg/dl (74-100); Lipase 184 U/L (23-300)
[2023-09-02 17:50] LABS: Lactic Acid 7.5 mmol/L (0.7-2.1)
[2023-09-02 17:59] LABS: Magnesium 1.9 mg/dl (1.6-2.3); Phosphorous 3.6 mg/dl (2.5-4.5)
[2023-09-02 18:00] LABS: Troponin I < 0.01 ng/ml (0.00-0.034)
--- NOTE | 2023-09-02 18:27 | ECG_ITS ---
APPROVED REPORT Exam: Resting ECG HR:86 bpm ECG Measurements Heart Rate 86 AXES CA 131 P -73 QRSd 80 QRS 71 QT 376 T 24 QTc 419 Conclusion JUNCTIONAL RHYTHM WITH FREQUENT SUPRAVENTRICULAR PREMATURE COMPLEXES NONSPECIFIC ST & T-WAVE ABNORMALITY ABNORMAL RHYTHM ECG UNCONFIRMED REPORT Electronically signed by : Pankaj Kemp MD 09/03/2023 08:24:01
--- NOTE | 2023-09-02 18:35 | PC.NURSE ---
WHEN DOING EKG NOTICE VERY BAD RASH AROUND PT FRONT VAGINA AREA AND AROUND HER LEFT BREST AREA, NOTIFIED DEX AND
[2023-09-02 18:43] LABS: Microscopic, Urine URINE MICROSCOPIC (MICROSCOPIC)
[2023-09-02 18:45] LABS: Appearance,Urine SL CLOUDY (Clear); Bilirubin,Urine Negative (Negative); Blood, Urine Negative (Negative); Color,Urine YELLOW (Yellow); Glucose,Urine (UA) Negative (Negative); Ketones,Urine Negative (Negative); Leukocyte Esterase,Urine TRACE (Negative); Nitrate,Urine Negative (Negative); Protein,Urine Negative (Negative); Specific Gravity, Urine <= 1.005 (1.005-1.030); Urobilinogen,Urine 0.2 EU/dl (0.2)
[2023-09-02 18:53] LABS: Bacteria,Urine Trace /lpf; Squamous Epithelial Cell,Urine Occasional #/hpf (0-5); WBC,Urine Occasional #/hpf (0-3)
--- NOTE | 2023-09-02 19:35 | PC.NURSE ---
OBSERVATION ADMISSION TO [address] MCKEON TO DR. RAE WITH DX OF COLITIS.
--- NOTE | 2023-09-02 19:55 | PC.NURSE ---
Report given to STEPHANIE Araya
--- NOTE | 2023-09-02 20:35 | PC.NURSE ---
pt arrived to floor via stretcher @2033
[2023-09-02 20:37] LABS: Troponin I < 0.01 ng/ml (0.00-0.034)
[2023-09-02 21:33] LABS: Reflex Lactic Add Lactic Reflex
--- NOTE | 2023-09-02 21:47 | PC.NURSE ---
Nursing Instruction noted on new order for Rivaroxaban. Clarified Rivaroxaban home dose of 20mg HS with Emre from [facility]. States he will enter in a one time dose for tonight for order to be clarified in am by .
--- NOTE | 2023-09-02 22:44 | PC.NURSE ---
Pt arrives to floor with daughter at bedside. Daughter states pt has had multiple falls this month at home. Her most recent fall being yesterday and pt c/o pain in RLE and stated she felt a pop during fall. Pt states she has a cane and walker she uses at home but continues to fall due to feeling lightheaded/dizzy. Excoriation present in skin folds on admission.
[2023-09-02 23:26] LABS: Lactic Acid Follow Up (RFLX 1) 3.9 mmol/L (0.7-2.1)
[2023-09-02 23:39] LABS: Troponin I < 0.01 ng/ml (0.00-0.034)
[2023-09-03 01:12] LABS: Reflex Lactic (2 hrs) Add Lactic Reflex
[2023-09-03 02:02] LABS: Lactic Acid Follow up (RFLX 2) 2.4 mmol/L (0.7-2.1)
[2023-09-03 04:00] VITALS: BP 97/57; PULSE 70; RESP 20; TEMP 36.4; O2SAT 95; BMI 34.2
--- NOTE | 2023-09-03 05:06 | PC.NURSE ---
Patient has had a good night since arriving to the floor. the patient has a Vadito in place due to being non weightbaring on the R leg. The patient complained of pain once since arriving to the floor, but stated that the medication has helped as well as elevating the leg. The patient has had no nausea. No other issues noted.
[2023-09-03 07:21] VITALS: BP 111/58; PULSE 72; RESP 19; TEMP 36.4; O2SAT 96
--- NOTE | 2023-09-03 08:42 | HMH.PHAINT1 ---
Pharmacy Intervention Comments: Med reconciliation completed using external fill history and list from MD office
--- NOTE | 2023-09-03 09:10 | EXP.HP ---
History of Present Illness *Admission Date: 09/02/23 *Reason for visit:: Fall with fractured fibula; diarrhea *History of present illness: Ms. Quinonez is a 72-year-old female with a history of hypertension, gout, type 2 diabetes mellitus, tobacco use disorder, peptic ulcer disease, stroke, and COVID requiring mechanical ventilation in 2020 who presented to [facility] emergency room after recent fall 2 days ago. She injured her right lower leg and had been using a walker after the fall 09/01/2023. The pain became worse and thus she came to the ER. She was also experiencing vomiting and diarrhea and felt very weak. She thought she was dehydrated. She describes diarrhea for the past 4 weeks with worsening the last 4 to 5 days. She also noted some hematochezia. Following his note from the emergency room: CT angio of the abdomen pelvis showed multiple abnormalities including thickened proximal colon which may be an acute on chronic colitis. As stated above this could be a low flow state or infectious. I do not suspect acute mesenteric ischemia. There is a thickened appearance of the distal stomach which will need to be evaluated by endoscopy. There is also small to moderate amount of free fluid which is nonspecific. Again her abdominal exam on reassessment is completely benign she has no tenderness on my exam on follow-up. She has extensive atherosclerotic changes severe narrowing of the celiac axis and moderate narrowing of the proximal SMA. She has a 2.6 cm AAA which will need to be follow-up in 5 years also has bilateral atherosclerotic narrowing of the iliac arteries and an adrenal nodule. Patient has been profoundly weak with nausea vomiting diarrhea but is feeling much better her weakness has led to her falling and her x-rays of her right lower extremity demonstrated a distal but midshaft fibular fracture. I reviewed the case with Dr. Birch and we placed the patient in a posterior slab and she will be nonweightbearing which will complicate her functional status. All in all this patient will need to be admitted for nausea vomiting diarrhea IV fluid rehydration serial abdominal exams and likely functional placement given her new nonweightbearing status. Patient was started on Rocephin and Flagyl and received fluid resuscitation in the ER. She also received 2 mg of morphine and nystatin was placed on rash beneath breasts and iabdominal skin folds. She also received Zofran 4 mg IV. After IV fluids lactate decreased from 7.5 to 2.4.. COVID and flu test were negative. [facility] Disclaimer: The information contained in this section may have been updated after the patient was seen, as this information can be updated by other users. Medical History (Updated 09/03/23 @ 12:13 by Naomy Rubalcava APRN) Diabetes History of CVA (cerebrovascular accident) Hypertension Peptic ulcer disease Type 2 diabetes mellitus Family History (Updated 09/02/23 @ 21:09 by Tanya Shah RN) Alzheimer's dementia Mother Pancreatic cancer Father Diabetes Social History (Updated 09/02/23 @ 21:11 by Tanya Shah RN) Smoking Status: Former smoker tobacco type: cigarettes packs per day: 1 second hand exposure: No alcohol intake: never current occupational status: retired Travel in the last 8 weeks: None household members: spouse housing: house current occupational exposures/hazards: No caffeine: Yes Review of Systems Constitutional Constitutional: Denies fever(s), Reports frequent falls, Reports headache(s), Reports poor appetite and Reports weakness Eyes Eyes: Denies change in vision ENT Ears, Nose, Mouth, and Throat: Reports headache(s) and Denies sore throat *Cardiovascular Cardiovascular: Denies chest pain, Reports claudication, Reports dyspnea and Reports leg edema *Respiratory Respiratory: Reports cough and Reports dyspnea *Gastrointestinal Gastrointestinal: Reports abdominal pain, Denies constipation, Repo
--- NOTE | 2023-09-03 14:00 | EXP.ORTH.CON ---
History of Present Illness *Admission Date: 09/02/23 *History of present illness: Ms. Quinonez is a 72-year-old female with a history of hypertension, gout, type 2 diabetes mellitus, tobacco use disorder, peptic ulcer disease, stroke, and COVID requiring mechanical ventilation in 2020 who presented to [facility] emergency room after recent fall 2 days ago. She injured her right lower leg and had been using a walker after the fall 09/01/2023. The pain became worse and thus she came to the ER. She was also experiencing vomiting and diarrhea and felt very weak. She thought she was dehydrated. She describes diarrhea for the past 4 weeks with worsening the last 4 to 5 days. She also noted some hematochezia. Following his note from the emergency room: CT angio of the abdomen pelvis showed multiple abnormalities including thickened proximal colon which may be an acute on chronic colitis. As stated above this could be a low flow state or infectious. I do not suspect acute mesenteric ischemia. There is a thickened appearance of the distal stomach which will need to be evaluated by endoscopy. There is also small to moderate amount of free fluid which is nonspecific. Again her abdominal exam on reassessment is completely benign she has no tenderness on my exam on follow-up. She has extensive atherosclerotic changes severe narrowing of the celiac axis and moderate narrowing of the proximal SMA. She has a 2.6 cm AAA which will need to be follow-up in 5 years also has bilateral atherosclerotic narrowing of the iliac arteries and an adrenal nodule. Patient has been profoundly weak with nausea vomiting diarrhea but is feeling much better her weakness has led to her falling and her x-rays of her right lower extremity demonstrated a distal but midshaft fibular fracture. I reviewed the case with Dr. Birch and we placed the patient in a posterior slab and she will be nonweightbearing which will complicate her functional status. All in all this patient will need to be admitted for nausea vomiting diarrhea IV fluid rehydration serial abdominal exams and likely functional placement given her new nonweightbearing status. Patient was started on Rocephin and Flagyl and received fluid resuscitation in the ER. She also received 2 mg of morphine and nystatin was placed on rash beneath breasts and iabdominal skin folds. She also received Zofran 4 mg IV. After IV fluids lactate decreased from 7.5 to 2.4.. COVID and flu test were negative. Ortho consulted for recommendations for right ankle fracture. [facility] Disclaimer: The information contained in this section may have been updated after the patient was seen, as this information can be updated by other users. Medical History Diabetes History of CVA (cerebrovascular accident) Hypertension Peptic ulcer disease Type 2 diabetes mellitus Family History Mother Alzheimer's dementia Father Pancreatic cancer Other Diabetes Social History Smoking Status: Former smoker tobacco type: cigarettes packs per day: 1 second hand exposure: No alcohol intake: never current occupational status: retired Travel in the last 8 weeks: None household members: spouse housing: house current occupational exposures/hazards: No caffeine: Yes Review of Systems Constitutional Constitutional: Reports frequent falls, Reports headache(s) and Reports weakness ENT Ears, Nose, Mouth, and Throat: Reports headache(s) *Musculoskeletal Musculoskeletal: Reports abnormal gait *Neurologic Neurologic: Reports abnormal gait, Reports frequent falls, Reports headache(s) and Reports weakness Meds Home Medications and Allergies Home Medications Medication Instructions Recorded Confirmed Type atorvastatin 80 mg tablet 80 mg PO HS High cholesterol
[2023-09-03 15:24] VITALS: BP 99/44; PULSE 66; RESP 18; TEMP 36.6; O2SAT 97
[2023-09-03 20:00] VITALS: BP 95/53; PULSE 68; RESP 18; TEMP 36.6; O2SAT 97
[2023-09-04 04:00] VITALS: BP 123/61; PULSE 75; RESP 18; TEMP 36.4; O2SAT 97; BMI 35.9
[2023-09-04 07:14] LABS: Basophils % 0.4 % (0.1-2.0); Eosinophils # 0.2 K/mm3 (0.0-0.4); Eosinophils % 3.4 % (0.1-12.0); Hematocrit 29.7 % (37.0-47.0); Hemoglobin 9.8 g/dL (12.2-16.2); Lymphocytes # 1.7 K/mm3 (0.7-4.5); Lymphocytes % 36.7 % (10-50); Mean Corpuscular HGB Conc 33.1 g/dL (31.8-35.4); Mean Corpuscular Hemoglobin 34.4 pg (27.0-31.2); Mean Platelet Volume 9.1 fl (7.4-10.4); Monocytes # 0.3 K/mm3 (0.1-1.0); Monocytes % 6.8 % (1.7-9.3); Neutrophils # 2.5 K/mm3 (1.8-7.8); Neutrophils % 52.8 % (37.0-80.0); Platelet Count 183 K/mm3 (142-424); Red Blood Count 2.86 M/mm3 (4.20-5.40); Red Cell Distribution Width 17.3 % (11.5-17.5); White Blood Count 4.7 K/mm3 (4.8-10.8)
[2023-09-04 07:16] VITALS: BP 124/66; PULSE 74; RESP 18; TEMP 36.5; O2SAT 96
[2023-09-04 07:26] LABS: Alanine Aminotransferase 25 U/L (12-78); Albumin Level 2.1 g/dl (3.5-5.0); Albumin/Globulin Ratio 0.7 (1.1-1.8); Alkaline Phosphatase 117 U/L (38-126); Anion Gap 8.7 mEq/L (5-15); Aspartate Amino Transferase 50 U/L (14-36); Bilirubin,Total 0.4 mg/dl (0.2-1.3); Blood Urea Nitrogen 14 mg/dl (7-17); Calcium 7.6 mg/dl (8.4-10.2); Carbon Dioxide 23 mmol/L (22.0-30.0); Chloride 99 mmol/L (98-107); Creatinine Clearance Estimated 47 mL/min (50-200); Estimated Glomerular Filt Rate 34 ml/min (>60); GFR (African American) 41 ML/MIN (>60); Glucose 91 mg/dl (74-100); Potassium 4.7 mmoL/L (3.5-5.1); Sodium 126 mmol/L (136-145); Total Protein,Serum 5.1 g/dl (6.3-8.2)
--- NOTE | 2023-09-04 08:18 | EXP.ACUTE.PN ---
Subjective *Date: 09/04/23 *Time: 08:36 Interval history: Patient states she is better this morning. She was able to eat and sleep. She has not been out of bed. She states she has had no further diarrhea or vomiting and is not nauseated. She denies chest pain and shortness of breath. Lab data this morning with with a hemoglobin of 9.8 and hematocrit of 29.7. Sodium remains low at 126. BUN is 14 creatinine improved to 1.5. Medical Exam Vital signs and Labs for Last 24 Hours: Vital Signs Temp Pulse Resp BP Pulse Ox O2 Del Method 09/04/23 07:57 Room Air 09/04/23 07:16 97.7 F 74 18 124/66 96 Room Air 09/04/23 06:42 Room Air 09/04/23 05:00 Room Air 09/04/23 04:00 97.6 F 75 18 123/61 97 Room Air 09/04/23 03:00 Room Air 09/04/23 01:00 Room Air 09/03/23 23:00 Room Air 09/03/23 21:00 Room Air 09/03/23 20:00 97.8 F 68 18 95/53 L 97 Room Air 09/03/23 18:55 Room Air 09/03/23 17:00 Room Air 09/03/23 15:24 97.8 F 66 18 99/44 L 97 Room Air 09/03/23 15:00 Room Air 09/03/23 13:00 Room Air 09/03/23 11:00 Room Air 09/03/23 09:00 Room Air Intake and Output 09/03/23 09/04/23 09/04/23 19:59 03:59 11:59 Intake Total 470 / 470 240 / 710 Output Total 0 / 0 0 / 0 0 / 0 Balance 470 / 470 0 / 470 240 / 710 Intake: Intake, Oral Amount 470 / 470 240 / 710 Output: Output, Urine Amount 0 / 0 0 / 0 0 / 0 Other: Number of Voids 1 Number of Unmeasured Voids 1 1 1 Weight 195 lb 6 oz Patient Weight 09/04/23 11:59 Weight 195 lb 6 oz Laboratory Results - last 24 hr 09/04/23 06:54: WBC 4.7 L D, RBC 2.86 L, Hgb 9.8 L, Hct 29.7 L, MCV 104.0 H, MCH 34.4 H, MCHC 33.1, RDW 17.3, Plt Count 183 D, MPV 9.1, Neut % (Auto) 52.8, Lymph % (Auto) 36.7, [place] % (Auto) 6.8, Eos % (Auto) 3.4, Baso % (Auto) 0.4, Neut # (Auto) 2.5, Lymph # (Auto) 1.7, [place] # (Auto) 0.3, Eos # (Auto) 0.2, Baso # (Auto) 0.0, Sodium 126 L, Potassium 4.7, Chloride 99, Carbon Dioxide 23, Anion Gap 8.7, BUN 14, Creatinine 1.50 H, Estimated Creat Clear 47, Estimated GFR 34 L, Est GFR ( Amer) 41 L, Glucose 91, Calcium 7.6 L, Total Bilirubin 0.4, AST 50 H D, ALT 25 D, Alkaline Phosphatase 117, Total Protein 5.1 L, Albumin 2.1 L, Globulin 3.0, Albumin/Globulin Ratio 0.7 L I & O for Labs for Last 24 Hours: Intake & Output 09/01/23 09/02/23 09/03/23 09/04/23 11:59 11:59 11:59 11:59 Intake Total 100 / 100 710 / 710 Output Total 300 / 300 0 / 0 Balance -200 / -200 710 / 710 Weight 186 lb 3.2 oz 195 lb 6 oz Constitutional: Present no acute distress Comment:: Sitting up in the bed and has just completed breakfast which consisted of full liquids. Respiratory: Present CTA bilaterally (Anteriorly and posteriorly) Cardiac: Present Reg Rate and Rhythm GI: Present soft and hyperactive bowel sounds; Absent distention, tenderness or guarding Extremities: Present normal capillary refill and edema (Trace of left lower extremity edema.) Comment:: Right lower leg and posterior splint. Elevated. Assessment and Plan *Assessment and plan (1) Fracture of right ankle, lateral malleolus: Status: Acute Qualifiers: Encounter type: initial encounter Fracture alignment: nondisplaced Fracture type: closed Qualified Code(s): S82.64XA - Nondisplaced fracture of lateral malleolus of right fibula, initial encounter for closed fracture Category: Medical Code(s): S82.61XA - Displaced fracture of lateral malleolus of right fibula, initial encounter for closed fracture (2) Nausea vomiting and diarrhea: Status: Acute Category: Medical Code(s): R11.2 - Nausea with vomiting, unspecified; R19.7 - Diarrhea, unspecified (3) History of CVA (cerebrovascular accident): Status: Chronic Category: Medical Code(s): Z86.73 - Personal history of transient ischemic attack (TIA), and cerebral infarction without resi
--- NOTE | 2023-09-04 09:56 | SW/DCPLANNER ---
Addendum entered by Khushi Sheldon 09/07/23 12:34: The plan for this patient is to discharge to [facility] level of care today. Addendum entered by [facility] 09/05/23 09:34: I have updated patient's daughter regarding discharge plans. Addendum entered by [facility] 09/05/23 08:32: [facility] w/ [facility] stated that she can accept this patient on 09/07/23 if medically stable for discharge Addendum entered by [facility] 09/04/23 15:19: Patient has since changed from OBS to inpatient. I discussed w/ patient and her daughter the options of SNF level of care. Patient and daughter are agreeable to [facility] or [place]. Patient information has been faxed to [facility] and [facility] is currently present on med/surg to evaluate patient at bedside. Original Note: I spoke w/ this patient regarding plans once medically stable for discharge. PT/OT recommended SNF level of care or home health and 24-7 assistance. I discussed placement and home health w/ this patient. Patient is not interested in placement due to requiring private pay at this time. Patient is open to home health services and stated that her would be at home w/ her. Patient is agreeable to use [facility] and this will be set up at time of discharge. Discharge date is unknown at this time. I will continue to follow up w/ patient and MD.
--- NOTE | 2023-09-04 10:06 | HMH.OTEV ---
OT Inpatient Evaluation Rehab OT IP Evaluation Start: 09/04/23 08:24 Freq: ONCE Status: Active Protocol: Document 09/04/23 09:58 [facility] (Rec: 09/04/23 10:06 [facility] [id number]) Rehab OT IP Assessment Subjective History Pt oriented x 3 on arrival. Pt agreeable to engage in therapy evaluation. Pt was admitted on 09/02/23 for a right fibula fx after a fall. Ms. Quinonez is a 72-year-old female with a history of hypertension, gout, type 2 diabetes mellitus, tobacco use disorder, peptic ulcer disease, stroke, and COVID requiring mechanical ventilation in 2020 who presented to [facility] emergency room after recent fall 2 days ago. She injured her right lower leg and had been using a walker after the fall 09/01/2023. Prior to being in the hospital , pt lived at home with her . Pt claims she is normally independent with all ADLs and most IADLs. Her does assist with cleaning and cooking. She uses a rolling walker during ambulation. She no longer drives. Subjective I am still hurting some. Objective Patient Orientation Person,Place,Birthday Right Upper Extremity Gross ROM WFL Left Upper Extremity Gross ROM WFL Bed Mobility bed mobility-scooting,bed mobility - supine/sit Assist Level Minimal x 1 (25% assist) Transfer Training Sit/Stand Transfer Assist Level Contact Guard/Hand Hold Lower Body Dressing Ability Maximum Assistance Rehab OT IP prob,goals,plan Problems Date of Evaluation: 09/04/23 OT IP Problems Bed Mobility,Transfers,Balance ,Self care,Safety Rehab Potential Rehab Potential Good Equipment Needs Assistive Devices Rolling / Wheeled Walker Plan OT intervention Plan Bed Mobility,Transfers,Balance ,Self care,Safety,Therapeutic Exercise
--- NOTE | 2023-09-04 10:58 | HMH.PTEV ---
Physical Therapy Evaluation Rehab PT IP Evaluation Start: 09/04/23 08:24 Freq: ONCE Status: Active Protocol: Document 09/04/23 10:34 [facility] (Rec: 09/04/23 10:58 [facility] [id number]) Subjective/History History History Patient is a 72 year old female admitted to [facility] with the diagnosis of colitis. Patient has been experiencing generalized fatigue/weakness, and began to have bloody stools. Patient previously lived at home with her . Previously independent with ADL's, and ambulation with RW . Subjective Subjective I'm feeling a little bit better today. New diagnosis of cancer in past 12 No months? Rehab PT IP Eval Objective Appearance Patient Behavior Appropriate,Cooperative Patient Orientation Person,Place,Birthday Difficulty following instructions none Speech Pattern Clear,Appropriate Balance Ability to Arise Able, uses arms to help Sitting Balance Steady, safe Standing Balance Steady, wide stance Dynamic Sitting Balance Ability Normal Dynamic Standing Balance Ability Normal Transfers Bed Transfer Ability Minimal x 2 (25% assist) Sit to Stand Bed Transfer Ability Contact Guard/Hand Hold Pain Right Foot Pain Intensity 6 ROM RLE PT ROM Status ABN MMT All Extremities PT MMT WFL Abnormal MMT Grade RLE not tested secondary to orthopedic precautions. Rehab PT IP prob,goals,plan Problems Date of Evaluation: 09/04/23 PT IP Problems Bed Mobility,Transfers,Gait, Balance,Self care,Safety Rehab Potential Rehab Potential Good Equipment Needs Assistive Devices None / NA Plan PT Intervention Plan Bed Mobility,Transfers,Gait, Balance,Self care,Safety, Therapeutic Exercise PT Plan Frequency BID Duration LOS Discharge Goals Bed Transfer Ability Contact Guard/Hand Hold Sit to Stand Chair Transfer Ability Contact Guard/Hand Hold Ambulation Assistive Device Rolling Walker Ambulation Distance (feet) 20 Discharge Plan PT Discharge Plan PT suggests that patient is a good candidate for short-term rehab [facility]
[2023-09-04 15:34] VITALS: BP 108/41; PULSE 62; RESP 18; TEMP 36.6; O2SAT 97
--- NOTE | 2023-09-04 18:36 | PC.NURSE ---
A&OX4, TOLERATING RA WELL. SOFT CAST TO RLE. ELEVATED T/O SHIFT. EXCORIATION PRESENT UNDER BREASTS AND ABD FOLDS, KEPT DRY AND POWDER APPLIED. PT DID GET UP X2 WITH PT TODAY, DOING WELL WITH WALKER AND X1 ASSIST. RECEIVED BATH. FAMILY HAS BEEN IN AND OUT. PT C/O RLE PAIN X1, TX PER MAR. ON REASSESSMENT, PT RESTING COMFORTABLY IN BED. DID TOLERATE CARDIAC DIET WELL, NO NA/VO NOTED. NO OTHER NEEDS OR C/O NOTED, VSS.
--- NOTE | 2023-09-04 18:38 | PC.NURSE ---
Per yo Hunter to DC diarrhea panel
[2023-09-04 20:00] VITALS: BP 87/41; PULSE 64; RESP 16; TEMP 36.4; O2SAT 98
[2023-09-04 22:36] VITALS: BP 110/58
[2023-09-05 04:00] VITALS: BP 119/67; PULSE 70; RESP 16; TEMP 36.8; O2SAT 98; BMI 36.6
--- NOTE | 2023-09-05 04:09 | PC.NURSE ---
Pt is A&Ox4. Pt is pleasant and denies pain or distress this shift. pt soft cast remain in place. Pt kaur brief but uses the bedpan often. Pt denies needs at this time.
[2023-09-05 06:52] LABS: Basophils % 0.6 % (0.1-2.0); Eosinophils # 0.2 K/mm3 (0.0-0.4); Eosinophils % 4.2 % (0.1-12.0); Hematocrit 31.4 % (37.0-47.0); Hemoglobin 10.2 g/dL (12.2-16.2); Lymphocytes # 1.5 K/mm3 (0.7-4.5); Lymphocytes % 36.2 % (10-50); Mean Corpuscular HGB Conc 32.5 g/dL (31.8-35.4); Mean Corpuscular Hemoglobin 34.6 pg (27.0-31.2); Mean Corpuscular Volume 106.4 fl (81-99); Mean Platelet Volume 9.2 fl (7.4-10.4); Monocytes # 0.3 K/mm3 (0.1-1.0); Monocytes % 6.1 % (1.7-9.3); Neutrophils # 2.2 K/mm3 (1.8-7.8); Neutrophils % 52.8 % (37.0-80.0); Platelet Count 206 K/mm3 (142-424); Red Blood Count 2.95 M/mm3 (4.20-5.40); Red Cell Distribution Width 17.3 % (11.5-17.5); White Blood Count 4.2 K/mm3 (4.8-10.8)
[2023-09-05 06:59] LABS: Chloride 102 mmol/L (98-107); Sodium 130 mmol/L (136-145)
[2023-09-05 07:02] LABS: Alanine Aminotransferase 24 U/L (12-78); Albumin Level 2.2 g/dl (3.5-5.0); Albumin/Globulin Ratio 0.7 (1.1-1.8); Alkaline Phosphatase 105 U/L (38-126); Aspartate Amino Transferase 52 U/L (14-36); Bilirubin,Total 0.5 mg/dl (0.2-1.3); Blood Urea Nitrogen 12 mg/dl (7-17); Carbon Dioxide 26 mmol/L (22.0-30.0); Creatinine Clearance Estimated 60 mL/min (50-200); Estimated Glomerular Filt Rate 44 ml/min (>60); GFR (African American) 53 ML/MIN (>60); Total Protein,Serum 5.2 g/dl (6.3-8.2)
[2023-09-05 07:03] LABS: Calcium 7.6 mg/dl (8.4-10.2); Glucose 88 mg/dl (74-100)
[2023-09-05 07:43] VITALS: BP 108/55; PULSE 69; RESP 18; TEMP 36.7; O2SAT 93
--- NOTE | 2023-09-05 08:18 | EXP.ACUTE.PN ---
Subjective *Date: 09/05/23 *Time: 08:55 Interval history: The patient denies any pain other than in her right foot. She states she slept a little better last night and ate most of her breakfast this morning. She denies any abdominal pain or diarrhea. She states she has been urinating quite a bit. Medical Exam Vital signs and Labs for Last 24 Hours: Vital Signs Temp Pulse Resp BP Pulse Ox O2 Del Method 09/05/23 07:43 98.1 F 69 18 108/55 L 93 L Room Air 09/05/23 06:31 Room Air 09/05/23 04:00 98.2 F 70 16 119/67 98 09/05/23 05:00 Room Air 09/05/23 02:59 Room Air 09/05/23 01:00 Room Air 09/04/23 22:41 Room Air 09/04/23 22:36 110/58 L 09/04/23 20:00 97.6 F 64 16 87/41 L 98 Room Air 09/04/23 20:55 Room Air 09/04/23 20:00 Room Air 09/04/23 18:35 Room Air 09/04/23 16:39 Room Air 09/04/23 15:34 97.9 F 62 18 108/41 L 97 Room Air 09/04/23 15:00 Room Air 09/04/23 12:40 Room Air 09/04/23 10:33 Room Air 09/04/23 09:00 Room Air Intake and Output 09/04/23 09/05/23 09/05/23 19:59 03:59 11:59 Intake Total 796 / 1156 120 / 1156 240 / 1156 Output Total 0 / 500 500 / 500 Balance 796 / 656 -380 / 656 240 / 656 Intake: Intake, Oral Amount 480 / 840 120 / 840 240 / 840 Intake, Total IV Amount 316 / 316 Ceftriaxone 1 gm 1 gm In 0.9 % 50 / 50 Sodium Chloride 50 ml @ 100 mls /hr IV Q24H [facility] Rx#:[id number] Lactated Ringers 1000ML 1,000 166 / 166 ml @ 25 mls/hr IV .Q25H [facility] Rx# :[id number] Metronidaz/Sod Chl 500 mg In 100 / 100 100 ml @ 100 mls/hr IV ONCE ONE Rx#:[id number] Output: Output, Urine Amount 0 / 500 500 / 500 Other: Number of Unmeasured Voids 1 1 Weight 199 lb Patient Weight 09/05/23 11:59 Weight 199 lb Laboratory Results - last 24 hr 09/05/23 06:43: WBC 4.2 L, RBC 2.95 L, Hgb 10.2 L, Hct 31.4 L, MCV 106.4 H, MCH 34.6 H, MCHC 32.5, RDW 17.3, Plt Count 206, MPV 9.2, Neut % (Auto) 52.8, Lymph % (Auto) 36.2, Harris % (Auto) 6.1, Eos % (Auto) 4.2, Baso % (Auto) 0.6, Neut # (Auto) 2.2, Lymph # (Auto) 1.5, Harris # (Auto) 0.3, Eos # (Auto) 0.2, Baso # (Auto) 0.0, Sodium 130 L, Potassium 5.0, Chloride 102, Carbon Dioxide 26, Anion Gap 7.0, BUN 12, Creatinine 1.20 H, Estimated Creat Clear 60, Estimated GFR 44 L, Est GFR ( Amer) 53 L D, Glucose 88, Calcium 7.6 L, Total Bilirubin 0.5, AST 52 H, ALT 24, Alkaline Phosphatase 105, Total Protein 5.2 L, Albumin 2.2 L, Globulin 3.0, Albumin/Globulin Ratio 0.7 L I & O for Labs for Last 24 Hours: Intake & Output 09/02/23 09/03/23 09/04/23 09/05/23 11:59 11:59 11:59 11:59 Intake Total 100 / 100 710 / 710 1156 / 1156 Output Total 300 / 300 0 / 0 500 / 500 Balance -200 / -200 710 / 710 656 / 656 Weight 186 lb 3.2 oz 195 lb 6 oz 199 lb Microbiology Reports for the Last 24 Hours: Microbiology 09/02/23 18:56 Blood Blood Culture - Preliminary Constitutional: Present no acute distress Comment:: Sitting up in the bed and has just completed breakfast. Respiratory: Present CTA bilaterally (Anteriorly and posteriorly) Cardiac: Present Reg Rate and Rhythm GI: Present soft and normal bowel sounds; Absent distention, tenderness or guarding Extremities: Present normal capillary refill and edema (Trace of left lower extremity edema. RLE with a splint in place.) Neuro: Present alert and awake Assessment and Plan *Assessment and plan (1) Nausea vomiting and diarrhea: Status: Acute Category: Medical Code(s): R11.2 - Nausea with vomiting, unspecified; R19.7 - Diarrhea, unspecified (2) Acute kidney injury: Status: Acute Category: Medical Code(s): N17.9 - Acute kidney failure, unspecified (3) Fall: Status: Acute Category: Medical Code(s): W19.XXXA - Unspecified fall, initial encounter (4) Closed fracture of right distal fibula:
[2023-09-05 12:28] VITALS: BMI 36.6
[2023-09-05 15:05] VITALS: BP 120/43; PULSE 78; RESP 16; TEMP 36.8; O2SAT 100
--- NOTE | 2023-09-05 18:55 | PC.NURSE ---
Patient is A&Ox4 with VSS. Patient has c/o itchiness with soft cast on and off today and patient reeducated on the importance of soft cast and healing of her fracture. Patient understood.
[2023-09-05 20:00] VITALS: BP 125/65; PULSE 80; RESP 19; TEMP 36.9; O2SAT 100; O2SAT 95
[2023-09-06 04:00] VITALS: BP 128/65; PULSE 87; RESP 19; TEMP 36.9; O2SAT 97; BMI 37.0
--- NOTE | 2023-09-06 05:05 | PC.NURSE ---
SIDE RAILS PADDED DUE TO H/O SEIZURES. TURNS SELF WITH ASSIST. RLE ELEVATED ON PILLOW. SPLINT AND FUNMILAYO WRAP INTACT TO RLE. NO DIARRHEA THIS SHIFT.
[2023-09-06 07:33] VITALS: BP 140/87; PULSE 100; RESP 17; TEMP 36.8; O2SAT 97
[2023-09-06 08:00] VITALS: O2SAT 97
--- NOTE | 2023-09-06 08:09 | EXP.ACUTE.PN ---
Subjective *Date: 09/06/23 *Time: 08:40 Interval history: Patient is sleeping this morning. She is having some pain in her right foot and ankle. She states she slept well and hasn't been up to eat breakfast yet. Denies any diarrhea. Still with some abdominal pain. Medical Exam Vital signs and Labs for Last 24 Hours: Vital Signs Temp Pulse Resp BP Pulse Ox O2 Del Method 09/06/23 07:33 98.2 F 100 H 17 140/87 97 Room Air 09/06/23 06:34 Room Air 09/06/23 04:56 Room Air 09/06/23 04:00 98.5 F 87 19 128/65 97 Room Air 09/06/23 03:00 Room Air 09/06/23 01:00 Room Air 09/05/23 23:00 Room Air 09/05/23 20:00 98.4 F 80 19 125/65 95 Room Air 09/05/23 21:00 Room Air 09/05/23 20:00 100 Room Air 09/05/23 15:05 98.2 F 78 16 120/43 L 100 Room Air Intake and Output 09/05/23 09/06/23 09/06/23 19:59 03:59 11:59 Intake Total 480 / 1360 540 / 1360 340 / 1360 Output Total 0 / 300 0 / 300 300 / 300 Balance 480 / 1060 540 / 1060 40 / 1060 Intake: Intake, Oral Amount 480 / 1160 440 / 1160 240 / 1160 Intake, Total IV Amount 100 / 200 100 / 200 Metronidaz/Sod Chl 500 mg In 100 / 200 100 / 200 100 ml @ 100 mls/hr IV Q8 [facility] Rx#:[id number] Output: Output, Urine Amount 0 / 300 0 / 300 300 / 300 Other: Number of Unmeasured Voids 1 1 0 Weight 198 lb 15.828 oz 201 lb 8 oz Patient Weight 09/06/23 11:59 Weight 201 lb 8 oz I & O for Labs for Last 24 Hours: Intake & Output 09/03/23 09/04/23 09/05/23 09/06/23 11:59 11:59 11:59 11:59 Intake Total 100 / 100 710 / 710 1156 / 1156 1360 / 1360 Output Total 300 / 300 0 / 0 500 / 500 300 / 300 Balance -200 / -200 710 / 710 656 / 656 1060 / 1060 Weight 186 lb 3.2 oz 195 lb 6 oz 199 lb 201 lb 8 oz Constitutional: Present no acute distress Respiratory: Present CTA bilaterally (Anteriorly and posteriorly) Cardiac: Present Reg Rate and Rhythm GI: Present soft, tenderness (mild diffuse tenderness) and normal bowel sounds; Absent distention or guarding Extremities: Present normal capillary refill and edema (Trace of left lower extremity edema. RLE with a splint in place.) Neuro: Present alert and awake Assessment and Plan *Assessment and plan (1) Nausea vomiting and diarrhea: Status: Acute Category: Medical Code(s): R11.2 - Nausea with vomiting, unspecified; R19.7 - Diarrhea, unspecified (2) Acute kidney injury: Status: Acute Category: Medical Code(s): N17.9 - Acute kidney failure, unspecified (3) Fall: Status: Acute Category: Medical Code(s): W19.XXXA - Unspecified fall, initial encounter (4) Closed fracture of right distal fibula: Status: Acute Category: Medical Code(s): S82.831A - Other fracture of upper and lower end of right fibula, initial encounter for closed fracture (5) Type 2 diabetes mellitus: Status: Chronic Qualifiers: Diabetes mellitus complication status: without complication Diabetes mellitus jail insulin use: with jail use Qualified Code(s): E11.9 - Type 2 diabetes mellitus without complications; Z79.4 - custodial (current) use of insulin Category: Medical Code(s): E11.9 - Type 2 diabetes mellitus without complications (6) Hypotension: Status: Acute Qualifiers: Hypotension type: hypotension due to drug Qualified Code(s): I95.2 - Hypotension due to drugs Category: Medical Code(s): I95.9 - Hypotension, unspecified (7) Generalized weakness: Status: Acute Category: Medical Code(s): R53.1 - Weakness (8) Candidal intertrigo: Status: Acute Category: Medical Code(s): B37.2 - Candidiasis of skin and nail (9) CKD (chronic kidney disease): Status: Acute Category: Medical Code(s): N18.9 - Chronic kidney disease, unspecified (10) Hyponatremia: Status: Acute C
--- NOTE | 2023-09-06 09:00 | P.PN_ITS ---
Subjective *Date: 09/06/23 *Time: 09:00 Medical Exam Vital signs and Labs for Last 24 Hours: Vital Signs Temp Pulse Resp BP Pulse Ox O2 Del Method 09/06/23 07:33 98.2 F 100 H 17 140/87 97 Room Air 09/06/23 06:34 Room Air 09/06/23 04:56 Room Air 09/06/23 04:00 98.5 F 87 19 128/65 97 Room Air 09/06/23 03:00 Room Air 09/06/23 01:00 Room Air 09/05/23 23:00 Room Air 09/05/23 20:00 98.4 F 80 19 125/65 95 Room Air 09/05/23 21:00 Room Air 09/05/23 20:00 100 Room Air 09/05/23 15:05 98.2 F 78 16 120/43 L 100 Room Air Intake and Output 09/05/23 09/06/23 09/06/23 23:59 07:59 15:59 Intake Total 240 / 1380 880 / 880 Output Total 0 / 0 300 / 300 0 / 300 Balance 240 / 1380 580 / 580 0 / 580 Intake: Intake, Oral Amount 240 / 1280 680 / 680 Intake, Total IV Amount 200 / 200 Metronidaz/Sod Chl 500 mg In 200 / 200 100 ml @ 100 mls/hr IV Q8 [facility] Rx#:[id number] Output: Output, Urine Amount 0 / 0 300 / 300 0 / 300 Other: Number of Unmeasured Voids 1 0 0 Number of Bowel Movements 1 Weight 91.399 kg Patient Weight 09/06/23 23:59 Weight 91.399 kg I & O for Labs for Last 24 Hours: Intake & Output 09/03/23 09/04/23 09/05/23 09/06/23 23:59 23:59 23:59 23:59 Intake Total 470 / 470 1036 / 1156 840 / 1380 880 / 880 Output Total 300 / 300 500 / 500 0 / 0 300 / 300 Balance 170 / 170 536 / 656 840 / 1380 580 / 580 Weight 84.459 kg 88.621 kg 90.26 kg 91.399 kg Microbiology Reports for the Last 24 Hours: Microbiology 09/02/23 17:22 Blood Blood Culture - Preliminary The patient's infection will respond to the chosen ABx?: Yes (BLOOD CULTURE = NO GROWTH/GPC, PATIENT AFEBRILE.) Is the patient receiving the right drug, dose, and route?: Yes Could a more targeted ABx be ordered?: No
[2023-09-06 15:35] VITALS: BP 125/94; PULSE 90; RESP 18; TEMP 36.8; O2SAT 97
[2023-09-06 20:00] VITALS: BP 135/92; PULSE 95; RESP 18; TEMP 36.8; O2SAT 97; O2SAT 99
[2023-09-07 04:00] VITALS: BP 131/98; PULSE 105; RESP 18; TEMP 36.9; O2SAT 94; BMI 38.0
--- NOTE | 2023-09-07 05:55 | PC.NURSE ---
NO C/O PAIN SINCE [place] AT 2028. TURNS WITH ASSIST. MEDS GIVEN IN PUDDING. VSS/AFEBRILE. SPLINT/FUNMILAYO WRAP C/D/I TO LOWER RIGHT LEG AND ELEVATED ON PILLOW. NO NEURO-CIRCULATION DEFICIT DETECTED
[2023-09-07 07:27] LABS: Chloride 102 mmol/L (98-107); Potassium 4.9 mmoL/L (3.5-5.1); Sodium 128 mmol/L (136-145)
[2023-09-07 07:30] LABS: Anion Gap 5.9 mEq/L (5-15); Blood Urea Nitrogen 6 mg/dl (7-17); Calcium 7.8 mg/dl (8.4-10.2); Carbon Dioxide 25 mmol/L (22.0-30.0); Creatinine Clearance Estimated 68 mL/min (50-200); Estimated Glomerular Filt Rate 49 ml/min (>60); GFR (African American) 59 ML/MIN (>60); Glucose 92 mg/dl (74-100)
[2023-09-07 07:31] LABS: Basophils % 0.1 % (0.1-2.0); Eosinophils # 0.2 K/mm3 (0.0-0.4); Eosinophils % 3.3 % (0.1-12.0); Hematocrit 32.2 % (37.0-47.0); Hemoglobin 10.5 g/dL (12.2-16.2); Lymphocytes # 1.2 K/mm3 (0.7-4.5); Lymphocytes % 23.6 % (10-50); Mean Corpuscular HGB Conc 32.7 g/dL (31.8-35.4); Mean Corpuscular Hemoglobin 34.4 pg (27.0-31.2); Mean Corpuscular Volume 105.1 fl (81-99); Mean Platelet Volume 8.6 fl (7.4-10.4); Monocytes # 0.4 K/mm3 (0.1-1.0); Neutrophils # 3.4 K/mm3 (1.8-7.8); Neutrophils % 66.1 % (37.0-80.0); Platelet Count 173 K/mm3 (142-424); Red Blood Count 3.06 M/mm3 (4.20-5.40); Red Cell Distribution Width 17.6 % (11.5-17.5); White Blood Count 5.2 K/mm3 (4.8-10.8)
[2023-09-07 07:33] VITALS: O2SAT 97
[2023-09-07 08:00] VITALS: BP 146/82; PULSE 123; RESP 17; TEMP 36.5; O2SAT 98
--- NOTE | 2023-09-07 08:24 | EXP.ACUTE.PN ---
Subjective *Date: 09/07/23 *Time: 08:58 Interval history: Patient states she is feeling well this morning. She did have some pain in her leg last night but it is improved this morning. She does complain of some pain in her left ear. She denies any abdominal pain or diarrhea. She is eating and resting well. Medical Exam Vital signs and Labs for Last 24 Hours: Vital Signs Temp Pulse Resp BP Pulse Ox O2 Del Method 09/07/23 07:33 97 Room Air 09/07/23 06:32 Room Air 09/07/23 04:00 98.5 F 105 H 18 131/98 H 94 L Room Air 09/07/23 05:00 Room Air 09/07/23 03:00 Room Air 09/07/23 01:00 Room Air 09/06/23 23:00 Room Air 09/06/23 20:00 98.2 F 95 H 18 135/92 H 99 Room Air 09/06/23 21:00 Room Air 09/06/23 20:00 97 Room Air 09/06/23 17:53 Room Air 09/06/23 16:26 Room Air 09/06/23 15:35 98.2 F 90 18 125/94 H 97 Room Air 09/06/23 14:35 Room Air 09/06/23 12:04 Room Air 09/06/23 09:54 Room Air 09/06/23 09:00 Room Air Intake and Output 09/06/23 09/07/23 09/07/23 19:59 03:59 11:59 Intake Total 640 / 1060 320 / 1060 100 / 1060 Output Total 500 / 1000 500 / 1000 Balance 140 / 60 320 / 60 -400 / 60 Intake: Intake, Oral Amount 540 / 760 220 / 760 Intake, Total IV Amount 100 / 300 100 / 300 100 / 300 Ceftriaxone 1 gm 1 gm In 0.9 % 100 / 100 Sodium Chloride 50 ml @ 100 mls /hr IV Q24H [facility] Rx#:[id number] Metronidaz/Sod Chl 500 mg In 100 / 200 100 / 200 100 ml @ 100 mls/hr IV Q8 [facility] Rx#:[id number] Output: Output, Urine Amount 500 / 1000 500 / 1000 Other: Number of Unmeasured Voids 0 Weight 206 lb 12.8 oz Patient Weight 09/07/23 11:59 Weight 206 lb 12.8 oz Laboratory Results - last 24 hr 09/07/23 06:58: WBC 5.2, RBC 3.06 L, Hgb 10.5 L, Hct 32.2 L, MCV 105.1 H, MCH 34.4 H, MCHC 32.7, RDW 17.6 H, Plt Count 173, MPV 8.6, Neut % (Auto) 66.1, Lymph % (Auto) 23.6, Wilkinson % (Auto) 7.0, Eos % (Auto) 3.3, Baso % (Auto) 0.1, Neut # (Auto) 3.4, Lymph # (Auto) 1.2, Wilkinson # (Auto) 0.4, Eos # (Auto) 0.2, Baso # (Auto) 0.0, Sodium 128 L, Potassium 4.9, Chloride 102, Carbon Dioxide 25, Anion Gap 5.9, BUN 6 L D, Creatinine 1.10 H, Estimated Creat Clear 68, Estimated GFR 49 L, Est GFR ( Amer) 59, Glucose 92, Calcium 7.8 L I & O for Labs for Last 24 Hours: Intake & Output 09/04/23 09/05/23 09/06/23 09/07/23 11:59 11:59 11:59 11:59 Intake Total 710 / 710 1156 / 1156 1360 / 1360 1060 / 1060 Output Total 0 / 0 500 / 500 300 / 300 1000 / 1000 Balance 710 / 710 656 / 656 1060 / 1060 60 / 60 Weight 195 lb 6 oz 199 lb 201 lb 8 oz 206 lb 12.8 oz Microbiology Reports for the Last 24 Hours: Microbiology 09/02/23 17:22 Blood Blood Culture - Preliminary Constitutional: Present no acute distress ENT: Present other (Left TM with effusion, no erythema) Respiratory: Present CTA bilaterally Cardiac: Present Reg Rate and Rhythm GI: Present soft; Absent distention or tenderness Extremities: Present edema (RLE with splint in place) Skin: Present intact Neuro: Present alert, awake and oriented x 3 Assessment and Plan *Assessment and plan (1) Nausea vomiting and diarrhea: Status: Acute Category: Medical Code(s): R11.2 - Nausea with vomiting, unspecified; R19.7 - Diarrhea, unspecified (2) Acute kidney injury: Status: Acute Category: Medical Code(s): N17.9 - Acute kidney failure, unspecified (3) Fall: Status: Acute Category: Medical Code(s): W19.XXXA - Unspecified fall, initial encounter (4) Acute serous otitis media of left ear: Status: Acute Category: Medical Code(s): H65.02 - Acute serous otitis media, left ear (5) Positive blood culture: Status: Acute Category: Medical Code(s): R78.81 - Bacteremia (6) Closed fracture of right distal fibula: Status: Acute Category: Med
--- NOTE | 2023-09-07 12:39 | EXP.DC.SUM ---
General Admission date:: 09/04/23 Discharge date: 09/07/23 HPI HPI HPI: Ms. Quinonez is a 72-year-old female with a history of hypertension, gout, type 2 diabetes mellitus, tobacco use disorder, peptic ulcer disease, stroke, and COVID requiring mechanical ventilation in 2020 who presented to [facility] emergency room after recent fall 2 days ago. She injured her right lower leg and had been using a walker after the fall 09/01/2023. The pain became worse and thus she came to the ER. She was also experiencing vomiting and diarrhea and felt very weak. She thought she was dehydrated. She describes diarrhea for the past 4 weeks with worsening the last 4 to 5 days. She also noted some hematochezia. Following his note from the emergency room: CT angio of the abdomen pelvis showed multiple abnormalities including thickened proximal colon which may be an acute on chronic colitis. As stated above this could be a low flow state or infectious. I do not suspect acute mesenteric ischemia. There is a thickened appearance of the distal stomach which will need to be evaluated by endoscopy. There is also small to moderate amount of free fluid which is nonspecific. Again her abdominal exam on reassessment is completely benign she has no tenderness on my exam on follow-up. She has extensive atherosclerotic changes severe narrowing of the celiac axis and moderate narrowing of the proximal SMA. She has a 2.6 cm AAA which will need to be follow-up in 5 years also has bilateral atherosclerotic narrowing of the iliac arteries and an adrenal nodule. Patient has been profoundly weak with nausea vomiting diarrhea but is feeling much better her weakness has led to her falling and her x-rays of her right lower extremity demonstrated a distal but midshaft fibular fracture. I reviewed the case with Dr. Birch and we placed the patient in a posterior slab and she will be nonweightbearing which will complicate her functional status. All in all this patient will need to be admitted for nausea vomiting diarrhea IV fluid rehydration serial abdominal exams and likely functional placement given her new nonweightbearing status. Patient was started on Rocephin and Flagyl and received fluid resuscitation in the ER. She also received 2 mg of morphine and nystatin was placed on rash beneath breasts and iabdominal skin folds. She also received Zofran 4 mg IV. After IV fluids lactate decreased from 7.5 to 2.4.. COVID and flu test were negative. Ortho consulted for recommendations for right ankle fracture. Hospital Course Hospital Course Hospital Course: The patient was started on Rocephin and Flagyl IV as well as IV fluids. She was started on some of her home medications with metoprolol at a low dosage to her low blood pressure reading. Orthopedics was consulted for the ankle fracture and she was started on nystatin for the candidal rash. Dr. Birch saw the patient and, given the nondisplaced nature of the fracture with her other conflicting medical issues, he wanted to attempt nonoperative intervention. He placed a posterior splint and felt the patient would need to remain nonweightbearing for 10 to 12 days with a repeat x-ray. She did begin feeling better. Her abdominal pain improved and her diarrhea resolved. Her candidal rash improved as well with the nystatin. Her diet was advanced. Her sodium was low and she was given potassium to increase sodium retention. Physical therapy saw the patient and felt she would need short-term placement for rehabilitation for ankle fracture. Her sodium and renal functions improved. Her blood culture showed no growth. By 09/07/2023 it was felt she was stable to be discharged to [place] for rehab. Exam Data for Last 24 hours Vital signs and Labs for Last 24 Hours: Temp Pulse Resp BP Pulse Ox O2 Del Method 97.7 F 123 H 17 146/82 H 98 Room Air 09/07/23 08:00 09/07/23 08:00 09/07/23 08:00 09/07/23 08:00 09/07/23 08
[2023-09-07 15:58] VITALS: BP 155/73; PULSE 80; RESP 17; TEMP 36.6; O2SAT 96
== END 2023-09-07 16:37 | DRG 683 ==
LOC: ER 19:04 → 2ND 19:44
PROVIDERS: Family Medicine; Nurse Practitioner Family; Admitting Provider Internal Medicine Adolescent Medicine; Emergency Provider Student in an Organized Health Care Education/Training Program; PCP Family Medicine; Visit Provider Family Medicine
DX: E87.1 Hypo-osmolality and hyponatremia (principal); S82.401A Unspecified fracture of shaft of right fibula, initial encounter for closed fracture; K52.9 Noninfective gastroenteritis and colitis, unspecified; N17.9 Acute kidney failure, unspecified; Z79.4 Long term (current) use of insulin; N18.9 Chronic kidney disease, unspecified; I77.1 Stricture of artery; K31.89 Other diseases of stomach and duodenum; B37.2 Candidiasis of skin and nail; R10.9 Unspecified abdominal pain; I95.2 Hypotension due to drugs; Z86.73 Personal history of transient ischemic attack (TIA), and cerebral infarction without residual deficits; W19.XXXA Unspecified fall, initial encounter; Z87.891 Personal history of nicotine dependence; I12.9 Hypertensive chronic kidney disease with stage 1 through stage 4 chronic kidney disease, or unspecified chronic kidney disease; E11.22 Type 2 diabetes mellitus with diabetic chronic kidney disease; Z79.84 Long term (current) use of oral hypoglycemic drugs; M10.9 Gout, unspecified; Z86.16 Personal history of COVID-19
CPT/HCPCS: 29515; 36415; 73590; 73610; 73630; 74174; 80048; 80053; 81001; 83605; 83690; 83735; 84100; 84484; 85025; 87040; 87636; 93005; 97110; 97163; 97166; 97530; 99291; G0378; J0696; J2405; Q9967

== ENCOUNTER → 2023-09-18 12:01 | Outpatient (CLI) | payer MEDICARE, MEDICAID, SELFPAY ==
--- NOTE | 2023-09-18 12:07 | XR_ITS ---
FINAL REPORT CLINICAL HISTORY: right ankle fx FINDINGS: RIGHT ANKLE: Three views of the right ankle were obtained. There is an overlying splint. There is a mildly displaced and mildly comminuted oblique fracture of the distal fibula. There is a moderate plantar spur. IMPRESSION: Mildly displaced and mildly comminuted distal fibula fracture. Reviewed, Interpreted and Dictated by Suman Muse MD Transcribed by Jack Lieberman Authenticated and [facility]
--- NOTE | 2023-09-18 12:07 | XR_ITS ---
FINAL REPORT CLINICAL HISTORY: fracture FINDINGS: Two views of the right tibia-fibula demonstrate overlying splint material. There is a mildly displaced and mildly comminuted fracture of the distal fibula. IMPRESSION: Distal fibula fracture. Reviewed, Interpreted and Dictated by Suman Muse MD Transcribed by Jack Lieberman Authenticated and [facility]
== END ==
LOC: RAD 12:03
PROVIDERS: PCP Family Medicine; Visit Provider Orthopaedic Surgery
DX: S82.831A Other fracture of upper and lower end of right fibula, initial encounter for closed fracture (principal); S82.61XA Displaced fracture of lateral malleolus of right fibula, initial encounter for closed fracture
CPT/HCPCS: 73590; 73610

== ENCOUNTER 2023-09-18 14:07 | Outpatient (RCR) | payer MEDICARE, MEDICAID, SELFPAY | END 2023-09-18 15:30 | disposition home or self-care (01) | LOC: PT 14:07 | PROVIDERS: Visit Provider Orthopaedic Surgery | DX: S82.831A Other fracture of upper and lower end of right fibula, initial encounter for closed fracture (principal); S82.61XA Displaced fracture of lateral malleolus of right fibula, initial encounter for closed fracture | CPT/HCPCS: 97760 ==

== ENCOUNTER 2023-09-27 11:50 | Emergency (ER) | payer MEDICARE, MEDICAID, SELFPAY ==
[2023-09-27 11:51] VITALS: BP 104/59; PULSE 87; RESP 18; TEMP 36.6; O2SAT 97; BMI 30.7
[2023-09-27 12:00] VITALS: PULSE 85; RESP 19; O2SAT 96
--- NOTE | 2023-09-27 12:02 | PC.NURSE ---
DR CHOU AT BEDSIDE
--- NOTE | 2023-09-27 12:10 | CT_ITS ---
FINAL REPORT TECHNIQUE: After the administration of intravenous contrast, axial images were obtained through the abdomen and pelvis by computed tomography. The study was performed with techniques to keep radiation dose as low as reasonably achievable, (ALARA). Individual dose reduction techniques using automated exposure control or adjustment of mA and/or kV according to the patient's size were employed. CLINICAL HISTORY: persistent and worssening LLQ abd pain diarrhea COMPARISON: 09/02/2023 FINDINGS: Abdomen: There is a new small left pleural effusion. There is a moderate amount of ascites throughout the abdomen. There is mild fatty infiltration of the liver. The gallbladder is contracted. The spleen, pancreas, and kidneys appear unremarkable. There is hyperplasia of the left adrenal gland without discrete mass identified. The aorta is normal in caliber. There is a retroaortic left renal vein. There is no free fluid or adenopathy. Pelvis: The appendix is not identified. There is fatty infiltration of the cecum and ascending colon. There is abnormal thickening of the gastric antrum, less evident than on the prior exam. Mucosa measures up to 1.3 cm in thickness. The urinary bladder is unremarkable. There are large mesenteric varices, largest lies anterior to the inferior vena cava measuring 2.8 cm in diameter, unchanged. There is no free fluid or adenopathy. Calcified phleboliths are noted in the floor of the pelvis. IMPRESSION: New left pleural effusion. Increased ascites. Left adrenal hyperplasia without discrete mass identified. Persistent mucosal edema of the antrum, improved. Large mesenteric venous varicosities, similar to prior. Reviewed, Interpreted and Dictated by Suman Muse MD Transcribed by Preethi Brewster Authenticated and [facility]
--- NOTE | 2023-09-27 12:11 | XR_ITS ---
FINAL REPORT CLINICAL HISTORY: dyspnea COMPARISON: 06/03/2023 FINDINGS: SINGLE-VIEW CHEST The heart size is normal. The mediastinum is normal. There are mild chronic changes at the bases. The lungs are otherwise clear. There is no pneumothorax. IMPRESSION: No acute cardiopulmonary process. Reviewed, Interpreted and Dictated by Suman Muse MD Transcribed by Naomy Ware Authenticated and [facility]
--- NOTE | 2023-09-27 12:15 | HMH.EDGENADL ---
Discharge Plan Disposition Patient Disposition: er [facility] Prescriptions Prescriptions: New oseltamivir [Tamiflu] 75 mg capsule 75 mg PO BID 5 Days Qty: 10 0RF No Action metoprolol tartrate 25 mg tablet 25 mg PO DAILY losartan 50 MG tablet 50 mg PO DAILY metformin 500 MG tablet 500 mg PO BID atorvastatin 80 MG tablet 80 mg PO HS omeprazole 40 MG capsule,delayed release(DR/EC) 40 mg PO DAILY levetiracetam 500 MG tablet 500 mg PO BID Qty: 60 0RF magnesium oxide 400 mg (241.3 mg magnesium) tablet 400 mg PO BID Patient Comments: TAKE 1 TABLET BY MOUTH ONCE DAILY furosemide 20 mg tablet 20 mg PO DAILY Patient Comments: TAKE 1 TABLET BY MOUTH ONCE DAILY Xarelto 20 mg tablet 20 mg PO HS Patient Comments: TAKE 1 TABLET BY MOUTH ONCE DAILY ferrous sulfate 325 mg (65 mg iron) tablet,delayed release (DR/EC) 325 mg PO DAILY Qty: 30 0RF metoprolol tartrate 25 mg tablet 12.5 mg PO BID Qty: 30 0RF gabapentin 100 mg capsule 200 mg PO HS Qty: 60 0RF Referrals Follow up/Referrals: Abiodun Moon MD [Primary Care Provider] - See instructions Activity Restrictions/Add. Instructions Additional Instructions/Restrictions: Your chronic colitis which is most likely C. difficile will be continued to be followed by Dr. Moon. No evidence of an acute intra-abdominal abnormality no evidence of any decompensated heart failure there is a very small pleural effusion on the left but no significant pulmonary edema or anything that would require supplemental oxygen. You are positive for influenza A and Tamiflu has been sent to your pharmacy. No other emergent medical condition identified. Clinical Impressions Clinical Impression: Pleural effusion, Chronic colitis, Influenza A, URI (upper respiratory infection), Chronic hyponatremia Instructions Patient Instructions: DI for Diarrhea and Traveler's Diarrhea -- Adult, DI for Diarrhea and Traveler's Diarrhea -- Child, DI for Nausea -- Adult, DI for Nausea -- Child Discharge ED Provider: Katelynn Gusman General Adult HPI General Chief complaint: Nausea/Vomiting/Diarrhea Stated complaint: abd pain Time Seen by Provider: 09/27/23 11:51 Mode of Arrival: EMS Source of Information: Patient Limitations: No Limitations Description of Symptoms (Recalled from ER Triage Doc. by RN): Patient complaint of diarrhea and abdomen pain. States that she has had 3-4 bouts of diarrhea and that the retirement took a stool sample. custodial nurse states the patient was sent to the er for evaluation for possible chf exacerbation. Nurse stated that the patient has had some increased swelling. History of Present Illness HPI narrative: Patient is a 72-year-old female whom I saw at the end of August and she was diagnosed with colitis at that time was admitted in the hospital and was discharged on September 07 to an acute care rehab facility at [place] because of her nonweightbearing status with a fibular fracture as well presents today with worsening abdominal pain persistent diarrhea as well as a cough and shortness of breath. custodial primarily was concerned about her respiratory symptoms she has no history of heart failure and her symptoms only gone for a few days and include cough and coarse breath sounds. No fevers or chills. She also states she has had persistent and worsening lower abdominal discomfort and diarrhea daily since the diagnosis at the end of August. Dr. Moon who is following her at [facility] is highly concern for C. difficile she completed a course of Omnicef and Flagyl in mid September but has recently restarted Flagyl. She has not had a PCR diagnosis of the etiology of her diarrhea. She did give a stool sample and a GI PCR panel was ordered earlier today and it supposed to be in transit to be sent out from our lab but this has not been confirmed to have been accomplished. Related Charles
[2023-09-27 12:22] LABS: Basophils % 0.1 % (0.1-2.0); Eosinophils % 0.4 % (0.1-12.0); Hematocrit 28.6 % (37.0-47.0); Hemoglobin 9.6 g/dL (12.2-16.2); Lymphocytes % 19.8 % (10-50); Mean Corpuscular HGB Conc 33.6 g/dL (31.8-35.4); Mean Corpuscular Volume 107.2 fl (81-99); Monocytes # 0.3 K/mm3 (0.1-1.0); Monocytes % 5.8 % (1.7-9.3); Neutrophils # 3.8 K/mm3 (1.8-7.8); Neutrophils % 73.9 % (37.0-80.0); Platelet Count 164 K/mm3 (142-424); Red Blood Count 2.66 M/mm3 (4.20-5.40); Red Cell Distribution Width 16.5 % (11.5-17.5); White Blood Count 5.1 K/mm3 (4.8-10.8)
--- NOTE | 2023-09-27 12:23 | PC.NURSE ---
1st set of blood cultures drawn from [facility] without complications; sent to lab
[2023-09-27 12:24] LABS: Chloride 97 mmol/L (98-107); Potassium 4.1 mmoL/L (3.5-5.1); Sodium 125 mmol/L (136-145)
[2023-09-27 12:26] LABS: Blood Urea Nitrogen 9 mg/dl (7-17); Creatinine Clearance Estimated 56 mL/min (50-200); Estimated Glomerular Filt Rate 49 ml/min (>60); GFR (African American) 59 ML/MIN (>60)
[2023-09-27 12:27] LABS: Alanine Aminotransferase 34 U/L (12-78); Albumin Level 2.1 g/dl (3.5-5.0); Albumin/Globulin Ratio 0.7 (1.1-1.8); Alkaline Phosphatase 127 U/L (38-126); Anion Gap 10.1 mEq/L (5-15); Aspartate Amino Transferase 98 U/L (14-36); Bilirubin,Total 0.4 mg/dl (0.2-1.3); Calcium 7.3 mg/dl (8.4-10.2); Carbon Dioxide 22 mmol/L (22.0-30.0); Globulin 2.9 g/dL (1.3-3.2); Glucose 90 mg/dl (74-100)
--- NOTE | 2023-09-27 12:29 | PC.NURSE ---
Lab at to draw 2nd blood culture
[2023-09-27 12:30] VITALS: PULSE 61; RESP 25; O2SAT 95
[2023-09-27 12:30] LABS: Coronavirus 19, PCR Not Detected (NotDetected); Influenza B, PCR Not Detected (NotDetected)
[2023-09-27 12:34] LABS: Magnesium 1.3 mg/dl (1.6-2.3); Phosphorous 3.6 mg/dl (2.5-4.5)
[2023-09-27 12:36] LABS: NT Pro Brain Natriuretic Pep. 885 pg/mL (0-125)
[2023-09-27 12:42] LABS: Troponin I 0.01 ng/ml (0.00-0.034)
[2023-09-27 12:49] LABS: Influenza A, PCR Detected (NotDetected)
[2023-09-27 13:00] LABS: Lactic Acid 3.6 mmol/L (0.7-2.1)
[2023-09-27 13:00] LABS: Adenovirus F 40/41, stool Not Detected (NotDetected); Astrovirus Not Detected (NotDetected); Campylobacter Not Detected (NotDetected); Clostridium Difficile A/B, PCR Not Detected (NotDetected); Cryptosporidium Not Detected (NotDetected); Cyclospora Cayetanesis Not Detected (NotDetected); Entamoeba histolytica Not Detected (NotDetected); Enteroaggregative E coli Not Detected (NotDetected); Enteropathogenic E coli Not Detected (NotDetected); Enterotoxigenic E coli Not Detected (NotDetected); Giardia lamblia Not Detected (NotDetected); Norovirus Not Detected (NotDetected); Plesimonas Shigalloides, PCR Not Detected (NotDetected); Rotavirus A Not Detected (NotDetected); Salmonella, PCR Not Detected (NotDetected); Shiga-like toxin E coli Not Detected (NotDetected); Shigella Enterovasive E coli Not Detected (NotDetected); Vibrio Cholerae Not Detected (NotDetected); Vibrio, PCR Not Detected (NotDetected); Yersinia Entercolitica, PCR Not Detected (NotDetected)
[2023-09-27 13:04] VITALS: BP 166/89; PULSE 72; RESP 20; O2SAT 98
[2023-09-27 13:30] VITALS: BP 146/101; PULSE 84; RESP 20; O2SAT 96
--- NOTE | 2023-09-27 13:54 | PC.NURSE ---
DR CHOU AT BEDSIDE TO UPDATE PT AND FAMILY
--- NOTE | 2023-09-27 13:56 | PC.NURSE ---
DR CHOU SPEAKING WITH DR WESTBROOK
[2023-09-27 14:44] VITALS: BP 163/90; PULSE 86; RESP 25; TEMP 36.7; O2SAT 95
[2023-09-27 16:42] LABS: Reflex Lactic Add Lactic Reflex
[2023-10-01 08:54] LABS: Sapovirus Not Detected (NotDetected)
== END 2023-09-27 14:46 ==
PROVIDERS: Emergency Provider Student in an Organized Health Care Education/Training Program; PCP Family Medicine
DX: E87.1 Hypo-osmolality and hyponatremia (principal); R74.02 Elevation of levels of lactic acid dehydrogenase [LDH]; J10.2 Influenza due to other identified influenza virus with gastrointestinal manifestations
CPT/HCPCS: 36415; 71045; 74177; 80053; 83605; 83735; 83880; 84100; 84484; 85025; 87040; 87507; 87636; 93005; Q9967

== ENCOUNTER → 2023-09-27 12:38 | Outpatient (REF) | payer MEDICARE, MEDICAID, SELFPAY ==
--- NOTE | 2023-09-27 11:51 | ECG_ITS ---
APPROVED REPORT Exam: Resting ECG HR:87 bpm ECG Measurements Heart Rate 87 AXES CO 154 P 10 QRSd 73 QRS 73 QT 336 T 79 QTc 380 Conclusion SINUS RHYTHM LOW QRS VOLTAGE IN PRECORDIAL LEADS [QRS DEFLECTION < 1.0 mV IN CHEST LEADS] BORDERLINE ECG UNCONFIRMED REPORT Electronically signed by : Pankaj Kemp MD 09/27/2023 19:43:58
== END ==
LOC: LAB.DROPOF 12:38
PROVIDERS: Visit Provider Family Medicine
DX: I25.10 Atherosclerotic heart disease of native coronary artery without angina pectoris (principal)
CPT/HCPCS: 93005

== ENCOUNTER 2023-10-07 18:02 | Observation (INO) | payer MEDICARE, MEDICAID, SELFPAY ==
[2023-10-07] VITALS (7 sets, daily range): BP systolic 101–139; BP diastolic 53–69; PULSE 80–90; RESP 17–20; TEMP 36.4–36.7; O2SAT 95–97; BMI 33.8; BMI 34.1
--- NOTE | 2023-10-07 18:10 | HMH.EDGENADL ---
Discharge Plan Disposition Patient Disposition: Admitted Clinical Impressions Clinical Impression: Hypoglycemia, Adverse effect of sulfonylurea Discharge ED Provider: Quoc Garcia General Adult HPI General Chief complaint: Hyper/Hypoglycemia Stated complaint: hypoglycemia Time Seen by Provider: 10/07/23 18:09 History of Present Illness HPI narrative: Patient is a 72-year-old female with past medical history of recent right lower extremity fracture, CKD, [id number] diabetes who presents to the emergency department for evaluation of altered mental status. Onset was acute, just prior to arrival. Patient had taken her nighttime medications and was in the process of eating dinner when she stared off into space became largely unresponsive with her environment. Patient was protecting her airway. In route fingerstick blood glucose was just above 20, 1 amp of D50 was administered. Patient has had significant improvement of her mental status upon arrival. States she has no acute complaints. She denies recent medication changes. Fingerstick upon arrival is greater than 60. Interval update: Family is at bedside who provides additional history, patient was previously on metformin however the last week has been transitioned to 1 mg of glyburide once a day started on October 03. Related Data Home Medications Medication Instructions Recorded Confirmed atorvastatin 80 mg tablet 80 mg PO HS High cholesterol 07/14/19 09/03/23 losartan 50 mg tablet 50 mg PO DAILY Hypertension 07/14/19 09/03/23 metformin 500 mg tablet 500 mg PO BID Diabetes 07/14/19 09/03/23 omeprazole 40 mg capsule,delayed 40 mg PO DAILY ACID REFLUX 07/14/19 09/03/23 release furosemide 20 mg tablet 20 mg PO DAILY 09/02/23 09/03/23 magnesium oxide 400 mg (241.3 mg 400 mg PO BID 09/02/23 09/03/23 magnesium) tablet rivaroxaban 20 mg tablet (Xarelto) 20 mg PO HS 09/02/23 09/03/23 metoprolol tartrate 25 mg tablet 25 mg PO DAILY 09/18/23 Previous Rx's Medication Instructions Recorded levetiracetam 500 mg tablet 500 mg PO BID #60 tabs 07/08/21 ferrous sulfate 325 mg (65 mg 325 mg PO DAILY #30 tabs 09/07/23 iron) tablet,delayed release gabapentin 100 mg capsule 200 mg PO HS #60 caps 09/07/23 metoprolol tartrate 25 mg tablet 12.5 mg PO BID #30 tabs 09/07/23 oseltamivir 75 mg capsule (Tamiflu) 75 mg PO BID 5 days #10 caps 09/27/23 Allergies Allergy/AdvReac Type Severity Reaction Status Date / Time hydrocortisone Allergy Unknown Unknown Verified 09/18/23 14:05 [HYDROCORTISONE] allergy reaction lidocaine [LIDOCAINE] Allergy Unknown Unknown Verified 09/18/23 14:05 allergy reaction Penicillins Allergy Unknown Verified 09/18/23 14:05 allergy reaction Sulfa (Sulfonamide Allergy Verified 09/18/23 14:05 Antibiotics) [facility] Disclaimer: The information contained in this section may have been updated after the patient was seen, as this information can be updated by other users. Medical History A-fib Bradycardia Diabetes History of CVA (cerebrovascular accident) Hypertension Peptic ulcer disease Pneumonia due to E. coli Seizure Type 2 diabetes mellitus Family History Mother Alzheimer's dementia Father Pancreatic cancer Other Diabetes Social History Smoking Status: Former smoker tobacco type: cigarettes packs per day: 1 second hand exposure: No alcohol intake: never current occupational status: retired Travel in the last 8 weeks: None household members: spouse housing: house current occupational exposures/hazards: No caffeine: Yes ROS Obtained: Yes Systems reviewed as appropriate & no additional complaints except as documented Physical Exam General General appearance: alert and in no apparent distress Head Head exam: atraumatic and normocephalic Eye Eye exam: Present PERRL and EOMI ENT ENT exam: Present mucous membranes moist Neck Neck exam: Present normal inspection Chest Chest inspection: Present normal inspection and symmetric chest wall rise Respiratory Respiratory exam: Present normal lung sounds bilaterally; Absent respiratory distress Cardiovascular Cardiovascular exam: Present regular rate and normal rhythm Abdominal Exam Abdominal exam: Present soft; Absent tenderness Extremities Exam Extremities exam: Present normal inspection Neurological Exam Neurological exam: Present alert; Absent motor sensory deficit Psychiatric Psychiatric exam: Present normal affect Skin Skin exam: Present warm and dry Medical Decision Making [place] Inquiry Pt receiving controlled substance: No Vital Signs: 10/07/23 18:03 10/07/23 19:00 10/07/23 19:30 Temperature 98.0 F Temperature Source Oral Pulse Rate 80 82 Pulse Rate [Right Radial] 90 Respiratory Rate 18 Blood Pressure 102/53 L 101/53 L Blood Pressure [Right Arm] 139/69 Blood Pressure Mean [Right Arm] 92 02 Sat by Pulse Oximetry 97 95 95 Oxygen Delivery Method Room Air 10/07/23 20:40 Temperature 98.1 F Temperature Source Pulse Rate 83 Pulse Rate [Right Radial] Respiratory Rate 20 Blood Pressure 112/60 Blood Pressure [Right Arm] Blood Pressure Mean [Right Arm] 02 Sat by Pulse Oximetry Oxygen Delivery Method Room Air Lab Data Lab Results 10/07/23 18:00: WBC 6.2, RBC 3.48 L, Hgb 11.7 L, Hct 35.8 L, MCV 103.0 H, MCH 33.7 H, MCHC 32.7, RDW 16.5, Plt Count 238, MPV 10.0, Neut % (Auto) 52.4, Lymph % (Auto) 35.9, [place] % (Auto) 10.2 H, Eos % (Auto) 1.0, Baso % (Auto) 0.3, Neut # (Auto) 3.2, Lymph # (Auto) 2.2, [place] # (Auto) 0.6, Eos # (Auto) 0.1, Baso # (Auto) 0.0, Sodium 132 L, Potassium 3.1 L, Chloride 102, Carbon Dioxide 26, Anion Gap 7.1, BUN 8, Creatinine 1.00, Estimated GFR 55 L, Est GFR ( Amer) 66, Glucose < 20 L*, Calcium 7.9 L, Total Bilirubin 0.5, AST 52 H, ALT 22, Alkaline Phosphatase 134 H, Total Protein 5.8 L, Albumin 2.3 L, Globulin 3.5 H, Albumin/Globulin Ratio 0.7 L 10/07/23 18:00 10/07/23 18:00 Orders (Tests/Meds): ED MEDICATIONS Generic Name Dose Route Start Last Admin Trade Name Freq PRN Reason Stop Dose Admin Dextrose/Lactated Ringer's 1,000 mls @ 150 mls/hr 10/07/23 20:30 Dextrose 5% In Lactated Ringer's 1000ml IV 11/06/23 20:29 .[id number] TOBIAS Discontinued Medications Generic Name Dose Route Start Last Admin Trade Name Freq PRN Reason Stop Dose Admin Dextrose 50 ml 10/07/23 19:37 10/07/23 19:51 Dextrose 50% 50ml Syringe (Crash Cart) IVP 10/07/23 19:38 50 ml ONCE ONE Administration Calcium Gluconate 2,000 mg/ 120 mls @ 60 mls/hr 10/07/23 18:26 10/07/23 18:42 Sodium Chloride IV 10/07/23 20:25 60 mls/hr ONCE ONE Administration Octreotide Acetate 100 mcg 10/07/23 20:30 Octreotide 100 Mcg/Ml 1ml Amp SQ 10/07/23 20:31 ONCE ONE Potassium Chloride 40 meq 10/07/23 18:26 10/07/23 18:41 Potassium Chloride 20meq Tab PO 10/07/23 18:27 40 meq ONCE ONE Administration ORDERS Category Date Time Status CBC w/Auto Diff [Complete Blood Count Auto Diff] Stat Lab 10/07/23 18:00 Completed CMP [Comprehensive Metabolic Panel] Stat Lab 10/07/23 18:00 Completed Medical Decision Narrative: In summary patient is a 72-year-old female with past medical history described above who presents emergency department for evaluation of altered mental status. Patient has significant improvement prior to arrival status post D50 when it was found that she was significantly hypoglycemic. I suspect hypoglycemia secondary to sulfonylurea initiation. Hematologic labs screening for ESAU or critical electrolyte abnormality will be conducted with CBC and CMP. Patient undergo p.o. trial at bedside and will have multiple repeat blood glucoses. Serial blood glucoses were initially uptrending however subsequently downtrending. Given this patient was given D50, underwent p.o. trial at bedside. Case was discussed with [place] [facility] who recommended 24-hour observation. Patient was started on D5 LR at maintenance ordered by pharmacy. Octreotide was ordered subcutaneously to counteract sulfonylurea mechanism of action. Case was discussed with Dr. Arnold regarding management patient will be admitted to their service at this time. Patient will be dosed home dose of Xarelto and metoprolol. Fingerstick blood glucoses will be conducted hourly and a.m. CMP will be ordered. Critical Care Critical Care Time Critical Care Time: Yes Attestation: On 10/07/23, the high probability of a clinically significant, sudden or life threatening deterioration of the following system(s) required my full and direct attention, intervention and personal management. The time I documented below is in addition to time spent performing reported procedures but includes the following listed in this critical care notation. Total Time Total Critical Care Time: 35
[2023-10-07 18:16] LABS: Basophils % 0.3 % (0.1-2.0); Chloride 102 mmol/L (98-107); Eosinophils # 0.1 K/mm3 (0.0-0.4); Hematocrit 35.8 % (37.0-47.0); Hemoglobin 11.7 g/dL (12.2-16.2); Lymphocytes # 2.2 K/mm3 (0.7-4.5); Lymphocytes % 35.9 % (10-50); Mean Corpuscular HGB Conc 32.7 g/dL (31.8-35.4); Mean Corpuscular Hemoglobin 33.7 pg (27.0-31.2); Monocytes # 0.6 K/mm3 (0.1-1.0); Monocytes % 10.2 % (1.7-9.3); Neutrophils # 3.2 K/mm3 (1.8-7.8); Neutrophils % 52.4 % (37.0-80.0); Platelet Count 238 K/mm3 (142-424); Red Blood Count 3.48 M/mm3 (4.20-5.40); Red Cell Distribution Width 16.5 % (11.5-17.5); White Blood Count 6.2 K/mm3 (4.8-10.8)
[2023-10-07 18:17] LABS: Potassium 3.1 mmoL/L (3.5-5.1); Sodium 132 mmol/L (136-145)
[2023-10-07 18:19] LABS: Alanine Aminotransferase 22 U/L (12-78); Albumin Level 2.3 g/dl (3.5-5.0); Albumin/Globulin Ratio 0.7 (1.1-1.8); Alkaline Phosphatase 134 U/L (38-126); Anion Gap 7.1 mEq/L (5-15); Aspartate Amino Transferase 52 U/L (14-36); Bilirubin,Total 0.5 mg/dl (0.2-1.3); Blood Urea Nitrogen 8 mg/dl (7-17); Carbon Dioxide 26 mmol/L (22.0-30.0); Estimated Glomerular Filt Rate 55 ml/min (>60); GFR (African American) 66 ML/MIN (>60); Globulin 3.5 g/dL (1.3-3.2); Total Protein,Serum 5.8 g/dl (6.3-8.2)
[2023-10-07 18:20] LABS: Calcium 7.9 mg/dl (8.4-10.2)
[2023-10-07 18:22] LABS: Glucose < 20 mg/dl (74-100)
[2023-10-07] MEDS: POTASSIUM CHLORIDE 20MEQ TAB 40 MEQ PO (18:41)
[2023-10-07] MEDS: CALCIUM GLUCONATE 2,000 MG in 0.9 % SODIUM CHLORIDE 100 ML 60 MG IV (18:42)
--- NOTE | 2023-10-07 19:46 | PC.NURSE ---
Spoke with [place] [facility] and they recommend a 24 hour observation. Besides giving dextrose they also recommend a dose of octreotide 50-100 mcg given SQ after sugar reaches 70-120 to help prevent further hypoglycemia and can give octreotide every 6-12 hrs as needed
[2023-10-07] MEDS: DEXTROSE 50% 50ML SYRINGE (CRASH CART) 50 ML IVP (19:51)
--- NOTE | 2023-10-07 19:52 | PC.NURSE ---
Dr. Clayton briggs
--- NOTE | 2023-10-07 20:05 | PC.NURSE ---
platform mill supervisor notified of need for room
--- NOTE | 2023-10-07 20:06 | PC.NURSE ---
OBSERVATION ADMISSION TO 206 WITH DX OF HYPOGLYCEMIA TO SERVICE OF DR. GORDILLO.
--- NOTE | 2023-10-07 20:21 | PC.NURSE ---
attempted to call report twice to 2nd floor
--- NOTE | 2023-10-07 20:29 | PC.NURSE ---
called report to Isabela RN on 2nd floor, pt most recent sugar was 179 at 2020. awaiting sugar to get into 70-120 range to administer octreotide dose and made floor rn aware of pharmacy orders per poison control protocols
--- NOTE | 2023-10-07 20:45 | PC.NURSE ---
Patient arrived to floor via stretcher from ED at 20:43.
[2023-10-07] MEDS: DEXTROSE 5%-LACTATED RINGERS 1,000 ML 150 ML IV (21:26)
[2023-10-07 21:48] LABS: POC Glucose,Bedside 140 (70-110)
[2023-10-07] MEDS: RIVAROXABAN 10MG TABLET 20 MG PO (22:56)
[2023-10-07] MEDS: METOPROLOL TARTRATE 25MG TABLET 12.5 MG PO (23:03)
[2023-10-07 23:07] LABS: POC Glucose,Bedside 124 (70-110)
[2023-10-08] VITALS: BP 139/76; PULSE 74; RESP 17; TEMP 36.6; O2SAT 96
[2023-10-08] MEDS: OCTREOTIDE 100 MCG/ML 1ML AMP SQ (00:23)
[2023-10-08 00:32] LABS: POC Glucose,Bedside 94 (70-110)
[2023-10-08 01:40] LABS: POC Glucose,Bedside 96 (70-110)
[2023-10-08 02:39] LABS: POC Glucose,Bedside 116 (70-110)
[2023-10-08] MEDS: DEXTROSE 5%-LACTATED RINGERS 1,000 ML 150 ML IV (03:33)
[2023-10-08 03:43] LABS: POC Glucose,Bedside 146 (70-110)
[2023-10-08 04:00] VITALS: BP 124/62; PULSE 82; RESP 16; TEMP 36.8; O2SAT 92
--- NOTE | 2023-10-08 04:15 | PC.NURSE ---
REC'D CALL FROM POISON CONTROL, TRANSFERRED TO ASSIGNED NURSE ON M/S
[2023-10-08 04:35] LABS: POC Glucose,Bedside 161 (70-110)
[2023-10-08 05:46] LABS: POC Glucose,Bedside 192 (70-110)
[2023-10-08 06:35] LABS: POC Glucose,Bedside 206 (70-110)
[2023-10-08 07:53] VITALS: BP 110/60; PULSE 85; RESP 18; TEMP 36.8; O2SAT 92
[2023-10-08 07:53] LABS: Alanine Aminotransferase 18 U/L (12-78); Albumin Level 1.8 g/dl (3.5-5.0); Albumin/Globulin Ratio 0.6 (1.1-1.8); Alkaline Phosphatase 113 U/L (38-126); Anion Gap 4.9 mEq/L (5-15); Aspartate Amino Transferase 37 U/L (14-36); Bilirubin,Total 0.5 mg/dl (0.2-1.3); Blood Urea Nitrogen 5 mg/dl (7-17); Calcium 7.6 mg/dl (8.4-10.2); Carbon Dioxide 26 mmol/L (22.0-30.0); Chloride 102 mmol/L (98-107); Creatinine Clearance Estimated 68 mL/min (50-200); Estimated Glomerular Filt Rate 71 ml/min (>60); GFR (African American) 85 ML/MIN (>60); Globulin 2.9 g/dL (1.3-3.2); Glucose 209 mg/dl (74-100); Potassium 3.9 mmoL/L (3.5-5.1); Sodium 129 mmol/L (136-145); Total Protein,Serum 4.7 g/dl (6.3-8.2)
[2023-10-08 08:38] LABS: POC Glucose,Bedside 318 (70-110)
[2023-10-08] MEDS: METOPROLOL TARTRATE 25MG TABLET 12.5 MG PO ×2 (09:38→20:16)
--- NOTE | 2023-10-08 09:43 | PC.NURSE ---
per pt, okay to give sister ben and daughter michael information
[2023-10-08 09:52] LABS: POC Glucose,Bedside 330 (70-110)
--- NOTE | 2023-10-08 10:01 | HMH.PHAINT1 ---
Pharmacy Intervention Comments: HOME MEDICATION LIST VERIFIED USING MAR FROM [facility]
--- NOTE | 2023-10-08 11:04 | P.HP_ITS ---
History of Present Illness *Admission Date: 10/07/23 *Reason for visit:: Hypoglycemia *History of present illness: 72-year-old white female admitted from the emergency room after presenting with hypoglycemia and altered consciousness. On October 03 her diabetes medications were changed. Metformin was discontinued apparently due to GI concerns and diarrhea. Glimepiride 1 mg daily was started on October 03 (not glyburide, verified by [facility] [place]). When she presented in the emergency room her glucose was 20. She hasd receieved D50 in transit and her orientation was improving. Additionally she was treated with IV dextrose as well as octreotide. She stabilized in the ER but was hospitalized due to concerns for further episodes of medication induced hyypoglycemia. She was also significantly hyponatremic. She has been hospitalized at [facility] since September 07 due to a right ankle fracture. This is being followed by Dr. Birch. He decided against surgery for the patient. She has been wearing a boot when up and about. Medication list is reviewed. Daily dose of furosemide is noted. [facility] Disclaimer: The information contained in this section may have been updated after the patient was seen, as this information can be updated by other users. Medical History (Updated 10/08/23 @ 11:32 by Larisa Arnold MD) A-fib Acute metabolic encephalopathy due to hypoglycemia Basal cell carcinoma Bradycardia Carotid stenosis Chronic kidney disease COVID Diabetes Fibula fracture History of CVA (cerebrovascular accident) Hypertension Hypoglycemia associated with diabetes Peptic ulcer disease Pneumonia due to E. coli Seizure Squamous cell carcinoma Type 2 diabetes mellitus Surgical History (Updated 10/07/23 @ 21:12 by Isabela Braun RN) History of hysterectomy S/P carotid endarterectomy Family History Mother Alzheimer's dementia Father Pancreatic cancer Other Diabetes Social History Smoking Status: Former smoker tobacco type: cigarettes packs per day: 1 second hand exposure: No alcohol intake: never current occupational status: retired Travel in the last 8 weeks: None household members: spouse housing: house current occupational exposures/hazards: No caffeine: Yes Review of Systems Review of Systems Review of systems:: pertinent systems reviewed and negative unless documented below Constitutional Constitutional: Reports system reviewed and no additional complaints, except as documented Eyes Eyes: Reports system reviewed and no additional complaints, except as documented ENT Ears, Nose, Mouth, and Throat: Reports system reviewed and no additional complaints, except as documented *Cardiovascular Cardiovascular: Reports system reviewed and no additional complaints, except as documented, Denies chest pain, Denies chest pain at rest, Denies chest pain with activity and Reports dyspnea *Respiratory Respiratory: Reports system reviewed and no additional complaints, except as documented and Reports dyspnea *Gastrointestinal Gastrointestinal: Reports change in bowel habits and Reports diarrhea (Possibly due to the metformin.) *Genitourinary Genitourinary: Reports system reviewed and no additional complaints, except as documented, Denies abnormal vaginal bleeding and Denies dysuria *Musculoskeletal Musculoskeletal: Reports system reviewed and no additional complaints, except as documented and Reports other (Right ankle fibular fracture.) Integumentary/Breasts Skin/Breast: Reports system reviewed and no additional complaints, except as documented *Neurologic Neurologic: Reports system reviewed and no additional complaints, except as documented and Reports confusion (Due to hypoglycemia) Psychiatric Psychiatric: Reports system reviewed and no additional complaints, except as documented and Reports confusion (Due to hypoglycemia) Endocrine Endocrine: Reports system reviewed and no additional complaints, except as documented and Reports as per HPI Hematologic/Lymphatic Hematologic/Lymphatic: Reports system reviewed and no additional complaints, except as documented Allergic/Immunologic Allergic/Immunologic: Reports system reviewed and no additional complaints, except as documented Comments: Sulfa allergy as noted along with penicillin lidocaine and hydrocortisone. Meds Home Medications and Allergies Home Medications Medication Instructions Recorded Confirmed Type atorvastatin 80 mg tablet 80 mg PO HS High cholesterol 07/14/19 10/08/23 History losartan 50 mg tablet 50 mg PO DAILY Hypertension 07/14/19 10/08/23 History levetiracetam 500 mg tablet 500 mg PO BID #60 tabs 07/08/21 10/08/23 Rx furosemide 20 mg tablet 20 mg PO DAILY 09/02/23 10/08/23 History magnesium oxide 400 mg (241.3 mg 400 mg PO BID 09/02/23 10/08/23 History magnesium) tablet rivaroxaban 20 mg tablet (Xarelto) 20 mg PO QPMWITHMEAL 09/02/23 10/08/23 History ferrous sulfate 325 mg (65 mg 325 mg PO DAILY #30 tabs 09/07/23 10/08/23 Rx iron) tablet,delayed release gabapentin 100 mg capsule 200 mg PO HS #60 caps 09/07/23 10/08/23 Rx metoprolol tartrate 25 mg tablet 12.5 mg PO BID #30 tabs 09/07/23 10/08/23 Rx acetaminophen 500 mg tablet 500 mg PO Q4HP PRN Pain 10/08/23 10/08/23 History dextromethorphan polistirex 30 10 ml PO QIDP PRN Cough 10/08/23 10/08/23 History mg/5 mL oral susp ext.release 12hr (Robitussin ER) dicyclomine 10 mg capsule 10 mg PO QIDP PRN cramping 10/08/23 10/08/23 History glimepiride 1 mg tablet 1 mg PO DAILY 10/08/23 10/08/23 History nystatin 100,000 unit/gram topical 1 applic topical BID 10/08/23 10/08/23 History ointment nystatin 100,000 unit/gram topical 1 applic topical BID 10/08/23 10/08/23 History powder omeprazole 40 mg capsule,delayed 40 mg PO DAILY 10/08/23 History release ondansetron 4 mg disintegrating 4 mg PO Q6H PRN Nausea And Vomiting 10/08/23 10/08/23 History tablet pantoprazole 40 mg tablet,delayed 40 mg PO DAILY 10/08/23 10/08/23 History release potassium chloride 20 mEq 20 meq PO Q48H 10/08/23 10/08/23 History tablet,extended release New Prescriptions to Start Prescriptions: Allergies Allergy/AdvReac Type Severity Reaction Status Date / Time hydrocortisone Allergy Unknown Unknown Verified 09/18/23 14:05 [HYDROCORTISONE] allergy reaction lidocaine [LIDOCAINE] Allergy Unknown Unknown Verified 09/18/23 14:05 allergy reaction Penicillins Allergy Unknown Verified 09/18/23 14:05 allergy reaction Sulfa (Sulfonamide Allergy Verified 09/18/23 14:05 Antibiotics) Exam Data for Last 24 hours Vital signs and Labs for Last 24 Hours: Temp Pulse Resp BP Pulse Ox O2 Del Method 98.3 F 85 18 110/60 92 L Room Air 10/08/23 07:53 10/08/23 07:53 10/08/23 07:53 10/08/23 07:53 10/08/23 07:53 10/08/23 08:00 Laboratory Results - last 24 hr 10/07/23 18:00: WBC 6.2, RBC 3.48 L, Hgb 11.7 L, Hct 35.8 L, MCV 103.0 H, MCH 33.7 H, MCHC 32.7, RDW 16.5, Plt Count 238, MPV 10.0, Neut % (Auto) 52.4, Lymph % (Auto) 35.9, Whiteside % (Auto) 10.2 H, Eos % (Auto) 1.0, Baso % (Auto) 0.3, Neut # (Auto) 3.2, Lymph # (Auto) 2.2, Whiteside # (Auto) 0.6, Eos # (Auto) 0.1, Baso # (Auto) 0.0, Sodium 132 L, Potassium 3.1 L, Chloride 102, Carbon Dioxide 26, Anion Gap 7.1, BUN 8, Creatinine 1.00, Estimated GFR 55 L, Est GFR ( Amer) 66, Glucose < 20 L*, Calcium 7.9 L, Total Bilirubin 0.5, AST 52 H, ALT 22, Alkaline Phosphatase 134 H, Total Protein 5.8 L, Albumin 2.3 L, Globulin 3.5 H, Albumin/Globulin Ratio 0.7 L 10/07/23 21:23: POC Glucose 140 H 10/07/23 22:50: POC Glucose 124 H 10/08/23 00:21: POC Glucose 94 10/08/23 01:28: POC Glucose 96 10/08/23 02:31: POC Glucose 116 H 10/08/23 03:30: POC Glucose 146 H 10/08/23 04:27: POC Glucose 161 H 10/08/23 05:37: POC Glucose 192 H 10/08/23 06:28: POC Glucose 206 H 10/08/23 07:04: Sodium 129 L, Potassium 3.9 D, Chloride 102, Carbon Dioxide 26, Anion Gap 4.9 L, BUN 5 L D, Creatinine 0.80, Estimated Creat Clear 68, Estimated GFR 71, Est GFR ( Amer) 85 D, Glucose 209 H D, Calcium 7.6 L, Total Bilirubin 0.5, AST 37 H D, ALT 18, Alkaline Phosphatase 113, Total Protein 4.7 L, Albumin 1.8 L D, Globulin 2.9, Albumin/Globulin Ratio 0.6 L 10/08/23 08:29: POC Glucose 318 H* 10/08/23 09:36: POC Glucose 330 H* I & O for Last 24 hours: Intake & Output 10/05/23 10/06/23 10/07/23 10/08/23 11:59 11:59 11:59 11:59 Intake Total 1464 / 1464 Output Total 300 / 300 Balance 1164 / 1164 Weight 185 lb 8 oz Constitutional Constitutional: no acute distress and obese *Routine HEENT Exam Head: Present normocephalic Eye: Present PERRL ENT: Present mucous membranes moist *Routine Neck Exam Comments: Scar at the right carotid area Routine Chest/Breast/Axilla Exam Chest wall: Absent tenderness Breast: Absent tenderness Axillae: Absent lymphadenopathy *Routine Respiratory Exam Respiratory: Present CTA bilaterally *Routine Cardiovascular Exam Cardiovascular: Present RRR; Absent murmur *Routine Abdominal Exam Abdominal: Present soft and obese; Absent tenderness *Routine Rectal Exam Rectal:: deferred *Routine Genitalia Exam Genitalia:: deferred *Routine Extremities Exam Extremities: Present edema (2+ bilaterally.) and tenderness (Right ankle laterally) Routine Back/Spine/Pelvis Exam Back/Spine: Absent CVA tenderness *Routine Skin Exam Skin: Present intact *Routine Neurological Exam Neurological: Present alert, oriented X3, CN II-XII intact, moving all extremities and hearing grossly intact; Absent altered mental status Routine Psychiatric Exam Psychiatric: Present normal affect and normal thought process Assessment and Plan *Assessment and plan (1) Acute metabolic encephalopathy due to hypoglycemia: Status: Acute Category: Medical Code(s): G93.41 - Metabolic encephalopathy; E16.2 - Hypoglycemia, unspecified (2) Hypoglycemia associated with diabetes: Status: Acute Category: Medical Code(s): E11.649 - Type 2 diabetes mellitus with hypoglycemia without coma (3) Hyponatremia: Status: Acute Category: Medical Code(s): E87.1 - Hypo-osmolality and hyponatremia (4) Fracture of right fibula: Status: Acute Category: Medical Code(s): S82.401A - Unspecified fracture of shaft of right fibula, initial encounter for closed fracture (5) Adverse effect of sulfonylurea: Status: Acute Category: Medical Code(s): T38.3X5A - Adverse effect of insulin and oral hypoglycemic [antidiabetic] drugs, initial encounter (6) History of CVA (cerebrovascular accident): Status: Chronic Category: Medical Code(s): Z86.73 - Personal history of transient ischemic attack (TIA), and cerebral infarction without residual deficits (7) Type 2 diabetes mellitus: Status: Chronic Qualifiers: 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 Metformin 500 mg p.o. twice daily will be reinstituted. . Medications are reviewed and Ordered accordingly. Saline lock has been placed. Blood sugars will be monitored. A1c is ordered.Potassium is ordered to address the low sodium.
--- NOTE | 2023-10-08 11:16 | PC.NURSE ---
Addendum entered by Tanya Rodriguez RN 10/08/23 17:24: gave another update to poison control. pt A&O x4, sitting up in bed with family at bs t/o day. per switch fsbg to q6hr. pts fs have been 200s-300s today, saline lock iv per bernard. cb within reach, no concerns at this time. Original Note: update given to [place] poison control
[2023-10-08 11:33] LABS: Hemoglobin A1C 5.2 % (4.0-6.0)
[2023-10-08] MEDS: levETIRAcetam 500 MG TABLET PO ×2 (12:07→20:16)
[2023-10-08] MEDS: METFORMIN 500MG TABLET 500 MG PO ×2 (12:08→16:35)
[2023-10-08] MEDS: FUROSEMIDE 20MG TABLET 20 MG PO (12:08)
[2023-10-08] MEDS: POTASSIUM CHLORIDE 20MEQ TAB 20 MEQ PO (12:08)
[2023-10-08 12:18] LABS: POC Glucose,Bedside 269 (70-110)
[2023-10-08 15:15] VITALS: BP 135/65; PULSE 83; RESP 18; TEMP 36.6; O2SAT 94
[2023-10-08] MEDS: RIVAROXABAN 10MG TABLET 20 MG PO (16:36)
[2023-10-08 16:52] LABS: POC Glucose,Bedside 253 (70-110)
[2023-10-08 20:00] VITALS: BP 140/82; PULSE 87; RESP 16; TEMP 36.4; O2SAT 96
[2023-10-08] MEDS: GABAPENTIN 100MG CAPSULE 200 MG PO (20:16)
[2023-10-08] MEDS: PANTOPRAZOLE 40MG TABLET 40 MG PO (20:16)
[2023-10-08 23:25] LABS: POC Glucose,Bedside 97 (70-110)
[2023-10-09 04:00] VITALS: BP 127/73; PULSE 95; RESP 18; TEMP 36.5; O2SAT 91; BMI 35.5
--- NOTE | 2023-10-09 05:13 | PC.NURSE ---
Patient has rested well tonight. Patient is on a purewick due to the non weight bearing status on the Right leg. remains AxO and on RA. Patient has had no complaints all shift.
[2023-10-09 05:45] LABS: POC Glucose,Bedside 71 (70-110)
[2023-10-09] MEDS: METFORMIN 500MG TABLET 500 MG PO (06:38)
[2023-10-09 06:44] LABS: Anion Gap 5.9 mEq/L (5-15); Blood Urea Nitrogen 4 mg/dl (7-17); Carbon Dioxide 26 mmol/L (22.0-30.0); Chloride 102 mmol/L (98-107); Potassium 3.9 mmoL/L (3.5-5.1); Sodium 130 mmol/L (136-145)
[2023-10-09 06:45] LABS: Alanine Aminotransferase 28 U/L (12-78); Albumin Level 1.9 g/dl (3.5-5.0); Albumin/Globulin Ratio 0.6 (1.1-1.8); Alkaline Phosphatase 120 U/L (38-126); Aspartate Amino Transferase 48 U/L (14-36); Bilirubin,Total 0.6 mg/dl (0.2-1.3); Calcium 7.8 mg/dl (8.4-10.2); Creatinine Clearance Estimated 70 mL/min (50-200); Estimated Glomerular Filt Rate 55 ml/min (>60); GFR (African American) 66 ML/MIN (>60); Globulin 3.2 g/dL (1.3-3.2); Glucose 90 mg/dl (74-100); Total Protein,Serum 5.1 g/dl (6.3-8.2)
[2023-10-09 08:00] VITALS: BP 126/53; PULSE 100; RESP 20; TEMP 36.6; O2SAT 93
[2023-10-09] MEDS: IRBESARTAN 75MG TABLET 75 MG PO (08:41)
[2023-10-09] MEDS: POTASSIUM CHLORIDE 20MEQ TAB 20 MEQ PO (08:41)
[2023-10-09] MEDS: METOPROLOL TARTRATE 25MG TABLET 12.5 MG PO (08:41)
[2023-10-09] MEDS: levETIRAcetam 500 MG TABLET PO (08:41)
[2023-10-09] MEDS: FUROSEMIDE 20MG TABLET 20 MG PO (08:41)
--- NOTE | 2023-10-09 08:43 | SW/DCPLANNER ---
Addendum entered by Khushi Walker 10/09/23 09:51: I have updated Liam navarro/ Manuel Rahman that patient will return today. Original Note: Patient is currently SNF level of care at [facility]. Updated patient information has been faxed to Yamila Rahman. Discharge date is unknown at this time.
--- NOTE | 2023-10-09 08:58 | EXP.ACUTE.PN ---
Subjective *Date: 10/09/23 *Time: 08:58 Interval history: She feels better. Her blood sugars have normalized. Significantly her A1c is only 5.2. This makes me think that perhaps we can get away with 1 metformin a day. We will discharge today back to [facility]. Medical Exam Vital signs and Labs for Last 24 Hours: Vital Signs Temp Pulse Resp BP Pulse Ox O2 Del Method 10/09/23 08:00 97.8 F 100 H 20 126/53 L 93 L Room Air 10/09/23 08:00 Room Air 10/09/23 04:00 97.7 F 95 H 18 127/73 91 L Room Air 10/09/23 03:00 Room Air 10/09/23 06:49 Room Air 10/09/23 05:00 Room Air 10/09/23 01:00 Room Air 10/08/23 22:56 Room Air 10/08/23 21:00 Room Air 10/08/23 20:00 Room Air 10/08/23 20:00 97.6 F 87 16 140/82 96 Room Air 10/08/23 18:47 Room Air 10/08/23 17:00 Room Air 10/08/23 15:00 Room Air 10/08/23 15:15 97.8 F 83 18 135/65 94 L Room Air 10/08/23 13:00 Room Air 10/08/23 11:00 Room Air 10/08/23 09:00 Room Air Intake and Output 10/08/23 10/09/23 10/09/23 19:59 03:59 11:59 Intake Total 480 / 1070 350 / 1070 240 / 1070 Output Total 800 / 2650 1050 / 2650 800 / 2650 Balance -320 / -1580 -700 / -1580 -560 / -1580 Intake: Intake, Oral Amount 480 / 1070 350 / 1070 240 / 1070 Output: Output, Urine Amount 800 / 2650 1050 / 2650 800 / 2650 Other: Number of Voids 0 Number of Unmeasured Voids 0 1 0 Number of Bowel Movements 1 Weight 193 lb 1.6 oz Patient Weight 10/09/23 11:59 Weight 193 lb 1.6 oz Laboratory Results - last 24 hr 10/08/23 09:36: POC Glucose 330 H* 10/08/23 10:50: Hemoglobin A1c 5.2 10/08/23 12:05: POC Glucose 269 H 10/08/23 16:38: POC Glucose 253 H 10/08/23 23:16: POC Glucose 97 10/09/23 05:38: POC Glucose 71 10/09/23 06:00: Sodium 130 L, Potassium 3.9, Chloride 102, Carbon Dioxide 26, Anion Gap 5.9, BUN 4 L, Creatinine 1.00 D, Estimated Creat Clear 70, Estimated GFR 55 L, Est GFR ( Amer) 66 D, Glucose 90 D, Calcium 7.8 L, Total Bilirubin 0.6, AST 48 H D, ALT 28 D, Alkaline Phosphatase 120, Total Protein 5.1 L, Albumin 1.9 L, Globulin 3.2, Albumin/Globulin Ratio 0.6 L I & O for Labs for Last 24 Hours: Intake & Output 10/06/23 10/07/23 10/08/23 10/09/23 11:59 11:59 11:59 11:59 Intake Total 1464 / 1464 1070 / 1070 Output Total 300 / 300 2650 / 2650 Balance 1164 / 1164 -1580 / -1580 Weight 185 lb 8 oz 193 lb 1.6 oz Head: Present normocephalic Neck: Present normal inspection Respiratory: Present CTA bilaterally; Absent respiratory distress Cardiac: Present Reg Rate and Rhythm GI: Present soft; Absent tenderness Rectal (female): Present deferred (female): Present deferred Extremities: Present edema (1+ bilaterally) Skin: Present intact Neuro: Present alert, awake and oriented x 3 Assessment and Plan *Assessment and plan (1) Hypoglycemia associated with diabetes: Status: Acute Category: Medical Code(s): E11.649 - Type 2 diabetes mellitus with hypoglycemia without coma (2) Acute metabolic encephalopathy due to hypoglycemia: Status: Acute Category: Medical Code(s): G93.41 - Metabolic encephalopathy; E16.2 - Hypoglycemia, unspecified (3) Hyponatremia: Status: Acute Category: Medical Code(s): E87.1 - Hypo-osmolality and hyponatremia (4) Fracture of right fibula: Status: Acute Category: Medical Code(s): S82.401A - Unspecified fracture of shaft of right fibula, initial encounter for closed fracture (5) Fracture of right ankle, lateral malleolus: Status: Acute Qualifiers: Encounter type: initial encounter Fracture type: closed Fracture alignment: nondisplaced Qualified Code(s): S82.64XA - Nondisplaced fracture of lateral malleolus of right fibula, initial encounter for closed fracture Category: Medical Code(s): S82.61XA - Displaced fracture of lateral malleolus of right fibula, initial encounter for closed fracture (6) History of CVA (cerebrovascular accident): Status: Chronic Category: Medical Code(s): Z86.73 - Personal history of transient ischemic attack (TIA), and cerebral infarction without residual deficits (7) Type 2 diabetes mellitus: Status: Chronic Qualifiers: Diabetes mellitus terminal 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 Decrease metformin to 500 mg a day.
--- NOTE | 2023-10-09 11:04 | HMH.PTEV ---
Physical Therapy Evaluation Rehab PT IP Evaluation Start: 10/08/23 11:38 Freq: ONCE Status: Active Protocol: Document 10/09/23 10:48 BHAVANIBud (Rec: 10/09/23 11:03 NORAH [id number]) Subjective/History History History Pt is a 72 y/o female who presented to [facility] ED on 10/08/23 presenting with hypoglycemia and altered consciousness. Per history & physical note, On October 03 her diabetes medications were changed. Metformin was discontinued apparently due to GI concerns and diarrhea. Glimepiride 1 mg daily was started on October 03 (not glyburide, verified by [facility] [place]). When she presented in the emergency room her glucose was 20. She has receieved D50 in transit and her orientation was improving. Additionally she was treated with IV dextrose as well as octreotide. She stabilized in the ER but was hospitalized due to concerns for further episodes of medication induced hyypoglycemia. She was also significantly hyponatremic. She has been hospitalized at [facility] since September 07 due to a right ankle fracture. This is being followed by Dr Dora Birch. He decided against surgery for the patient. She has been wearing a boot when up and about. Subjective Subjective Pt reports she is currently staying at [facility] following a fracture of her right fibula. Pt reports minimal pain of the right distal ankle at rest. Pt states she is NWB but sees her doctor on for a follow-up. Pt reports she was receiving therapy at [facility] and has a walking boot there. Pt reports she was also receiving assist for dressing /bathing at [facility]. Pt reports prior to being at [facility], she lived in a single story home with her . Pt reports she was previously independent with ADLs and used a walker for ambulation. New diagnosis of cancer in past 12 No months? Rehab PT IP Eval Objective Appearance Patient Behavior Appropriate,Cooperative Patient Orientation Person,Place,Name,Birthday Difficulty following instructions none Speech Pattern Clear,Appropriate Balance Ability to Arise Able, uses arms to help Sitting Balance Steady, safe Transfers Bed Transfer Ability Moderate x 1 (50% assist) Rehab PT IP prob,goals,plan Problems Date of Evaluation: 10/09/23 PT IP Problems Bed Mobility,Transfers,Gait, Balance,Self care,Safety Rehab Potential Rehab Potential Good Equipment Needs Assistive Devices Rolling / Wheeled Walker Plan PT Intervention Plan Bed Mobility,Transfers,Gait, Balance,Self care,Safety, Therapeutic Exercise Other Intervention Plan 1-2x/day PT Plan Frequency Daily Duration LOS Discharge Goals Bed Transfer Ability Minimal x 1 (25% assist) Sit to Stand Chair Transfer Ability Moderate x 1 (50% assist) Discharge Plan PT Discharge Plan Pt will benefit from skilled therapy while in [facility] and is appropriate to return to [facility] for rehab s/p DC from [facility]. Without skilled therapy pt is at an increased risk for falls, fractures, wounds and increased burden of care. Eval Complexity Eval Charge Codes 18296 - Moderate Complexity PHYSICIAN CERTIFICATION: I certify the specified therapy services for Alondra Zuniga are required, authorized, and reviewed every 30 days.
--- NOTE | 2023-10-09 11:35 | PC.NURSE ---
pt ready for dc. waiting on dc summary
--- NOTE | 2023-10-09 11:36 | PC.NURSE ---
Courtesy Round Patient awake laying in bed. Trash emptied and linens. Patient voiced no needs at this time. Call light within reach
[2023-10-09 11:42] LABS: POC Glucose,Bedside 108 (70-110)
--- NOTE | 2023-10-09 12:50 | EXP.DC.SUM ---
General Admission date:: 10/07/23 Discharge date: 10/09/23 HPI HPI HPI: 72-year-old white female admitted from the emergency room after presenting with hypoglycemia and altered consciousness. On October 03 her diabetes medications were changed. Metformin was discontinued apparently due to GI concerns and diarrhea. Glimepiride 1 mg daily was started on October 03 (not glyburide, verified by [facility]). When she presented in the emergency room her glucose was 20. She hasd receieved D50 in transit and her orientation was improving. Additionally she was treated with IV dextrose as well as octreotide. She stabilized in the ER but was hospitalized due to concerns for further episodes of medication induced hyypoglycemia. She was also significantly hyponatremic. She has been hospitalized at [facility] since September 07 due to a right ankle fracture. This is being followed by Dr. Birch. He decided against surgery for the patient. She has been wearing a boot when up and about. Medication list is reviewed. Daily dose of furosemide is noted. Hospital Course Hospital Course Hospital Course: The patient's blood sugar was low in the emergency room. Treatment hypoglycemia. She was admitted with IV D10. In the morning following admission blood sugars were over 300. Saline lock was initiated. Due to the dramatic reaction to the glimepiride it was not continued. Metformin was resumed at 500 mg p.o. twice daily as prior to hospitalization. Blood sugars normalized. Upon discharge it was felt that perhaps we can get away with 500 mg of metformin once a day and follow her blood sugars in [facility]. Her orthopedic problem will be monitored by Dr. Birch. It is noted that she was still hyponatremic on discharge. This will be also monitored at the nursing facility at [facility]. Exam Data for Last 24 hours Vital signs and Labs for Last 24 Hours: Temp Pulse Resp BP Pulse Ox O2 Del Method 97.8 F 100 H 20 126/53 L 93 L Room Air 10/09/23 08:00 10/09/23 08:00 10/09/23 08:00 10/09/23 08:00 10/09/23 08:00 10/09/23 11:00 Laboratory Results - last 24 hr 10/08/23 16:38: POC Glucose 253 H 10/08/23 23:16: POC Glucose 97 10/09/23 05:38: POC Glucose 71 10/09/23 06:00: Sodium 130 L, Potassium 3.9, Chloride 102, Carbon Dioxide 26, Anion Gap 5.9, BUN 4 L, Creatinine 1.00 D, Estimated Creat Clear 70, Estimated GFR 55 L, Est GFR ( Amer) 66 D, Glucose 90 D, Calcium 7.8 L, Total Bilirubin 0.6, AST 48 H D, ALT 28 D, Alkaline Phosphatase 120, Total Protein 5.1 L, Albumin 1.9 L, Globulin 3.2, Albumin/Globulin Ratio 0.6 L 10/09/23 11:29: POC Glucose 108 I & O for Last 24 hours: Intake & Output 10/07/23 10/08/23 10/09/23 10/10/23 11:59 11:59 11:59 11:59 Intake Total 1464 / 1464 1070 / 1070 Output Total 300 / 300 2650 / 2650 Balance 1164 / 1164 -1580 / -1580 Weight 185 lb 8 oz 193 lb 1.6 oz Constitutional Constitutional: no acute distress *Routine HEENT Exam Head: Present normocephalic Eye: Present PERRL ENT: Present mucous membranes moist *Routine Neck Exam Neck: Present full ROM; Absent JVD Routine Chest/Breast/Axilla Exam Chest wall: Absent tenderness *Routine Respiratory Exam Respiratory: Present CTA bilaterally *Routine Cardiovascular Exam Cardiovascular: Present RRR *Routine Abdominal Exam Abdominal: Present soft and obese; Absent tenderness *Routine Rectal Exam Patient deferred: visual exam (Deferred) *Routine Exam Patient deferred: external exam (Deferred) *Routine Extremities Exam Extremities: Present edema (2+ admission. 1+ on discharge) Routine Back/Spine/Pelvis Exam Back/Spine: Present full ROM and kyphosis (Mild dorsal kyphosis) *Routine Skin Exam Skin: Present intact *Routine Neurological Exam Neurological: Present alert and oriented X3 Routine Psychiatric Exam Psychiatric: Present normal affect and normal thought process Results Data Completed and Pending Labs on day of discharge: Labs from last 24 hours 10/09/23 10/09/23 10/09/23 11:29 06:00 05:38 Sodium 130 L Potassium 3.9 Chloride 102 Carbon Dioxide 26 Anion Gap 5.9 BUN 4 L Creatinine 1.00 D Estimated Creat Clear 70 Estimated GFR 55 L Est GFR ( Amer) 66 D Glucose 90 D POC Glucose 108 71 Calcium 7.8 L Total Bilirubin 0.6 AST 48 H D ALT 28 D Alkaline Phosphatase 120 Total Protein 5.1 L Albumin 1.9 L Globulin 3.2 Albumin/Globulin Ratio 0.6 L 10/08/23 10/08/23 23:16 16:38 Sodium Potassium Chloride Carbon Dioxide Anion Gap BUN Creatinine Estimated Creat Clear Estimated GFR Est GFR ( Amer) Glucose POC Glucose 97 253 H Calcium Total Bilirubin AST ALT Alkaline Phosphatase Total Protein Albumin Globulin Albumin/Globulin Ratio DS: Diagnosis Discharge Diagnosis (1) Hypoglycemia associated with diabetes: Status: Acute Code(s): E11.649 - Type 2 diabetes mellitus with hypoglycemia without coma (2) Acute metabolic encephalopathy due to hypoglycemia: Status: Acute Code(s): G93.41 - Metabolic encephalopathy; E16.2 - Hypoglycemia, unspecified (3) Hyponatremia: Status: Acute Code(s): E87.1 - Hypo-osmolality and hyponatremia (4) Fracture of right fibula: Status: Acute Code(s): S82.401A - Unspecified fracture of shaft of right fibula, initial encounter for closed fracture (5) Fracture of right ankle, lateral malleolus: Status: Acute Code(s): S82.61XA - Displaced fracture of lateral malleolus of right fibula, initial encounter for closed fracture Qualifiers: Encounter type: initial encounter Fracture type: closed Fracture alignment: nondisplaced Qualified Code(s): S82.64XA - Nondisplaced fracture of lateral malleolus of right fibula, initial encounter for closed fracture (6) History of CVA (cerebrovascular accident): Status: Chronic Code(s): Z86.73 - Personal history of transient ischemic attack (TIA), and cerebral infarction without residual deficits (7) Type 2 diabetes mellitus: Status: Chronic Code(s): E11.9 - Type 2 diabetes mellitus without complications Qualifiers: Diabetes mellitus manager long term care insulin use: with manager long term care use Diabetes mellitus complication status: without complication Qualified Code(s): E11.9 - Type 2 diabetes mellitus without complications; Z79.4 - FPC (current) use of insulin Meds Home Medications and Allergies Home Medications Medication Instructions Recorded Confirmed Type atorvastatin 80 mg tablet 80 mg PO HS High cholesterol 07/14/19 10/08/23 History losartan 50 mg tablet 50 mg PO DAILY Hypertension 07/14/19 10/08/23 History levetiracetam 500 mg tablet 500 mg PO BID #60 tabs 07/08/21 10/08/23 Rx furosemide 20 mg tablet 20 mg PO DAILY 09/02/23 10/08/23 History magnesium oxide 400 mg (241.3 mg 400 mg PO BID 09/02/23 10/08/23 History magnesium) tablet rivaroxaban 20 mg tablet (Xarelto) 20 mg PO QPMWITHMEAL 09/02/23 10/08/23 History ferrous sulfate 325 mg (65 mg 325 mg PO DAILY #30 tabs 09/07/23 10/08/23 Rx iron) tablet,delayed release gabapentin 100 mg capsule 200 mg PO HS #60 caps 09/07/23 10/08/23 Rx metoprolol tartrate 25 mg tablet 12.5 mg PO BID #30 tabs 09/07/23 10/08/23 Rx acetaminophen 500 mg tablet 500 mg PO Q4HP PRN Pain 10/08/23 10/08/23 History dextromethorphan polistirex 30 10 ml PO QIDP PRN Cough 10/08/23 10/08/23 History mg/5 mL oral susp ext.release 12hr (Robitussin ER) dicyclomine 10 mg capsule 10 mg PO QIDP PRN cramping 10/08/23 10/08/23 History glimepiride 1 mg tablet 1 mg PO DAILY 10/08/23 10/08/23 History nystatin 100,000 unit/gram topical 1 applic topical BID 10/08/23 10/08/23 History ointment nystatin 100,000 unit/gram topical 1 applic topical BID 10/08/23 10/08/23 History powder omeprazole 40 mg capsule,delayed 40 mg PO DAILY Acid Reflux 10/08/23 10/09/23 History release ondansetron 4 mg disintegrating 4 mg PO Q6H PRN Nausea And Vomiting 10/08/23 10/08/23 History tablet pantoprazole 40 mg tablet,delayed 40 mg PO DAILY 10/08/23 10/08/23 History release potassium chloride 20 mEq 20 meq PO Q48H 10/08/23 10/08/23 History tablet,extended release metformin 500 mg tablet 500 mg PO DAILY #30 tabs 10/09/23 Rx New Prescriptions to Start Prescriptions: metformin [place] Allergies Allergy/AdvReac Type Severity Reaction Status Date / Time hydrocortisone Allergy Unknown Unknown Verified 09/18/23 14:05 [HYDROCORTISONE] allergy reaction lidocaine [LIDOCAINE] Allergy Unknown Unknown Verified 09/18/23 14:05 allergy reaction Penicillins Allergy Unknown Verified 09/18/23 14:05 allergy reaction Sulfa (Sulfonamide Allergy Verified 09/18/23 14:05 Antibiotics) Discharge Plan Disposition Patient Disposition: Xfer SNF Condition: Good Discharge Order Discharge Orders: Discharge Order (Routine); Ordered 10/09/23 Ordered By: Larisa Arnold Follow up Plan Follow up with: Abiodun Moon MD [Primary Care Provider] - Enter time for follow up Prescriptions/Medication Reconciliation: New metformin 500 mg Tablet 500 mg PO DAILY Qty: 30 0RF Continued losartan 50 MG tablet 50 mg PO DAILY Rx Instructions: hold for sbp<100 or dbp <60 atorvastatin 80 MG tablet 80 mg PO HS levetiracetam 500 MG tablet 500 mg PO BID Qty: 60 0RF magnesium oxide 400 mg (241.3 mg magnesium) tablet 400 mg PO BID Patient Comments: TAKE 1 TABLET BY MOUTH ONCE DAILY furosemide 20 mg tablet 20 mg PO DAILY Patient Comments: TAKE 1 TABLET BY MOUTH ONCE DAILY Xarelto 20 mg tablet 20 mg PO QPMWITHMEAL Patient Comments: TAKE 1 TABLET BY MOUTH ONCE DAILY ferrous sulfate 325 mg (65 mg iron) tablet,delayed release (DR/EC) 325 mg PO DAILY Qty: 30 0RF metoprolol tartrate 25 mg tablet 12.5 mg PO BID Qty: 30 0RF gabapentin 100 mg capsule 200 mg PO HS Qty: 60 0RF dextromethorphan polistirex [Robitussin ER] 30 mg/5 mL Suspension,Extended Rel 12 Hr 10 ml PO QIDP PRN (Reason: Cough) nystatin 100,000 unit/gram Ointment 1 applic TOPICAL BID Rx Instructions: to bilateral buttocks acetaminophen 500 mg Tablet 500 mg PO Q4HP PRN (Reason: Pain) glimepiride 1 mg Tablet 1 mg PO DAILY pantoprazole 40 mg Tablet,Delayed Release (Dr/Ec) 40 mg PO DAILY nystatin 100,000 unit/gram Powder 1 applic TOPICAL BID Rx Instructions: bilateral breast and abd folds ondansetron 4 mg Tablet,Disintegrating 4 mg PO Q6H PRN (Reason: Nausea And Vomiting) dicyclomine 10 mg Capsule 10 mg PO QIDP PRN (Reason: cramping) potassium chloride 20 mEq Tablet Extended Release 20 meq PO Q48H Rx Instructions: every other day omeprazole 40 mg capsule,delayed release(DR/EC) 40 mg PO DAILY Patient Comments: TAKE 1 CAPSULE BY MOUTH ONCE DAILY Problem Reconciliation Problems Reviewed?: Yes Patient Discharge Instructions ACTIVITY: Limited activity and Other DIET: advance to your usual diet Patient Instructions: DI for Hypoglycemia Providers Primary Care Provider: Abiodun Moon Admit Provider: Larisa Arnold Attending Provider: Larisa Arnold
--- NOTE | 2023-10-09 13:38 | PC.NURSE ---
called report to martita at [facility], notified em[facility] for transport.
== END 2023-10-09 14:09 ==
LOC: ER 18:14 → 2ND 20:47
PROVIDERS: Admitting Provider Family Medicine; Emergency Provider Emergency Medicine; PCP Family Medicine; Visit Provider Family Medicine
DX: E11.649 Type 2 diabetes mellitus with hypoglycemia without coma; G93.41 Metabolic encephalopathy; E87.1 Hypo-osmolality and hyponatremia; T38.3X5A Adverse effect of insulin and oral hypoglycemic [antidiabetic] drugs, initial encounter; Z86.73 Personal history of transient ischemic attack (TIA), and cerebral infarction without residual deficits; Z79.4 Long term (current) use of insulin; S82.64XD Nondisplaced fracture of lateral malleolus of right fibula, subsequent encounter for closed fracture with routine healing; Z79.01 Long term (current) use of anticoagulants
CPT/HCPCS: 36415; 80053; 82962; 83036; 85025; 97162; 99291; G0378; J2354

== ENCOUNTER 2023-10-11 13:32 | Outpatient (CLI) | payer MEDICARE, MEDICAID, SELFPAY ==
--- NOTE | 2023-10-11 13:39 | XR_ITS ---
FINAL REPORT CLINICAL HISTORY: F/U FX COMPARISON: 09/18/2023 FINDINGS: Right tibia fibula Two views were obtained. There are mild degenerative changes of the knee. There is a subacute fracture of the distal fibular metaphysis. The alignment is stable. Callus formation is seen at the fracture site. Calcaneal spurs are identified. IMPRESSION: Fracture as above. Reviewed, Interpreted and Dictated by Shashi Watkins III, MD Transcribed by Naomy Ware Authenticated and [facility]
== END 2023-10-11 23:59 ==
LOC: RAD 13:34
PROVIDERS: PCP Family Medicine; Visit Provider Orthopaedic Surgery
DX: S82.201A Unspecified fracture of shaft of right tibia, initial encounter for closed fracture (principal); S82.401A Unspecified fracture of shaft of right fibula, initial encounter for closed fracture; M79.604 Pain in right leg
CPT/HCPCS: 73590

== ENCOUNTER 2023-11-12 11:35 | Inpatient (IN) | payer MEDICARE, OTHER, MEDICAID, SELFPAY ==
[2023-11-12] VITALS (8 sets, daily range): BP systolic 101–145; BP diastolic 49–81; PULSE 77–97; RESP 16–24; TEMP 36.4–36.8; O2SAT 97–100; BMI 36.4; BMI 32.1
--- NOTE | 2023-11-12 11:59 | XR_ITS ---
FINAL REPORT CLINICAL HISTORY: cough, shortness of breath COMPARISON: 09/27/2023 FINDINGS: A single portable view of the chest was obtained. The heart size and pulmonary vascularity are within normal limits. The mediastinum is within normal limits. There is worsening left base atelectasis or pneumonia. The bony thorax is intact. There is severe degenerative change of the shoulders. IMPRESSION: Worsening left base atelectasis or pneumonia. Reviewed, Interpreted and Dictated by Shashi Watkins III, MD Transcribed by Preethi Brewster Authenticated and [facility]
[2023-11-12 12:06] LABS: Basophils % 0.3 % (0.1-2.0); Eosinophils % 0.5 % (0.1-12.0); Hematocrit 37.2 % (37.0-47.0); Hemoglobin 12.5 g/dL (12.2-16.2); Lymphocytes # 1.6 K/mm3 (0.7-4.5); Lymphocytes % 25.3 % (10-50); Mean Corpuscular HGB Conc 33.5 g/dL (31.8-35.4); Mean Corpuscular Hemoglobin 34.3 pg (27.0-31.2); Mean Corpuscular Volume 102.5 fl (81-99); Mean Platelet Volume 8.3 fl (7.4-10.4); Monocytes # 0.4 K/mm3 (0.1-1.0); Monocytes % 5.9 % (1.7-9.3); Neutrophils # 4.2 K/mm3 (1.8-7.8); Platelet Count 224 K/mm3 (142-424); Red Blood Count 3.63 M/mm3 (4.20-5.40); Red Cell Distribution Width 16.8 % (11.5-17.5); White Blood Count 6.2 K/mm3 (4.8-10.8)
[2023-11-12] MEDS: IPRATROPIUM/ALBUTEROL 3 ML NEB IH ×2 (12:18→19:19)
--- NOTE | 2023-11-12 12:21 | ECG_ITS ---
APPROVED REPORT Exam: Resting ECG HR:84 bpm ECG Measurements Heart Rate 84 AXES OK 169 P -12 QRSd 74 QRS 72 QT 357 T 63 QTc 398 Conclusion SINUS RHYTHM NORMAL ECG UNCONFIRMED REPORT Electronically signed by : Pankaj Kemp MD 11/12/2023 17:14:22
[2023-11-12 12:22] LABS: VBG Base Excess -5.4 mmol/L (-2.4-2.3); VBG HCO3 18.9 mmol/L (23-30); VBG PCO2 29.2 mmol/L (35-51); VBG PH 7.43 mmol/L (7.31-7.41); VBG PO2 26.1 mmol/L (28-40); VBG Total CO2 19.8 mmol/L (23-27)
[2023-11-12 12:25] LABS: Alanine Aminotransferase 48 U/L (12-78); Albumin Level 2.4 g/dl (3.5-5.0); Albumin/Globulin Ratio 0.8 (1.1-1.8); Alkaline Phosphatase 160 U/L (38-126); Anion Gap 12.4 mEq/L (5-15); Aspartate Amino Transferase 70 U/L (14-36); Bilirubin,Total 1.1 mg/dl (0.2-1.3); Blood Urea Nitrogen 14 mg/dl (7-17); Calcium 8.2 mg/dl (8.4-10.2); Carbon Dioxide 20 mmol/L (22.0-30.0); Chloride 88 mmol/L (98-107); Creatinine Clearance Estimated 43 mL/min (50-200); Estimated Glomerular Filt Rate 32 ml/min (>60); GFR (African American) 38 ML/MIN (>60); Globulin 3.2 g/dL (1.3-3.2); Glucose 123 mg/dl (74-100); Lipase 84 U/L (23-300); Potassium 4.4 mmoL/L (3.5-5.1); Sodium 116 mmol/L (136-145); Total Protein,Serum 5.6 g/dl (6.3-8.2)
[2023-11-12 12:27] LABS: Coronavirus 19, PCR Not Detected (NotDetected); Influenza A, PCR Not Detected (NotDetected); Influenza B, PCR Not Detected (NotDetected)
--- NOTE | 2023-11-12 12:31 | HMH.EDGENADL ---
Discharge Plan Disposition Patient Disposition: Admitted Condition: Good Clinical Impressions Clinical Impression: Pneumonia, ESAU (acute kidney injury), Hyponatremia, Acute exacerbation of CHF (congestive heart failure) Discharge ED Provider: Zoya Downs General Adult HPI General Chief complaint: Recheck/Abnormal Lab/Rx Stated complaint: low sodium Time Seen by Provider: 11/12/23 11:42 Mode of Arrival: Wheelchair Source of Information: Patient, Relative and Medical Record Limitations: No Limitations Description of Symptoms (Recalled from ER Triage Doc. by RN): Pt. comes today from [facility] with complaints of low sodium from lab work drawn yesterday. Sodium was 117. She also compains of generalized weakness. She was diagnoised with pna on Sunday. History of Present Illness HPI narrative: Patient is a 73-year-old female with history of hypertension and diabetes presenting to the emergency department from nursing facility with concern for abnormal labs. According to the patient's family, she had been doing well at home until she fell and suffered a fibular fracture back in September. She also was found to have colitis at that time. Since then, she has been in nursing facility for rehabilitation. She has been feeling unwell for about a week now and has had cough and general weakness. She was diagnosed with pneumonia on Sunday. She had labs drawn which demonstrated hyponatremia with a sodium of 117. She was started on Levaquin and nebulizer treatments, but given the hyponatremia, she was sent in for further evaluation. Patient states overall she just feels unwell. She feels out of breath and generally weak. She also has nausea. She also has bilateral leg swelling. Family does note that she was recently taken off of her blood pressure medications and her diuretic, Lasix, given her blood pressure had been normal as of late. No other concerns noted at this time. Related Data Home Medications Medication Instructions Recorded Confirmed atorvastatin 80 mg tablet 80 mg PO HS High cholesterol 07/14/19 11/12/23 losartan 50 mg tablet 50 mg PO DAILY Hypertension 07/14/19 11/12/23 furosemide 20 mg tablet 20 mg PO DAILY 09/02/23 11/12/23 magnesium oxide 400 mg (241.3 mg 400 mg PO BID 09/02/23 11/12/23 magnesium) tablet rivaroxaban 20 mg tablet (Xarelto) 20 mg PO QPMWITHMEAL 09/02/23 11/12/23 acetaminophen 500 mg tablet 500 mg PO Q4HP PRN Pain 10/08/23 11/12/23 dextromethorphan polistirex 30 10 ml PO QIDP PRN Cough 10/08/23 11/12/23 mg/5 mL oral susp ext.release 12hr (Robitussin ER) dicyclomine 10 mg capsule 10 mg PO QIDP PRN cramping 10/08/23 11/12/23 glimepiride 1 mg tablet 1 mg PO DAILY 10/08/23 11/12/23 nystatin 100,000 unit/gram topical 1 applic topical BID 10/08/23 11/12/23 ointment nystatin 100,000 unit/gram topical 1 applic topical BID 10/08/23 11/12/23 powder omeprazole 40 mg capsule,delayed 40 mg PO DAILY Acid Reflux 10/08/23 11/12/23 release ondansetron 4 mg disintegrating 4 mg PO Q6H PRN Nausea And Vomiting 10/08/23 11/12/23 tablet pantoprazole 40 mg tablet,delayed 40 mg PO DAILY 10/08/23 11/12/23 release potassium chloride 20 mEq 20 meq PO Q48H 10/08/23 11/12/23 tablet,extended release Previous Rx's Medication Instructions Recorded levetiracetam 500 mg tablet 500 mg PO BID #60 tabs 07/08/21 ferrous sulfate 325 mg (65 mg 325 mg PO DAILY #30 tabs 09/07/23 iron) tablet,delayed release gabapentin 100 mg capsule 200 mg PO HS #60 caps 09/07/23 metoprolol tartrate 25 mg tablet 12.5 mg PO BID #30 tabs 09/07/23 metformin 500 mg tablet 500 mg PO DAILY #30 tabs 10/09/23 Allergies Allergy/AdvReac Type Severity Reaction Status Date / Time hydrocortisone Allergy Unknown Unknown Verified 11/12/23 11:45 [HYDROCORTISONE] allergy reaction lidocaine [LIDOCAINE] Allergy Unknown Unknown Verified 11/12/23 11:45 allergy reaction Penicillins Allergy Unknown Verified 11/12/23 11:45 allergy reaction Sulfa (Sulfonamide Allergy Verified 11/12/23 11:45 Antibiotics) [facility] Disclaimer: The information contained in this section may have been updated after the patient was seen, as this information can be updated by other users. Medical History A-fib AAA (abdominal aortic aneurysm) Acute kidney injury Acute metabolic encephalopathy due to hypoglycemia Adrenal nodule ESAU (acute kidney injury) Basal cell carcinoma Bradycardia Candidal intertrigo Carotid stenosis Celiac artery stenosis Chronic colitis Chronic hyponatremia Chronic kidney disease CKD (chronic kidney disease) COVID Diabetes Fall Fibula fracture History of CVA (cerebrovascular accident) Hypertension Hypoglycemia associated with diabetes Hypokalemia Hypotension Iliac artery stenosis, bilateral Peptic ulcer disease Pleural effusion Pneumonia due to E. coli Seizure Squamous cell carcinoma Superior mesenteric artery stenosis Tobacco use disorder Type 2 diabetes mellitus Surgical History History of hysterectomy S/P carotid endarterectomy Family History Mother Alzheimer's dementia Father Pancreatic cancer Other Diabetes Social History (Updated 11/12/23 @ 14:33 by Ana Monzon) Smoking Status: Former smoker tobacco type: cigarettes packs per day: 1 second hand exposure: No alcohol intake: never current occupational status: retired Travel in the last 8 weeks: None household members: spouse housing: house current occupational exposures/hazards: No caffeine: Yes ROS Obtained: Yes All systems reviewed & no additional complaints except as documented Physical Exam General General appearance: alert Comment: Tired and uncomfortable appearing Head Head exam: atraumatic and normocephalic Eye Eye exam: Present normal appearance, PERRL and EOMI ENT ENT exam: Present normal exam, normal oropharynx, mucous membranes moist and normal external ear exam Neck Neck exam: Present normal inspection, full ROM and trachea midline; Absent tenderness Chest Chest inspection: Present normal inspection and symmetric chest wall rise; Absent tenderness Respiratory Respiratory exam: Present wheezes, accessory muscle use, prolonged expiratory phase and other (Bilateral coarse rhonchi and wheezing with prolonged expiratory phase and pursed lip breathing.); Absent respiratory distress or stridor Cardiovascular Cardiovascular exam: Present regular rate and normal rhythm Abdominal Exam Abdominal exam: Present soft; Absent distention, tenderness or guarding Extremities Exam Extremities exam: Present full ROM, normal capillary refill and edema (3+ bilateral lower extremity edema with weeping from R leg); Absent tenderness Back Exam Back exam: Present normal inspection and full ROM; Absent tenderness Neurological Exam Neurological exam: Present alert, oriented X3, CN II-XII intact and normal gait; Absent motor sensory deficit Psychiatric Psychiatric exam: Present normal affect and normal mood Skin Skin exam: Present warm and dry Medical Decision Making Medical Records Medical records reviewed: Yes I reviewed the patient's medical records. [place] Inquiry Pt receiving controlled substance: No Vital Signs: 11/12/23 11:46 11/12/23 12:00 11/12/23 12:30 Temperature 97.6 F Temperature Source Oral Pulse Rate 97 H 86 Pulse Rate [Right Brachial] 95 H Respiratory Rate 18 18 24 Blood Pressure 121/69 129/69 Blood Pressure [Right Arm] 145/81 H Blood Pressure Mean 86 89 Blood Pressure Mean [Right Arm] 102 Blood Pressure Source Blood Pressure Source [Right Arm] Automatic Cuff Blood Pressure Position Blood Pressure Position [Right Arm] Sitting 02 Sat by Pulse Oximetry 98 97 100 Oxygen Delivery Method Room Air 11/12/23 13:01 11/12/23 13:56 Temperature 97.6 F Temperature Source Temporal Artery Scan Pulse Rate 85 77 Pulse Rate [Right Brachial] Respiratory Rate 24 18 Blood Pressure 101/49 L 123/62 Blood Pressure [Right Arm] Blood Pressure Mean 66 Blood Pressure Mean [Right Arm] Blood Pressure Source Automatic Cuff Blood Pressure Source [Right Arm] Blood Pressure Position Sitting Blood Pressure Position [Right Arm] 02 Sat by Pulse Oximetry 98 Oxygen Delivery Method Room Air Lab Data Lab results reviewed: Yes I reviewed the patient's lab results. Lab Results 11/12/23 11:50: WBC 6.2, RBC 3.63 L, Hgb 12.5, Hct 37.2, MCV 102.5 H, MCH 34.3 H, MCHC 33.5, RDW 16.8, Plt Count 224, MPV 8.3, Neut % (Auto) 68.0, Lymph % (Auto) 25.3, [place] % (Auto) 5.9, Eos % (Auto) 0.5, Baso % (Auto) 0.3, Neut # (Auto) 4.2, Lymph # (Auto) 1.6, [place] # (Auto) 0.4, Eos # (Auto) 0.0, Baso # (Auto) 0.0, Sodium 116 L, Potassium 4.4, Chloride 88 L, Carbon Dioxide 20 L, Anion Gap 12.4, BUN 14, Creatinine 1.60 H, Estimated Creat Clear 43, Estimated GFR 32 L, Est GFR ( Amer) 38 L, Glucose 123 H, Calcium 8.2 L, Total Bilirubin 1.1, AST 70 H, ALT 48, Alkaline Phosphatase 160 H, Troponin I < 0.01, NT-Pro-B Natriuret Pep 1030 H, Total Protein 5.6 L, Albumin 2.4 L, Globulin 3.2, Albumin/Globulin Ratio 0.8 L, Lipase 84, Procalcitonin 0.266 11/12/23 11:59: VBG pH 7.43 H, VBG pCO2 29.2 L, VBG pO2 26.1 L, VBG HCO3 18.9 L, VBG Total CO2 19.8 L, VBG O2 Saturation 46.0 L, VBG Base Excess -5.4 L 11/12/23 12:20: SARS-CoV-2 (PCR) Not detected, Influenza A Untype (PCR) Not detected, Influenza Type B (PCR) Not detected 11/12/23 12:52: Urine Color Yellow, Urine Appearance Clear, Urine pH 7.0, Ur Specific [place] 1.020, Urine Protein Trace, Urine Glucose (UA) Negative, Urine Ketones Negative, Urine Blood Negative, Urine Nitrate Negative, Urine Bilirubin Negative, Urine Urobilinogen 0.2, Ur Leukocyte Esterase 1+ A, Urine RBC None, Urine WBC 5-10, Ur Squamous Epith Cells Occasional, Urine Bacteria 1+ 11/12/23 11:50 11/12/23 11:50 Orders (Tests/Meds): ED MEDICATIONS Generic Name Dose Route Start Last Admin Trade Name Freq PRN Reason Stop Dose Admin Acetaminophen 650 mg 11/12/23 14:15 11/12/23 14:26 Acetaminophen 325mg Tab PO 12/12/23 14:14 650 mg Q4HP PRN Administration Fever or Mild Pain (1-3) Docusate Sodium 100 mg 11/12/23 14:30 11/12/23 14:27 Docusate Sodium 100 Mg Capsule PO 12/12/23 14:29 100 mg DAILY TOBIAS Administration Ondansetron HCl 4 mg 11/12/23 14:15 Ondansetron 4mg/2ml Vial IV 12/12/23 14:14 Q8HP PRN Nausea Sodium Chloride 10 ml 11/12/23 11:56 Sodium Chloride 0.9% 10ml Flush Syringe IV 12/12/23 11:55 NEEDED PRN Maintain IV Site Discontinued Medications Generic Name Dose Route Start Last Admin Trade Name Freq PRN Reason Stop Dose Admin Albuterol/Ipratropium 3 ml 11/12/23 11:59 11/12/23 12:18 Ipratropium/Albuterol 3 Ml Neb 11/12/23 12:00 3 ml ONCE ONE Administration ORDERS Category Date Time Status XR chest portable Stat Exams 11/12/23 11:59 Completed Brain Natriuretic Peptide Stat Lab 11/12/23 11:50 Completed Complete Blood Count Auto Diff Stat Lab 11/12/23 11:50 Completed Comprehensive Metabolic Panel Stat Lab 11/12/23 11:50 Completed Lipase Stat Lab 11/12/23 11:50 Completed Procalcitonin Stat Lab 11/12/23 11:50 Completed Rapid PCR Covid and Flu A/B Stat Lab 11/12/23 12:20 Completed Troponin I Q3H Lab 11/12/23 15:00 Ordered Troponin I Q3H Lab 11/12/23 18:00 Ordered Troponin I Stat Lab 11/12/23 11:50 Completed Urinalysis and Microscopic Stat Lab 11/12/23 12:52 Completed Urine Culture Stat Micro 11/12/23 12:52 Received Venous Blood Gas Stat RT 11/12/23 11:59 Completed ECG Data Tracing #1: I reviewed this ECG and interpreted as documented below: Normal sinus rhythm with a ventricular rate of [address] elevations concerning for ischemia. Normal axis and intervals. ECG initial impression date: 11/12/23 ECG initial impression time: 12:25 Medical Decision Narrative: In summary, this patient is a 73-year-old female presenting to the Emergency Department for evaluation of pneumonia and abnormal labs at nursing facility. Differential diagnoses considered include but are not limited to pneumonia, sepsis, ESAU, dehydration, hyponatremia, CHF exacerbation, COPD exacerbation, respiratory failure. Ruling out the most morbid conditions drove assessment. On exam, the patient is tired and uncomfortable appearing. She has bilateral lower extremity edema and coarse bilateral rhonchi and wheezing. Vitals are reassuring on cardiac telemetry. Workup included CBC, CMP, BNP, troponin, VBG, procalcitonin, viral swab, urinalysis, chest x-ray, and EKG. Patient was given DuoNebs to assess for symptomatic improvement in her wheezing. I independently interpreted chest x-ray prior to the radiologist read and noted concerns for worsening pneumonia. Please see their read for final interpretation. Labs were obtained that demonstrated hyponatremia and ESAU. Patient also has elevated BNP. Clinically, she looks very volume overloaded.. On reassessment, patient had good improvement after administration of nebs. Given her illness in the setting of pneumonia with ESAU and hyponatremia, I do feel that she is high risk for discharge. I feel that she would benefit from admission for gentle diuresis and close monitoring. I called and had an interactive discussion with the hospitalist who graciously admitted the patient. Critical Care Critical Care Time Critical Care Time: No
[2023-11-12 12:38] LABS: NT Pro Brain Natriuretic Pep. 1030 pg/mL (0-125); Troponin I < 0.01 ng/ml (0.00-0.034)
[2023-11-12 12:42] LABS: Procalcitonin 0.266 ng/mL (0.0-2.0)
[2023-11-12 12:57] LABS: Microscopic, Urine URINE MICROSCOPIC (MICROSCOPIC)
[2023-11-12 12:58] LABS: Appearance,Urine CLEAR (Clear); Bilirubin,Urine Negative (Negative); Blood, Urine Negative (Negative); Color,Urine YELLOW (Yellow); Glucose,Urine (UA) Negative (Negative); Ketones,Urine Negative (Negative); Leukocyte Esterase,Urine 1+ (Negative); Nitrate,Urine Negative (Negative); Protein,Urine TRACE (Negative); Urobilinogen,Urine 0.2 EU/dl (0.2)
[2023-11-12 13:13] LABS: Bacteria,Urine 1+ /lpf; Squamous Epithelial Cell,Urine Occasional #/hpf (0-5)
--- NOTE | 2023-11-12 13:56 | SW/DCPLANNER ---
Addendum entered by [facility] 11/16/23 10:17: I have updated Daisha navarro/ [facility] that patient is not ready for discharge today but possibly over the weekend. Addendum entered by [facility] 11/15/23 10:43: I have updated Daisha navarro/ [facility] that the plan is for patient to discharge tomorrow pending no setbacks. Addendum entered by [facility] 11/14/23 11:39: Daisha w/ [facility] stated they can accept this patient once medically stable for discharge. I have updated patient's family. Addendum entered by [facility] 11/14/23 11:07: Yamila navarro/ [facility] stated that due to possible need for LTC bed they would recommend patient finding facility w/ [facility] bed. Patient/family are agreeable for information to be faxed to [facility]. Information has been faxed and I will follow up w/ Daisha once reviewed. Patient may be ready for discharge tomorrow pending no setbacks. Addendum entered by [facility] 11/14/23 10:17: Updated patient information has been faxed to Yamila navarro/ [facility]. Original Note: This patient currently resides at [facility] level of care. I will continue to follow up w/ Yamila at [facility] until patient is medically stable for discharge. Discharge date is unknown at this time.
--- NOTE | 2023-11-12 13:58 | PC.NURSE ---
arrived by stretcher from ED
[2023-11-12] MEDS: ACETAMINOPHEN 325MG TAB 650 MG PO ×2 (14:26→20:01)
[2023-11-12] MEDS: DOCUSATE SODIUM 100 MG CAPSULE PO (14:27)
--- NOTE | 2023-11-12 14:47 | HMH.PHAINT1 ---
Pharmacy Intervention Comments: MEDICATION RECONCILIATION COMPLETED ON PATIENT USING MAR FROM [facility]. -JANICE ARNOLD, JULIAD
[2023-11-12 18:00] LABS: Troponin I < 0.01 ng/ml (0.00-0.034)
--- NOTE | 2023-11-12 18:22 | P.HP_ITS ---
History of Present Illness *Admission Date: 11/12/23 *Reason for visit:: SOB *History of present illness: Patient is a 73-year-old female with past medical history of chronic hyponatremia with sodium around 130s, CHF, hypertension, diabetes mellitus who presented to hospital due to abnormal blood work. Patient is currently at senior care facility due to the rehab after treatment of fibular fracture. At time of my evaluation patient is alert awake able to hold normal conversations. Patient mentions she was sent to the hospital because she had a yeast infection and her blood sugar was down. Patient appears confused about her reason for admission. Otherwise patient denied fever chills diarrhea constipation dysuria. On further evaluation to the hospital arrival patient was found to have sodium 116, creatinine 1.6 with a baseline of around 1.0. [facility] Disclaimer: The information contained in this section may have been updated after the patient was seen, as this information can be updated by other users. Medical History A-fib AAA (abdominal aortic aneurysm) Acute kidney injury Acute metabolic encephalopathy due to hypoglycemia Adrenal nodule ESAU (acute kidney injury) Basal cell carcinoma Bradycardia Candidal intertrigo Carotid stenosis Celiac artery stenosis Chronic colitis Chronic hyponatremia Chronic kidney disease CKD (chronic kidney disease) COVID Diabetes Fall Fibula fracture History of CVA (cerebrovascular accident) Hypertension Hypoglycemia associated with diabetes Hypokalemia Hypotension Iliac artery stenosis, bilateral Peptic ulcer disease Pleural effusion Pneumonia due to E. coli Seizure Squamous cell carcinoma Superior mesenteric artery stenosis Tobacco use disorder Type 2 diabetes mellitus Surgical History History of hysterectomy S/P carotid endarterectomy Family History Mother Alzheimer's dementia Father Pancreatic cancer Other Diabetes Social History (Updated 11/12/23 @ 14:33 by Ana Monzon) Smoking Status: Former smoker tobacco type: cigarettes packs per day: 1 second hand exposure: No alcohol intake: never current occupational status: retired Travel in the last 8 weeks: None household members: spouse housing: house current occupational exposures/hazards: No caffeine: Yes Review of Systems Review of Systems Review of systems (narrative): as per [facility] Meds Home Medications and Allergies Home Medications Medication Instructions Recorded Confirmed Type atorvastatin 80 mg tablet 80 mg PO HS Cholesterol 10/07/19 02/05/24 History levetiracetam 500 mg tablet 500 mg PO BID #60 tabs 07/08/21 11/12/23 Rx magnesium oxide 400 mg (241.3 mg 400 mg PO BID 09/02/23 11/12/23 History magnesium) tablet rivaroxaban 20 mg tablet (Xarelto) 20 mg PO QPMWITHMEAL blood 09/02/23 11/12/23 History thinner/afib acetaminophen 500 mg tablet 500 mg PO Q4HP PRN Mild Pain 10/08/23 11/12/23 History (Scale Score 1-4) dextromethorphan polistirex 30 10 ml PO QIDP PRN Cough 10/08/23 11/12/23 History mg/5 mL oral susp ext.release 12hr (Robitussin ER) dicyclomine 10 mg capsule 10 mg PO QIDP PRN Abdominal Cramps 10/08/23 11/12/23 History nystatin 100,000 unit/gram topical 1 applic topical BID 10/08/23 11/12/23 History powder ondansetron 4 mg disintegrating 4 mg PO Q6HP PRN Nausea And 10/08/23 11/12/23 History tablet Vomiting pantoprazole 40 mg tablet,delayed 40 mg PO DAILY Acid Reflux 10/08/23 11/12/23 History release potassium chloride 20 mEq 20 meq PO Q48H 10/08/23 11/12/23 History tablet,extended release buspirone 5 mg tablet 5 mg PO BID Anxiety 11/12/23 11/12/23 History carvedilol 3.125 mg tablet 3.125 mg PO BID High Blood Pressure 11/12/23 11/12/23 History ferrous sulfate 325 mg (65 mg 325 mg PO DAILY Supplement 11/12/23 11/12/23 History iron) tablet,delayed release ipratropium 0.5 mg-albuterol 3 mg 3 ml inhalation TID Breathing 11/12/23 11/12/23 History (2.5 mg base)/3 mL nebulization Problems soln levofloxacin 750 mg tablet 750 mg PO DAILY Infection 11/12/23 11/12/23 History loperamide 2 mg tablet 2 mg PO Q4HP PRN Diarrhea 11/12/23 11/12/23 History New Prescriptions to Start Prescriptions: Allergies Allergy/AdvReac Type Severity Reaction Status Date / Time hydrocortisone Allergy Unknown Unknown Verified 11/12/23 11:45 [HYDROCORTISONE] allergy reaction lidocaine [LIDOCAINE] Allergy Unknown Unknown Verified 11/12/23 11:45 allergy reaction Penicillins Allergy Unknown Verified 11/12/23 11:45 allergy reaction Sulfa (Sulfonamide Allergy Verified 11/12/23 11:45 Antibiotics) Exam Data for Last 24 hours Vital signs and Labs for Last 24 Hours: Temp Pulse Resp BP Pulse Ox O2 Del Method 97.6 F 89 20 123/62 97 Room Air 11/12/23 14:41 11/12/23 14:41 11/12/23 14:41 11/12/23 14:41 11/12/23 14:41 11/12/23 17:00 Laboratory Results - last 24 hr 11/12/23 11:50: WBC 6.2, RBC 3.63 L, Hgb 12.5, Hct 37.2, MCV 102.5 H, MCH 34.3 H , MCHC 33.5, RDW 16.8, Plt Count 224, MPV 8.3, Neut % (Auto) 68.0, Lymph % (Auto) 25.3, [place] % (Auto) 5.9, Eos % (Auto) 0.5, Baso % (Auto) 0.3, Neut # (Auto) 4.2, Lymph # (Auto) 1.6, [place] # (Auto) 0.4, Eos # (Auto) 0.0, Baso # (Auto) 0.0, Sodium 116 L, Potassium 4.4, Chloride 88 L, Carbon Dioxide 20 L, Anion Gap 12.4, BUN 14, Creatinine 1.60 H, Estimated Creat Clear 43, Estimated GFR 32 L, Est GFR ( Amer) 38 L, Glucose 123 H, Calcium 8.2 L, Total Bilirubin 1.1, AST 70 H, ALT 48, Alkaline Phosphatase 160 H, Troponin I < 0.01, NT-Pro-B Natriuret Pep 1030 H, Total Protein 5.6 L, Albumin 2.4 L, Globulin 3.2, Albumin/Globulin Ratio 0.8 L, Lipase 84, Procalcitonin 0.266 11/12/23 11:59: VBG pH 7.43 H, VBG pCO2 29.2 L, VBG pO2 26.1 L, VBG HCO3 18.9 L, VBG Total CO2 19.8 L, VBG O2 Saturation 46.0 L, VBG Base Excess -5.4 L 11/12/23 12:20: SARS-CoV-2 (PCR) Not detected, Influenza A Untype (PCR) Not detected, Influenza Type B (PCR) Not detected 11/12/23 12:52: Urine Color Yellow, Urine Appearance Clear, Urine pH 7.0, Ur Specific [place] 1.020, Urine Protein Trace, Urine Glucose (UA) Negative, Urine Ketones Negative, Urine Blood Negative, Urine Nitrate Negative, Urine Bilirubin Negative, Urine Urobilinogen 0.2, Ur Leukocyte Esterase 1+ A, Urine RBC None, Urine WBC 5-10, Ur Squamous Epith Cells Occasional, Urine Bacteria 1+ 11/12/23 16:25: Troponin I < 0.01 I & O for Last 24 hours: Intake & Output 11/09/23 11/10/23 11/11/23 11/12/23 23:59 23:59 23:59 23:59 Weight 79.832 kg Constitutional Constitutional: no acute distress *Routine HEENT Exam Head: Present normocephalic Eye: Present EOMI and PERRL ENT: Present mucous membranes moist *Routine Neck Exam Neck: Present supple; Absent lymphadenopathy *Routine Respiratory Exam Respiratory: Present CTA bilaterally *Routine Cardiovascular Exam Cardiovascular: Present RRR *Routine Abdominal Exam Abdominal: Present soft and normoactive bowel sounds; Absent tenderness *Routine Rectal Exam Rectal:: deferred *Routine Genitalia Exam Genitalia:: deferred *Routine Extremities Exam Extremities: Present edema; Absent cyanosis or clubbing Comments: b/l leg edema noted *Routine Skin Exam Skin: Present warm; Absent rash *Routine Neurological Exam Neurological: Present alert and oriented X3 Assessment and Plan *Assessment and plan (1) Pneumonia: Status: Acute Category: Medical Code(s): J18.9 - Pneumonia, unspecified organism (2) ESAU (acute kidney injury): Status: Acute Category: Medical Code(s): N17.9 - Acute kidney failure, unspecified (3) Hyponatremia: Status: Acute Category: Medical Code(s): E87.1 - Hypo-osmolality and hyponatremia (4) Acute exacerbation of CHF (congestive heart failure): Status: Acute Category: Medical Code(s): I50.9 - Heart failure, unspecified (5) Fracture of right fibula: Status: Acute Category: Medical Code(s): S82.401A - Unspecified fracture of shaft of right fibula, initial encounter for closed fracture (6) Hypertension: Status: Acute Category: Medical Code(s): I10 - Essential (primary) hypertension (7) Type 2 diabetes mellitus: Status: Chronic Qualifiers: Diabetes mellitus intermediate insulin use: with long term care phlebotomist use Diabetes mellitus complication status: without complication Qualified Code(s): E11.9 - Type 2 diabetes mellitus without complications; Z79.4 - retirement (current) use of insulin Category: Medical Code(s): E11.9 - Type 2 diabetes mellitus without complications Plan Patient is a 73-year-old female with past medical history of chronic hyponatremia with sodium around 130s, CHF, hypertension, diabetes mellitus who presented to hospital due to abnormal blood work. Patient is currently at senior care facility due to the rehab after treatment of fibular fracture. At time of my evaluation patient is alert awake able to hold normal conversations. Patient mentions she was sent to the hospital because she had a yeast infection and her blood sugar was down. Patient appears confused about her reason for admission. Otherwise patient denied fever chills diarrhea constipation dysuria. On further evaluation to the hospital arrival patient was found to have sodium 116, creatinine 1.6 with a baseline of around 1.0. Assessment Hyponatremia likely hypovolemic hypoosmolar Bilateral lower extremity swelling Acute on chronic CHF -Started on IV Lasix, every 6 hours BMP Check urine sodium, plasma osmolality, urine osmolality, FeNa Closely monitor sodium level Patient has a history of chronic hyponatremia, but we will order seizure precautions Consult cardiology PNA likely gram negative organism start IV levaquin and vanocmycin check PCT blood cultures Acute kidney injury Baseline creatinine 1.0, closely monitor creatinine on Lasix Diabetes mellitus Insulin sliding scale Hypertension coreg Hx of afib on xarelto DVT PPx - on Xarelto for DVT PPx
[2023-11-12] MEDS: LEVOFLOXACIN/D5W 750 MG/150 ML 750 MG/150 ML PIGGYBACK 100 MG IV (18:37)
[2023-11-12] MEDS: FUROSEMIDE 40MG/4ML VIAL 40 MG IV (18:37)
[2023-11-12] MEDS: PANTOPRAZOLE 40MG TABLET 40 MG PO (18:37)
[2023-11-12] MEDS: [UNRECOGNIZED DRUG - OTHER] PO (18:40)
[2023-11-12] MEDS: FERROUS SULFATE PO (18:40)
[2023-11-12] MEDS: VANCOMYCIN CONSULT REQUEST 1 EACH NOTAPPLIC (18:49)
[2023-11-12 19:10] LABS: Anion Gap 8.6 mEq/L (5-15); Blood Urea Nitrogen 15 mg/dl (7-17); Calcium 7.7 mg/dl (8.4-10.2); Carbon Dioxide 22 mmol/L (22.0-30.0); Chloride 88 mmol/L (98-107); Creatinine Clearance Estimated 39 mL/min (50-200); Estimated Glomerular Filt Rate 32 ml/min (>60); GFR (African American) 38 ML/MIN (>60); Glucose 177 mg/dl (74-100); Potassium 4.6 mmoL/L (3.5-5.1)
[2023-11-12 19:18] LABS: Sodium 114 mmol/L (136-145)
[2023-11-12 19:28] LABS: Procalcitonin 0.253 ng/mL (0.0-2.0)
[2023-11-12 19:43] LABS: Troponin I < 0.01 ng/ml (0.00-0.034)
[2023-11-12] MEDS: 0.9 % SODIUM CHLORIDE 1000ML 1,000 ML 75 ML IV (20:04)
[2023-11-12] MEDS: VANCOMYCIN/WATER FOR INJ (PEG) 1.75 GM/350 ML PIGGYBACK IV (20:04)
[2023-11-12 20:14] LABS: Creatinine,Urine Random 172 mg/dL (Not Estab.)
[2023-11-12] MEDS: BUSPIRONE HCL 5 MG TABLET PO (20:45)
[2023-11-12] MEDS: ATORVASTATIN 40MG TABLET 80 MG PO (21:03)
[2023-11-12] MEDS: CARVEDILOL 3.125MG TABLET 3.125 MG PO (21:07)
[2023-11-12] MEDS: levETIRAcetam 500 MG TABLET PO (21:07)
[2023-11-12] MEDS: MELATONIN 5MG TABLET 5 MG PO (21:07)
[2023-11-13] VITALS (7 sets, daily range): BP systolic 104–138; BP diastolic 55–78; PULSE 71–86; RESP 16–19; TEMP 36.6–36.9; O2SAT 93–97; BMI 36.4
[2023-11-13] MEDS: ACETAMINOPHEN 325MG TAB 650 MG PO ×2 (04:57→10:10)
[2023-11-13] MEDS: IPRATROPIUM/ALBUTEROL 3 ML NEB IH ×2 (05:45→19:11)
[2023-11-13 06:12] LABS: POC Glucose,Bedside 93 (70-110)
[2023-11-13 06:19] LABS: Basophils % 0.1 % (0.1-2.0); Eosinophils # 0.1 K/mm3 (0.0-0.4); Eosinophils % 1.3 % (0.1-12.0); Hematocrit 29.2 % (37.0-47.0); Lymphocytes # 1.5 K/mm3 (0.7-4.5); Lymphocytes % 23.6 % (10-50); Mean Corpuscular HGB Conc 34.4 g/dL (31.8-35.4); Mean Corpuscular Hemoglobin 34.6 pg (27.0-31.2); Mean Corpuscular Volume 100.7 fl (81-99); Mean Platelet Volume 8.6 fl (7.4-10.4); Monocytes # 0.6 K/mm3 (0.1-1.0); Neutrophils # 4.3 K/mm3 (1.8-7.8); Neutrophils % 66.1 % (37.0-80.0); Platelet Count 167 K/mm3 (142-424); Red Cell Distribution Width 16.6 % (11.5-17.5); White Blood Count 6.5 K/mm3 (4.8-10.8)
[2023-11-13 06:33] LABS: Chloride 91 mmol/L (98-107); Potassium 4.4 mmoL/L (3.5-5.1)
[2023-11-13 06:36] LABS: Anion Gap 6.4 mEq/L (5-15); Blood Urea Nitrogen 17 mg/dl (7-17); Calcium 7.2 mg/dl (8.4-10.2); Carbon Dioxide 20 mmol/L (22.0-30.0); Creatinine Clearance Estimated 44 mL/min (50-200); Estimated Glomerular Filt Rate 32 ml/min (>60); GFR (African American) 38 ML/MIN (>60); Glucose 88 mg/dl (74-100)
[2023-11-13 07:10] LABS: Sodium 113 mmol/L (136-145)
--- NOTE | 2023-11-13 07:39 | P.PN_ITS ---
Subjective *Date: 11/13/23 *Time: 14:37 Interval history: Patient complaining of leg pain today. Is alert to self but otherwise shows mild confusion. Stable on room air. Normotensive.denies chest pain, shortness of breath, no nausea or vomiting. Tolerating p.o. intake Medical Exam Vital signs and Labs for Last 24 Hours: Vital Signs Temp Pulse Pulse Resp BP BP Pulse Ox 11/13/23 07:00 11/13/23 05:45 79 11/13/23 05:45 80 11/13/23 04:00 98.2 F 75 17 104/55 L 95 11/13/23 05:00 11/13/23 03:00 11/13/23 01:00 11/12/23 23:00 11/12/23 21:00 11/12/23 20:00 98.2 F 87 16 130/67 97 11/12/23 21:21 11/12/23 19:20 90 11/12/23 19:20 94 H 11/12/23 19:00 11/12/23 17:00 11/12/23 15:00 11/12/23 14:41 97.6 F 89 20 123/62 97 11/12/23 13:56 97.6 F 77 18 123/62 11/12/23 13:01 85 24 101/49 L 98 11/12/23 12:30 86 24 129/69 100 11/12/23 12:00 97 H 18 121/69 97 11/12/23 11:46 97.6 F 95 H 18 145/81 H 98 O2 Del Method 11/13/23 07:00 Room Air 11/13/23 05:45 11/13/23 05:45 11/13/23 04:00 Nasal Cannula 11/13/23 05:00 Room Air 11/13/23 03:00 Room Air 11/13/23 01:00 Room Air 11/12/23 23:00 Room Air 11/12/23 21:00 Room Air 11/12/23 20:00 Room Air 11/12/23 21:21 Room Air 11/12/23 19:20 11/12/23 19:20 11/12/23 19:00 Room Air 11/12/23 17:00 Room Air 11/12/23 15:00 Room Air 11/12/23 14:41 Room Air 11/12/23 13:56 Room Air 11/12/23 13:01 11/12/23 12:30 11/12/23 12:00 11/12/23 11:46 Room Air Intake and Output 11/12/23 11/12/23 11/13/23 15:59 23:59 07:59 Intake Total 340 / 580 1190 / 1190 Output Total 0 / 0 Balance 340 / 580 1190 / 1190 Intake: Intake, Oral Amount 340 / 580 240 / 240 Intake, Total IV Amount 950 / 950 0.9 % Sodium Chloride 1000ML 1, 950 / 950 000 ml @ 75 mls/hr IV .[id number] [facility] Rx#:[id number] Output: Output, Urine Amount 0 / 0 Other: Number of Unmeasured Voids 1 2 Weight 79.832 kg 89.811 kg Patient Weight 11/13/23 23:59 Weight 89.811 kg Laboratory Results - last 24 hr 11/12/23 11:50: WBC 6.2, RBC 3.63 L, Hgb 12.5, Hct 37.2, MCV 102.5 H, MCH 34.3 H , MCHC 33.5, RDW 16.8, Plt Count 224, MPV 8.3, Neut % (Auto) 68.0, Lymph % (Au to) 25.3, [place] % (Auto) 5.9, Eos % (Auto) 0.5, Baso % (Auto) 0.3, Neut # (Auto) 4.2, Lymph # (Auto) 1.6, [place] # (Auto) 0.4, Eos # (Auto) 0.0, Baso # (Auto) 0.0, Sodium 116 L, Potassium 4.4, Chloride 88 L, Carbon Dioxide 20 L, Anion Gap 12.4, BUN 14, Creatinine 1.60 H, Estimated Creat Clear 43, Estimated GFR 32 L, Est GFR ( Amer) 38 L, Glucose 123 H, Calcium 8.2 L, Total Bilirubin 1.1, AST 70 H , ALT 48, Alkaline Phosphatase 160 H, Troponin I < 0.01, NT-Pro-B Natriuret Pep 1030 H, Total Protein 5.6 L, Albumin 2.4 L, Globulin 3.2, Albumin/Globulin Ratio 0.8 L, Lipase 84, Procalcitonin 0.266 11/12/23 11:59: VBG pH 7.43 H, VBG pCO2 29.2 L, VBG pO2 26.1 L, VBG HCO3 18.9 L, VBG Total CO2 19.8 L, VBG O2 Saturation 46.0 L, VBG Base Excess -5.4 L 11/12/23 12:20: SARS-CoV-2 (PCR) Not detected, Influenza A Untype (PCR) Not detected, Influenza Type B (PCR) Not detected 11/12/23 12:52: Urine Color Yellow, Urine Appearance Clear, Urine pH 7.0, Ur Specific [place] 1.020, Urine Protein Trace, Urine Glucose (UA) Negative, Urine Ketones Negative, Urine Blood Negative, Urine Nitrate Negative, Urine Bilirubin Negative, Urine Urobilinogen 0.2, Ur Leukocyte Esterase 1+ A, Urine RBC None, Urine WBC 5-10, Ur Squamous Epith Cells Occasional, Urine Bacteria 1+, Urine Creatinine 172 11/12/23 16:25: Troponin I < 0.01 11/12/23 18:53: Sodium 114 L*, Potassium 4.6, Chloride 88 L, Carbon Dioxide 22, Anion Gap 8.6, BUN 15, Creatinine 1.60 H, Estimated Creat Clear 39, Estimated GFR 32 L, Est GFR ( Amer) 38 L, Glucose 177 H D, Calcium 7.7 L, Troponin I < 0.01, Procalcitonin 0.253 11/13/23 05:30: WBC 6.5, RBC 2.90 L, Hgb 10.0 L D, Hct 29.2 L, MCV 100.7 H, MCH 34.6 H, MCHC 34.4, RDW 16.6, Plt Count 167 D, MPV 8.6, Neut % (Auto) 66.1, Lymph % (Auto) 23.6, [place] % (Auto) 9.0, Eos % (Auto) 1.3, Baso % (Auto) 0.1, Neut # (Auto) 4.3, Lymph # (Auto) 1.5, [place] # (Auto) 0.6, Eos # (Auto) 0.1, Baso # (Auto) 0.0, Sodium 113 L*, Potassium 4.4, Chloride 91 L, Carbon Dioxide 20 L, Anion Gap 6.4, BUN 17, Creatinine 1.60 H, Estimated Creat Clear 44, Estimated GFR 32 L, Est GFR ( Amer) 38 L, Glucose 88 D, Calcium 7.2 L 11/13/23 06:03: POC Glucose 93 I & O for Labs for Last 24 Hours: Intake & Output 11/10/23 11/11/23 11/12/23 11/13/23 23:59 23:59 23:59 23:59 Intake Total 340 / 580 1190 / 1190 Output Total 0 / 0 Balance 340 / 580 1190 / 1190 Weight 79.832 kg 89.811 kg Constitutional: Present no acute distress, obese, chronically ill appearing and cooperative Head: Present atraumatic and normocephalic ENT: Present normal exam Neck: Present normal inspection Respiratory: Present normal respiratory effort; Absent rhonchi, wheezes or crackles Cardiac: Present Reg Rate and Rhythm GI: Present soft and normal bowel sounds; Absent distention or tenderness Extremities: Present normal inspection and full ROM Skin: Present intact; Absent erythema Neuro: Present Grossly Intact, alert, awake and moves all extremities Assessment and Plan *Assessment and plan (1) Hyponatremia: Status: Acute Category: Medical Code(s): E87.1 - Hypo-osmolality and hyponatremia (2) Pneumonia: Status: Acute Category: Medical Code(s): J18.9 - Pneumonia, unspecified organism (3) ESAU (acute kidney injury): Status: Acute Category: Medical Code(s): N17.9 - Acute kidney failure, unspecified (4) Acute exacerbation of CHF (congestive heart failure): Status: Acute Category: Medical Code(s): I50.9 - Heart failure, unspecified (5) Fracture of right fibula: Status: Acute Category: Medical Code(s): S82.401A - Unspecified fracture of shaft of right fibula, initial encounter for closed fracture (6) Hypertension: Status: Acute Category: Medical Code(s): I10 - Essential (primary) hypertension (7) Type 2 diabetes mellitus: Status: Chronic Qualifiers: Diabetes mellitus group home insulin use: with group home use Diabetes mellitus complication status: without complication Qualified Code(s): E11.9 - Type 2 diabetes mellitus without complications; 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 Patient is currently at longterm facility due to the rehab after treatment of fibular fracture. She was admitted due to symptomatic hyponatremia and mild confusion. This morning sodium still low at 113. Continues to necessitate inpatient management given her mild confusion and persistent hyponatremia. On room air. Problems a ddressed as follows: Hyponatremia likely hypovolemic hypoosmolar -Initiate hypertonic saline at 25 cc an hour. Monitoring sodium every 6 hours. Correction rate of 8-10 mEq/day. Necessitates close monitoring given risk of toxicity with hypertonic saline and risks of overcorrection. -Previous sodium 130 at last discharge. -Holding on diuresis, no significant lower extremity edema. -Initiate sodium tablets 500 mg twice daily -Urine sodium pending PNA likely gram negative organism - Continue levofloxacin renally dosed -Currently on room air, supplemental oxygen as needed for goal sats greater than 90% -Blood culture and sputum culture pending Acute kidney injury - Baseline creatinine 1.0, elevated 1.6 today. BUN 17. Repeat CBC, CMP, magnesium ordered for the morning Diabetes mellitus - Insulin sliding scale Hypertension A-fib Hyperlipidemia -Continue home coreg, Lipitor, xarelto Seizure disorder with history of Keppra, continue 500 mg twice daily Xarelto for DVT PPx Full code Diabetic diet
--- NOTE | 2023-11-13 08:42 | P.CONPHA_ITS ---
Pharmacy Consult Date: 11/13/23 Time: 08:44 Referring provider: DR LOMBARDO Reason for Consult:: VANCOMYCIN DOSING CONSULT Allergies Allergy/AdvReac Type Severity Reaction Status Date / Time hydrocortisone Allergy Unknown Unknown Verified 11/12/23 11:45 [HYDROCORTISONE] allergy reaction lidocaine [LIDOCAINE] Allergy Unknown Unknown Verified 11/12/23 11:45 allergy reaction Penicillins Allergy Unknown Verified 11/12/23 11:45 allergy reaction Sulfa (Sulfonamide Allergy Verified 11/12/23 11:45 Antibiotics) Home Medications Medication Instructions Recorded Confirmed Type atorvastatin 80 mg tablet 80 mg PO HS Cholesterol 07/14/19 11/12/23 History levetiracetam 500 mg tablet 500 mg PO BID #60 tabs 07/08/21 11/12/23 Rx magnesium oxide 400 mg (241.3 mg 400 mg PO BID 09/02/23 11/12/23 History magnesium) tablet rivaroxaban 20 mg tablet (Xarelto) 20 mg PO QPMWITHMEAL blood 09/02/23 11/12/23 History thinner/afib acetaminophen 500 mg tablet 500 mg PO Q4HP PRN Mild Pain 10/08/23 11/12/23 History (Scale Score 1-4) dextromethorphan polistirex 30 10 ml PO QIDP PRN Cough 10/08/23 11/12/23 History mg/5 mL oral susp ext.release 12hr (Robitussin ER) dicyclomine 10 mg capsule 10 mg PO QIDP PRN Abdominal Cramps 10/08/23 11/12/23 History nystatin 100,000 unit/gram topical 1 applic topical BID 10/08/23 11/12/23 History powder ondansetron 4 mg disintegrating 4 mg PO Q6HP PRN Nausea And 10/08/23 11/12/23 History tablet Vomiting pantoprazole 40 mg tablet,delayed 40 mg PO DAILY Acid Reflux 10/08/23 11/12/23 History release potassium chloride 20 mEq 20 meq PO Q48H 10/08/23 11/12/23 History tablet,extended release buspirone 5 mg tablet 5 mg PO BID Anxiety 11/12/23 11/12/23 History carvedilol 3.125 mg tablet 3.125 mg PO BID High Blood Pressure 11/12/23 11/12/23 History ferrous sulfate 325 mg (65 mg 325 mg PO DAILY Supplement 11/12/23 11/12/23 History iron) tablet,delayed release ipratropium 0.5 mg-albuterol 3 mg 3 ml inhalation TID Breathing 11/12/23 11/12/23 History (2.5 mg base)/3 mL nebulization Problems soln levofloxacin 750 mg tablet 750 mg PO DAILY Infection 11/12/23 11/12/23 History loperamide 2 mg tablet 2 mg PO Q4HP PRN Diarrhea 11/12/23 11/12/23 History New Prescriptions to Start Prescriptions: Height: 1.57 m Weight: 89.811 kg Laboratory Results:: Laboratory Results - last 24 hr 11/12/23 11:50: WBC 6.2, RBC 3.63 L, Hgb 12.5, Hct 37.2, MCV 102.5 H, MCH 34.3 H , MCHC 33.5, RDW 16.8, Plt Count 224, MPV 8.3, Neut % (Auto) 68.0, Lymph % (Auto) 25.3, [place] % (Auto) 5.9, Eos % (Auto) 0.5, Baso % (Auto) 0.3, Neut # (Auto) 4.2, Lymph # (Auto) 1.6, [place] # (Auto) 0.4, Eos # (Auto) 0.0, Baso # (Auto) 0.0, Sodium 116 L, Potassium 4.4, Chloride 88 L, Carbon Dioxide 20 L, Anion Gap 12.4, BUN 14, Creatinine 1.60 H, Estimated Creat Clear 43, Estimated GFR 32 L, Est GFR ( Amer) 38 L, Glucose 123 H, Calcium 8.2 L, Total Bilirubin 1.1, AST 70 H, ALT 48, Alkaline Phosphatase 160 H, Troponin I < 0.01, NT-Pro-B Natriuret Pep 1030 H, Total Protein 5.6 L, Albumin 2.4 L, Globulin 3.2, Albumin/Globulin Ratio 0.8 L, Lipase 84, Procalcitonin 0.266 11/12/23 11:59: VBG pH 7.43 H, VBG pCO2 29.2 L, VBG pO2 26.1 L, VBG HCO3 18.9 L, VBG Total CO2 19.8 L, VBG O2 Saturation 46.0 L, VBG Base Excess -5.4 L 11/12/23 12:20: SARS-CoV-2 (PCR) Not detected, Influenza A Untype (PCR) Not detected, Influenza Type B (PCR) Not detected 11/12/23 12:52: Urine Color Yellow, Urine Appearance Clear, Urine pH 7.0, Ur Specific [place] 1.020, Urine Protein Trace, Urine Glucose (UA) Negative, Urine Ketones Negative, Urine Blood Negative, Urine Nitrate Negative, Urine Bilirubin Negative, Urine Urobilinogen 0.2, Ur Leukocyte Esterase 1+ A, Urine RBC None, Urine WBC 5-10, Ur Squamous Epith Cells Occasional, Urine Bacteria 1+, Urine Creatinine 172 11/12/23 16:25: Troponin I < 0.01 11/12/23 18:53: Sodium 114 L*, Potassium 4.6, Chloride 88 L, Carbon Dioxide 22, Anion Gap 8.6, BUN 15, Creatinine 1.60 H, Estimated Creat Clear 39, Estimated GFR 32 L, Est GFR ( Amer) 38 L, Glucose 177 H D, Calcium 7.7 L, Troponin I < 0.01, Procalcitonin 0.253 11/13/23 05:30: WBC 6.5, RBC 2.90 L, Hgb 10.0 L D, Hct 29.2 L, MCV 100.7 H, MCH 34.6 H, MCHC 34.4, RDW 16.6, Plt Count 167 D, MPV 8.6, Neut % (Auto) 66.1, Lymph % (Auto) 23.6, [place] % (Auto) 9.0, Eos % (Auto) 1.3, Baso % (Auto) 0.1, Neut # (Auto) 4.3, Lymph # (Auto) 1.5, [place] # (Auto) 0.6, Eos # (Auto) 0.1, Baso # (Auto) 0.0, Sodium 113 L*, Potassium 4.4, Chloride 91 L, Carbon Dioxide 20 L, Anion Gap 6.4, BUN 17, Creatinine 1.60 H, Estimated Creat Clear 44, Estimated GFR 32 L, Est GFR ( Amer) 38 L, Glucose 88 D, Calcium 7.2 L 11/13/23 06:03: POC Glucose 93 Medical History: Medical History (Updated 11/12/23 @ 13:15 by Zoya Downs DO) A-fib AAA (abdominal aortic aneurysm) Acute kidney injury Acute metabolic encephalopathy due to hypoglycemia Adrenal nodule ESAU (acute kidney injury) Basal cell carcinoma Bradycardia Candidal intertrigo Carotid stenosis Celiac artery stenosis Chronic colitis Chronic hyponatremia Chronic kidney disease CKD (chronic kidney disease) COVID Diabetes Fall Fibula fracture History of CVA (cerebrovascular accident) Hypertension Hypoglycemia associated with diabetes Hypokalemia Hypotension Iliac artery stenosis, bilateral Peptic ulcer disease Pleural effusion Pneumonia due to E. coli Seizure Squamous cell carcinoma Superior mesenteric artery stenosis Tobacco use disorder Type 2 diabetes mellitus Assessment and Plan Assessment and plan all Dx Assessment and Plan for all problems:: Pharmacokinetic dosing service Objective: Age: 73 yo Serum creatinine: 1.6 mg/dL Height: 61.8 Inches Weight (kg): 89.811 Diagnosis: PNEUMONIA Assessment: IBW (kg): 49.64 Dosing wt(kg): 89.811 Estimated Creatinine clearance (ml/min): 24.5 CRCL method: Cockcroft and Gault using ibw(default). Drug selected: Vancomycin Loading dose (mg): 1750 MG Vd (liters): 62.9 (factor used: 0.7 L/kg) Jluis (hr-1): 0.025 Half life (hrs): 27.73 CLvanco=?? 1.573 L/hr Recommended dose: 1250 mg Interval: 36 hrs Infusion time (hrs): 2.0 Predicted peak (mcg/mL): 32.7 Predicted trough (mcg/mL): 13.98 Total body weight is being used for vancomycin dosing. Recommendations: Give Vancomycin 1250 mg q 36 hrs with an expected Cpeak of 32.7 mcg/ml and an expected Ctrough of 13.98 mcg/ml TO START 11/14/23 AT 0700, LOADING DOSE OF VANCOMYCIN 1750 MG GIVEN 11/12/23 AT 18:45. AUC 0-24 /LAMONTE Data: LAMONTE 0.5 mcg/mL:?? AUC/LAMONTE:? 1059.5 LAMONTE 1.0 mcg/mL:?? AUC/LAMONTE:? 529.8 --------- LAMONTE 1.5 mcg/mL:?? AUC/LAMONTE:? 353.2 LAMONTE 2.0 mcg/mL:?? AUC/LAMONTE:? 264.9 Thank you for the consult
[2023-11-13] MEDS: ONDANSETRON 4MG/2ML VIAL 4 MG IV (10:00)
[2023-11-13] MEDS: NYSTATIN TOPICAL POWDER 30GM TP ×2 (10:02→21:03)
[2023-11-13] MEDS: FERROUS SULFATE 325MG TABLET 325 MG PO (10:03)
[2023-11-13] MEDS: SODIUM CHLORIDE 1,000MG TABLET 500 MG PO ×2 (10:03→21:02)
[2023-11-13] MEDS: DOCUSATE SODIUM 100 MG CAPSULE PO (10:03)
[2023-11-13] MEDS: CARVEDILOL 3.125MG TABLET 3.125 MG PO ×2 (10:10→21:01)
[2023-11-13] MEDS: levETIRAcetam 500 MG TABLET PO ×2 (10:10→21:02)
[2023-11-13] MEDS: MAGNESIUM OXIDE 400MG TABLET 400 MG PO ×2 (10:10→21:02)
[2023-11-13] MEDS: PANTOPRAZOLE 40MG TABLET 40 MG PO (10:10)
[2023-11-13] MEDS: SODIUM CHLORIDE 3 % 500 ML 25 ML IV (10:12)
[2023-11-13 10:23] LABS: POC Glucose,Bedside 124 (70-110)
[2023-11-13] MEDS: MORPHINE 2MG/ML SYRINGE 2 MG IV (12:45)
[2023-11-13 13:06] LABS: Chloride 92 mmol/L (98-107)
[2023-11-13 13:07] LABS: Potassium 4.2 mmoL/L (3.5-5.1)
[2023-11-13 13:10] LABS: Anion Gap 8.2 mEq/L (5-15); Blood Urea Nitrogen 16 mg/dl (7-17); Calcium 7.5 mg/dl (8.4-10.2); Carbon Dioxide 19 mmol/L (22.0-30.0); Creatinine Clearance Estimated 42 mL/min (50-200); Estimated Glomerular Filt Rate 29 ml/min (>60); GFR (African American) 36 ML/MIN (>60); Glucose 115 mg/dl (74-100)
[2023-11-13 13:17] LABS: Sodium 115 mmol/L (136-145)
[2023-11-13] MEDS: LEVOFLOXACIN/D5W 750 MG/150 ML 750 MG/150 ML PIGGYBACK 100 MG IV (14:09)
[2023-11-13] MEDS: RIVAROXABAN 15MG TABLET 15 MG PO (16:30)
[2023-11-13 16:39] LABS: POC Glucose,Bedside 117 (70-110)
--- NOTE | 2023-11-13 16:51 | PC.NURSE ---
Pt. is aox 4, assist times 2 to turn, purewick in place, morphine given times one for shoulder and leg pain.
[2023-11-13 18:50] LABS: Chloride 93 mmol/L (98-107)
[2023-11-13 18:51] LABS: Sodium 116 mmol/L (136-145)
[2023-11-13 18:54] LABS: Blood Urea Nitrogen 17 mg/dl (7-17); Calcium 7.4 mg/dl (8.4-10.2); Carbon Dioxide 21 mmol/L (22.0-30.0); Creatinine Clearance Estimated 42 mL/min (50-200); Estimated Glomerular Filt Rate 29 ml/min (>60); GFR (African American) 36 ML/MIN (>60); Glucose 95 mg/dl (74-100)
[2023-11-13] MEDS: ATORVASTATIN 40MG TABLET 80 MG PO (21:01)
[2023-11-13] MEDS: MELATONIN 5MG TABLET 5 MG PO (21:02)
[2023-11-14] VITALS (7 sets, daily range): BP systolic 88–112; BP diastolic 49–63; PULSE 79–84; RESP 16–20; TEMP 36.6–37.1; O2SAT 93–97; BMI 34.2
[2023-11-14 00:34] LABS: Anion Gap 5.7 mEq/L (5-15); Blood Urea Nitrogen 17 mg/dl (7-17); Calcium 7.4 mg/dl (8.4-10.2); Carbon Dioxide 21 mmol/L (22.0-30.0); Chloride 96 mmol/L (98-107); Creatinine Clearance Estimated 44 mL/min (50-200); Estimated Glomerular Filt Rate 32 ml/min (>60); GFR (African American) 38 ML/MIN (>60); Glucose 85 mg/dl (74-100); Potassium 3.7 mmoL/L (3.5-5.1); Sodium 119 mmol/L (136-145)
[2023-11-14] MEDS: IPRATROPIUM/ALBUTEROL 3 ML NEB IH ×3 (05:50→20:07)
[2023-11-14] MEDS: VANCOMYCIN/WATER FOR INJ (PEG) 1.25 GM/250 ML PIGGYBACK IV (06:19)
[2023-11-14 06:29] LABS: Eosinophils % 0.2 % (0.1-12.0); Hemoglobin 11.5 g/dL (12.2-16.2); Lymphocytes # 1.2 K/mm3 (0.7-4.5); Lymphocytes % 15.8 % (10-50); Mean Corpuscular HGB Conc 33.8 g/dL (31.8-35.4); Mean Corpuscular Hemoglobin 34.2 pg (27.0-31.2); Mean Corpuscular Volume 101.3 fl (81-99); Mean Platelet Volume 8.4 fl (7.4-10.4); Monocytes # 0.5 K/mm3 (0.1-1.0); Monocytes % 5.7 % (1.7-9.3); Neutrophils # 6.2 K/mm3 (1.8-7.8); Neutrophils % 78.4 % (37.0-80.0); Platelet Count 170 K/mm3 (142-424); Red Blood Count 3.36 M/mm3 (4.20-5.40); Red Cell Distribution Width 16.8 % (11.5-17.5); White Blood Count 7.9 K/mm3 (4.8-10.8)
[2023-11-14 06:29] LABS: POC Glucose,Bedside 79 (70-110)
[2023-11-14 06:32] LABS: Chloride 98 mmol/L (98-107)
[2023-11-14 06:33] LABS: Potassium 4.1 mmoL/L (3.5-5.1); Sodium 121 mmol/L (136-145)
[2023-11-14 06:35] LABS: Alanine Aminotransferase 24 U/L (12-78); Albumin Level 1.8 g/dl (3.5-5.0); Albumin/Globulin Ratio 0.6 (1.1-1.8); Alkaline Phosphatase 126 U/L (38-126); Anion Gap 8.1 mEq/L (5-15); Aspartate Amino Transferase 52 U/L (14-36); Bilirubin,Total 0.7 mg/dl (0.2-1.3); Blood Urea Nitrogen 18 mg/dl (7-17); Calcium 7.5 mg/dl (8.4-10.2); Carbon Dioxide 19 mmol/L (22.0-30.0); Creatinine Clearance Estimated 42 mL/min (50-200); Estimated Glomerular Filt Rate 32 ml/min (>60); GFR (African American) 38 ML/MIN (>60); Globulin 2.8 g/dL (1.3-3.2); Glucose 81 mg/dl (74-100); Total Protein,Serum 4.6 g/dl (6.3-8.2)
[2023-11-14 06:36] LABS: Magnesium 2.2 mg/dl (1.6-2.3)
[2023-11-14] MEDS: MAGNESIUM OXIDE 400MG TABLET 400 MG PO ×2 (08:29→21:52)
[2023-11-14] MEDS: PANTOPRAZOLE 40MG TABLET 40 MG PO (08:29)
[2023-11-14] MEDS: DOCUSATE SODIUM 100 MG CAPSULE PO (08:29)
[2023-11-14] MEDS: FUROSEMIDE 40MG/4ML VIAL 40 MG IV (08:29)
[2023-11-14] MEDS: SODIUM CHLORIDE 1,000MG TABLET 500 MG PO ×2 (08:29→21:53)
[2023-11-14] MEDS: FERROUS SULFATE 325MG TABLET 325 MG PO (08:29)
[2023-11-14] MEDS: levETIRAcetam 500 MG TABLET PO ×2 (08:29→21:53)
[2023-11-14] MEDS: NYSTATIN TOPICAL POWDER 30GM TP ×2 (08:30→21:15)
--- NOTE | 2023-11-14 08:51 | HMH.OTEV ---
OT Inpatient Evaluation Rehab OT IP Evaluation Start: 11/14/23 07:49 Freq: ONCE Status: Active Protocol: Document 11/14/23 08:45 [facility] (Rec: 11/14/23 08:51 [facility] [id number]) Rehab OT IP Assessment Subjective History Pt oriented x 3 on arrival. Pt agreeable to engage in therapy evaluation. Nursing present during evaluation. Pt admitted on 11/12/23 due to CHF exacerbation. History and physical: Patient is a 73-year-old female with past medical history of chronic hyponatremia with sodium around 130s, CHF, hypertension , diabetes mellitus who presented to hospital due to abnormal blood work. Patient is currently at long-term facility due to the rehab after treatment of fibular fracture. At time of my evaluation patient is alert awake able to hold normal conversations. Patient mentions she was sent to the hospital because she had a yeast infection and her blood sugar was down. Patient appears confused about her reason for admission. Otherwise patient denied fever chills diarrhea constipation dysuria. On further evaluation to the hospital arrival patient was found to have sodium 116, creatinine 1.6 with a baseline of around 1.0 Subjective I am cold. Prior to being in the hospital , pt was at [facility] for short term rehab from fibula fx. Pt claims she was requiring assistance with most ADLs such as bathing and dressing. She was independent with feeding. Pt was dependent upon staff/family for completion of all IADLs. Pt was using a rolling walker during functional transfers. Objective Patient Orientation Person,Place,Birthday Right Upper Extremity Gross ROM Min Limitation <25% Left Upper Extremity Gross ROM Min Limitation <25% Shoulder ROM Limitations Muscle Weakness Elbow ROM Limitations Muscle Weakness Wrist Limitations of Range of Motion Muscle Weakness Bed Mobility bed mobility-scooting,bed mobility - supine/sit Assist Level Moderate x 2 (50% assist) Rehab OT IP prob,goals,plan Problems Date of Evaluation: 11/14/23 OT IP Problems Bed Mobility,Transfers,Balance ,Self care,Safety Rehab Potential Rehab Potential Good Equipment Needs Assistive Devices Rolling / Wheeled Walker Plan OT intervention Plan Bed Mobility,Transfers,Balance ,Self care,Safety,Therapeutic Exercise OT Plan Frequency Daily Duration LOS Discharge Goals Bed Mobility Ability Assistance x1 Sit to Stand Chair Transfer Ability Moderate x 1 (50% assist) Chair Transfer Ability Moderate x 1 (50% assist) Chair Transfer Technique Sit to/from Ambulatory Chair Transfer Assistive Devices Rolling Walker Feeding Ability Assist with Tray Set Up Lower Body Dressing Ability Moderate Assistance Upper Body Dressing Ability Minimal Assistance Bathing Ability Moderate Assistance,Maximum Assistance Performing Toilet Hygiene Ability Moderate Assistance Overall Commode/Toilet Transfer Ability Minimal Assistance Commode/Toilet Transfer Technique Sit to/from Ambulatory Commode/Toilet Transfer Assistive Raised Toilet Seat,Grab Bars Devices Oral Care Assist Minimal Assistance Decrease in Endurance Yes Discharge Plan OT Discharge Plan Pt will continue to be seen for OT services while at [facility]. Pt would benefit most from continued short term rehab at [facility] upon discharge. Continued skilled therapy is important in order for patient to improve strength, safety, endurance, ADL independence, and functional transfers to reach PLOF. Eval Complexity Eval Charge Codes 04377 - Moderate Complexity PHYSICIAN CERTIFICATION: I certify the specified therapy services for Alondra Zuniga are required, authorized, and reviewed every 30 days.
--- NOTE | 2023-11-14 10:00 | HMH.PTEV ---
Physical Therapy Evaluation Rehab PT IP Evaluation Start: 11/14/23 07:49 Freq: ONCE Status: Active Protocol: Document 11/14/23 09:52 MONIQUE (Rec: 11/14/23 10:00 MONIQUE [id number]) Subjective/History History History Per H & P: Patient is a 73-year-old female with past medical history of chronic hyponatremia with sodium around 130s, CHF, hypertension , diabetes mellitus who presented to hospital due to abnormal blood work. Patient is currently at [facility] due to the rehab after treatment of fibular fracture. At time of my evaluation patient is alert awake able to hold normal conversations. Patient mentions she was sent to the hospital because she had a yeast infection and her blood sugar was down. Patient appears confused about her reason for admission. Otherwise patient denied fever chills diarrhea constipation dysuria. On further evaluation to the hospital arrival patient was found to have sodium 116, creatinine 1.6 with a baseline of around 1.0. Subjective Subjective Pt alseep with difficulty remaining awake during history taking. Pt refusing PT evaluation of mobility. I am cold I already did that . PLOF and History per OT note: Prior to being in the hospital, pt was at [facility] for short term rehab from fibula fx. Pt claims she was requiring assistance with most ADLs such as bathing and dressing. She was independent with feeding. Pt was dependent upon staff/ family for completion of all IADLs. Pt was using a rolling walker during functional transfers. [ End ] New diagnosis of cancer in past 12 No months? Rehab PT IP Eval Objective Appearance Patient Behavior Asleep Speech Pattern Soft-Spoken,Mumbled Ambulation Patient Able to Ambulate No Transfers Bed Transfer Ability Moderate x 2 (50% assist) Rehab PT IP prob,goals,plan Problems Date of Evaluation: 11/14/23 PT IP Problems Bed Mobility,Transfers,Gait, Balance,Self care,Safety Rehab Potential Rehab Potential Fair Equipment Needs Assistive Devices Rolling / Wheeled Walker Plan PT Intervention Plan Bed Mobility,Transfers,Gait, Balance,Safety,Therapeutic Exercise Other Intervention Plan 1-2 PT Plan Frequency Daily Duration LOS Discharge Goals Bed Transfer Ability Moderate x 1 (50% assist) Discharge Plan PT Discharge Plan Bed mobility scoring per OT note d/t pt refusal (d/t fatigue). PT recommending pt d /c to short-term rehab/SNF when deemed medically necessary. Pt would benefit from skilled inpatient PT while at [facility] to prevent further functional decline. Eval Complexity Eval Charge Codes 68260 - High Complexity PHYSICIAN CERTIFICATION: I certify the specified therapy services for Alondra Zuniga are required, authorized, and reviewed every 30 days.
--- NOTE | 2023-11-14 10:54 | EXP.ACUTE.PN ---
Subjective *Date: 11/14/23 *Time: 10:57 Interval history: Stable on room air this morning. Afebrile. Alert and oriented today. Tolerating p.o. intake. States she feels cold this morning but has no fever. Reviewed labs, white cell count and stable. Showing appropriate improvement in sodium. Medical Exam Vital signs and Labs for Last 24 Hours: Vital Signs Temp Pulse Pulse Resp BP Pulse Ox O2 Del Method 11/14/23 09:00 Room Air 11/14/23 08:00 Room Air 11/14/23 08:00 98.7 F 83 18 88/49 L 94 L Room Air 11/14/23 07:00 Room Air 11/14/23 05:00 Room Air 11/14/23 05:50 79 11/14/23 05:50 82 11/14/23 03:48 97.8 F 81 16 106/63 L 93 L Room Air 11/14/23 03:00 Room Air 11/14/23 01:00 Room Air 11/13/23 23:00 Room Air 11/13/23 21:00 Room Air 11/13/23 21:00 Room Air 11/13/23 20:00 97.9 F 71 16 118/60 97 Room Air 11/13/23 19:11 86 11/13/23 19:11 82 11/13/23 16:00 97.8 F 75 19 138/78 95 Room Air 11/13/23 12:00 98.4 F 80 19 126/64 93 L Nasal Cannula 11/13/23 17:44 Room Air 11/13/23 16:05 Room Air 11/13/23 13:48 Room Air 11/13/23 12:53 Room Air 11/13/23 10:58 Room Air Intake and Output 11/13/23 11/14/23 11/14/23 23:59 07:59 15:59 Intake Total 300 / 2000 Output Total 250 / 250 Balance 300 / 1750 -250 / -250 Intake: Intake, Total IV Amount 300 / 1250 Levofloxacin/D5w 750 mg/150 ml 150 / 150 750 mg In 150 ml @ 100 mls/hr IV 1100 TOBIAS Rx#:[id number] Sodium Chloride 3 % 500 ml @ 22 150 / 150 mls/hr IV .[id number] ONE Rx#: [id number] Output: Output, Urine Amount 250 / 250 Other: Number of Bowel Movements 1 Weight 84.414 kg Patient Weight 11/14/23 23:59 Weight 84.414 kg Laboratory Results - last 24 hr 11/13/23 12:55: Sodium 115 L, Potassium 4.2, Chloride 92 L, Carbon Dioxide 19 L, Anion Gap 8.2, BUN 16, Creatinine 1.70 H, Estimated Creat Clear 42, Estimated GFR 29 L, Est GFR ( Amer) 36 L, Glucose 115 H D, Calcium 7.5 L 11/13/23 16:29: POC Glucose 117 H 11/13/23 18:20: Sodium 116 L, Potassium 4.0, Chloride 93 L, Carbon Dioxide 21 L, Anion Gap 6.0, BUN 17, Creatinine 1.70 H, Estimated Creat Clear 42, Estimated GFR 29 L, Est GFR ( Amer) 36 L, Glucose 95, Calcium 7.4 L 11/14/23 00:19: Sodium 119 L, Potassium 3.7, Chloride 96 L, Carbon Dioxide 21 L, Anion Gap 5.7, BUN 17, Creatinine 1.60 H, Estimated Creat Clear 44, Estimated GFR 32 L, Est GFR ( Amer) 38 L, Glucose 85, Calcium 7.4 L 11/14/23 05:39: WBC 7.9, RBC 3.36 L, Hgb 11.5 L, Hct 34.0 L, MCV 101.3 H, MCH 34.2 H, MCHC 33.8, RDW 16.8, Plt Count 170, MPV 8.4, Neut % (Auto) 78.4, Lymph % (Auto) 15.8, [place] % (Auto) 5.7, Eos % (Auto) 0.2, Baso % (Auto) 0.0 L, Neut # (Auto) 6.2, Lymph # (Auto) 1.2, [place] # (Auto) 0.5, Eos # (Auto) 0.0, Baso # (Auto) 0.0, Sodium 121 L, Potassium 4.1, Chloride 98, Carbon Dioxide 19 L, Anion Gap 8.1, BUN 18 H, Creatinine 1.60 H, Estimated Creat Clear 42, Estimated GFR 32 L, Est GFR ( Amer) 38 L, Glucose 81, Calcium 7.5 L, Magnesium 2.2, Total Bilirubin 0.7, AST 52 H D, ALT 24 D, Alkaline Phosphatase 126, Total Protein 4.6 L, Albumin 1.8 L, Globulin 2.8, Albumin/Globulin Ratio 0.6 L 11/14/23 06:21: POC Glucose 79 I & O for Labs for Last 24 Hours: Intake & Output 11/11/23 11/12/23 11/13/23 11/14/23 23:59 23:59 23:59 23:59 Intake Total 340 / 580 1999 / 1999 Output Total 0 / 0 0 / 250 250 / 250 Balance 340 / 580 1999 / 1750 -250 / -250 Weight 79.832 kg 89.81 kg 84.414 kg Microbiology Reports for the Last 24 Hours: Microbiology 11/12/23 12:52 Urine,Catheterized Urine Culture - Final Constitutional: Present no acute distress, obese, chronically ill appearing and cooperative Head: Present atraumatic and normocephalic ENT: Present normal exam Neck: Present normal inspection Respiratory: Present normal respiratory effort; Absent rhonchi, wheezes or crackles Cardiac: Present Reg Rate and Rhythm GI: Present soft and normal bowel sounds; Absent distention or tenderness Extremities: Present normal inspection, full ROM and edema (2+ in left lower extremity to knee, 1+ right lower extremity) Skin: Present intact; Absent erythema Neuro: Present Grossly Intact, alert, awake, oriented x 3 and moves all extremities Assessment and Plan *Assessment and plan (1) Hyponatremia: Status: Acute Category: Medical Code(s): E87.1 - Hypo-osmolality and hyponatremia (2) Pneumonia: Status: Acute Category: Medical Code(s): J18.9 - Pneumonia, unspecified organism (3) ESAU (acute kidney injury): Status: Acute Category: Medical Code(s): N17.9 - Acute kidney failure, unspecified (4) Acute exacerbation of CHF (congestive heart failure): Status: Acute Category: Medical Code(s): I50.9 - Heart failure, unspecified (5) Fracture of right fibula: Status: Acute Category: Medical Code(s): S82.401A - Unspecified fracture of shaft of right fibula, initial encounter for closed fracture (6) Hypertension: Status: Acute Category: Medical Code(s): I10 - Essential (primary) hypertension (7) Type 2 diabetes mellitus: Status: Chronic Qualifiers: Diabetes mellitus complication status: without complication Diabetes mellitus usp insulin use: with rat exterminator use Qualified Code(s): E11.9 - Type 2 diabetes mellitus without complications; Z79.4 - predatory animal exterminator (current) use of insulin Category: Medical Code(s): E11.9 - Type 2 diabetes mellitus without complications Plan Patient is a 73-year-old female with past medical history of chronic hyponatremia with sodium around 130, CHF, hypertension, diabetes mellitus who presented to hospital due to abnormal blood work. [facility] after treatment of fibular fracture. She was admitted due to symptomatic hyponatremia and mild confusion. This morning sodium still low at 113. Continues to necessitate inpatient management given her mild confusion and persistent hyponatremia. Seeing improvement in mentation. Sodium correcting appropriately but still low. On room air. Problems addressed as follows: Hyponatremia likely hypovolemic hypoosmolar -Sodium correcting well, up to 121 this morning. Corrected by 8 mEq over the past 24 hours. Will discontinue IV hypertonic saline. Repeat BMP ordered for this afternoon, monitoring sodium every 12 hours with oral repletion. Continue p.o. sodium chloride 500 mg twice daily. Correction rate of 8-10 mEq/day. Necessitates close monitoring given risk of toxicity with hypertonic saline and risks of overcorrection. -Previous sodium 130 at last discharge. -Resume Lasix 40 mg IV x 1 today. Has some edema on exam today. Complicated by her albumin of 1.8. -Urine sodium pending PNA likely gram negative organism - Continue levofloxacin renally dosed, complete total of 5 days of antibiotics. Discontinue vancomycin. -Currently on room air, supplemental oxygen as needed for goal sats greater than 90% -Blood culture and sputum culture pending Acute kidney injury - Baseline creatinine 1.0, elevated 1.6 today. BUN 18. Repeat CBC, CMP, magnesium ordered for the morning Diabetes mellitus - Insulin sliding scale Hypertension Hyperlipidemia -Continue home Lipitor, xarelto, holding carvedilol with her soft blood pressures while we try to diurese. Heart rate controlled. Seizure disorder with history of Keppra, continue 500 mg twice daily Xarelto for DVT PPx Full code Diabetic diet with boost supplementation
[2023-11-14] MEDS: LEVOFLOXACIN/D5W 750 MG/150 ML 750 MG/150 ML PIGGYBACK 100 MG IV (10:56)
[2023-11-14 11:10] LABS: POC Glucose,Bedside 91 (70-110)
[2023-11-14] MEDS: MORPHINE 2MG/ML SYRINGE 2 MG IV (16:18)
[2023-11-14 17:49] LABS: Blood Urea Nitrogen 19 mg/dl (7-17); Calcium 7.7 mg/dl (8.4-10.2); Chloride 106 mmol/L (98-107); Creatinine Clearance Estimated 42 mL/min (50-200); Estimated Glomerular Filt Rate 32 ml/min (>60); GFR (African American) 38 ML/MIN (>60); Glucose 91 mg/dl (74-100); Sodium 122 mmol/L (136-145)
[2023-11-14 18:07] LABS: Carbon Dioxide 9 mmol/L (22.0-30.0)
[2023-11-14] MEDS: RIVAROXABAN 15MG TABLET 15 MG PO (18:19)
[2023-11-14 18:25] LABS: POC Glucose,Bedside 93 (70-110)
[2023-11-14] MEDS: BUMETANIDE 1MG/4ML VIAL 1 MG IV (19:06)
[2023-11-14] MEDS: SODIUM CHLORIDE 3% 15ML NEB 3 ML IH (20:08)
--- NOTE | 2023-11-14 20:10 | PC.NURSE ---
RESPIRATORY NOTE: SPUTUM INDUCED. NO SPECIMEN OBTAINED. LEFT SPECIMEN CUP IN ROOM.
[2023-11-14] MEDS: ATORVASTATIN 40MG TABLET 80 MG PO (21:40)
[2023-11-14] MEDS: MELATONIN 5MG TABLET 5 MG PO (21:53)
[2023-11-14] MEDS: ACETAMINOPHEN 325MG TAB 650 MG PO (22:53)
[2023-11-15 04:00] VITALS: BP 103/55; PULSE 79; RESP 16; TEMP 36.6; O2SAT 97; BMI 33.5
[2023-11-15] MEDS: IPRATROPIUM/ALBUTEROL 3 ML NEB IH ×3 (06:23→18:51)
--- NOTE | 2023-11-15 07:01 | PC.NURSE ---
Patient alert and orient x3. Patient rested with eyes closed most of shift. No s/sx of hypo/hyperglycemia. Skin warm, pink and dry. PRN pain medication given PRN as ordered with effectiveness.
[2023-11-15 07:16] LABS: Chloride 98 mmol/L (98-107); Potassium 3.9 mmoL/L (3.5-5.1); Sodium 120 mmol/L (136-145)
[2023-11-15 07:17] LABS: Basophils % 0.1 % (0.1-2.0); Eosinophils % 0.2 % (0.1-12.0); Hematocrit 34.9 % (37.0-47.0); Hemoglobin 11.4 g/dL (12.2-16.2); Lymphocytes # 1.5 K/mm3 (0.7-4.5); Lymphocytes % 16.4 % (10-50); Mean Corpuscular HGB Conc 32.7 g/dL (31.8-35.4); Mean Corpuscular Hemoglobin 33.6 pg (27.0-31.2); Monocytes # 0.6 K/mm3 (0.1-1.0); Monocytes % 6.2 % (1.7-9.3); Neutrophils # 7.1 K/mm3 (1.8-7.8); Neutrophils % 77.1 % (37.0-80.0); Platelet Count 147 K/mm3 (142-424); Red Blood Count 3.39 M/mm3 (4.20-5.40); Red Cell Distribution Width 16.8 % (11.5-17.5); White Blood Count 9.2 K/mm3 (4.8-10.8)
[2023-11-15 07:19] LABS: Alanine Aminotransferase 27 U/L (12-78); Albumin Level 1.8 g/dl (3.5-5.0); Albumin/Globulin Ratio 0.6 (1.1-1.8); Alkaline Phosphatase 126 U/L (38-126); Anion Gap 7.9 mEq/L (5-15); Aspartate Amino Transferase 65 U/L (14-36); Bilirubin,Total 0.8 mg/dl (0.2-1.3); Blood Urea Nitrogen 22 mg/dl (7-17); Carbon Dioxide 18 mmol/L (22.0-30.0); Creatinine Clearance Estimated 36 mL/min (50-200); Estimated Glomerular Filt Rate 28 ml/min (>60); GFR (African American) 33 ML/MIN (>60); Total Protein,Serum 4.8 g/dl (6.3-8.2)
[2023-11-15 07:20] LABS: Calcium 7.5 mg/dl (8.4-10.2); Glucose 102 mg/dl (74-100)
[2023-11-15 08:00] VITALS: BP 128/71; PULSE 84; RESP 18; TEMP 37; O2SAT 94
[2023-11-15 08:46] LABS: Magnesium 2.4 mg/dl (1.6-2.3)
[2023-11-15] MEDS: NYSTATIN TOPICAL POWDER 30GM TP ×2 (09:03→21:04)
[2023-11-15] MEDS: SODIUM CHLORIDE 1,000MG TABLET 1000 MG PO ×2 (09:03→21:03)
[2023-11-15] MEDS: levETIRAcetam 500 MG TABLET PO ×2 (09:03→21:02)
[2023-11-15] MEDS: MAGNESIUM OXIDE 400MG TABLET 400 MG PO ×2 (09:03→21:02)
[2023-11-15] MEDS: FERROUS SULFATE 325MG TABLET 325 MG PO (09:03)
[2023-11-15] MEDS: DOCUSATE SODIUM 100 MG CAPSULE PO (09:03)
[2023-11-15] MEDS: PANTOPRAZOLE 40MG TABLET 40 MG PO (09:03)
[2023-11-15] MEDS: ACETAMINOPHEN 325MG TAB 650 MG PO ×2 (09:03→16:47)
[2023-11-15 11:31] LABS: Thyroid Stimulating Hormone 2.68 uIU/mL (0.465-4.68)
--- NOTE | 2023-11-15 11:38 | P.PN_ITS ---
Subjective *Date: 11/15/23 *Time: 15:54 Interval history: Patient did fairly well to diuresis however kidney function not any better. Stable on room air. Continues to complain of feeling cold. Participating somewhat with therapy. Having persistent leg pain. Afebrile and hemodynamically stable overnight. Medical Exam Vital signs and Labs for Last 24 Hours: Vital Signs Temp Pulse Pulse Resp BP Pulse Ox O2 Del Method 11/15/23 08:00 98.6 F 84 18 128/71 94 L Room Air 11/15/23 06:49 Room Air 11/15/23 05:00 Room Air 11/15/23 04:00 97.9 F 79 16 103/55 L 97 Room Air 11/15/23 03:00 Room Air 11/15/23 01:00 Room Air 11/14/23 23:00 Room Air 11/14/23 21:00 Room Air 11/14/23 20:00 97.8 F 83 16 112/58 L 97 Room Air 11/14/23 20:09 84 16 11/14/23 20:08 84 11/14/23 20:08 80 11/14/23 19:00 Room Air 11/14/23 17:00 Room Air 11/14/23 16:00 98.2 F 81 20 112/63 97 Room Air 11/14/23 15:00 Room Air 11/14/23 13:00 Room Air Intake and Output 11/14/23 11/15/23 11/15/23 23:59 07:59 15:59 Intake Total 480 / 870 120 / 480 360 / 480 Output Total 150 / 400 100 / 100 Balance 330 / 470 20 / 380 360 / 380 Intake: Intake, Oral Amount 480 / 870 120 / 480 360 / 480 Output: Output, Urine Amount 150 / 400 100 / 100 Other: Number of Unmeasured Voids 1 0 Weight 82.69 kg Patient Weight 11/15/23 23:59 Weight 82.69 kg Laboratory Results - last 24 hr 11/12/23 12:52: Urine Sodium TNP 11/14/23 16:22: POC Glucose 93 11/14/23 16:39: Sodium 122 L, Potassium 5.0 D, Chloride 106, Carbon Dioxide 9 L* D, Anion Gap 12.0, BUN 19 H, Creatinine 1.60 H, Estimated Creat Clear 42, Estimated GFR 32 L, Est GFR ( Amer) 38 L, Glucose 91, Calcium 7.7 L 11/15/23 05:21: WBC 9.2, RBC 3.39 L, Hgb 11.4 L, Hct 34.9 L, MCV 103.0 H, MCH 33.6 H, MCHC 32.7, RDW 16.8, Plt Count 147, MPV 9.0, Neut % (Auto) 77.1, Lymph % (Auto) 16.4, [place] % (Auto) 6.2, Eos % (Auto) 0.2, Baso % (Auto) 0.1, Neut # (Auto) 7.1, Lymph # (Auto) 1.5, [place] # (Auto) 0.6, Eos # (Auto) 0.0, Baso # (Auto) 0.0, Sodium 120 L, Potassium 3.9 D, Chloride 98, Carbon Dioxide 18 L, Anion Gap 7.9, BUN 22 H, Creatinine 1.80 H, Estimated Creat Clear 36, Estimated GFR 28 L, Est GFR ( Amer) 33 L, Glucose 102 H, Calcium 7.5 L, Magnesium 2.4 H, Total Bilirubin 0.8, AST 65 H, ALT 27, Alkaline Phosphatase 126, Total Protein 4.8 L, Albumin 1.8 L, Globulin 3.0, Albumin/Globulin Ratio 0.6 L I & O for Labs for Last 24 Hours: Intake & Output 11/12/23 11/13/23 11/14/23 11/15/23 23:59 23:59 23:59 23:59 Intake Total 340 / 580 1999 / 1999 750 / 870 480 / 480 Output Total 0 / 0 0 / 250 400 / 400 100 / 100 Balance 340 / 580 2000 / 1750 350 / 470 380 / 380 Weight 79.832 kg 89.81 kg 84.414 kg 82.69 kg Microbiology Reports for the Last 24 Hours: Microbiology 11/13/23 06:00 Nose MRSA Culture - Final Constitutional: Present no acute distress, obese, chronically ill appearing and cooperative Head: Present atraumatic and normocephalic ENT: Present normal exam Neck: Present normal inspection Respiratory: Present normal respiratory effort; Absent rhonchi, wheezes or crackles Cardiac: Present Reg Rate and Rhythm GI: Present soft and normal bowel sounds; Absent distention or tenderness Extremities: Present normal inspection, full ROM and edema (2+ in left lower extremity to knee, 1+ right lower extremity) Skin: Present intact; Absent erythema Neuro: Present Grossly Intact, alert, awake, oriented x 3 and moves all extremities Assessment and Plan *Assessment and plan (1) Hyponatremia: Status: Acute Category: Medical Code(s): E87.1 - Hypo-osmolality and hyponatremia (2) Pneumonia: Status: Acute Category: Medical Code(s): J18.9 - Pneumonia, unspecified organism (3) ESAU (acute kidney injury): Status: Acute Category: Medical Code(s): N17.9 - Acute kidney failure, unspecified (4) Acute exacerbation of CHF (congestive heart failure): Status: Acute Category: Medical Code(s): I50.9 - Heart failure, unspecified (5) Fracture of right fibula: Status: Acute Category: Medical Code(s): S82.401A - Unspecified fracture of shaft of right fibula, initial encounter for closed fracture (6) Hypertension: Status: Acute Category: Medical Code(s): I10 - Essential (primary) hypertension (7) Type 2 diabetes mellitus: Status: Chronic Qualifiers: Diabetes mellitus long term acute care registered nurse insulin use: with skilled nursing use Diabetes mellitus complication status: without complication Qualified Code(s): E11.9 - Type 2 diabetes mellitus without complications; Z79.4 - retirement (current) use of insulin Category: Medical Code(s): E11.9 - Type 2 diabetes mellitus without complications Plan Patient is a 73-year-old female with past medical history of chronic hyponatremia with sodium around 130, CHF, hypertension, diabetes mellitus who presented to hospital due to abnormal blood work. Patient is currently at [facility] facility due to the rehab after treatment of fibular fracture. She was admitted due to symptomatic hyponatremia and mild confusion. This morning sodium still low at 113. Continues to necessitate inpatient management given her mild confusion and persistent hyponatremia. seeing improvement in mentation. Sodium correcting appropriately but still low. On room air. Problems addressed as follows: Hyponatremia likely hypovolemic hypoosmolar -Sodium 120 this morning. Continuing p.o. supplementation, increase to 1 g twice daily. Repeat BMP this afternoon at 6 PM, repeat CMP in the morning. -Previous sodium 130 at last discharge. PNA likely gram negative organism - Continue levofloxacin renally dosed, complete total of 5 days of antibiotics. -Currently on room air, supplemental oxygen as needed for goal sats greater than 90% -Blood culture and sputum culture pending Acute kidney injury - Baseline creatinine 1.0, elevated 1.8 today. BUN 22. Repeat CBC, CMP, magnesium ordered for the morning -Holding on further diuresis. - Patient's hypoalbuminemia complicates volume status. Suspect she is third spacing. Diabetes mellitus: Insulin sliding scale Hypertension Hyperlipidemia -Continue home Lipitor, xarelto, holding carvedilol with her soft blood pressures while we try to diurese. Heart rate controlled. Seizure disorder with history of Keppra, continue 500 mg twice daily Xarelto for DVT PPx Full code Diabetic diet with boost supplementation Pending stability and sodium, anticipate discharge in the next day or 2
[2023-11-15] MEDS: humaLOG 100 UNITS/ML 3ML VIAL (SSI) SQ ×2 (11:54→16:47)
[2023-11-15 11:59] LABS: POC Glucose,Bedside 194 (70-110)
[2023-11-15 13:16] VITALS: PULSE 84; PULSE 86
[2023-11-15 16:00] VITALS: BP 120/68; PULSE 82; RESP 20; TEMP 36.5; O2SAT 95
[2023-11-15] MEDS: RIVAROXABAN 15MG TABLET 15 MG PO (16:48)
[2023-11-15 16:50] LABS: POC Glucose,Bedside 163 (70-110)
[2023-11-15 18:51] VITALS: PULSE 84
[2023-11-15 19:03] LABS: Chloride 100 mmol/L (98-107); Potassium 3.5 mmoL/L (3.5-5.1); Sodium 124 mmol/L (136-145)
[2023-11-15 19:06] LABS: Anion Gap 8.5 mEq/L (5-15); Blood Urea Nitrogen 25 mg/dl (7-17); Carbon Dioxide 19 mmol/L (22.0-30.0); Creatinine Clearance Estimated 30 mL/min (50-200); Estimated Glomerular Filt Rate 22 ml/min (>60); GFR (African American) 26 ML/MIN (>60)
[2023-11-15 19:07] LABS: Calcium 7.8 mg/dl (8.4-10.2); Glucose 144 mg/dl (74-100)
[2023-11-15 20:00] VITALS: BP 138/72; PULSE 87; RESP 16; TEMP 36.5; O2SAT 93
[2023-11-15 20:33] LABS: POC Glucose,Bedside 139 (70-110)
[2023-11-15] MEDS: MELATONIN 5MG TABLET 5 MG PO (21:02)
[2023-11-15] MEDS: ATORVASTATIN 40MG TABLET 80 MG PO (21:02)
[2023-11-15] MEDS: MORPHINE 2MG/ML SYRINGE 2 MG IV (22:22)
[2023-11-15] MEDS: ALBUMIN 25% (12.5 GM) SOLN 50ML BOTTLE IV (22:45)
[2023-11-16] VITALS (7 sets, daily range): BP systolic 88–127; BP diastolic 42–57; PULSE 68–94; RESP 16–20; TEMP 36.4–36.6; O2SAT 93–96; BMI 33.5
[2023-11-16] MEDS: ACETAMINOPHEN 325MG TAB 650 MG PO ×2 (01:53→20:45)
--- NOTE | 2023-11-16 04:03 | PC.NURSE ---
HAS NOT VOIDED OVER 8 HRS. BLADDER SCAN 163.
[2023-11-16 05:11] LABS: POC Glucose,Bedside 134 (70-110)
[2023-11-16] MEDS: IPRATROPIUM/ALBUTEROL 3 ML NEB IH ×3 (06:34→19:07)
[2023-11-16 06:46] LABS: Basophils % 0.1 % (0.1-2.0); Eosinophils % 0.2 % (0.1-12.0); Hematocrit 34.2 % (37.0-47.0); Hemoglobin 11.4 g/dL (12.2-16.2); Lymphocytes # 2.1 K/mm3 (0.7-4.5); Lymphocytes % 18.5 % (10-50); Mean Corpuscular HGB Conc 33.4 g/dL (31.8-35.4); Mean Corpuscular Hemoglobin 34.1 pg (27.0-31.2); Mean Corpuscular Volume 102.2 fl (81-99); Mean Platelet Volume 8.6 fl (7.4-10.4); Monocytes # 0.6 K/mm3 (0.1-1.0); Neutrophils # 8.5 K/mm3 (1.8-7.8); Neutrophils % 76.1 % (37.0-80.0); Platelet Count 139 K/mm3 (142-424); Red Blood Count 3.35 M/mm3 (4.20-5.40); Red Cell Distribution Width 17.1 % (11.5-17.5); White Blood Count 11.2 K/mm3 (4.8-10.8)
[2023-11-16 06:56] LABS: Chloride 100 mmol/L (98-107)
[2023-11-16 06:57] LABS: Potassium 3.4 mmoL/L (3.5-5.1); Sodium 124 mmol/L (136-145)
[2023-11-16 06:59] LABS: Alanine Aminotransferase 25 U/L (12-78); Alkaline Phosphatase 146 U/L (38-126); Aspartate Amino Transferase 54 U/L (14-36); Bilirubin,Total 0.7 mg/dl (0.2-1.3); Blood Urea Nitrogen 28 mg/dl (7-17); Creatinine Clearance Estimated 30 mL/min (50-200); Estimated Glomerular Filt Rate 22 ml/min (>60); GFR (African American) 26 ML/MIN (>60)
[2023-11-16 07:00] LABS: Albumin Level 2.2 g/dl (3.5-5.0); Albumin/Globulin Ratio 0.8 (1.1-1.8); Anion Gap 10.4 mEq/L (5-15); Carbon Dioxide 17 mmol/L (22.0-30.0); Globulin 2.6 g/dL (1.3-3.2); Glucose 128 mg/dl (74-100); Total Protein,Serum 4.8 g/dl (6.3-8.2)
[2023-11-16 07:16] LABS: Magnesium 2.7 mg/dl (1.6-2.3)
[2023-11-16 08:32] LABS: Osmolality, Urine 491 mOsmol/kg (.)
[2023-11-16] MEDS: LACTATED RINGERS 1000ML 1,000 ML 200 ML IV (09:07)
[2023-11-16] MEDS: SODIUM CHLORIDE 1,000MG TABLET 500 MG PO ×2 (09:09→20:45)
[2023-11-16] MEDS: levETIRAcetam 500 MG TABLET PO ×2 (09:11→20:45)
[2023-11-16] MEDS: MAGNESIUM OXIDE 400MG TABLET 400 MG PO ×2 (09:12→20:45)
[2023-11-16] MEDS: FERROUS SULFATE 325MG TABLET 325 MG PO (09:12)
[2023-11-16] MEDS: PANTOPRAZOLE 40MG TABLET 40 MG PO (09:13)
[2023-11-16] MEDS: NYSTATIN TOPICAL POWDER 30GM TP ×2 (09:13→23:04)
[2023-11-16] MEDS: PRO-STAT AWC 30ML LIQUID PACKET 30 ML PO ×2 (10:40→20:44)
[2023-11-16] MEDS: humaLOG 100 UNITS/ML 3ML VIAL (SSI) SQ ×3 (10:59→20:44)
--- NOTE | 2023-11-16 11:54 | P.PN_ITS ---
Subjective *Date: 11/16/23 *Time: 14:03 Interval history: Stable on room air this morning. Continues to feel cold. Decreasing urine output over the past 24 hours. Received albumin overnight as her albumin remained 1.8 yesterday, improved to 2.2 this morning. No chest pain or shortness of breath. Continues to have edema. Participating minimally with therapy. Requiring more assistance, more dependent on staff for mobility. Feeding self currently. Medical Exam Vital signs and Labs for Last 24 Hours: Vital Signs Temp Pulse Pulse Resp BP Pulse Ox O2 Del Method 11/16/23 09:00 Room Air 11/16/23 08:00 Room Air 11/16/23 08:00 97.9 F 89 16 88/42 L 96 Room Air 11/16/23 06:34 82 11/16/23 06:34 79 11/16/23 06:22 Room Air 11/16/23 04:00 97.8 F 84 16 127/53 L 93 L Room Air 11/16/23 04:48 Room Air 11/16/23 03:00 Room Air 11/16/23 01:00 Room Air 11/15/23 23:00 Room Air 11/15/23 21:00 Room Air 11/15/23 20:00 93 L Room Air 11/15/23 20:00 97.7 F 87 16 138/72 93 L Room Air 11/15/23 18:51 84 11/15/23 18:51 84 11/15/23 16:00 97.7 F 82 20 120/68 95 Room Air 11/15/23 18:29 Room Air 11/15/23 17:00 Room Air 11/15/23 15:00 Room Air 11/15/23 13:00 Room Air 11/15/23 13:16 84 11/15/23 13:16 86 Intake and Output 11/15/23 11/16/23 11/16/23 23:59 07:59 15:59 Intake Total 70 / 1060 340 / 460 120 / 460 Output Total 250 / 350 Balance -180 / 710 340 / 460 120 / 460 Intake: Intake, Oral Amount 70 / 960 240 / 360 120 / 360 Intake, Other Amount 100 / 100 Output: Output, Urine Amount 250 / 350 Other: Number of Voids 0 1 Number of Unmeasured Voids 1 Weight 82.69 kg Patient Weight 11/16/23 23:59 Weight 82.69 kg Laboratory Results - last 24 hr 11/12/23 12:52: Urine Osmolality 491 11/15/23 11:47: POC Glucose 194 H 11/15/23 16:43: POC Glucose 163 H 11/15/23 18:27: Sodium 124 L, Potassium 3.5, Chloride 100, Carbon Dioxide 19 L, Anion Gap 8.5, BUN 25 H, Creatinine 2.20 H D, Estimated Creat Clear 30, Estimated GFR 22 L, Est GFR ( Amer) 26 L D, Glucose 144 H D, Calcium 7.8 L 11/15/23 20:20: POC Glucose 139 H 11/16/23 04:59: POC Glucose 134 H 11/16/23 06:20: WBC 11.2 H, RBC 3.35 L, Hgb 11.4 L, Hct 34.2 L, MCV 102.2 H, MCH 34.1 H, MCHC 33.4, RDW 17.1, Plt Count 139 L, MPV 8.6, Neut % (Auto) 76.1, Lymph % (Auto) 18.5, Tift % (Auto) 5.0, Eos % (Auto) 0.2, Baso % (Auto) 0.1, Neut # (Auto) 8.5 H, Lymph # (Auto) 2.1, Tift # (Auto) 0.6, Eos # (Auto) 0.0, Baso # (Auto) 0.0, Sodium 124 L, Potassium 3.4 L, Chloride 100, Carbon Dioxide 17 L, Anion Gap 10.4, BUN 28 H, Creatinine 2.20 H, Estimated Creat Clear 30, Estimated GFR 22 L, Est GFR ( Amer) 26 L, Glucose 128 H, Calcium 8.0 L, Magnesium 2.7 H D, Total Bilirubin 0.7, AST 54 H, ALT 25, Alkaline Phosphatase 146 H, Total Protein 4.8 L, Albumin 2.2 L D, Globulin 2.6, Albumin/Globulin Ratio 0.8 L I & O for Labs for Last 24 Hours: Intake & Output 11/13/23 11/14/23 11/15/23 11/16/23 23:59 23:59 23:59 23:59 Intake Total 1999 750 / 870 720 / 1060 460 / 460 Output Total 0 / 250 400 / 400 350 / 350 Balance 2000 / 1750 350 / 470 370 / 710 460 / 460 Weight 89.81 kg 84.414 kg 82.69 kg 82.69 kg Constitutional: Present no acute distress, obese, chronically ill appearing and cooperative Head: Present atraumatic and normocephalic ENT: Present normal exam Neck: Present normal inspection Respiratory: Present normal respiratory effort; Absent rhonchi, wheezes or crackles Cardiac: Present Reg Rate and Rhythm GI: Present soft and normal bowel sounds; Absent distention or tenderness Extremities: Present normal inspection, full ROM and edema (2+ in left lower extremity to knee, 1+ right lower extremity) Skin: Present intact; Absent erythema Neuro: Present Grossly Intact, alert, awake, oriented x 3 and moves all extremities Assessment and Plan *Assessment and plan (1) ESAU (acute kidney injury): Status: Acute Category: Medical Code(s): N17.9 - Acute kidney failure, unspecified (2) Hyponatremia: Status: Acute Category: Medical Code(s): E87.1 - Hypo-osmolality and hyponatremia (3) Hypoalbuminemia: Status: Acute Category: Medical Code(s): E88.09 - Other disorders of plasma-protein metabolism, not elsewhere classified (4) Pneumonia: Status: Acute Category: Medical Code(s): J18.9 - Pneumonia, unspecified organism (5) Acute exacerbation of CHF (congestive heart failure): Status: Acute Category: Medical Code(s): I50.9 - Heart failure, unspecified (6) Fracture of right fibula: Status: Acute Category: Medical Code(s): S82.401A - Unspecified fracture of shaft of right fibula, initial encounter for closed fracture (7) Hypertension: Status: Acute Category: Medical Code(s): I10 - Essential (primary) hypertension (8) Type 2 diabetes mellitus: Status: Chronic Qualifiers: 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 Patient is currently at halfway facility due to the rehab after treatment of fibular fracture. She was admitted due to symptomatic hyponatremia and mild confusion. Sodium showing improvement. Improved to 124 this morning. Tolerating p.o. repletion. Continues to have low albumin and edema. Not responding to diuresis. Given worsening kidney function, will transition to administering IV fluids today. Continues to require inpatient management. Patient's prognosis is guarded. Problems addressed as follows: Hypoalbuminemia Edema -Poor nutritional intake, low protein. Albumin 1.8 yesterday, administered 25 g of albumin overnight. Albumin 2.2 this morning. Creatinine remains elevated at 2.2, BUN 28. Will hold on diuresis and administer 1 L of LR at 200 cc an hour. Repeat BMP this afternoon to monitor kidney function and electrolytes. Repeat CMP in the morning to monitor albumin, kidney function, sodium. PNA likely gram negative organism -Stable on room air, pulmonary edema component. Unable to diurese however given hypoalbuminemia and poor response to diuretic with worsening kidney function. -Completed 5 days of antibiotics yesterday. -Currently on room air, supplemental oxygen as needed for goal sats greater than 90% -Cultures remain negative. Acute kidney injury - Baseline creatinine 1.0, worsening creatinine, 2.2 today, BUN 28. Changing course and administering IV fluids today for 1 L given poor p.o. intake. - Patient's hypoalbuminemia complicates volume status. Suspect she is third sp acing. Diabetes mellitus: Insulin sliding scale Hypertension Hyperlipidemia -Continue home Lipitor, xarelto, holding carvedilol with her soft blood pressures while we try to diurese. Heart rate controlled. Seizure disorder with history of Keppra, continue 500 mg twice daily Xarelto for DVT PPx Full code Diabetic diet with boost supplementation Plan for goals of care discussion with family today. Strong concern for patient's prognosis. Nutritional status appears to be worsening causing worsening edema. Concern with kidney function worsening, patient's prognosis guarded.
[2023-11-16] MEDS: MORPHINE 2MG/ML SYRINGE 2 MG IV ×2 (12:38→16:39)
[2023-11-16 16:22] LABS: POC Glucose,Bedside 198 (70-110)
[2023-11-16] MEDS: RIVAROXABAN 15MG TABLET 15 MG PO (16:35)
[2023-11-16 17:17] LABS: POC Glucose,Bedside 169 (70-110)
[2023-11-16 19:22] LABS: Chloride 98 mmol/L (98-107); Sodium 123 mmol/L (136-145)
[2023-11-16 19:23] LABS: Potassium 3.6 mmoL/L (3.5-5.1)
[2023-11-16 19:25] LABS: Blood Urea Nitrogen 32 mg/dl (7-17); Creatinine Clearance Estimated 28 mL/min (50-200); Estimated Glomerular Filt Rate 21 ml/min (>60); GFR (African American) 25 ML/MIN (>60)
[2023-11-16 19:26] LABS: Anion Gap 10.6 mEq/L (5-15); Calcium 7.9 mg/dl (8.4-10.2); Carbon Dioxide 18 mmol/L (22.0-30.0); Glucose 185 mg/dl (74-100)
--- NOTE | 2023-11-16 20:18 | PC.NURSE ---
patient voided small amt when bladder scan performe. scan result 175.
[2023-11-16 20:22] LABS: POC Glucose,Bedside 220 (70-110)
[2023-11-16] MEDS: ATORVASTATIN 40MG TABLET 80 MG PO (20:45)
[2023-11-16] MEDS: MELATONIN 5MG TABLET 5 MG PO (20:45)
[2023-11-16] MEDS: ALBUMIN 25% (12.5 GM) SOLN 50ML BOTTLE IV (21:51)
[2023-11-16] MEDS: FUROSEMIDE 40MG/4ML VIAL 40 MG IV (23:03)
[2023-11-16] MEDS: 0.9 % SODIUM CHLORIDE 500 ML 125 ML IV (23:03)
[2023-11-17] VITALS (13 sets, daily range): BP systolic 70–154; BP diastolic 30–97; PULSE 49–132; RESP 14–132; TEMP 36.4–36.8; O2SAT 91–99; BMI 33.5
--- NOTE | 2023-11-17 00:40 | PC.NURSE ---
0030 report given to hung gutierrez
--- NOTE | 2023-11-17 06:00 | XR_ITS ---
PROCEDURE INFORMATION: Exam: XR Chest Exam date and time: 11/17/2023 6:19 AM Age: 73 years old Clinical indication: Shortness of breath; Additional info: Increased SOA TECHNIQUE: Imaging protocol: Radiologic exam of the chest. Views: 1 view. COMPARISON: CR XR CHEST PORTABLE 11/12/2023 12:04 PM FINDINGS: Lungs: Persistent left lower lobe and left basilar atelectasis versus pneumonia. Left upper lobe and left apical lucency suggestive of emphysema. Pleural spaces: Mild left costophrenic angle blunting. Heart/Mediastinum: Heart size is stable. Obscured cardiac borders. Bones/joints: Chronic severe bilateral shoulder arthrosis. IMPRESSION: 1. Persistent left lower lobe and left basilar atelectasis versus pneumonia. 2. Small left pleural effusion. 3. Left upper lobe and left apical lucency suggestive of emphysema.
[2023-11-17 06:24] LABS: POC Glucose,Bedside 126 (70-110)
[2023-11-17 07:18] LABS: Chloride 100 mmol/L (98-107); Sodium 124 mmol/L (136-145)
[2023-11-17 07:19] LABS: Potassium 3.5 mmoL/L (3.5-5.1)
[2023-11-17 07:21] LABS: Alanine Aminotransferase 21 U/L (12-78); Albumin Level 2.1 g/dl (3.5-5.0); Alkaline Phosphatase 124 U/L (38-126); Anion Gap 8.5 mEq/L (5-15); Aspartate Amino Transferase 49 U/L (14-36); Bilirubin,Total 0.7 mg/dl (0.2-1.3); Blood Urea Nitrogen 38 mg/dl (7-17); Calcium 7.9 mg/dl (8.4-10.2); Carbon Dioxide 19 mmol/L (22.0-30.0); Creatine Kinase 22 U/L (30-135); Creatinine Clearance Estimated 26 mL/min (50-200); Estimated Glomerular Filt Rate 19 ml/min (>60); GFR (African American) 23 ML/MIN (>60); Globulin 2.2 g/dL (1.3-3.2); Glucose 124 mg/dl (74-100); Total Protein,Serum 4.3 g/dl (6.3-8.2)
--- NOTE | 2023-11-17 07:41 | EXP.ACUTE.PN ---
Subjective *Date: 11/17/23 *Time: 12:01 Interval history: Patient continues to complain of being sore all over and cold. No fever overnight. No nausea or vomiting. Continues to have very poor urine output but did respond to Lasix challenge last night. Unquantified urine output due to incontinence. Remained stable on room air. No nausea or vomiting. Appetite poor. Medical Exam Vital signs and Labs for Last 24 Hours: Vital Signs Temp Pulse Pulse Resp BP Pulse Ox O2 Del Method 11/17/23 04:00 97.6 F 78 18 96/52 L 99 11/17/23 04:40 Room Air 11/17/23 02:48 Room Air 11/17/23 01:00 Room Air 11/16/23 23:00 Room Air 11/16/23 21:00 Room Air 11/16/23 20:00 96 Room Air 11/16/23 20:00 97.6 F 90 18 124/57 L 96 Room Air 11/16/23 19:07 68 11/16/23 19:07 68 11/16/23 18:17 Room Air 11/16/23 16:00 97.5 F L 94 H 20 103/56 L 96 Room Air 11/16/23 16:53 Room Air 11/16/23 15:00 Room Air 11/16/23 12:58 85 11/16/23 12:58 88 11/16/23 12:50 Room Air 11/16/23 11:00 Room Air 11/16/23 09:00 Room Air 11/16/23 08:00 Room Air 11/16/23 08:00 97.9 F 89 16 88/42 L 96 Room Air Intake and Output 11/16/23 11/16/23 11/17/23 15:59 23:59 07:59 Intake Total 240 / 800 120 / 800 100 / 100 Output Total Balance 240 / 799 119 / 799 100 / 100 Intake: Intake, Oral Amount 240 / 600 120 / 600 Intake, Other Amount 100 / 100 Output: Output, Urine Amount Other: Number of Unmeasured Voids 1 Weight 82.69 kg Patient Weight 11/17/23 23:59 Weight 82.69 kg Laboratory Results - last 24 hr 11/12/23 12:52: Urine Osmolality 491 11/16/23 10:57: POC Glucose 198 H 11/16/23 16:34: POC Glucose 169 H 11/16/23 19:04: Sodium 123 L, Potassium 3.6, Chloride 98, Carbon Dioxide 18 L, Anion Gap 10.6, BUN 32 H, Creatinine 2.30 H, Estimated Creat Clear 28, Estimated GFR 21 L, Est GFR ( Amer) 25 L, Glucose 185 H D, Calcium 7.9 L 11/16/23 20:08: POC Glucose 220 H 11/17/23 06:14: POC Glucose 126 H 11/17/23 06:20: Sodium 124 L, Potassium 3.5, Chloride 100, Carbon Dioxide 19 L, Anion Gap 8.5, BUN 38 H, Creatinine 2.50 H, Estimated Creat Clear 26, Estimated GFR 19 L*, Est GFR ( Amer) 23 L, Glucose 124 H D, Calcium 7.9 L, Total Bilirubin 0.7, AST 49 H, ALT 21, Alkaline Phosphatase 124, Total Creatine Kinase 22 L, Total Protein 4.3 L, Albumin 2.1 L, Globulin 2.2, Albumin/Globulin Ratio 1.0 L I & O for Labs for Last 24 Hours: Intake & Output 11/14/23 11/15/23 11/16/23 11/17/23 23:59 23:59 23:59 23:59 Intake Total 750 / 870 720 / 1060 700 / 800 100 / 100 Output Total 400 / 400 350 / 350 Balance 350 / 470 370 / 710 699 / 799 100 / 100 Weight 84.414 kg 82.69 kg 82.69 kg 82.69 kg Constitutional: Present no acute distress, obese, chronically ill appearing and cooperative Head: Present atraumatic and normocephalic ENT: Present normal exam Neck: Present normal inspection Respiratory: Present crackles (Bases), diminished air movement (Especially left lower base) and normal respiratory effort; Absent rhonchi or wheezes Cardiac: Present Reg Rate and Rhythm GI: Present soft and normal bowel sounds; Absent distention or tenderness Extremities: Present normal inspection, full ROM and edema (3+ bilateral lower extremities) Skin: Present intact; Absent erythema Neuro: Present Grossly Intact, alert, awake, oriented x 3 and moves all extremities Assessment and Plan *Assessment and plan (1) ESAU (acute kidney injury): Status: Acute Category: Medical Code(s): N17.9 - Acute kidney failure, unspecified (2) Hyponatremia: Status: Acute Category: Medical Code(s): E87.1 - Hypo-osmolality and hyponatremia (3) Oliguria: Status: Acute Category: Medical Code(s): R34 - Anuria and oliguria (4) Hypoalbuminemia: Status: Acute Category: Medical Code(s): E88.09 - Other disorders of plasma-protein metabolism, not elsewhere classified (5) Pleural effusion: Status: Acute Category: Medical Code(s): J90 - Pleural effusion, not elsewhere classified (6) Acute exacerbation of CHF (congestive heart failure): Status: Acute Category: Medical Code(s): I50.9 - Heart failure, unspecified (7) Fracture of right fibula: Status: Acute Category: Medical Code(s): S82.401A - Unspecified fracture of shaft of right fibula, initial encounter for closed fracture (8) Hypertension: Status: Acute Category: Medical Code(s): I10 - Essential (primary) hypertension (9) Type 2 diabetes mellitus: Status: Chronic Qualifiers: Diabetes mellitus complication status: without complication 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 Patient is currently at long-term facility due to the rehab after treatment of fibular fracture. She was admitted due to symptomatic hyponatremia and mild confusion. Patient having worsening kidney function. Currently has metabolic acidosis with bicarb of 19 on morning labs. Having decreased urine output. Is hypoalbuminemic secondary to nutrition. Sodium stable. Still low however. Strong concern for patient's prognosis. Extensive discussion with family at bedside today. Continues to require inpatient management. Problems addressed as follows: Hypoalbuminemia Edema Hyponatremia -Poor nutritional intake, low protein. Albumin 2.1 today. Received albumin dose last night with Lasix challenge. Will continue albumin 12.5 g every 8 hours. Continue encourage nutritional intake with boost and Pro-Stat. Patient having third spacing and worsening pleural effusion. As she did not show improvement with IV fluids and her kidney function, will transition back to diuresis with Bumex 1 mg IV twice today. Would like to see patient be negative at least 1 L. Repeat labs this afternoon to monitor kidney function. Repeat CMP in the morning to monitor albumin, kidney function, sodium. -Transition from sodium chloride supplementation to sodium bicarb supplementation -Sodium 124 today. Chloride 100. PNA likely gram negative organism -Stable on room air, pulmonary edema component. Unable to diurese however given hypoalbuminemia and poor response to diuretic with worsening kidney function. -Completed 5 days of antibiotics -Currently on room air, supplemental oxygen as needed for goal sats greater than 90% -Cultures remain negative. Acute kidney injury - Baseline creatinine 1.0, worsening creatinine, 2.5 today, BUN 38. - Patient's hypoalbuminemia complicates volume status. Suspect she is third spacing. - Evaluation for rhabdomyolysis with CK of only 22. Low concern for rhabdo as cause of hekidney dysfunction r diabetes mellitus: Insulin sliding scale Hypertension Hyperlipidemia -Continue home Lipitor, xarelto, holding carvedilol with her soft blood pressures while we try to diurese. Heart rate controlled. Seizure disorder with history of Keppra, continue 500 mg twice daily Xarelto for DVT PPx Full code Diabetic diet with boost supplementation Plan for goals of care discussion with family today. Strong concern for patient's prognosis. Nutritional status appears to be worsening causing worsening edema. Concern with kidney function worsening, patient's prognosis guarded.
[2023-11-17] MEDS: IPRATROPIUM/ALBUTEROL 3 ML NEB IH ×3 (08:43→19:55)
[2023-11-17] MEDS: PANTOPRAZOLE 40MG TABLET 40 MG PO (10:05)
[2023-11-17] MEDS: SODIUM BICARBONATE 650MG TABLET 650 MG PO ×2 (10:06→13:00)
[2023-11-17] MEDS: MAGNESIUM OXIDE 400MG TABLET 400 MG PO (10:06)
[2023-11-17] MEDS: FERROUS SULFATE 325MG TABLET 325 MG PO (10:07)
[2023-11-17] MEDS: NYSTATIN TOPICAL POWDER 30GM TP (10:07)
[2023-11-17] MEDS: levETIRAcetam 500 MG TABLET PO (10:07)
[2023-11-17] MEDS: PRO-STAT AWC 30ML LIQUID PACKET 30 ML PO (10:07)
[2023-11-17] MEDS: BUMETANIDE 1MG/4ML VIAL 1 MG IV ×2 (10:08→17:41)
[2023-11-17] MEDS: MORPHINE 2MG/ML SYRINGE 2 MG IV ×2 (10:14→17:37)
[2023-11-17] MEDS: humaLOG 100 UNITS/ML 3ML VIAL (SSI) SQ (11:43)
[2023-11-17] MEDS: ALBUMIN HUMAN 50 ML 1.66670000000000007 GM IV ×2 (12:00→20:16)
[2023-11-17 12:07] LABS: POC Glucose,Bedside 181 (70-110)
[2023-11-17 17:17] LABS: Anion Gap 10.7 mEq/L (5-15); Blood Urea Nitrogen 43 mg/dl (7-17); Calcium 7.9 mg/dl (8.4-10.2); Carbon Dioxide 16 mmol/L (22.0-30.0); Chloride 100 mmol/L (98-107); Creatinine Clearance Estimated 26 mL/min (50-200); Estimated Glomerular Filt Rate 19 ml/min (>60); GFR (African American) 23 ML/MIN (>60); Glucose 139 mg/dl (74-100); Potassium 3.7 mmoL/L (3.5-5.1); Sodium 123 mmol/L (136-145)
[2023-11-17] MEDS: RIVAROXABAN 15MG TABLET 15 MG PO (17:45)
[2023-11-17 17:54] LABS: POC Glucose,Bedside 141 (70-110)
[2023-11-17 20:29] LABS: POC Glucose,Bedside 149 (70-110)
[2023-11-17] MEDS: HYDROCORTISONE SOD SUCCINATE 100MG VIAL 200 MG IV (20:54)
--- NOTE | 2023-11-17 21:13 | PC.NURSE ---
Admitting notified that patient to transfer up to [id number] per Andrez TERESA
[2023-11-17] MEDS: DOPAMINE HCL/D5W 400 MG/250 ML BAG IV (22:31)
--- NOTE | 2023-11-17 22:33 | PC.NURSE ---
DOPAMINE GTT STARTED @ 2200 @ 4MCG/KG/MIN DOPAMINE TURNED OFF @ 2222 DOPAMINE TURNED ON @ 1MCG/KG/MIN PER EQ, ANIMAL SURGEON ANIMAL SURGEON NOTIFIED OF TACHYCARDIA AND ANIMAL SURGEON ROUNDED ON PT AT THIS TIME; ANIMAL SURGEON OKAY WITH HR 130 AT THIS TIME
--- NOTE | 2023-11-17 22:56 | PC.NURSE ---
THIS RN TOOK OVER CARE FROM GONZALO, RN @ [phone]
--- NOTE | 2023-11-17 23:49 | P.EN_ITS ---
patient seen and evaluated as requested per bedside nurse. patient became hypotensive. MAP on 40's-50s. patient has been fluid overloaded with oliguria, anuric since 2.35pm this afternoon. initially started on dopamine renal dose 1- 3mcg, and clos monitoring of renal output. Patient continue to be anuric and became slightly tachycardic. bedside heart US was done with assistance of the ER provider. Resources very limited. However, seen to be on adequate EF. and there is aslo concerning for right side effusion. Therefore, therapy switched to levophed and bumex drip. Continue monitoring for renal output. In the setting of diuretic and kidneys injury(cardio-renal syndrome) renal function may deteriorate even more. Rationale of this therapy is increasing renal perfusion, reduce congestion, pulmonary edema peripheral edema, pulmonary edema and congestion required continue diuresis despite the changes on the GFr. If opposite effect is achieved, may us to thing on loop resistant, with the high posibility of the need of ultrafiltration. Plan discussed in length with ED provider, and bedside . Patient remains critical, upgraded to ICU. expressed the wish of make patient DNR. Will are continuing close monitoring.
[2023-11-18] VITALS (31 sets, daily range): BP systolic 66–127; BP diastolic 42–92; PULSE 88–137; RESP 9–19; TEMP 36.7–37.5; O2SAT 95–100; BMI 33.5
[2023-11-18] MEDS: BUMETANIDE 10 MG in 0.9 % SODIUM CHLORIDE 60 ML 5 MG IV ×2 (00:01→17:23)
[2023-11-18] MEDS: NOREPINEPHRINE BITARTRATE/D5W 8 MG/250 ML PLAST..BAG 15 MG IV (00:07)
[2023-11-18] MEDS: ALBUMIN 25% (12.5 GM) SOLN 50ML BOTTLE IV (02:09)
[2023-11-18] MEDS: ALBUMIN HUMAN 50 ML 1.66670000000000007 GM IV ×3 (04:34→20:44)
--- NOTE | 2023-11-18 05:48 | PC.NURSE ---
pt bp 70/30 manually. Dale Hernandez Aprn made aware. pt received iv albumin. New order for transfer to step-down. report given to Terri
[2023-11-18] MEDS: humaLOG 100 UNITS/ML 3ML VIAL (SSI) SQ ×3 (06:11→20:48)
[2023-11-18 06:14] LABS: POC Glucose,Bedside 175 (70-110)
--- NOTE | 2023-11-18 08:17 | EXP.ACUTE.PN ---
Subjective *Date: 11/18/23 *Time: 17:44 Interval history: Patient not as cold today per her report. Appears quite weak. Globally edematous (anasarca). Extensive discussion with family at bedside about goals of care and poor prognosis with her inadequate response to vasopressors and diuresis. Patient's urine output has been 60 cc in 8 hours. Not responding to Bumex drip. Discussed continuing with current plan and evaluating in the morning, family open to transitioning to hospice care at that time if kidneys do not show some improvement in function. Patient in mild pain, responding to morphine. Complaining of being short of breath but sats are in the 90s. Afebrile. Breathing more rhonchorous today. Medical Exam Vital signs and Labs for Last 24 Hours: Vital Signs Temp Pulse Pulse Resp BP Pulse Ox O2 Del Method 11/18/23 08:00 91 H 12 115/67 97 Room Air 11/18/23 07:00 88 109/53 L 97 Room Air 11/17/23 20:00 97.9 F 49 L 14 88/36 L 92 L 11/17/23 21:00 70/30 L 11/17/23 22:00 97.8 F 122 H 14 87/42 L 94 L Room Air 11/17/23 23:00 125 H 19 97/43 L 95 Room Air 11/18/23 00:00 98.6 F 137 H 18 115/92 H 95 Room Air 11/18/23 01:00 101 H 14 123/65 96 Room Air 11/18/23 02:00 90 18 116/62 96 Room Air 11/18/23 03:00 93 H 15 117/71 97 Room Air 11/18/23 04:00 98.6 F 91 H 12 113/50 L 97 Room Air 11/18/23 05:00 92 H 15 93/61 L 97 Room Air 11/18/23 06:00 92 H 15 110/59 L 97 Room Air 11/18/23 05:00 Room Air 11/18/23 04:00 Room Air 11/18/23 00:00 Room Air 11/18/23 00:00 130 H 11/18/23 04:00 92 H 12 113/50 L 98 Room Air 11/18/23 03:00 Room Air 11/18/23 01:00 Room Air 11/18/23 03:00 93 H 12 117/71 97 Room Air 11/18/23 02:00 97 H 12 116/62 98 Room Air 11/18/23 01:00 101 H 10 L 123/65 96 Room Air 11/18/23 00:00 98.6 F 137 H 16 115/92 H 95 11/17/23 23:00 125 H 15 97/43 L 95 Room Air 11/17/23 22:15 97.8 F 132 H 132 H 154/97 H 97 Room Air 11/17/23 20:00 Room Air 11/17/23 23:00 Room Air 11/17/23 20:19 101 H 95/73 L 11/17/23 19:55 90 11/17/23 19:55 92 H 11/17/23 18:58 Room Air 11/17/23 17:00 Room Air 11/17/23 15:00 Room Air 11/17/23 16:00 98.1 F 99 H 15 89/51 L 94 L Room Air 11/17/23 13:45 98 H 11/17/23 13:45 94 H 11/17/23 13:45 91 L Room Air 11/17/23 13:00 Room Air 11/17/23 11:00 Room Air 11/17/23 09:00 Room Air 11/17/23 08:48 98 Room Air 11/17/23 08:44 87 11/17/23 08:44 86 11/17/23 08:44 98 Room Air Intake and Output 11/17/23 11/18/23 11/18/23 23:59 07:59 15:59 Intake Total 170 / 540 39.375 / 127.375 88 / 127.375 Output Total 600 / 600 / 34 Balance -430 / -60 5.375 / 93.375 88 / 93.375 Intake: Intake, Oral Amount 120 / 390 Intake, Total IV Amount 39.375 / 127.375 88 / 127.375 Infusion Intake 50 / 50 Albumin Human 50 ml @ 1.6667 50 / 50 mls/min IV Q8H [facility] Rx#:[id number] Output: Output, Urine Amount 300 / 300 34 / 34 Output, Urine Amount (Catheter) 300 / 300 [place] 300 / 300 Other: Weight 82.69 kg Patient Weight 11/18/23 23:59 Weight 82.69 kg Laboratory Results - last 24 hr 11/17/23 11:43: POC Glucose 181 H 11/17/23 17:00: Sodium 123 L, Potassium 3.7, Chloride 100, Carbon Dioxide 16 L, Anion Gap 10.7, BUN 43 H, Creatinine 2.50 H, Estimated Creat Clear 26, Estimated GFR 19 L*, Est GFR ( Amer) 23 L, Glucose 139 H, Calcium 7.9 L 11/17/23 17:44: POC Glucose 141 H 11/17/23 20:22: POC Glucose 149 H 11/18/23 06:06: POC Glucose 175 H I & O for Labs for Last 24 Hours: Intake & Output 11/15/23 11/16/23 11/17/23 11/18/23 23:59 23:59 23:59 23:59 Intake Total 720 / 1060 700 / 800 540 / 540 127.375 / 127.375 Output Total 350 / 350 600 / 600 34 / 34 Balance 370 / 710 699 / 799 -60 / -60 93.375 / 93.375 Weight 82.69 kg 82.69 kg 82.69 kg 82.69 kg Constitutional: Present mild distress, obese, chronically ill appearing and cooperative Head: Present atraumatic and normocephalic ENT: Present normal exam Neck: Present normal inspection Respiratory: Present rhonchi, crackles (Bases), diminished air movement (Especially left lower base) and normal respiratory effort; Absent wheezes Cardiac: Present Reg Rate and Rhythm GI: Present soft and normal bowel sounds; Absent distention or tenderness Extremities: Present normal inspection, full ROM and edema (3+ edema in upper and lower extremities) Skin: Present intact; Absent erythema Neuro: Present Grossly Intact, alert, awake and moves all extremities Assessment and Plan *Assessment and plan (1) Acute renal failure with oliguria: Status: Acute Category: Medical Code(s): N17.9 - Acute kidney failure, unspecified; R34 - Anuria and oliguria (2) Anasarca associated with disorder of kidney: Status: Acute Category: Medical Code(s): N04.9 - Nephrotic syndrome with unspecified morphologic changes (3) Hyponatremia: Status: Acute Category: Medical Code(s): E87.1 - Hypo-osmolality and hyponatremia (4) Hypoalbuminemia: Status: Acute Category: Medical Code(s): E88.09 - Other disorders of plasma-protein metabolism, not elsewhere classified (5) Pleural effusion: Status: Acute Category: Medical Code(s): J90 - Pleural effusion, not elsewhere classified (6) Acute exacerbation of CHF (congestive heart failure): Status: Acute Qualifiers: Heart failure type: diastolic Qualified Code(s): I50.33 - Acute on chronic diastolic (congestive) heart failure Category: Medical Code(s): I50.9 - Heart failure, unspecified (7) Fracture of right fibula: Status: Acute Category: Medical Code(s): S82.401A - Unspecified fracture of shaft of right fibula, initial encounter for closed fracture (8) Hypertension: Status: Acute Category: Medical Code(s): I10 - Essential (primary) hypertension (9) Type 2 diabetes mellitus: Status: Chronic Qualifiers: Diabetes mellitus complication status: without complication Diabetes mellitus vermin exterminator insulin use: with vermin exterminator use Qualified Code(s): E11.9 - Type 2 diabetes mellitus without complications; Z79.4 - vermin exterminator (current) use of insulin Category: Medical Code(s): E11.9 - Type 2 diabetes mellitus without complications Plan Patient is a 73-year-old female with past medical history of chronic hyponatremia with sodium around 130, CHF, hypertension, diabetes mellitus who presented to hospital due to abnormal blood work. Patient is currently at [facility] facility due to the rehab after treatment of fibular fracture. She was admitted due to symptomatic hyponatremia and mild confusion. Patient having worsening kidney function. Patient's condition has worsened over the past 24 to 48 hours. Goals of care discussion with family, will proceed with current approach, if no improvement over the next 24 hours, decision to transition to hospice care at that time. Prognosis is grave, condition serious. Patient has had almost no urine output in the past 8 to 10 hours. Not responding to Bumex drip with norepinephrine. Continues to require inpatient management. Problems addressed as follows: Acute renal failure with oliguria Hypoalbuminemia Edema Hyponatremia -Sodium remains low at 123. Creatinine elevated 3.0, BUN 53, not tolerating p.o. bicarb very well. Continues to have metabolic acidosis with bicarb of 13. Repeat CBC, CMP, magnesium ordered for the morning. -Cortisol level 41, not consistent with adrenal insufficiency. No further steroids. Did not respond significantly to IV dose hydrocortisone -Patient has been on norepinephrine to maintain MAP greater than 65 with Bumex drip since approximately 3 AM. An adequate response. Has had 60 cc of urine output in 8 hours. Discussed goals of care, if no response to Bumex drip for volume overload over the next 24 hours, would like to transition to hospice care. PNA likely gram negative organism - pulmonary edema component. Unable to diurese however given hypoalbuminemia and poor response to diuretic with worsening kidney function. - White cell count increased today to 14.4. Will give one-time dose levofloxacin 750 mg IV -Remains afebrile -Currently on room air, supplemental oxygen as needed for goal sats greater than 90% -Cultures remain negative. Seizure disorder with history of Keppra, continue 500 mg twice daily Xarelto for DVT PPx DNR diabetic diet with boost supplementation
[2023-11-18] MEDS: IPRATROPIUM/ALBUTEROL 3 ML NEB IH ×3 (09:01→19:39)
[2023-11-18] MEDS: SODIUM BICARBONATE 650MG TABLET 650 MG PO (09:30)
[2023-11-18] MEDS: PANTOPRAZOLE 40MG TABLET 40 MG PO (09:30)
[2023-11-18] MEDS: FERROUS SULFATE 325MG TABLET 325 MG PO (09:30)
[2023-11-18] MEDS: MORPHINE 2MG/ML SYRINGE 2 MG IV ×4 (09:30→20:48)
[2023-11-18] MEDS: levETIRAcetam 500 MG TABLET PO (09:30)
[2023-11-18] MEDS: NYSTATIN TOPICAL POWDER 30GM TP (09:30)
[2023-11-18] MEDS: MAGNESIUM OXIDE 400MG TABLET 400 MG PO (09:30)
[2023-11-18 10:58] LABS: Basophils % 0.1 % (0.1-2.0); Eosinophils % 0.3 % (0.1-12.0); Hematocrit 35.4 % (37.0-47.0); Hemoglobin 12.8 g/dL (12.2-16.2); Lymphocytes # 1.7 K/mm3 (0.7-4.5); Mean Corpuscular HGB Conc 36.1 g/dL (31.8-35.4); Mean Corpuscular Hemoglobin 37.6 pg (27.0-31.2); Mean Corpuscular Volume 104.2 fl (81-99); Mean Platelet Volume 10.7 fl (7.4-10.4); Monocytes # 0.7 K/mm3 (0.1-1.0); Monocytes % 4.9 % (1.7-9.3); Neutrophils # 11.9 K/mm3 (1.8-7.8); Neutrophils % 82.7 % (37.0-80.0); Platelet Count 115 K/mm3 (142-424); Red Blood Count 3.39 M/mm3 (4.20-5.40); Red Cell Distribution Width 17.2 % (11.5-17.5); White Blood Count 14.4 K/mm3 (4.8-10.8)
[2023-11-18 10:59] LABS: Chloride 100 mmol/L (98-107)
[2023-11-18 11:00] LABS: Potassium 4.1 mmoL/L (3.5-5.1); Sodium 123 mmol/L (136-145)
[2023-11-18 11:02] LABS: Alanine Aminotransferase 22 U/L (12-78); Alkaline Phosphatase 89 U/L (38-126); Aspartate Amino Transferase 60 U/L (14-36); Bilirubin,Total 1.3 mg/dl (0.2-1.3); Blood Urea Nitrogen 53 mg/dl (7-17); Creatinine Clearance Estimated 22 mL/min (50-200); Estimated Glomerular Filt Rate 15 ml/min (>60); GFR (African American) 19 ML/MIN (>60)
[2023-11-18 11:03] LABS: Albumin Level 2.6 g/dl (3.5-5.0); Albumin/Globulin Ratio 1.2 (1.1-1.8); Anion Gap 14.1 mEq/L (5-15); Calcium 8.2 mg/dl (8.4-10.2); Carbon Dioxide 13 mmol/L (22.0-30.0); Globulin 2.2 g/dL (1.3-3.2); Glucose 165 mg/dl (74-100); Total Protein,Serum 4.8 g/dl (6.3-8.2)
[2023-11-18 11:16] LABS: Magnesium 2.9 mg/dl (1.6-2.3)
[2023-11-18] MEDS: LEVOFLOXACIN/D5W 750 MG/150 ML 750 MG/150 ML PIGGYBACK 100 MG IV (11:47)
[2023-11-18] MEDS: ONDANSETRON 4MG/2ML VIAL 4 MG IV (15:15)
--- NOTE | 2023-11-18 16:48 | PC.NURSE ---
increased levophed to 8mcg/min bp 92/47
[2023-11-18] MEDS: NOREPINEPHRINE BITARTRATE/D5W 8 MG/250 ML PLAST..BAG 22.5 MG IV (17:11)
[2023-11-18 17:27] LABS: POC Glucose,Bedside 163 (70-110)
--- NOTE | 2023-11-18 18:46 | PC.NURSE ---
titrated levophed drip to 12mcg/min (from 10mcg/min), bp 87/44 (53)
[2023-11-18 19:32] LABS: Chloride 100 mmol/L (98-107); Sodium 123 mmol/L (136-145)
[2023-11-18 19:33] LABS: Potassium 4.7 mmoL/L (3.5-5.1)
[2023-11-18 19:35] LABS: Blood Urea Nitrogen 59 mg/dl (7-17); Creatinine Clearance Estimated 20 mL/min (50-200); Estimated Glomerular Filt Rate 14 ml/min (>60); GFR (African American) 17 ML/MIN (>60)
[2023-11-18 19:36] LABS: Anion Gap 13.7 mEq/L (5-15); Calcium 8.6 mg/dl (8.4-10.2); Carbon Dioxide 14 mmol/L (22.0-30.0); Glucose 163 mg/dl (74-100)
[2023-11-18 20:44] LABS: POC Glucose,Bedside 188 (70-110)
--- NOTE | 2023-11-18 23:35 | PC.NURSE ---
LEVO INCREASED FROM 12 TO 14MCG/MIN
[2023-11-19] VITALS (17 sets, daily range): BP systolic 63–126; BP diastolic 34–75; PULSE 90–111; RESP 7–25; TEMP 36.5–37.6; O2SAT 92–98; BMI 36.3
[2023-11-19] MEDS: NOREPINEPHRINE BITARTRATE/D5W 8 MG/250 ML PLAST..BAG 26.25 MG IV (04:27)
[2023-11-19] MEDS: ALBUMIN HUMAN 50 ML 1.66670000000000007 GM IV (04:27)
[2023-11-19 05:44] LABS: POC Glucose,Bedside 162 (70-110)
[2023-11-19] MEDS: humaLOG 100 UNITS/ML 3ML VIAL (SSI) SQ (05:47)
[2023-11-19] MEDS: IPRATROPIUM/ALBUTEROL 3 ML NEB IH (05:50)
[2023-11-19 07:12] LABS: Basophils % 0.2 % (0.1-2.0); Eosinophils % 0.2 % (0.1-12.0); Hematocrit 39.2 % (37.0-47.0); Hemoglobin 12.9 g/dL (12.2-16.2); Lymphocytes # 2.6 K/mm3 (0.7-4.5); Lymphocytes % 15.1 % (10-50); Mean Corpuscular HGB Conc 32.9 g/dL (31.8-35.4); Mean Corpuscular Hemoglobin 34.1 pg (27.0-31.2); Mean Corpuscular Volume 103.6 fl (81-99); Mean Platelet Volume 9.7 fl (7.4-10.4); Monocytes # 0.9 K/mm3 (0.1-1.0); Monocytes % 5.2 % (1.7-9.3); Neutrophils # 13.7 K/mm3 (1.8-7.8); Neutrophils % 79.2 % (37.0-80.0); Platelet Count 105 K/mm3 (142-424); Red Blood Count 3.79 M/mm3 (4.20-5.40); Red Cell Distribution Width 17.1 % (11.5-17.5); White Blood Count 17.2 K/mm3 (4.8-10.8)
[2023-11-19 07:27] LABS: MANUAL DIFFERENTIAL MANUAL DIFFERENTIAL (MANUAL DIFF)
[2023-11-19 08:31] LABS: Chloride 98 mmol/L (98-107); Potassium 4.1 mmoL/L (3.5-5.1); Sodium 123 mmol/L (136-145)
[2023-11-19 08:33] LABS: Alanine Aminotransferase 22 U/L (12-78); Aspartate Amino Transferase 48 U/L (14-36); Blood Urea Nitrogen 65 mg/dl (7-17); Creatinine Clearance Estimated 20 mL/min (50-200); Estimated Glomerular Filt Rate 13 ml/min (>60); GFR (African American) 15 ML/MIN (>60)
[2023-11-19 08:34] LABS: Albumin/Globulin Ratio 1.4 (1.1-1.8); Alkaline Phosphatase 76 U/L (38-126); Anion Gap 16.1 mEq/L (5-15); Bilirubin,Total 1.5 mg/dl (0.2-1.3); Calcium 8.6 mg/dl (8.4-10.2); Carbon Dioxide 13 mmol/L (22.0-30.0); Globulin 2.2 g/dL (1.3-3.2); Glucose 163 mg/dl (74-100); Total Protein,Serum 5.2 g/dl (6.3-8.2)
[2023-11-19 09:17] LABS: Magnesium 3.1 mg/dl (1.6-2.3)
--- NOTE | 2023-11-19 09:49 | SW/DCPLANNER ---
Addendum entered by Khushi Walker 11/19/23 13:13: Per Neetu navarro/ [facility] patient is admitted Hospice inpatient as of 11:40AM today. Addendum entered by Khushi Walker 11/19/23 10:37: Neetu navarro/ Hospice will be onsite to evaluate patient and speak w/ family between 11-12PM. Original Note: Per MD and family request patient information has been faxed to Lydia navarro/ [facility]. I will follow up once Hospice nurse speaks w/ patient and family.
[2023-11-19] MEDS: MORPHINE 2MG/ML SYRINGE 4 MG IV (09:58)
--- NOTE | 2023-11-19 11:57 | PC.NURSE ---
METAL LATHER EVELIO ASSESSED PT AND SPOKE WITH MD LOMBARDO, PT BEING ADMITTED TO INPATIENT HOSPICE FOR COMFORT CARE, TURNING LEVOPHED TO 12MCG/MIN PER MD VERBAL ORDER, FAMILY AT BEDSIDE
[2023-11-19] MEDS: GLYCOPYRROLATE 0.2 MG/ML 1ML VIAL 0.200000000000000011 MG IV ×2 (12:04→16:35)
[2023-11-19 13:22] LABS: Lymphocytes % 13 % (10-50); Monocytes % 7 % (2-9); Neutrophils % 79 % (42-76); Total Cells Counted 100
[2023-11-19 13:23] LABS: Hypersegmented Neutrophils 1+; Platelet Estimate Slight Decrease
[2023-11-19 13:24] LABS: Burr Cells 1+
[2023-11-19 13:28] LABS: Anisocytosis 1+
[2023-11-19 13:29] LABS: Macrocytosis 1+; Poikilocytosis 1+
[2023-11-19 13:30] LABS: Spherocytes 1+
[2023-11-19] MEDS: MORPHINE 4MG/ML SYRINGE 4 MG IV ×2 (13:37→17:23)
--- NOTE | 2023-11-19 18:49 | EXP.ACUTE.PN ---
Subjective *Date: 11/19/23 *Time: 18:49 Interval history: Minimal responsiveness from patient today. No response to diuresis. Urine output poor. Continues on Levophed overnight. Had 80 cc of urine output over 24 hours on Bumex drip. Having prominent pain globally from her anasarca. More rhonchorous on exam. Family at bedside, requesting to transition to hospice. Hospice consult placed. Medical Exam Vital signs and Labs for Last 24 Hours: Vital Signs Temp Pulse Pulse Resp BP Pulse Ox O2 Del Method 11/19/23 17:00 Nasal Cannula 11/19/23 12:00 100 H 11/19/23 08:00 100 H 11/19/23 16:00 96 H 11/19/23 16:00 111 H 7 L 63/34 L 92 L Nasal Cannula 11/19/23 14:40 Nasal Cannula 11/19/23 13:00 Nasal Cannula 11/19/23 13:00 97.9 F 11/19/23 13:00 107 H 12 91/63 L 94 L Nasal Cannula 11/19/23 12:00 97 H 11 L 102/56 L 95 Nasal Cannula 11/19/23 11:00 99 H 11 L 81/60 L 95 Nasal Cannula 11/19/23 10:51 Nasal Cannula 11/19/23 09:00 Nasal Cannula 11/19/23 10:00 97 H 9 L 108/57 L 96 Nasal Cannula 11/19/23 09:00 102 H 16 91/64 L 95 Nasal Cannula 11/19/23 08:00 97.7 F 11/19/23 08:30 107 H 25 H 122/68 98 Nasal Cannula 11/19/23 08:00 101 H 17 78/61 L 97 Nasal Cannula 11/19/23 07:00 Nasal Cannula 11/19/23 07:00 101 H 12 117/72 97 Nasal Cannula 11/19/23 06:00 103 H 16 126/75 96 Nasal Cannula 11/19/23 05:50 90 11/19/23 05:50 95 H 11/19/23 03:00 Nasal Cannula 11/19/23 03:00 103 H 14 81/60 L 96 Nasal Cannula 11/19/23 02:00 108 H 15 116/63 94 L Nasal Cannula 11/19/23 01:00 111 H 19 80/53 L 96 Nasal Cannula 11/19/23 01:00 Nasal Cannula 11/19/23 00:00 99.6 F 104 H 15 101/54 L 96 Nasal Cannula 11/19/23 00:00 Nasal Cannula 11/19/23 00:00 110 H 11/18/23 20:00 104 H 11/18/23 23:00 99 H 12 72/51 L 98 Nasal Cannula 11/19/23 05:00 95 H 12 119/57 L 98 Nasal Cannula 11/19/23 05:00 Nasal Cannula 11/19/23 04:00 101 H 13 114/58 L 98 Nasal Cannula 11/19/23 04:00 Nasal Cannula 11/18/23 23:00 Nasal Cannula 11/18/23 22:00 99 H 14 112/59 L Nasal Cannula 11/18/23 21:00 107 H 12 87/42 L 97 Nasal Cannula 11/18/23 21:00 Nasal Cannula 11/18/23 20:00 99.5 F 95 H 15 108/49 L 98 11/18/23 20:00 Nasal Cannula 11/18/23 19:40 91 H 11/18/23 19:39 93 H O2 Flow Rate 11/19/23 17:00 11/19/23 12:00 11/19/23 08:00 11/19/23 16:00 11/19/23 16:00 11/19/23 14:40 11/19/23 13:00 11/19/23 13:00 11/19/23 13:00 11/19/23 12:00 11/19/23 11:00 11/19/23 10:51 11/19/23 09:00 11/19/23 10:00 11/19/23 09:00 11/19/23 08:00 11/19/23 08:30 11/19/23 08:00 11/19/23 07:00 2 11/19/23 07:00 2 11/19/23 06:00 2 11/19/23 05:50 11/19/23 05:50 11/19/23 03:00 2 11/19/23 03:00 2 11/19/23 02:00 2 11/19/23 01:00 2 11/19/23 01:00 2 11/19/23 00:00 2 11/19/23 00:00 2 11/19/23 00:00 11/18/23 20:00 11/18/23 23:00 2 11/19/23 05:00 2 11/19/23 05:00 2 11/19/23 04:00 2 11/19/23 04:00 2 11/18/23 23:00 2 11/18/23 22:00 2 11/18/23 21:00 2 11/18/23 21:00 2 11/18/23 20:00 11/18/23 20:00 2 11/18/23 19:40 11/18/23 19:39 Intake and Output 11/19/23 11/19/23 11/19/23 07:59 15:59 23:59 Intake Total 250 / 500.000 250.000 / 500.000 0 / 500.000 Output Total Balance 217 / 459.000 242.000 / 459.000 0 / 459.000 Intake: Intake, Oral Amount 0 / 0 0 / 0 Intake, Total IV Amount 250 / 500.000 250.000 / 500.000 Output: Output, Urine Amount 0 41 Other: Weight 89.443 kg Patient Weight 11/19/23 23:59 Weight 89.443 kg Laboratory Results - last 24 hr 11/18/23 18:40: Sodium 123 L, Potassium 4.7, Chloride 100, Carbon Dioxide 14 L, Anion Gap 13.7, BUN 59 H, Creatinine 3.20 H, Estimated Creat Clear 20, Estimated GFR 14 L*, Est GFR ( Amer) 17 L*, Glucose 163 H, Calcium 8.6 11/18/23 20:36: POC Glucose 188 H 11/19/23 05:21: POC Glucose 162 H 11/19/23 06:28: WBC 17.2 H, RBC 3.79 L, Hgb 12.9, Hct 39.2, MCV 103.6 H, MCH 34.1 H, MCHC 32.9, RDW 17.1, Plt Count 105 L, MPV 9.7, Neut % (Auto) 79.2, Lymph % (Auto) 15.1, [place] % (Auto) 5.2, Eos % (Auto) 0.2, Baso % (Auto) 0.2, Neut # (Auto) 13.7 H, Lymph # (Auto) 2.6, [place] # (Auto) 0.9, Eos # (Auto) 0.0, Baso # (Auto) 0.0, Total Counted 100, Neutrophils % (Manual) 79 H, Band Neutrophils % 1.0, Lymphocytes % (Manual) 13, Monocytes % (Manual) 7, Hypersegmented Neuts 1+, Platelet Estimate Slight decrease, Poikilocytosis 1+, Anisocytosis 1+, Macrocytosis 1+, Spherocytes 1+, Ovalocytes , [place] Cells 1+, Rouleaux , Sodium 123 L, Potassium 4.1, Chloride 98, Carbon Dioxide 13 L, Anion Gap 16.1 H, BUN 65 H, Creatinine 3.50 H, Estimated Creat Clear 20, Estimated GFR 13 L*, Est GFR ( Amer) 15 L*, Glucose 163 H, Calcium 8.6, Magnesium 3.1 H, Total Bilirubin 1.5 H, AST 48 H, ALT 22, Alkaline Phosphatase 76, Total Protein 5.2 L, Albumin 3.0 L D, Globulin 2.2, Albumin/Globulin Ratio 1.4 I & O for Labs for Last 24 Hours: Intake & Output 11/16/23 11/17/23 11/18/23 11/19/23 23:59 23:59 23:59 23:59 Intake Total 700 / 800 540 / 540 314.208 / 314.208 500.000 / 500.000 Output Total 600 / 600 84 / 84 41 / 41 Balance 699 / 799 -60 / -60 230.208 / 230.208 459.000 / 459.000 Weight 82.69 kg 82.69 kg 82.69 kg 89.443 kg Constitutional: Present moderate distress, obese, chronically ill appearing, cooperative and somnolent Head: Present atraumatic and normocephalic ENT: Present normal exam Neck: Present normal inspection Respiratory: Present rhonchi, crackles (Diffuse), diminished air movement (Especially left lower base) and normal respiratory effort; Absent wheezes Cardiac: Present Reg Rate and Rhythm GI: Present soft, tenderness (Nonfocal) and diminished bowel sounds; Absent distention Extremities: Present normal inspection, full ROM and edema (3+ globally) Skin: Present intact; Absent erythema Neuro: Present Grossly Intact, alert and moves all extremities Assessment and Plan *Assessment and plan (1) Acute renal failure with oliguria: Status: Acute Category: Medical Code(s): N17.9 - Acute kidney failure, unspecified; R34 - Anuria and oliguria (2) Anuria: Status: Acute Category: Medical Code(s): R34 - Anuria and oliguria (3) Anasarca associated with disorder of kidney: Status: Acute Category: Medical Code(s): N04.9 - Nephrotic syndrome with unspecified morphologic changes (4) Hyponatremia: Status: Acute Category: Medical Code(s): E87.1 - Hypo-osmolality and hyponatremia (5) Hypoalbuminemia: Status: Acute Category: Medical Code(s): E88.09 - Other disorders of plasma-protein metabolism, not elsewhere classified (6) Pleural effusion: Status: Acute Category: Medical Code(s): J90 - Pleural effusion, not elsewhere classified (7) Acute exacerbation of CHF (congestive heart failure): Status: Acute Qualifiers: Heart failure type: diastolic Qualified Code(s): I50.33 - Acute on chronic diastolic (congestive) heart failure Category: Medical Code(s): I50.9 - Heart failure, unspecified (8) Fracture of right fibula: Status: Acute Category: Medical Code(s): S82.401A - Unspecified fracture of shaft of right fibula, initial encounter for closed fracture (9) Hypertension: Status: Acute Category: Medical Code(s): I10 - Essential (primary) hypertension (10) Type 2 diabetes mellitus: Status: Chronic Qualifiers: Diabetes mellitus senior living insulin use: with sandfill operator surface use Diabetes mellitus complication status: without complication Qualified Code(s): E11.9 - Type 2 diabetes mellitus without complications; Z79.4 - staff trainer (current) use of insulin Category: Medical Code(s): E11.9 - Type 2 diabetes mellitus without complications Plan Patient is a 73-year-old female with past medical history of chronic hyponatremia with sodium around 130, CHF, hypertension, diabetes mellitus who presented to hospital due to abnormal blood work. [facility] treatment of fibular fracture. She was admitted due to symptomatic hyponatremia and mild confusion. Has failed to respond to treatment for her kidney dysfunction and hyponatremia. Condition has progressed and she has gone into multiorgan failure with worsening diastolic heart failure, anasarca, renal failure with anuria. Goals of care discussion yesterday and today with decision to transition to hospice care if no response to Bumex drip and Levophed. She has had only 80 cc of urine output in 24 hours on Levophed drip with Bumex drip. Creatinine worsening. Anasarca worsening. Decision made to move forward with hospice consult today. Will wean off Levophed drip. Discontinue Bumex drip. Medications adjusted as follows: Morphine increased to 4 mg every hour as needed for pain Glycopyrrolate 0.2 mg every 4 hours for secretion management Does not appear agitated at this time but will initiate Ativan if symptoms develop Wean off norepinephrine over an hour Discontinue Bumex Comfort feeds DNR
--- NOTE | 2023-11-19 20:17 | P.DN_ITS ---
Documented by User: Dale Hernandez APRN 11/19/23 20:20 Pronouncement Note Date and Time of Date of : 11/19/23 Time of : 19:57 PCOD Preliminary cause of : Multiple organ failure Contributing Factors (1) Acute renal failure with oliguria: (2) Anuria: (3) Anasarca associated with disorder of kidney: (4) Hyponatremia: (5) Hypoalbuminemia: (6) Pleural effusion: (7) Acute exacerbation of CHF (congestive heart failure): (8) Fracture of right fibula: (9) Hypertension: (10) Type 2 diabetes mellitus: Additional Data Confirmation of : no pulse, no respirations and no heart sounds Family: at bedside Attending/PCP notified?: No Attending physician: Zeferino Tomas MD Was code activated?: No Autopsy requested?: No road test examiner notified?: Yes Organ bank notified?: Yes Advance directives: Yes Documented by User: Jaxson Cohen MD 11/19/23 22:52 Pronouncement Note PCOD Preliminary cause of : Acute renal failure Contributing Factors (1) Acute renal failure with oliguria: (2) Anuria: (3) Anasarca associated with disorder of kidney: (4) Hyponatremia: (5) Hypoalbuminemia: (6) Pleural effusion: (7) Acute exacerbation of CHF (congestive heart failure): (8) Fracture of right fibula: (9) Hypertension: (10) Type 2 diabetes mellitus: Summary Additional details: Patient is a 73-year-old female with past medical history of chronic hyponatremia with sodium around 130, CHF, hypertension, diabetes mellitus who presented to hospital due to abnormal blood work. [facility] after recent admission with kidney injury and dehydration. She presented to the hospital and was found to have symptomatic hyponatremia and mild confusion. Attempts to replace her sodium had limited success. Kidney function progress during admission. Had worsening renal failure and anasarca. Patient ultimately was initiated on norepinephrine and Bumex drip with no improvement or ability to diurese given her total body volume overload. As there was no improvement in renal output over 24 hours on a Bumex drip, decision made to transition to hospice for multiorgan failure including diastolic heart failure, respiratory failure due to volume overload anasarca, renal failure with anuria. Patient was admitted to hospice. Norepinephrine was discontinued. Patient's condition deteriorated ultimately resulting in her passing away over the course the afternoon. Problems addressed as follows during her admission. Acute renal failure with oliguria Hypoalbuminemia Edema Hyponatremia -Sodium initially 113-114. Attempts to replace with normal saline were unsuc cessful, sodium, slightly worse. Concerning for SIADH. Patient was fluid restricted, diuresed, and given hypertonic saline. Sodium improved to low 120s. Unfortunately her kidney function declined regardless of attempts to challenge kidneys with albumin and diuretics. Developed anuria. Extensive discussion with family over course of hospitalization about goals of care and possible treatment options with transfer to attempt dialysis versus comfort measures. It was felt in discussion that dialysis would be futile and not improve quality. Patient had been through previous episodes with her stroke and COVID where she developed oliguric renal failure but had recovered. Fortunately we saw no recovery or improvement at this time. Decision made to proceed with hospice consult. Patient admitted to hospice and approximately 10 hours later. PNA likely gram negative organism -Concern for pneumonia on imaging. Patient has had multiple recent admissions to the hospital over the past 2 months. Pulmonary edema component. Unable to diurese however given hypoalbuminemia and poor response to diuretic with worsening kidney function. Was initiated on antibiotics and treated with em piric course. Respiratory failure worsened his volume overload worsened. Cultures remains negative. Seizure disorder with history of Keppra, continue 500 mg twice daily. No seizures during admission. Patient's CODE STATUS has been changed to DNR. In the days preceding her transition to hospice. Additional Data Confirmation of : pupils fixed and dilated Attending/PCP notified?: Yes Attending physician: Jaxson Cohen MD
--- NOTE | 2023-11-19 20:20 | EXP.DEATH.DS ---
Documented by User: Dale Hernandez, HISTORIOGRAPHY PROFESSOR 11/20/23 02:31 Discharge Sum: Prov Provider Primary care physician: Abiodun Moon MD Visit Care Team Role Provider Type Abiodun Moon MD Primary Care Provider Staff Physician Zoya Downs DO Emergency Provider ER Physician Zeferino Tomas MD Admit Provider Staff Physician Attending Provider Consults: 11/19/23 07:18 Consult to Hospice [CONS] Routine Comment: end of life care Consulting Provider: Discharge Sum: Diag Contributing Factors (1) Acute renal failure with oliguria: (2) Anuria: (3) Anasarca associated with disorder of kidney: (4) Hyponatremia: (5) Hypoalbuminemia: (6) Pleural effusion: (7) Acute exacerbation of CHF (congestive heart failure): (8) Fracture of right fibula: (9) Hypertension: (10) Type 2 diabetes mellitus: Discharge Sum: Summary Date and Time Date of admission: 11/12/23 13:59 Date of : 11/19/23 Time of : 19:57 Hospital Course prior to Hospital Course Information: Patient is a 73-year-old female with past medical history of chronic hyponatremia with sodium around 130s, CHF, hypertension, diabetes mellitus who presented to hospital due to abnormal blood work. Patient is currently at detention facility due to the rehab after treatment of fibular fracture. At time of my evaluation patient is alert awake able to hold normal conversations. Patient mentions she was sent to the hospital because she had a yeast infection and her blood sugar was down. Patient appears confused about her reason for admission. Otherwise patient denied fever chills diarrhea constipation dysuria. On further evaluation to the hospital arrival patient was found to have sodium 116, creatinine 1.6 with a baseline of around 1.0. Assessment Hyponatremia likely hypovolemic hypoosmolar Bilateral lower extremity swelling Acute on chronic CHF Started on IV Lasix, every 6 hours BMP Check urine sodium, plasma osmolality, urine osmolality, FeNa Closely monitor sodium level Patient has a history of chronic hyponatremia, but we will order seizure precautions Consult cardiology PNA likely gram negative organism start IV levaquin and vanocmycin check PCT blood cultures Acute kidney injury Baseline creatinine 1.0, closely monitor creatinine on Lasix Diabetes mellitus Insulin sliding scale Hypertension coreg Hx of afib on xarelto DVT PPx - on Xarelto for DVT PPx 02/10 patient became hypotensive. MAP on 40's-50s. patient has been fluid overloaded with oliguria, anuric since 2.35pm this afternoon. initially started on dopamine renal dose 1-3mcg, and clos monitoring of renal output. Patient continue to be anuric and became slightly tachycardic. bedside heart US was done with assistance of the ER provider. Resources very limited. However, seen to be on adequate EF. and there is aslo concerning for right side effusion. Therefore, therapy switched to levophed and bumex drip. Continue monitoring for renal output. In the setting of diuretic and kidneys injury(cardio-renal syndrome) renal function may deteriorate even more. Rationale of this therapy is increasing renal perfusion, reduce congestion, pulmonary edema peripheral edema, pulmonary edema and congestion required continue diuresis despite the changes on the GFr. If opposite effect is achieved, may us to thing on loop resistant, with the high posibility of the need of ultrafiltration. Plan discussed in length with ED provider, and bedside . Patient remains critical, upgraded to ICU. expressed the wish of make patient DNR. Will are continuing close monitoring. 11/17CXR IMPRESSION: 1. Persistent left lower lobe and left basilar atelectasis versus pneumonia. 2. Small left pleural effusion. 3. Left upper lobe and left apical lucency suggestive of emphysema. 11/19 Patient is a 73-year-old female with past medical history of chronic hyponatremia with sodium around 130, CHF, hypertension, diabetes mellitus who presented to hospital due to abnormal blood work. Patient is currently at detention facility due to the rehab after treatment of fibular fracture. She was admitted due to symptomatic hyponatremia and mild confusion. Has failed to respond to treatment for her kidney dysfunction and hyponatremia. Condition has progressed and she has gone into multiorgan failure with worsening diastolic heart failure, anasarca, renal failure with anuria. Goals of care discussion yesterday and today with decision to transition to hospice care if no response to Bumex drip and Levophed. She has had only 80 cc of urine output in 24 hours on Levophed drip with Bumex drip. Creatinine worsening. Anasarca worsening. Decision made to move forward with hospice consult today. Will wean off Levophed drip. Discontinue Bumex drip. Medications adjusted as follows: Morphine increased to 4 mg every hour as needed for pain Glycopyrrolate 0.2 mg every 4 hours for secretion management Does not appear agitated at this time but will initiate Ativan if symptoms develop Wean off norepinephrine over an hour Discontinue Bumex Comfort feeds DNR Summary Details: 11/19 patient was made DNR/DNI. hospice inpatient. Vasopressors was stopped per family wishes. No further intervention was requested. Patient moved to comfort measure only. [id number] Additional Data Confirmation of as documented by pronouncing clinician: no pulse, no respirations and no heart sounds Family: at bedside Attending/PCP notified?: No Attending physician: Zeferino Tomas MD Was code activated?: No Autopsy requested?: No merchandise examiner notified?: Yes Organ bank notified?: Yes Advance directives: Yes Hospice patient?: Yes Documented by User: Jaxson Cohen MD 11/20/23 22:54 Discharge Sum: Prov Provider Admitting clinician: Jaxson Cohen Attending physician on admission: Jaxson Cohen Pronouncing clinician: Dale Hernandez Discharge Sum: Diag PCOD Cause of : Acute renal failure with oliguria Contributing Factors (1) Acute renal failure with oliguria: (2) Anuria: (3) Anasarca associated with disorder of kidney: (4) Hyponatremia: (5) Hypoalbuminemia: (6) Pleural effusion: (7) Acute exacerbation of CHF (congestive heart failure): (8) Fracture of right fibula: (9) Hypertension: (10) Type 2 diabetes mellitus: Discharge Sum: Summary Additional Data Confirmation of as documented by pronouncing clinician: pupils fixed and dilated
--- NOTE | 2023-11-19 21:08 | PC.NURSE ---
@195 THIS PT WENT [facility] TO [facility]; MEDICAL STAFF ASSISTANT NOTIFIED AND ABSENT HEART TONES NOTED BY THIS RN AND EQ, MEDICAL STAFF ASSISTANT FAMILY AT BEDSIDE, MATERIAL REPROCESSING ASSOCIATE NOTIFIED, [facility] NOTIFIED, TRANSIT PLANNING MANAGER NOTIFIED AND RULED OUT [facility] WILL BE CALLED ONCE [facility] RULES OUT OR ACCEPTS PT.
--- NOTE | 2023-11-19 22:31 | PC.NURSE ---
[facility] NOTIFIED FAMILY AND PT WAS RULED OUT FROM [facility]ATION [facility] NOTIFIED FOR HABILITATION SPECIALIST PT'S DAUGHTER DEMANDED PT HAVE A FUZZY CREAM COLORED SWEATER ON AND THIS WAS PLACED ON PT BEFORE [facility] RULE OUT AND AUTOMATIC NAILING MACHINE FEEDER NOTIFIED; THIS RN WAS UNABLE TO REMOVE PIVX3 D/T SWEATER. ONCE HOME ARRIVES PIVX3 AND SWEATER WILL BE REMOVED IF REQUESTED BY HOME. DTR ( NOT NEXT OF KIN OR POA) LEFT BEDSIDE AND HAS NOT RETURNED TO UPDATE ON SITUATION. AND PERSON TO NOTIFY IN [facility] (DTR). WERE MADE AWARE AT THEIR DEPARTURE OF HOSPITAL THE EVENTS THAT WOULD TAKE PLACE AND THAT PT WOULD BE RELEASED TO [facility] PER THEIR WISHES.
--- NOTE | 2023-11-19 23:27 | PC.NURSE ---
[facility] REP: CRISTOBAL SANCHEZ
== END 2023-11-19 23:17 | disposition expired | DRG 193 ==
LOC: ER 12:23 → 2ND 13:13
PROVIDERS: Internal Medicine Adolescent Medicine; Nurse Practitioner Critical Care Medicine; Admitting Provider Internal Medicine; Emergency Provider Emergency Medicine; PCP Family Medicine; Visit Provider Internal Medicine
DX: J18.9 Pneumonia, unspecified organism (principal); I50.33 Acute on chronic diastolic (congestive) heart failure; E87.1 Hypo-osmolality and hyponatremia; N17.9 Acute kidney failure, unspecified; Z85.828 Personal history of other malignant neoplasm of skin; Z86.73 Personal history of transient ischemic attack (TIA), and cerebral infarction without residual deficits; I12.9 Hypertensive chronic kidney disease with stage 1 through stage 4 chronic kidney disease, or unspecified chronic kidney disease; N18.9 Chronic kidney disease, unspecified; E11.9 Type 2 diabetes mellitus without complications; Z87.891 Personal history of nicotine dependence; G40.909 Epilepsy, unspecified, not intractable, without status epilepticus; Z66 Do not resuscitate; Z51.5 Encounter for palliative care; E88.09 Other disorders of plasma-protein metabolism, not elsewhere classified; S82.401A Unspecified fracture of shaft of right fibula, initial encounter for closed fracture
CPT/HCPCS: 36415; 71045; 80048; 80053; 81001; 82533; 82550; 82570; 82803; 82962; 83690; 83735; 83880; 83930; 83935; 84145; 84300; 84443; 84484; 85007; 85025; 87081; 87086; 87636; 93005; 93306; 94640; 97163; 97166; 97530; 99285; J1956; J2405; P9047